=== PATIENT | female | born 1960 | race Caucasian/White ===

== ENCOUNTER → 2023-02-05 11:47 | Outpatient (BNVA) | payer BC, SELFPAY | PROVIDERS: Visit Provider Internal Medicine Pulmonary Disease | DX: R06.02 Shortness of breath (principal); Z87.891 Personal history of nicotine dependence | CPT/HCPCS: 36415; 80053; 83880; 85025 ==

== ENCOUNTER 2023-02-13 12:44 | Outpatient (CLI) | payer BC, SELFPAY ==
[2023-02-13 13:06] VITALS: PULSE 113; RESP 22; O2SAT 97
[2023-02-13 13:11] VITALS: PULSE 110
== END 2023-02-13 12:45 | disposition home or self-care (01) ==
LOC: RT 12:46
PROVIDERS: PCP Family Medicine; Visit Provider Internal Medicine Pulmonary Disease
DX: R06.02 Shortness of breath (principal)
CPT/HCPCS: 94060; 94618; 94729; J7613

== ENCOUNTER 2023-02-22 12:55 | Outpatient (CLI) | payer BC, SELFPAY ==
--- NOTE | 2023-02-22 13:00 | USCV_ITS ---
Lora Dsouza Age: 62 Gender: F : 1960 Exam Date: 02/22/2023 13:39 Ordering Phys: Mika Luna MD Technologist: Kia Campbell [place] [facility] [place]ication: SOB, COPD BP: 148 / 90 HR: 100 Rhythm: Sinus Technical Quality: Adequate MEASUREMENTS (Male / Female) Normal Values 2D ECHO LV Diastolic Diameter PLAX 2.9 cm 4.2 - 5.9 / 3.9 - 5.3 cm LV Systolic Diameter PLAX 2.3 cm IVS Diastolic Thickness 1.2 cm 0.6 - 1.0 / 0.6 - 0.9 cm IVS Systolic Thickness 1.9 cm LVPW Diastolic Thickness 3.2 cm 0.6 - 1.0 / 0.6 - 0.9 cm LVPW Systolic Thickness 1.8 cm LVOT Diameter 2.0 cm LV Ejection Fraction 2D Teich 80.0 % LA Diameter 2.3 cm LA Width 3.1 cm LA Height 3.0 cm RA Width 2.9 cm RA Height 2.7 cm Aorta at Sinotubular Diameter 2.9 cm IVC Diameter 1.2 cm M-MODE MV E Point Septal Separation 1.0 cm DOPPLER AV Peak Velocity 197.0 cm/s LVOT Peak Velocity 93.0 cm/s AV Area Cont Eq vti 1.8 cm squared AV Area Cont Eq pk 1.5 cm squared MV Peak Velocity 110.0 cm/s MV Area PHT 4.9 cm squared Mitral E to A Ratio 0.6 MV E' Velocity 37.0 cm/s Mitral E to MV E' Ratio 7.8 Mitral E to LV E' Lateral Ratio 8.6 Mitral E to LV E' Septal Ratio 7.2 TR Peak Velocity 100.2 cm/s TR Peak Gradient 4.0 mmHg Right Atrial Pressure 5.0 mmHg Pulmonary Artery Systolic Pressu 9.0 mmHg PV Peak Velocity 85.0 cm/s RV Acceleration Time 0.1 s RV Ejection Time 0.3 s RV AcT/ET 0.4 FINDINGS Left Ventricle Normal left ventricular size, systolic function and wall thickness, with no regional wall motion abnormalities. Left ventricular ejection fraction is estimated at 55 %. Grade I/IV diastolic dysfunction (abnormal relaxation filling pattern), normal to mildly elevated filling pressures. Right Ventricle Normal right ventricular size and systolic function. Normal right ventricular systolic pressure. Right Atrium The right atrium is normal in size. Left Atrium The left atrium is normal in size. Mitral Valve Structurally normal mitral valve without significant stenosis or prolapse. There is no mitral regurgitation. Aortic Valve Structurally normal aortic valve without significant sclerosis or stenosis. There is no aortic regurgitation. Tricuspid Valve Structurally normal tricuspid valve without significant stenosis or regurgitation. Pulmonary artery systolic pressure is normal. Pulmonic Valve Pulmonic valve not well visualized. Pericardium Normal pericardium without effusion. Aorta Normal ascending aorta dimension. IVC The inferior vena cava appears normal. CONCLUSIONS Normal left ventricular size, systolic function and wall thickness, with no regional wall motion abnormalities. Left ventricular ejection fraction is estimated at 55 %. Grade I/IV diastolic dysfunction (abnormal relaxation filling pattern), normal to mildly elevated filling pressures. There are no prior echocardiogram studies to compare. Dr. Toney Jacobson MD (Electronically Signed) Final Date: 22 February 2023 17:10 S
== END 2023-02-22 12:56 | disposition home or self-care (01) ==
LOC: RAD 12:57
PROVIDERS: PCP Family Medicine; Visit Provider Internal Medicine Pulmonary Disease
DX: R06.02 Shortness of breath (principal); J44.9 Chronic obstructive pulmonary disease, unspecified; I51.89 Other ill-defined heart diseases
CPT/HCPCS: 93306

== ENCOUNTER 2023-02-26 13:13 | Outpatient (CLI) | payer BC, SELFPAY ==
--- NOTE | 2023-02-26 13:30 | CT_ITS ---
WS: [id number] LDCT LUNG CANCER SCREENING TECHNIQUE: Noncontrast CT of the chest with coronal and sagittal reformatted images. CLINICAL INFORMATION: Cancer screen COMPARISON: None. DLP: 40.71 mGy.cm DIvol: Mean CTDIvol: 0.70 (mGy) All CT scans at [facility] use at least one of these dose optimization techniques: automat ed exposure control; mA and/or kV adjustment per patient size (includes targeted exams where dose is matched to clinical indication); or iterative reconstruction. FINDINGS: Tiny 3 mm nodule LEFT upper lobe anteriorly. Tiny calcified granuloma RIGHT lower lobe medi ally. Advanced chronic emphysematous changes. No acute pulmonary infiltrates. Slight bibasilar atelectasis. Aneurysmal ascending thoracic aorta measuring 4.2 CM. Normal caliber descending thoracic aorta. Mild aortic calcification. Mild coronary calcification. No axillary lymphadenopathy. Adrenal glands are n ormal. Chronic appearing anterior wedging with compression involving the T6 vertebral body. Loss of a pproximately 30% vertebral body height. No retropulsion. CT/CT lung screening [id number] IMPRESSION:Aneurysmal ascending thoracic aorta measuring 4.2 CM. This can be fu rther evaluated with CTa chest LUNG-RADS: 2S-Benign Appearance or Behavior with Significant Findings FOLLOW UP:
== END 2023-02-26 13:14 | disposition home or self-care (01) ==
PROVIDERS: PCP Family Medicine; Visit Provider Internal Medicine Pulmonary Disease
DX: Z12.2 Encounter for screening for malignant neoplasm of respiratory organs (principal); Z87.891 Personal history of nicotine dependence
CPT/HCPCS: 71271

== ENCOUNTER 2023-03-29 16:51 | Outpatient (CLI) | payer BC, SELFPAY ==
--- NOTE | 2023-03-29 17:15 | XR_ITS ---
WS: [id number] EXAMINATION: XR chest 2V* [id number] REASON FOR EXAM: sob COMPARISON: None available. ORDER DATE: 03/29/2023 5:15 PM FINDINGS: The lungs are clear of infiltrate. There is asymmetry in the suzanne with asymmetric prominence of the right hilum.. There are no significant pleural effusions . No significant abnormalities are noted in the spine or remainder of the bony thorax. IMPRESSION: ASYMMETRIC PROMINENCE OF THE RIGHT HILUM WITH NO PREVIOUS STUDIES AVAILABLE FOR COMPARISON, THIS RAIS ES THE POSSIBILITY OF HILAR NEOPLASM AND/OR ADENOPATHY. RECOMMEND OBTAINING PREVIOUS STUDIES FOR COMP ARISON OR CT IMAGING OF THE CHEST WITH CONTRAST TO FURTHER EVALUATE
== END 2023-03-29 16:52 | disposition home or self-care (01) ==
PROVIDERS: PCP Family Medicine; Visit Provider Internal Medicine Pulmonary Disease
DX: J44.9 Chronic obstructive pulmonary disease, unspecified (principal); J96.10 Chronic respiratory failure, unspecified whether with hypoxia or hypercapnia; R91.8 Other nonspecific abnormal finding of lung field
CPT/HCPCS: 71046

== ENCOUNTER 2023-04-24 14:40 | Outpatient (CLI) | payer BC, SELFPAY ==
--- NOTE | 2023-04-24 15:00 | CT_ITS ---
WS: [id number] CT chest wo con [id number] HISTORY: right hilar prominece TECHNIQUE: Axial imaging performed through the thorax. Coronal and sagittal reformats are submitted. All CT scans at [facility] use at least one of these dose optimization techniques: automated exposure control; mA and/or kV adjustment per patient size (includes targeted exams where dose is mat ched to clinical indication); or iterative reconstruction. CONTRAST: None DLP: 241.58 mGy.cm COMPARISON: Chest radiograph 03/29/2023. Prior CT 02/26/2023 Lungs and central airway: Moderate chronic centrilobular emphysema. Mild dependent changes or scarrin g at the lung bases. There are a few scattered micronodules which are less than 3 mm. No mass or pulm onary nodule. Pleura: Normal. No pleural effusion. Heart and pericardium: Normal size heart with no pericardial effusion. Mediastinum and suzanne: Small mediastinal and hilar lymph nodes. Lack of IV contrast decreases sensitiv ity of the hilar and mediastinal regions for abnormalities. No interval change since 02/26/2023. Vessels: Ectatic mildly dilated ascending aorta to 4.2 cm. Normal caliber descending aorta. Pulmonary artery size is mildly prominent. Scattered mild coronary artery calcifications. Chest wall and lower neck: No soft tissue masses. Upper abdomen: No adrenal mass. Contracted gallbladder. Cholelithiasis. Osseous structures: Anterior wedging of T6. 20% compression fracture. Similar to 02/26/2023. IMPRESSION: 1. No mass or adenopathy identified at the RIGHT hilum on this unenhanced exam. Lack of IV contrast d oes limit sensitivity for small masses or lymph nodes. 2. Chronic emphysema. 3. Ascending thoracic aortic aneurysm at 4.2 cm.
== END 2023-04-24 14:41 | disposition home or self-care (01) ==
LOC: RAD 14:41
PROVIDERS: PCP Family Medicine; Visit Provider Internal Medicine Pulmonary Disease
DX: R91.8 Other nonspecific abnormal finding of lung field (principal); J43.9 Emphysema, unspecified; I71.21 Aneurysm of the ascending aorta, without rupture
CPT/HCPCS: 71250

== ENCOUNTER → 2023-10-16 14:43 | Outpatient (BNVA) | payer BC, SELFPAY | PROVIDERS: PCP Family Medicine; Visit Provider Nurse Practitioner Family | DX: J06.9 Acute upper respiratory infection, unspecified (principal) | CPT/HCPCS: 87400 ==

== ENCOUNTER 2024-01-03 16:48 | Inpatient (IN) | payer BC, SELFPAY ==
[2024-01-03] VITALS (7 sets, daily range): BP systolic 115–139; BP diastolic 70–80; PULSE 106–121; RESP 18–28; TEMP 36.8–37.1; O2SAT 89–95; BMI 22.3
--- NOTE | 2024-01-03 16:59 | ECG_ITS ---
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 Measurements Intervals [place] Rate: 122 P: 70 NM: 139 QRS: 89 QRSD: 85 T: 60 QT: 298 QTc: 426 Interpretive Statements SINUS TACHYCARDIA No previous ECG available for comparison Electronically Signed On 01-04-2024 12:34:26 CDT by Milton Sen M.D. [email or web address]
--- NOTE | 2024-01-03 16:59 | XRR_ITS ---
PROCEDURE INFORMATION: Exam: XR Chest Exam date and time: 01/03/2024 5:04 PM Age: 63 years old Clinical indication: Shortness of breath; Patient HX: Patient has copd. ; Additional info: SOB TECHNIQUE: Imaging protocol: Radiologic exam of the chest. Views: 1 view. COMPARISON: CT chest [facility] [id number] 04/24/2023 3:19 PM FINDINGS: Lungs: No focal consolidation. Pleural spaces: No pleural effusion. No pneumothorax. Heart/Mediastinum: No cardiomegaly. Bones/joints: No acute findings. XR/XR chest 1V portable [id number] IMPRESSION: No acute findings.
[2024-01-03 17:11] LABS: Basophils % 0.4 %; Eosinophils # 0.2 10^3/uL (0.0-0.8); Eosinophils % 1.6 %; Hematocrit 41.7 % (36-47); Lymphocytes # 0.9 10^3/uL (0.8-4.8); Lymphocytes % 8.3 %; Mean Corpuscular HGB Conc 27.3 g/dL (30-55); Mean Corpuscular Hemoglobin 23.4 pg (27-33); Mean Corpuscular Volume 85.5 fl (85-98); Mean Platelet Volume 11.5 fL (7.4-10.4); Monocytes # 0.8 10^3/uL (0.2-0.9); Monocytes % 7.2 %; Neutrophils # 8.71 10^3/uL (1.8-7.7); Neutrophils % 79.8 %; Nucleated Red Blood Cells % 0 %; Platelet Count 486 10^3/cmm (157-399); Red Blood Count 4.88 10^6/uL (3.85-5.65); Red Cell Distribution Width 18.4 % (12.1-15.1); White Blood Count 10.89 10^3/uL (3.29-11.43)
--- NOTE | 2024-01-03 17:14 | ED_ITS ---
HPI - SOB/Dyspnea 2 General: Chief Complaint: Shortness of Breath/Dyspnea Stated Complaint: sob Time Seen by Provider: 01/03/24 17:03 Source: patient and EMS Mode of arrival: EMS Limitations: no limitations History of Present Illness: HPI Narrative: 63-year-old female has extensive history of COPD states she wears 3 L of oxygen at baseline she states she is having increasing shortness of breath the last 3 days EMS states she is hypoxic she is currently on 6 L of oxygen here she denies any new cough or fever denies any pain. She is in distress here. Associated symptoms: Deny abdominal pain, chest pain, fever(s), nausea or vomiting Review of Systems 2 Const: Denies: fever(s), chills, body aches or change in appetite ENMT: Denies: throat pain or dental pain Card: Denies: chest pain Resp: Reports: dyspnea and wheezing GI: Denies: abdominal pain, nausea, vomiting or diarrhea Musc: Denies: neck pain or back pain Skin/Breast: Denies: rash Neuro: Denies: headache(s) PFSH ED 2 PFSH: Medical History GERD (gastroesophageal reflux disease) Essential hypertension Anxiety Hypertension Insomnia COPD (chronic obstructive pulmonary disease) Surgical History History of History of tonsillectomy Family History Other Dementia Stroke Denies family history of Diabetes CAD (coronary artery disease) Clotting disorder Hyperlipidemia Psychiatric illness Chronic kidney disease (CKD) Anesthesia complication Bleeding disorder Lung disease Cancer Hypertension Social History Smoking and tobacco/nicotine status: former use of tobacco/nicotine Quit status (tobacco/nicotine): has quit using Year quit tobacco: 2020 Former quit date comment: 1 ppd X 40 years Second hand smoke exposure: Yes Alcohol intake: current Alcohol intake frequency: holidays/special occasions only Alcohol type: beer Substance/Drug Use: never Marital status: Number of children: 5 Number of grandchildren: 9 service: No Current occupational status: disabled Current occupational exposures/hazards: No Pets and animals: Yes Current gender identity: Female Physical Exam 2 Const: COMMON NORMALS: patient oriented x3 GENERAL APPEARANCE: in distress HENMT: COMMON NORMALS: normocephalic and atraumatic HEAD & SCALP: n ormocephalic and atraumatic Eye: COMMON NORMALS: Equal, round and reactive pupils present and EOMs intact bilaterally PUPIL: Yes Equal, round and reactive pupils present Neck/C-Spine: COMMON NORMALS: full ROM and supple Chest: COMMONS NORMALS: normal inspection of the chest Resp: COMMON NORMALS: No retractions EFFORT & INSPECTION: Yes tachypneic and Yes respiratory distress AUSCULTATION: wheezes Cardio: COMMON NORMALS: regular rhythm and No murmurs present (Cardio) R ATE: tachycardic RHYTHM: regular rhythm GI: COMMON NORMALS: Normal to inspection, nondistended, normoactive bowel sounds present, Soft to palpation, non-tender and no masses PALPATION: Yes Soft to palpation Extremity: COMMON NORMALS: normal to inspection and full ROM Neuro: COMMON NORMALS: patient oriented x3, moves all extremities and no focal motor deficits Psych: COMMON NORMALS: mental status grossly normal, Normal thought process present and cooperative THOUGHT PROCESS: Normal thought process present Skin: COMMON NORMALS: no rashes or lesions noted and no wounds GENERAL SKIN EXAM: no rashes or lesions noted Course 2 Vital Signs: Vital signs: Vital Signs Temperature 98.7 F 01/03/24 16:50 Pulse Rate 121 H 01/03/24 17:01 Respiratory Rate 20 H 01/03/24 17:01 Blood Pressure 132/78 01/03/24 17:01 Pulse Oximetry 93 01/03/24 17:40 Oxygen Delivery Me thod Nasal Cannula 01/03/24 17:01 Oxygen Flow Rate 6 01/03/24 17:01 Fraction of Inspir ed Oxygen 40 01/03/24 17:40 MDM - SOB/Dyspnea Medical Decision Making Patient presents here with a COPD exacerbation. She was hypercapnic and hypoxic here she was started on a BiPAP she is much improved here on BiPAP she is receiving breathing treatments along with steroids as well. X-ray shows no signs of pneumonia spoke to the hospitalist will admit at this time. Medical Records I reviewed the patient's medical records. Lab Data I reviewed the patient's lab results. 01/03/24 16:35 01/03/24 17:39 Labs/Radiology: Radiology Impressions Chest X-Ray 01/03/24 16:59 IMPRESSION: No acute findings. Laboratory Results WBC 10.89 10^3/uL (3.29-11.43) 01/03/24 16:35 RBC 4.88 10^6/uL (3.85-5.65) 01/03/24 16:35 Hgb 11.40 g/dL (11.27-16.99) 01/03/24 16:35 Hct 41.7 % (36-47) 01/03/24 16:35 MCV 85.5 fl (85-98) 01/03/24 16:35 MCH 23.4 pg (27-33) L 01/03/24 16:35 MCHC 27.3 g/dL (30-55) L 01/03/24 16:35 RDW 18.4 % (12.1-15.1) H 01/03/24 16:35 Plt Count 486 10^3/cmm (157-399) H 01/03/24 16:35 MPV 11.5 fL (7.4-10.4) H 01/03/24 16:35 Neut % (Auto) 79.8 % 01/03/24 16:35 Lymph % (Auto) 8.3 % 01/03/24 16:35 [place] % (Auto) 7.2 % 01/03/24 16:35 Eos % (Auto) 1.6 % 01/03/24 16:35 Baso % (Auto) 0.4 % 01/03/24 16:35 Neut # (Auto) 8.71 10^3/uL (1.8-7.7) H 01/03/24 16:35 Lymph # (Auto) 0.9 10^3/uL (0.8-4.8) 01/03/24 16:35 [place] # (Auto) 0.8 10^3/uL (0.2-0.9) 01/03/24 16:35 Eos # (Auto) 0.2 10^3/uL (0.0-0.8) 01/03/24 16:35 Baso # (Auto) 0.0 10^3/uL (0.0-0.1) 01/03/24 16:35 Nucleated RBC % (auto) 0 % 01/03/24 16:35 Nucleated RBCs # 0.0 /100WBC 01/03/24 16:35 PT 12.60 SECONDS (12.1-14.9) 01/03/24 17:39 INR 0.92 (0.8-1.2) 01/03/24 17:39 Specimen Type Arterial 01/03/24 17:12 Sample Site Brachial, left 01/03/24 17:12 ABG pH 7.24 (7.35-7.45) L 01/03/24 17:12 ABG pCO2 109.0 mmHg (35-45) H* 01/03/24 17:12 ABG pO2 72.8 mmHg (80.0-100.0) L 01/03/24 17:12 ABG PO2/FiO2 Ratio 0 01/03/24 17:12 ABG HCO3 46.2 mmol/L (22-26) H 01/03/24 17:12 ABG Base Excess 14.5 mmol/L (-2.0-2.0) H 01/03/24 17:12 Erik Test N/a 01/03/24 17:12 Hematocrit 35.7 % (37-47) L 01/03/24 17:12 Hgb O2 Saturation 90.5 % (95-100) L 01/03/24 17:12 Carboxyhemoglobin 2.5 %THgb (0.4-20.1) 01/03/24 17:12 Methemoglobin 0.6 % (0.4-1.5) 01/03/24 17:12 Total Hemoglobin 11.7 g/dL (12-16) L 01/03/24 17:12 O2 Delivery Device Nc 01/03/24 17:12 O2 Liters/Min 5.0 % 01/03/24 17:12 FiO2 40.0 % 01/03/24 17:12 Consultant Electronics ID Amh 01/03/24 17:12 Sodium 142 mmol/L (136-145) 01/03/24 17:39 Potassium 3.9 mmol/L (3.5-5.1) 01/03/24 17:39 Chloride 95 mmol/L (98-107) L 01/03/24 17:39 Carbon Dioxide 44 mmol/L (22-29) H* 01/03/24 17:39 Anion Gap 6.9 (5-19) 01/03/24 17:39 BUN 12 mg/dL (8-23) 01/03/24 17:39 Creatinine 0.5 mg/dL (0.5-0.9) 01/03/24 17:39 GFR Calculation 125.0 mL/min (90-130) 01/03/24 17:39 Glucose 130 mg/dL (65-115) H 01/03/24 17:39 Calculated Osmolality 296 mOsm/kg (285-295) H 01/03/24 17:39 Calcium 9.0 mg/dL (8.5-10.5) 01/03/24 17:39 Total Bilirubin 0.2 mg/dL (0.15-1.2) 01/03/24 17:39 AST 25 U/L (0-32) 01/03/24 17:39 ALT 12 U/L (0-33) 01/03/24 17:39 Alkaline Phosphatase 80 U/L (35-105) 01/03/24 17:39 NT-Pro-B Natriuret Pep 1795 pg/mL (0-125) H 01/03/24 17:39 Total Protein 7.6 g/dL (6.6-8.7) 01/03/24 17:39 Albumin 3.9 g/dL (3.5-5.2) 01/03/24 17:39 Globulin 3.7 g/dL (1.3-4.6) 01/03/24 17:39 All radiology interpretation(s) finalized by discharge Critical Care Time 2 Critical Care Time: Critical Care Time: Yes Total Critical Care Time: 40 Attestation: The high probability of a clinically significant, sudden or life threatening deterioration of the patient's resp system(s) required my full and direct attention, intervention and personal management. The critical care time is as shown. This time is in addition to time spent performing any reported procedures but includes the following: [x] Data and vital sign review and interpretation [x] Patient assessment, examination and intervention [x] Documentation [x] Medication orders and management Discharge Plan Discharge Patient Disposition: Admitted As Inpatient Admit Provider: Fritz Curry Clinical Impression: Acute exacerbation of chronic obstructive airways disease, Acute respiratory failure with hypoxia and hypercapnia Condition: Stable Coding Level of Care Code ED Junior Accountant for Umesh Salmon
[2024-01-03 17:23] LABS: ABG PH Result 7.24 (7.35-7.45); Arterial Blood Gas Hematocrit 35.7 % (37-47); Base Excess ABG 14.5 mmol/L (-2.0-2.0); Blood Gas Operator Identificat AMH; Blood Gas Sample Site Brachial, left; Blood Gas Sample Type Arterial; Carboxyhemoglobin 2.5 %THgb (0.4-20.1); HCO3 ABG 46.2 mmol/L (22-26); HGB O2 Sat 90.5 % (95-100); Methemoglobin 0.6 % (0.4-1.5); Oxygen Device NC; PO2 ABG 72.8 mmHg (80.0-100.0); PO2 FiO2 Ratio Arterial Blood 0; Total Hemoglobin 11.7 g/dL (12-16)
[2024-01-03 17:59] LABS: INR 0.92 (0.8-1.2)
[2024-01-03 18:17] LABS: Alanine Aminotransferase 12 U/L (0-33); Albumin Level 3.9 g/dL (3.5-5.2); Alkaline Phosphatase 80 U/L (35-105); Anion Gap 6.9 (5-19); Aspartate Amino Transferase 25 U/L (0-32); Blood Urea Nitrogen 12 mg/dL (8-23); Chloride 95 mmol/L (98-107); Creatinine Clr Calc Pharmacy 103.8825; Globulin 3.7 g/dL (1.3-4.6); Glucose 130 mg/dL (65-115); NT Pro B Type Natriuretic Pept 1795 pg/mL (0-125); Osmolality Calculated 296 mOsm/kg (285-295); Potassium 3.9 mmol/L (3.5-5.1); Sodium 142 mmol/L (136-145); Total Bilirubin 0.2 mg/dL (0.15-1.2); Total Protein 7.6 g/dL (6.6-8.7)
[2024-01-03 18:45] LABS: Carbon Dioxide 44 mmol/L (22-29)
--- NOTE | 2024-01-03 21:07 | P.HP_ITS ---
Providers/Chief Complaint 2 Admitting Physician: Fritz Curry MD Primary Care Provider: Zoran Stern MD Chief Complaint: sob History of Present Illness Pleasant 63-year-old lady with history of COPD, chronically on 3 L nasal cannula oxygen is accompanied by her after coming in to the ER with progressive shortness of breath over the last 3 days, with more dyspnea, cough productive of purulent appearing of beige sputum, found to be in worsened hypoxia, requiring 6 L of oxygen initially, was found to be in hypercapnic respiratory acidosis on ABG, started on BiPAP. Review of Systems 2 Const: Denies: fever(s), chills, body aches or malaise ENMT: Denies: throat pain Card: Denies: chest pain, edema, pre-syncope or dyspnea on exertion Resp: Reports: dyspnea, productive cough and change in phlegm color GI: Denies: abdominal pain, nausea, vomiting, diarrhea, constipation, hematochezia or melena : Denies: flank pain, urinary frequency or hematuria Musc: Denies: back pain, joint swelling or joint redness Skin/Breast: Denies: rash or new lesions Neuro: Denies: headache(s), numbness in extremities, weakness in extremities or confusion Endo: Denies: polyuria or polydipsia Medications/Allergies Home Medications Medication Instructions Recorded Confirmed Last Taken Type albuterol sulfate 2.5 mg/3 mL 2.5 mg inhalation Q4H PRN 02/05/23 11/22/23 Unknown History (0.083 %) solution for nebulization ibuprofen 400 mg tablet 400 mg PO Q6H 02/05/23 11/22/23 Unknown History sennosides 8.6 mg-docusate sodium 1 tab-cap PO BID PRN 02/05/23 11/22/23 Unknown History 50 mg capsule wheelchair #1 ea 04/10/23 11/22/23 Unknown Rx megestrol 400 mg/10 mL (10 mL) 200 mg (5 mL) PO DAILY 30 days 05/23/23 11/22/23 Unknown Rx oral suspension #1,000 mL fluticasone 500 mcg-salmeterol 50 See Rx Instructions .Route 08/16/23 11/22/23 Unknown Rx mcg/dose blistr powdr for .COMPLEX #60 blisters inhalation pantoprazole 40 mg tablet,delayed 40 mg PO DAILY #90 tabs 08/16/23 11/22/23 Unknown Rx release (Protonix) albuterol sulfate 90 mcg/actuation See Rx Instructions .Route 09/13/23 11/22/23 Unknown Rx aerosol inhaler .COMPLEX #8.5 grams prednisone 20 mg tablet 40 mg (2 x 20 mg) PO DAILY 5 days 10/16/23 11/22/23 Unknown Rx #10 tabs tiotropium bromide 2.5 2 puff inhalation DAILY #4 grams 10/29/23 11/22/23 Unknown Rx mcg/actuation mist for inhalation (Spiriva Respimat) fluticasone propionate 50 See Rx Instructions .Route 11/15/23 11/22/23 Unknown Rx mcg/actuation nasal .COMPLEX #48 grams spray,suspension lisinopril 20 mg tablet (Zestril) 20 mg PO DAILY #90 tabs 11/19/23 11/22/23 Unknown Rx ropinirole 0.5 mg tablet 0.5 mg PO DAILY #90 tabs 11/19/23 11/22/23 Unknown Rx sertraline 50 mg tablet (Zoloft) 50 mg PO DAILY #90 tabs 11/19/23 11/22/23 Unknown Rx trazodone 50 mg tablet See Rx Instructions .Route 11/19/23 11/22/23 Unknown Rx .COMPLEX #90 tabs fluticasone furoate 200 1 inh inhalation Q24H #60 ea 11/22/23 11/22/23 Unknown Rx mcg-vilanterol 25 mcg/dose inhalation powder (Breo Ellipta) Home oxygen concentrator #1 ea 12/27/23 Unknown Rx Portable oxygen concentrator #1 ea 12/27/23 Unknown Rx oxygen tubing and mask equipment #1 ea 12/27/23 Unknown Rx Allergies Allergy/AdvReac Type Severity Reaction Status Date / Time No Known Allergies Allergy Verified 11/22/23 13:47 PFSH Acute 2 PFSH: Medical History GERD (gastroesophageal reflux disease) Essential hypertension Anxiety Hypertension Insomnia COPD (chronic obstructive pulmonary disease) Surgical History History of History of tonsillectomy Family History Other Dementia Stroke Denies family history of Diabetes CAD (coronary artery disease) Clotting disorder Hyperlipidemia Psychiatric illness Chronic kidney disease (CKD) Anesthesia complication Bleeding disorder Lung disease Cancer Hypertension Social History Smoking and tobacco/nicotine status: former use of tobacco/nicotine Quit status (tobacco/nicotine): has quit using Year quit tobacco: 2019 Former quit date comment: 1 ppd X 40 years Second hand smoke exposure: Yes Alcohol intake: current Alcohol intake frequency: holidays/special occasions only Alcohol type: beer Substance/Drug Use: never Marital status: Number of children: 5 Number of grandchildren: 9 service: No Current occupational status: disabled Current occupational exposures/hazards: No Pets and animals: Yes Current gender identity: Female Vitals/I&O/Wt Last Vital Signs Temp 98.7 F 01/03/24 16:50 Pulse 106 H 01/03/24 19:44 Resp 22 H 01/03/24 19:44 BP 139/80 01/03/24 19:44 Pulse Ox 91 01/03/24 19:44 O2 Del Method Nasal Cannula 01/03/24 17:01 O2 Flow Rate 6 01/03/24 17:01 FiO2 40 01/03/24 17:40 Weight last 48 hrs Weight 58.967 kg Physical Exam 2 Narrative: Accompanied by her . Const: COMMON NORMALS: patient oriented x3 and alert GENERAL APPEARANCE: c ooperative ORIENTATION/CONSCIOUSNESS: Yes awake HENMT: COMMON NORMALS: oropharynx normal Neck/C-Spine: COMMON NORMALS: no JVD Resp: AUSCULTATION: diminished lung sounds Cardio: COMMON NORMALS: no JVD, regular rhythm, S1 normal heart sound present, S2 normal heart sound present and No murmurs present (Cardio) RHYTHM: regular rhythm HEART SOUNDS: S1 normal heart sound present and S2 normal heart sound present GI: COMMON NORMALS: Normal to inspection, nondistended, normoactive bowel sounds present, Soft to palpation and non-tender PALPATION: Yes Soft to palpation Extremity: COMMON NORMALS: no joint enlargement and no pedal edema Neuro: COMMON NORMALS: patient oriented x3 and moves all extremities S ENSORIUM/ORIENTATION: Yes alert Skin: COMMON NORMALS: no rashes or lesions noted GENERAL SKIN EXAM: no rashes or lesions noted Data 01/03/24 16:35 01/03/24 17:39 A&P Assessment and plan (1) Acute exacerbation of chronic obstructive airways disease: Giurgius additionally, productive cough with purulent appearing sputum, worse hypoxia than usual requiring 6 L, and with hypercapnic respiratory acidosis, hypoxic and hypercapnic respiratory failure with severe exacerbation of COPD. Reviewed vitals, CBC, INR, ABG, CMP, chest x-ray, EKG on my interpretation with sinus tachycardia, pending official read, reviewed ER note, discussed with daytime hospitalist. Discussed with respite therapist. Continue BiPAP support 8- to prevent overnight. Target oxygen saturation 80 and further hypercapnia. Discussed treatment with IV steroids, antibiotic, add Rocephin 1 g every 24 hours, breathing treatments. Monitor for risk of hyperglycemia, hypertension with IV steroids. Risk of tachycardia with breathing treatments. Continuous pulse oximetry with BiPAP. Sputum culture, urine bacterial antigens. Respiratory viral panel. (2) Acute respiratory failure with hypoxia and hypercapnia: As above. Plan GERD: Continue PPI HTN: Monitor blood pressures, cardiac diet. Confirm home medications. Anxiety Insomnia Requesting to confirm home medications, please review and resume as appropriate. Attestations 2 Medical Necessity Statement*: Admission over 2 midnights anticipated for assessment and management of severe exacerbation of COPD with hypercapnic and hypoxic respiratory failure. Diagnoses Acute exacerbation of chronic obstructive airways disease J44.1 Acute respiratory failure with hypoxia and hypercapnia J96.01; J96.02
[2024-01-03] MEDS: trazodone 50 mg Tablet PO (21:39)
[2024-01-03] MEDS: cefTRIAXone 1,000 MG in sodium chloride 0.9% (plus) 50 ML 100 MG IV (21:39)
[2024-01-03] MEDS: methylPREDNISolone sod succ 40 mg/mL INJ 30 MG IVP (21:41)
[2024-01-04] VITALS (23 sets, daily range): BP systolic 119–144; BP diastolic 64–82; PULSE 89–116; RESP 16–27; TEMP 36.4–36.8; O2SAT 74–97
[2024-01-04] MEDS: ipratropium-albuterol 3 mL Neb INHALATION ×7 (00:02→23:30)
[2024-01-04 02:00] LABS: Adenovirus Not Detected (NOT DETECT); Chlamydia Pneumoniae Not Detected (NOT DETECT); Coronavirus 229E,HKU1,NL63,OC4 Not Detected (NOT DETECT); Human Metapneumovirus Not Detected (NOT DETECT); Human Rhinovirus/Enterovirus Not Detected (NOT DETECT); Influenza A Not Detected (NOT DETECT); Influenza A H1 Not Detected (NOT DETECT); Influenza A H1-2009 Not Detected (NOT DETECT); Influenza A H3 Not Detected (NOT DETECT); Influenza B Not Detected (NOT DETECT); Mycoplasma Pneumoniae Not Detected (NOT DETECT); Parainfluenza Virus Type 1 Not Detected (NOT DETECT); Parainfluenza Virus Type 2 Not Detected (NOT DETECT); Parainfluenza Virus Type 3 Not Detected (NOT DETECT); Parainfluenza Virus Type 4 Not Detected (NOT DETECT); Respiratory Syncytial Virus A Not Detected (NOT DETECT); Respiratory Syncytial Virus B Not Detected (NOT DETECT); SARS-COV-2 Not Detected (NOT DETECT)
[2024-01-04] MEDS: methylPREDNISolone sod succ 40 mg/mL INJ 30 MG IVP (02:47)
[2024-01-04 05:13] LABS: Basophils % 0.4 %; Hematocrit 42.3 % (36-47); Lymphocytes # 0.4 10^3/uL (0.8-4.8); Lymphocytes % 3.6 %; Mean Corpuscular HGB Conc 26.7 g/dL (30-55); Mean Corpuscular Hemoglobin 22.6 pg (27-33); Mean Corpuscular Volume 84.4 fl (85-98); Mean Platelet Volume 11.6 fL (7.4-10.4); Monocytes # 0.1 10^3/uL (0.2-0.9); Monocytes % 0.7 %; Neutrophils # 9.59 10^3/uL (1.8-7.7); Neutrophils % 89.2 %; Nucleated Red Blood Cells % 0 %; Platelet Count 513 10^3/cmm (157-399); Red Blood Count 5.01 10^6/uL (3.85-5.65); Red Cell Distribution Width 18.1 % (12.1-15.1); White Blood Count 10.74 10^3/uL (3.29-11.43)
[2024-01-04 05:31] LABS: Anion Gap 8.5 (5-19); Blood Urea Nitrogen 11 mg/dL (8-23); Calcium 9.1 mg/dL (8.5-10.5); Chloride 92 mmol/L (98-107); Glomerular Filtration Rate 225.4 mL/min (90-130); Glucose 162 mg/dL (65-115); Osmolality Calculated 291 mOsm/kg (285-295); Potassium 4.5 mmol/L (3.5-5.1); Sodium 139 mmol/L (136-145)
[2024-01-04 05:59] LABS: Creatinine Clr Calc Pharmacy 159.7155
[2024-01-04 06:00] LABS: Carbon Dioxide 43 mmol/L (22-29)
[2024-01-04 06:14] LABS: Slide Review Slide Review Perform
[2024-01-04] MEDS: methylPREDNISolone sod succ 40 mg/mL INJ 60 MG IVP ×3 (08:45→20:07)
--- NOTE | 2024-01-04 09:11 | PC.CHAP ---
Pastoral Care Encounter/Spiritual Assessment Type of Contact [x] Declined casing tier visit [] Patient/Family/Request visit [] Outpatient visit [] Follow-up visit [] Physician referral [] Code/Alert [] Routine visit [] Staff referral [] Actively dying [] Patient sleeping [] Family support [] [] Out of room [] Palliative care [] [] Receiving care in room [] Pre-surgical visit [] Trauma [] Long length of stay [] ICU visit [] Other: Relational/Emotional Strength [] Patient feels connected with others/family/visitors/staff [] Distress [] Loneliness/isolation [] Abandonment Spirituality of Patient [] Person of Radha [] Attends Restoration of their Radha [] Believes in Prayer [] Reads Bible or Uatsdin materials [] There are Spiritual issues to be addressed Professor Of Psychiatry Interventions [] Prayer [] Active listening [] Non-anxious presence [] Spiritual/emotional support [] Crisis/trauma care [] Spiritual counseling [] Bereavement support [] Provided bereavement packet [] Provided Bible/devotional materials [] Provided toy/stuffed animal, coloring book to patient or family member [] Provided Communion [] Anointing/[place] [] Salvation [] Completed spiritual assessment [] Other: Impact on Illness or Injury [] Angry [] Fearful [] Anxious [] Often cries [] Exhaustion [] Unable to work [] Unable to attend anglican [] Unable to walk/stand [] Unable to read [] Unable to drive [] Unable to eat/drink [] Unable to sleep [] Unable to be with family [] Patient intubated [] Other: Summary Time spent with patient
[2024-01-04 11:05] LABS: ABG PH Result 7.29 (7.35-7.45); Alveolar-Arterial Oxygen Gradi 9.1 mmHg (5-10); Arterial Blood Gas Hematocrit 34.9 % (37-47); Base Excess ABG 15.2 mmol/L (-2.0-2.0); Blood Gas Operator Identificat glc; Blood Gas Sample Site Brachial, right; Blood Gas Sample Type Arterial; Carboxyhemoglobin 1.9 %THgb (0.4-20.1); HCO3 ABG 45.6 mmol/L (22-26); HGB O2 Sat 92.3 % (95-100); Ionized Calcium Level - ABG 1.3 mmol/L (1.1-1.4); Methemoglobin 0.4 % (0.4-1.5); Oxygen Device NC; Oxygen Saturation ABG 94.6; PO2 ABG 74.7 mmHg (80.0-100.0); PO2 FiO2 Ratio Arterial Blood 0; Potassium Level - ABG 3.7 mmol/L (3.5-5.0); Total Hemoglobin 11.4 g/dL (12-16)
[2024-01-04 11:17] LABS: ABG PCO2 95.2 mmHg (35-45)
[2024-01-04 15:50] LABS: ABG PH Result 7.37 (7.35-7.45); Alveolar-Arterial Oxygen Gradi 10.6 mmHg (5-10); Arterial Blood Gas Hematocrit 34.7 % (37-47); Base Excess ABG 18.9 mmol/L (-2.0-2.0); Blood Gas Operator Identificat glc; Blood Gas Sample Site Brachial, left; Blood Gas Sample Type Arterial; HCO3 ABG 48.1 mmol/L (22-26); HGB O2 Sat 89.9 % (95-100); Ionized Calcium Level - ABG 1.2 mmol/L (1.1-1.4); Methemoglobin 0.1 % (0.4-1.5); Oxygen Device BIPAP; Oxygen Saturation ABG 91.8; PO2 FiO2 Ratio Arterial Blood 0; Total Hemoglobin 11.3 g/dL (12-16)
--- NOTE | 2024-01-04 15:51 | P.PN_ITS ---
Subjective 2 Subjective: Seen and examined this afternoon. Patient continues to be on BiPAP. This morning pH was 7.29/95.2/74.7/45.6. Since then patient has been on continuous BiPAP. We are repeating a blood gas now to look for interim development. Patient is alert awake, able to have a conversation though does get pretty tachypneic in conversation. Medications: Reviewed: Yes Vitals/I&O/Wt Last Vital Signs Temp 97.8 F 01/04/24 11:32 Pulse 107 H 01/04/24 15:34 Resp 21 H 01/04/24 11:34 BP 119/71 01/04/24 11:32 Pulse Ox 91 01/04/24 15:34 O2 Del Method BiPAP 01/04/24 11:34 O2 Flow Rate 6 01/04/24 08:50 FiO2 36 01/04/24 15:34 01/04/24 01/04/24 01/04/24 06:59 14:59 22:59 Intake Total 240 / 290 720 / 720 Balance 240 / 290 720 / 720 Weight last 48 hrs Weight 48.035 kg Weight 48.035 kg Weight 44.452 kg Weight 58.967 kg Physical Exam 2 Narrative: General: Easily gets tachypneic in conversation. Currently on a BiPAP with facemask. HEENT: PERRLA, pupils bilaterally equal and reactive, pallors not present Chest: Conducted breath sounds Extremities: No edema clubbing or cyanosis Data 01/04/24 04:47 01/04/24 04:47 Micro: Microbiology 01/04/24 09:40 Gram Stain - Final Sputum - Expectorated Sputum 01/04/24 04:10 Legionella Urinary Antigen - Final Urine,Voided Bacterial Antigens - Final A&P Assessment and plan (1) Acute exacerbation of chronic obstructive airways disease: Acute on chronic COPD exacerbation. Patient is typically on 3 L/min supplemental O2. She has had COPD exacerbation before necessitating continuous BiPAP use. reports she was in the hospital for 11 days at that time. Has not been intubated before. Negative respiratory viral panel, chest x-ray without acute findings. Continue methylprednisolone 60 mg IV every 6 hours Continue duoneb q6h, add budesonide q12h empiric CTX to continue It appears patient was on hospice at some point in the past however this was discontinued due to clinical improvement. (2) Acute respiratory failure with hypoxia and hypercapnia: On Bipap/ AVAPS setting continue Bipap Serial C02 trending down , continue Bipap Plan DVT prophylaxis: Lovenox 40 mg PUD prophylaxis: Protonix. Attestations 2 Medical Necessity Statement*: Continued admission for hypercapnic respiratory failure needing continuous BiPAP. Coding Level of Care Code Acute Code for Chg Fwd High MDM includes number and complexity of problems actively addressed during encounter, amount and/or complexity of data reviewed/ordered and described risk of complication, morbidity or mortality of management as documented Diagnoses Acute exacerbation of chronic obstructive airways disease J44.1 Acute respiratory failure with hypoxia and hypercapnia J96.01; J96.02
[2024-01-04 16:15] LABS: ABG PCO2 83.9 mmHg (35-45)
[2024-01-04] MEDS: budesonide 0.5 mg/2 mL Neb INHALATION (20:20)
[2024-01-04 20:35] LABS: ABG PH Result 7.36 (7.35-7.45); Arterial Blood Gas Hematocrit 35.3 % (37-47); Base Excess ABG 17.8 mmol/L (-2.0-2.0); Blood Gas Sample Site Brachial, right; Blood Gas Sample Type Arterial; HCO3 ABG 47.1 mmol/L (22-26); Oxygen Device BIPAP; PO2 ABG 57.7 mmHg (80.0-100.0); PO2 FiO2 Ratio Arterial Blood 0
[2024-01-04 20:36] LABS: ABG PCO2 83.9 mmHg (35-45)
[2024-01-04] MEDS: trazodone 50 mg Tablet PO (21:22)
[2024-01-04] MEDS: cefTRIAXone 1,000 MG in sodium chloride 0.9% (plus) 50 ML 100 MG IV (21:32)
[2024-01-05] VITALS (15 sets, daily range): BP systolic 124–157; BP diastolic 72–87; PULSE 92–115; RESP 16–32; TEMP 36.5–36.7; O2SAT 92–97
[2024-01-05] MEDS: ipratropium-albuterol 3 mL Neb INHALATION ×6 (04:29→23:35)
[2024-01-05] MEDS: methylPREDNISolone sod succ 40 mg/mL INJ 60 MG IVP ×3 (05:43→23:58)
[2024-01-05 06:39] LABS: Basophils # 0.1 10^3/uL (0.0-0.1); Basophils % 0.3 %; Hematocrit 43.9 % (36-47); Lymphocytes # 0.7 10^3/uL (0.8-4.8); Lymphocytes % 3.9 %; Mean Corpuscular HGB Conc 27.3 g/dL (30-55); Mean Corpuscular Hemoglobin 22.7 pg (27-33); Mean Platelet Volume 10.4 fL (7.4-10.4); Monocytes % 5.6 %; Neutrophils # 15.65 10^3/uL (1.8-7.7); Neutrophils % 87.7 %; Nucleated Red Blood Cells % 0 %; Platelet Count 611 10^3/cmm (157-399); Red Blood Count 5.29 10^6/uL (3.85-5.65); Red Cell Distribution Width 18.6 % (12.1-15.1); White Blood Count 17.85 10^3/uL (3.29-11.43)
[2024-01-05 07:00] LABS: Anion Gap 11.2 (5-19); Blood Urea Nitrogen 10 mg/dL (8-23); Calcium 9.6 mg/dL (8.5-10.5); Chloride 89 mmol/L (98-107); Glomerular Filtration Rate 161.7 mL/min (90-130); Glucose 160 mg/dL (65-115); Osmolality Calculated 290 mOsm/kg (285-295); Potassium 4.2 mmol/L (3.5-5.1); Sodium 139 mmol/L (136-145)
[2024-01-05 07:13] LABS: Creatinine Clr Calc Pharmacy 119.7452
[2024-01-05 07:14] LABS: Carbon Dioxide 43 mmol/L (22-29)
[2024-01-05] MEDS: budesonide 0.5 mg/2 mL Neb INHALATION ×2 (08:44→20:13)
[2024-01-05] MEDS: pantoprazole DR 40 mg Tablet PO (09:59)
[2024-01-05] MEDS: acetaminophen 325 mg Tablet 650 MG PO (10:00)
--- NOTE | 2024-01-05 15:15 | P.PN_ITS ---
Subjective 2 Subjective: ABG had improved to 7.36/83.9/57.7 . Last evening. This appears to be close to patient's baseline pCO2. Reviewed past pulmonology's note. This close to be appears to her baseline. Patient used to be on hospice 3 years ago in [place], however thereafter survive more than 1 year after being on hospice and then was discharged. She has never had a home vent but is agreeable to wearing going forward. Medications: Reviewed: Yes Vitals/I&O/Wt Last Vital Signs Temp 97.7 F 01/05/24 11:45 Pulse 115 H 01/05/24 11:45 Resp 16 01/05/24 11:45 BP 157/82 01/05/24 11:45 Pulse Ox 94 01/05/24 11:45 O2 Del Method Nasal Cannula 01/05/24 11:45 O2 Flow Rate 3 01/05/24 10:53 FiO2 38 01/04/24 23:30 01/05/24 01/05/24 01/05/24 06:59 14:59 22:59 Intake Total 240 / 1730 1360 / 1360 Balance 240 / 1730 1360 / 1360 Weight last 48 hrs Weight 47.99 kg Weight 47.99 kg Weight 48.035 kg Weight 48.035 kg Weight 44.452 kg Weight 58.967 kg Physical Exam 2 Narrative: General: Tachypneic, mouth breather, chronically ill-appearing. HEENT: PERRLA, pupils bilaterally equal and reactive, pallors not present Chest: Normal vesicular breath sounds, no added sounds, equal good air entry bilaterally CVS: S1-S2 regular, no murmurs, no tachycardia, no gallops, no rubs Abdomen: Soft, nontender, no organomegaly, bowel sounds present Neuro: No focal deficits, no facial deformity, AO x3, power 5/5 in all limbs Data 01/05/24 06:29 01/05/24 06:29 Micro: Microbiology 01/04/24 09:40 Gram Stain - Final Sputum - Expectorated Sputum Sputum Culture - Preliminary 01/04/24 04:10 Legionella Urinary Antigen - Final Urine,Voided Bacterial Antigens - Final ABG Interpretation 1: 01/03/24 01/04/24 01/04/24 17:12 10:57 15:41 ABG pH 7.24 L 7.29 L 7.37 ABG pCO2 109.0 H* 95.2 H* 83.9 H* ABG pO2 72.8 L 74.7 L 61.0 L ABG HCO3 46.2 H 45.6 H 48.1 H ABG O2 Saturation 94.6 91.8 ABG Base Excess 14.5 H 15.2 H 18.9 H 01/04/24 20:24 ABG pH 7.36 ABG pCO2 83.9 H* ABG pO2 57.7 L ABG HCO3 47.1 H ABG O2 Saturation ABG Base Excess 17.8 H A&P Assessment and plan (1) Acute exacerbation of chronic obstructive airways disease: Acute on chronic COPD exacerbation. Patient is typically on 3 L/min supplemental O2. She has had COPD exacerbation before necessitating continuous BiPAP use. reports she was in the hospital for 11 days at that time. Has not been intubated before. Negative respiratory viral panel, chest x-ray without acute findings. Continue methylprednisolone 60 mg IV every 6 hours Continue duoneb q6h, add budesonide q12h empiric CTX to continue , add atypical coverage Reviewed past pulmonology notes. Patient has demonstrated hypercarbia on past ABGs as well. Currently on admission ABG showed respiratory acidosis. pH 7.2/pCO2 109/pO2 72.8/bicarb 46.2. With continuous use of AVAPS on January 04, 2024 ABG did serially improve to 7.37/83. 9/61/48 which appears to be close to patient's baseline CO2 levels. Patient has end-stage COPD. Based on hypercarbia, demonstration of improvement of ABG on AVAPS, patient may likely qualify for home ventilator use. We will attempt to coordinate this with case management once that is available on Sunday. Taper down to supplemental O2 today. Currently maintaining O2 sats of 92%. Reduce steroids to methylprednisolone 60 mg IV every 12 hours. Add metoprolol 12.5 mg p.o. twice daily given sinus tachycardia with heart rate ranging at 115. In reviewing the past chart, patient has been demonstrating persistent tachycardia on several visits dating back to 2022. Echocardiogram from February 04, 2023 with normal left ventricular size systolic function and wall thickness. No regional wall motion abnormalities. Grade 1 diastolic dysfunction. (2) Acute respiratory failure with hypoxia and hypercapnia: as above Plan DVT prophylaxis: Lovenox 40 mg PUD prophylaxis: Protonix. Attestations 2 Medical Necessity Statement*: Taper steroids today. Add metoprolol. Assess for serial clinical stability. Arrangements for home vent Coding Level of Care Code Acute Code for Chg Fwd High MDM includes number and complexity of problems actively addressed during encounter, amount and/or complexity of data reviewed/ordered and described risk of complication, morbidity or mortality of management as documented Diagnoses Acute exacerbation of chronic obstructive airways disease J44.1 Acute respiratory failure with hypoxia and hypercapnia J96.01; J96.02
[2024-01-05 19:17] LABS: Glucose Point of Care 173 mg/dL (70-110)
--- NOTE | 2024-01-05 19:46 | CTR_ITS ---
PROCEDURE INFORMATION: Exam: CT Head Without Contrast Exam date and time: 01/05/2024 7:34 PM Age: 63 years old Clinical indication: Speech disturbance; Patient HX: Sudden onset of slurred speech and aphasia; Additional info: Change in mentation TECHNIQUE: Imaging protocol: Computed tomography of the head without contrast. Radiation optimization: All CT scans at this facility use at least one of these dose optimization techniques: automated exposure control; mA and/or kV adjustment per patient size (includes targeted exams where dose is matched to clinical indication); or iterative reconstruction. COMPARISON: No relevant prior studies available. RADIATION DOSE METRICS: Total DLP (mGy-cm): 1044.75 FINDINGS: Brain: Normal. No hemorrhage. Unremarkable white matter. No mass effect. Cerebral ventricles: No ventriculomegaly. Paranasal sinuses: Paranasal sinus opacifications. Mastoid air cells: Visualized mastoid air cells are well aerated. Bones: Unremarkable. No acute fracture. Soft tissues: Unremarkable. CT/CT head wo con* [id number] IMPRESSION: Negative for intracranial hemorrhage or mass effect.
--- NOTE | 2024-01-05 20:04 | W.PM.EVENTAC ---
Event Note Event Note: This afternoon shortly after shift change her approached nursing staff worried that his with waking up after a nap did not speak, it appears that after her nap she woke up, appeared terrified and was not speaking, with eyes wide open, no facial droop, with arms lifted and spread apart. Stat CT of the head was obtained and I saw her shortly after, no obvious bleeding on preliminary read of the CT. discussed with equine pharmacology technician. History obtained from nursing staff and from patient's . Reviewed vitals, CBC, ABG, BMP, chest x-ray. Discussed with nursing staff. During my evaluation she is awake and alert, able to speak, denies any complaints. Does have mildly slowed responses and how she follows directions, otherwise she is pleasant and interactive. No obvious facial droop, no trouble with horizontal tracking, visual english full to confrontation, no visual extinction, FNF WNL but to try to her own finger and switching sides and had to be instructed again, although does have asterixis in both upper and lower extremities. No drift, however, in upper or lower extremities. Sensory exam symmetrical, does report right side on bilateral touch in upper extremities, although with somewhat slowed response and requiring prompting, so unclear whether true symptoms are due to some slowing of cognition. No sensory extinction in lower extremities. NIHSS of 1. Discussed with patient and her at bedside including differential diagnosis, possible TIA versus CVA, cannot 100% exclude that she did not have a TIA versus small CVA, but this seems to be less likely. Would not currently be a candidate for tPA. Appears to be more related to metabolic encephalopathy, possibly secondary to hypercapnic encephalopathy, will follow-up VBG, check magnesium, possibly encephalopathy related to steroid or other medication. Withdrawal from Requip? However, with this possibility discussed starting her on aspirin, statin, obtaining carotid duplex, monitor on telemetry. They know to let us know in case of any additional symptom changes. Requesting dysphagia screen, NIHSS monitoring. Event Notes Attestations Time Spent in Patient Care: [id number] 40 minutes critical care time spent on assessment of possible TIA versus CVA, reviewing chart, obtaining history, reviewing imaging, discussing with anesthesiology technologist, nursing staff, patient and family, including discussing assessment and plan, entering orders and documenting encounter.
[2024-01-05 20:25] LABS: ABG PH Result 7.36 (7.35-7.45); Base Excess ABG 17.9 mmol/L (-2.0-2.0); Blood Gas Sample Type Arterial; HGB O2 Sat 92.5 % (95-100); Ionized Calcium Level - ABG 1.2 mmol/L (1.1-1.4); Methemoglobin 0.4 % (0.4-1.5); Oxygen Saturation ABG 94.8; PO2 ABG 70.6 mmHg (80.0-100.0); Potassium Level - ABG 3.7 mmol/L (3.5-5.0); Total Hemoglobin 11.4 g/dL (12-16)
[2024-01-05 20:26] LABS: ABG PCO2 83.1 mmHg (35-45); Alveolar-Arterial Oxygen Gradi 7.6 mmHg (5-10); Blood Gas Operator Identificat ED; Blood Gas Sample Site Brachial, right; Oxygen Device NC; PO2 FiO2 Ratio Arterial Blood 0
[2024-01-05] MEDS: aspirin 81 mg EC Tablet 162 MG PO (20:50)
[2024-01-05] MEDS: trazodone 50 mg Tablet PO (20:52)
[2024-01-05] MEDS: atorvastatin 40 mg Tablet PO (20:53)
[2024-01-05] MEDS: metoprolol tartrate 25 mg Tablet 12.5 MG PO (20:53)
[2024-01-05] MEDS: cefTRIAXone 1,000 MG in sodium chloride 0.9% (plus) 50 ML 100 MG IV (20:54)
--- NOTE | 2024-01-05 23:40 | PC.RESP ---
When therapist walked in the room the DIRECTOR OF PROVIDER RELATIONS was taking vitals. Patient was awake and alert on bipap. Therapist was notified by spouse that stated she had multiple episodes within the last hour of sats dipping into the low 80s. While monitoring patient while getting a breathing treatment patient has been fine sleeping on bipap with no episodes. If episodes persist the therapist informed the spouse to let the nurse know.
[2024-01-06] VITALS (19 sets, daily range): BP systolic 114–156; BP diastolic 73–88; PULSE 78–110; RESP 14–26; TEMP 36.4–36.6; O2SAT 88–100
[2024-01-06] MEDS: ipratropium-albuterol 3 mL Neb INHALATION ×5 (03:57→20:46)
[2024-01-06 05:49] LABS: Basophils % 0.2 %; Hematocrit 42.8 % (36-47); Lymphocytes # 0.5 10^3/uL (0.8-4.8); Lymphocytes % 3.1 %; Mean Corpuscular HGB Conc 27.3 g/dL (30-55); Mean Corpuscular Hemoglobin 22.6 pg (27-33); Mean Corpuscular Volume 82.6 fl (85-98); Mean Platelet Volume 10.7 fL (7.4-10.4); Monocytes # 0.5 10^3/uL (0.2-0.9); Monocytes % 3.3 %; Neutrophils # 13.45 10^3/uL (1.8-7.7); Neutrophils % 91.2 %; Nucleated Red Blood Cells % 0 %; Platelet Count 565 10^3/cmm (157-399); Red Blood Count 5.18 10^6/uL (3.85-5.65); Red Cell Distribution Width 18.7 % (12.1-15.1); White Blood Count 14.73 10^3/uL (3.29-11.43)
--- NOTE | 2024-01-06 06:00 | USR_ITS ---
PROCEDURE INFORMATION: Exam: US Duplex Bilateral Extracranial Arteries; Complete; Carotid Arteries Exam date and time: 01/06/2024 10:08 AM Age: 63 years old Clinical indication: Screening exam; Additional info: Assess for carotid disease, patient with PT. Will scan when finished. CR TECHNIQUE: Imaging protocol: Real-time duplex ultrasound scan of the bilateral extracranial arteries combining jackson scale, color Doppler and spectral waveform analysis with image documentation. Complete exam. Exam focused on the carotid arteries. COMPARISON: CT head wo con* [id number] 01/05/2024 7:34 PM FINDINGS: Right common carotid artery: Scattered calcified and noncalcified plaques without significant stenosis. No occlusion or stenosis. Waveforms are normal. Right internal carotid artery: Noncalcified plaques at the mid ICA and distal ICA. No occlusion. Likely less than 50% stenosis at the proximal right ICA and 50-69% stenosis at the distal right ICA. Elevated peak systolic velocities: Right mid ICA 134 cm/second. Right distal ICA 185 cm/second. Right ICA/CCA ratio: Within normal limits. Right external carotid artery: No stenosis in the origin. Right vertebral artery: Unremarkable. Antegrade flow. Left common carotid artery: Unremarkable. No occlusion or stenosis. Waveforms are normal. Left internal carotid artery: Mostly noncalcified plaques along the mid ICA and distal ICA. Mild stenosis of the proximal left ICA less than 50%. 50-69 % ICA stenosis of the mid left ICA. Elevated peak systolic velocities: Proximal left ICA 133 cm/s. Left mid ICA 199 cm/second. Distal left ICA 156 cm/second. Left external carotid artery: No stenosis in the origin. Left vertebral artery: Unremarkable. Antegrade flow. US/CV carotid duplex BI* [id number] IMPRESSION: Mild and moderate bilateral carotid artery stenosis as described above. REFERENCES: SRU CRITERIA. The degree of internal carotid artery stenosis is based on criteria defined by the Society of Radiologists in Ultrasound (SRU). Normal is no stenosis. Mild is less than 50% stenosis. Moderate is 50-69% stenosis. Severe is greater than 69% stenosis to near occlusion. Near occlusion is a markedly narrowed lumen. Total occlusion is no detectable patent lumen.
[2024-01-06 06:09] LABS: Anion Gap 6.5 (5-19); Blood Urea Nitrogen 9 mg/dL (8-23); Chloride 90 mmol/L (98-107); Chol HDL Ratio 4.19 mg/dL (0.0-4.40); Cholesterol 180 mg/dL (0-200); Estmated Average Glucose 100; Glomerular Filtration Rate 225.4 mL/min (90-130); Glucose 128 mg/dL (65-115); HDL Cholesterol 43 mg/dL (60-100); Hemoglobin A1C 5.1 % (4.0-6.0); LDL Cholesterol Calculated 120 mg/dL (50-129); LDL HDL Ratio 2.79 RATIO (0.00-3.22); Osmolality Calculated 284 mOsm/kg (285-295); Potassium 4.5 mmol/L (3.5-5.1); Sodium 137 mmol/L (136-145); Triglycerides 85 mg/dL (0-150)
[2024-01-06 06:19] LABS: Carbon Dioxide 45 mmol/L (22-29)
[2024-01-06] MEDS: budesonide 0.5 mg/2 mL Neb INHALATION ×2 (08:38→20:46)
[2024-01-06] MEDS: aspirin 81 mg EC Tablet 162 MG PO (09:47)
[2024-01-06] MEDS: sertraline 50 mg Tablet PO (09:48)
[2024-01-06] MEDS: metoprolol tartrate 25 mg Tablet 12.5 MG PO ×2 (09:48→21:15)
[2024-01-06] MEDS: azithromycin 250 mg Tablet 500 MG PO (09:49)
[2024-01-06] MEDS: pantoprazole DR 40 mg Tablet PO (09:50)
[2024-01-06] MEDS: ropinirole 0.25 mg Tablet 0.5 MG PO (09:50)
[2024-01-06] MEDS: methylPREDNISolone sod succ 40 mg/mL INJ 60 MG IVP (11:57)
[2024-01-06] MEDS: ondansetron 2 mg/ML SDV 2 mL 4 MG IVP (12:00)
--- NOTE | 2024-01-06 12:30 | PC.OT ---
OT orders received to evaluate and treat; per weekend protocol, evaluation will be attempted on Sunday, January 06.
[2024-01-06 12:43] LABS: ABG PH Result 7.27 (7.35-7.45); Alveolar-Arterial Oxygen Gradi 11.1 mmHg (5-10); Blood Gas Allen Test Pos; Blood Gas Operator Identificat glc; Blood Gas Sample Site Radial, left; Blood Gas Sample Type Arterial; Carboxyhemoglobin 1.5 %THgb (0.4-20.1); HCO3 ABG 47.4 mmol/L (22-26); HGB O2 Sat 88.1 % (95-100); Ionized Calcium Level - ABG 1.3 mmol/L (1.1-1.4); Methemoglobin 0.1 % (0.4-1.5); Oxygen Device BIPAP; Oxygen Saturation ABG 89.6; PO2 ABG 62.9 mmHg (80.0-100.0); PO2 FiO2 Ratio Arterial Blood 0; Potassium Level - ABG 3.7 mmol/L (3.5-5.0); Total Hemoglobin 12.1 g/dL (12-16)
--- NOTE | 2024-01-06 15:07 | P.PN_ITS ---
Subjective 2 Subjective: Patient was on BiPAP overnight. She was able to eat breakfast this morning. However during the course of morning and afternoon she became increasingly lethargic. ABG was checked and she was found to be hypercapnic again with pCO2 up to 105 now. Overnight patient had another episode of around 8 PM where she appeared to be disoriented. There was concern for possible CVA for which she received CT of the head. This was negative for any acute intracranial events. Medications: Reviewed: Yes Vitals/I&O/Wt Last Vital Signs Temp 97.8 F 01/06/24 12:42 Pulse 107 H 01/06/24 14:41 Resp 19 H 01/06/24 12:42 BP 122/76 01/06/24 12:42 Pulse Ox 88 L 01/06/24 14:41 O2 Del Method BiPAP 01/06/24 12:42 O2 Flow Rate 3 01/06/24 11:45 FiO2 38 01/06/24 14:41 Weight last 48 hrs Weight 48.081 kg Weight 48.081 kg Weight 47.99 kg Weight 47.99 kg Physical Exam 2 Narrative: General: Tachypneic, mouth breather, chronically ill-appearing, somnolent HEENT: PERRLA, pupils bilaterally equal and reactive, pallors not present Chest: Normal vesicular breath sounds, no added sounds, equal good air entry bilaterally CVS: S1-S2 regular, no murmurs, no tachycardia, no gallops, no rubs Abdomen: Soft, nontender, no organomegaly, bowel sounds present Neuro: No focal deficits, confused and disoriented. Data 01/06/24 05:43 01/06/24 05:43 Micro: Microbiology 01/04/24 09:40 Gram Stain - Final Sputum - Expectorated Sputum Sputum Culture - Preliminary ABG Interpretation 1: 01/03/24 01/04/24 01/04/24 17:12 10:57 15:41 ABG pH 7.24 L 7.29 L 7.37 ABG pCO2 109.0 H* 95.2 H* 83.9 H* ABG pO2 72.8 L 74.7 L 61.0 L ABG HCO3 46.2 H 45.6 H 48.1 H ABG O2 Saturation 94.6 91.8 ABG Base Excess 14.5 H 15.2 H 18.9 H 01/04/24 01/05/24 01/06/24 20:24 20:15 12:35 ABG pH 7.36 7.36 7.27 L ABG pCO2 83.9 H* 83.1 H* 105.0 H* ABG pO2 57.7 L 70.6 L 62.9 L ABG HCO3 47.1 H 47.0 H 47.4 H ABG O2 Saturation 94.8 89.6 ABG Base Excess 17.8 H 17.9 H 16.0 H A&P Assessment and plan (1) Acute exacerbation of chronic obstructive airways disease: Acute on chronic COPD exacerbation. Patient is typically on 3 L/min supplemental O2. She has had COPD exacerbation before necessitating continuous BiPAP use. reports she was in the hospital for 11 days at that time. Has not been intubated before. Negative respiratory viral panel, chest x-ray without acute findings. Continue methylprednisolone 60 mg IV every 6 hours Continue duoneb q6h, add budesonide q12h empiric CTX to continue , add atypical coverage Reviewed past pulmonology notes. Patient has demonstrated hypercarbia on past ABGs as well. Currently on admission ABG showed respiratory acidosis. pH 7.2/pCO2 109/pO2 72.8/bicarb 46.2. With continuous use of AVAPS on January 04, 2024 ABG did serially improve to 7.37/83. 9/61/48 which appears to be close to patient's baseline CO2 levels. Patient has end-stage COPD. Based on hypercarbia, demonstration of improvement of ABG on AVAPS, patient may likely qualify for home ventilator use. We will attempt to coordinate this with case management once that is available on Sunday. Taper down to supplemental O2 today. Currently maintaining O2 sats of 92%. Reduce steroids to methylprednisolone 60 mg IV every 12 hours. Add metoprolol 12.5 mg p.o. twice daily given sinus tachycardia with heart rate ranging at 115. In reviewing the past chart, patient has been demonstrating persistent tachycardia on several visits dating back to 2022. Echocardiogram from February 04, 2023 with normal left ventricular size systolic function and wall thickness. No regional wall motion abnormalities. Grade 1 diastolic dysfunction. Plan for today January 05, 2024. Patient last night had a brief episode of disorientation. CT of the head was performed which was negative for any acute intracranial events. During the course of the morning patient started to become increasingly lethargic. She last used BiPAP overnight. This afternoon her pCO2 has climbed back up to 105. This this likely translates into patient needing more time on the BiPAP not only during sleep hours but also in the daytime. Patient has been placed back on BiPAP with AVAPS setting. Recheck ABG in 3 hours. Discussed with at bedside that given her end-stage COPD, the only life-saving intervention at this time after discharge home may be having a home vent. If patient is unable to be able to use a home vent, it is likely that she will have repeated episodes of hypercapnic respiratory failure. Alternate option may be to consider hospice as she has been in the past. For today placed her back on BiPAP. Recheck ABG. Sputum culture and Gram stain showing Moraxella catarrhalis for which patient is currently adequately covered with ceftriaxone and azithromycin. Increase steroids back to methylprednisolone 60 mg IV every 8 hours. (2) Acute respiratory failure with hypoxia and hypercapnia: as above Plan DVT prophylaxis: Lovenox 40 mg PUD prophylaxis: Protonix. Attestations 2 Medical Necessity Statement*: Continued admission for acute on chronic hypercapnic respiratory failure, need for continuous NIIV Coding Level of Care Code Acute Code for Chg Fwd High MDM includes number and complexity of problems actively addressed during encounter, amount and/or complexity of data reviewed/ordered and described risk of complication, morbidity or mortality of management as documented Diagnoses Acute exacerbation of chronic obstructive airways disease J44.1 Acute respiratory failure with hypoxia and hypercapnia J96.01; J96.02
[2024-01-06 17:12] LABS: ABG PH Result 7.24 (7.35-7.45); Arterial Blood Gas Hematocrit 35.9 % (37-47); Base Excess ABG 16.8 mmol/L (-2.0-2.0); Blood Gas Allen Test Pos; Blood Gas Operator Identificat glc; Blood Gas Sample Site Radial, left; Blood Gas Sample Type Arterial; HCO3 ABG 48.7 mmol/L (22-26); Oxygen Device BIPAP; PO2 ABG 65.5 mmHg (80.0-100.0); PO2 FiO2 Ratio Arterial Blood 0
[2024-01-06] MEDS: methylPREDNISolone sod succ 40 mg/mL INJ IVP (20:21)
[2024-01-06 20:59] LABS: ABG PH Result 7.43 (7.35-7.45); Arterial Blood Gas Hematocrit 35.5 % (37-47); Blood Gas Sample Type Arterial; Carboxyhemoglobin 2.1 %THgb (0.4-20.1); HGB O2 Sat 91.9 % (95-100); Ionized Calcium Level - ABG 1.2 mmol/L (1.1-1.4); Methemoglobin 0.3 % (0.4-1.5); Oxygen Saturation ABG 94.2; PO2 ABG 61.8 mmHg (80.0-100.0); Potassium Level - ABG 4.1 mmol/L (3.5-5.0); Total Hemoglobin 11.6 g/dL (12-16)
[2024-01-06 21:00] LABS: Alveolar-Arterial Oxygen Gradi 17.6 mmHg (5-10); Blood Gas Operator Identificat ED; Blood Gas Sample Site Brachial, left; Oxygen Device BIPAP; PO2 FiO2 Ratio Arterial Blood 0
[2024-01-06 21:01] LABS: ABG PCO2 72.6 mmHg (35-45)
[2024-01-06] MEDS: trazodone 50 mg Tablet PO (21:15)
[2024-01-06] MEDS: atorvastatin 40 mg Tablet PO (21:15)
[2024-01-06] MEDS: cefTRIAXone 1,000 MG in sodium chloride 0.9% (plus) 50 ML 100 MG IV (21:16)
[2024-01-07] VITALS (21 sets, daily range): BP systolic 96–147; BP diastolic 60–81; PULSE 84–114; RESP 16–26; TEMP 36.4–37.2; O2SAT 84–97
[2024-01-07] MEDS: ipratropium-albuterol 3 mL Neb INHALATION ×4 (02:15→20:31)
--- NOTE | 2024-01-07 02:48 | PC.RESP ---
Therapist entered room with patient sating in the lower 80's upper 70s. Therapist turned FIO2 up to 100%. After a couple minutes patient started sating in the upper 90s. Therapist slowly titrated FIO2 down to 40% again and Patient was holding in the mid 90s. was notified about the event.
[2024-01-07] MEDS: methylPREDNISolone sod succ 40 mg/mL INJ IVP ×3 (04:32→21:29)
[2024-01-07] MEDS: azithromycin 250 mg Tablet 500 MG PO (08:23)
[2024-01-07] MEDS: budesonide 0.5 mg/2 mL Neb INHALATION ×2 (08:23→20:31)
[2024-01-07] MEDS: aspirin 81 mg EC Tablet 162 MG PO (08:26)
[2024-01-07] MEDS: pantoprazole DR 40 mg Tablet PO (08:26)
[2024-01-07] MEDS: sertraline 50 mg Tablet PO (08:26)
[2024-01-07] MEDS: ropinirole 0.25 mg Tablet 0.5 MG PO (08:26)
[2024-01-07] MEDS: metoprolol tartrate 25 mg Tablet 12.5 MG PO ×2 (08:28→21:30)
--- NOTE | 2024-01-07 10:32 | PC.NURSE ---
Patient refused SCDS. States do not want to have to wear them.
--- NOTE | 2024-01-07 16:02 | P.PN_ITS ---
Subjective 2 Subjective: No acute overnight events noted. Admits she is feeling little better today Medications: Reviewed: Yes Vitals/I&O/Wt Last Vital Signs Temp 98.9 F 01/07/24 11:12 Pulse 108 H 01/07/24 15:10 Resp 20 H 01/07/24 15:00 BP 130/78 01/07/24 11:12 Pulse Ox 84 L 01/07/24 15:01 O2 Del Method Nasal Cannula 01/07/24 15:00 O2 Flow Rate 4 01/07/24 15:01 FiO2 40 01/07/24 09:19 Weight last 48 hrs Weight 47.826 kg Weight 47.826 kg Weight 48.081 kg Weight 48.081 kg Physical Exam 2 Narrative: She is alert awake oriented x 3 Chest x-ray clear equal on both sides, no wheezing present Cardiovascular normal heart sounds Abdomen soft nontender nondistended normal bowel sounds Extremities no edema noted Data 01/06/24 05:43 01/06/24 05:43 Micro: Microbiology 01/04/24 09:40 Gram Stain - Final Sputum - Expectorated Sputum Sputum Culture - Final Moraxella catarrhalis A&P Assessment and plan (1) Chronic respiratory failure with hypoxia: (2) Chronic hypercapnic respiratory failure: (3) Acute exacerbation of chronic obstructive airways disease: Plan (1) Acute exacerbation of chronic obstructive airways disease: Acute on chronic COPD exacerbation. Patient is typically on 3 L/min supplemental O2. She has had COPD exacerbation before necessitating continuous BiPAP use. reports she was in the hospital for 11 days at that time. Has not been intubated before. Negative respiratory viral panel, chest x-ray without acute findings. Continue methylprednisolone 40 mg IV every 6 hours Continue duoneb q6h, add budesonide q12h Leukocytosis improving to 14.7, pCO2 72 today empiric CTX and IV azithromycin to continue Patient has end-stage COPD. Based on hypercarbia, demonstration of improvement of ABG on AVAPS, patient may likely qualify for home BiPAP/ventilator use. We will attempt to coordinate this with case management Attestations 2 Medical Necessity Statement*: Patient is clinically improving and anticipating discharge in the a.m. Time Spent in Patient Care: 25 minutes Coding Level of Care Code Acute Code for Chg Fwd Diagnoses Chronic respiratory failure with hypoxia J96.11 Chronic hypercapnic respiratory failure J96.12 Acute exacerbation of chronic obstructive airways disease J44.1 Time Spent (min) 20
[2024-01-07] MEDS: trazodone 50 mg Tablet PO (21:30)
[2024-01-07] MEDS: atorvastatin 40 mg Tablet PO (21:30)
[2024-01-07] MEDS: cefTRIAXone 1,000 MG in sodium chloride 0.9% (plus) 50 ML 100 MG IV (21:30)
[2024-01-08] VITALS (12 sets, daily range): BP systolic 133–163; BP diastolic 74–96; PULSE 85–112; RESP 16–24; TEMP 36.4–37.2; O2SAT 93–97
[2024-01-08] MEDS: ipratropium-albuterol 3 mL Neb INHALATION ×4 (02:22→20:26)
[2024-01-08] MEDS: methylPREDNISolone sod succ 40 mg/mL INJ IVP ×3 (04:29→21:07)
[2024-01-08] MEDS: sertraline 50 mg Tablet PO (07:53)
[2024-01-08] MEDS: aspirin 81 mg EC Tablet 162 MG PO (07:53)
[2024-01-08] MEDS: azithromycin 250 mg Tablet 500 MG PO (07:54)
[2024-01-08] MEDS: metoprolol tartrate 25 mg Tablet 12.5 MG PO ×2 (07:54→21:02)
[2024-01-08] MEDS: pantoprazole DR 40 mg Tablet PO (07:54)
[2024-01-08] MEDS: ropinirole 0.25 mg Tablet 0.5 MG PO (07:54)
[2024-01-08] MEDS: budesonide 0.5 mg/2 mL Neb INHALATION ×2 (08:06→20:26)
[2024-01-08 09:29] LABS: Basophils % 0.2 %; Hematocrit 42.1 % (36-47); Lymphocytes # 0.6 10^3/uL (0.8-4.8); Lymphocytes % 4.5 %; Mean Corpuscular HGB Conc 27.8 g/dL (30-55); Mean Corpuscular Volume 82.9 fl (85-98); Mean Platelet Volume 10.5 fL (7.4-10.4); Monocytes # 0.4 10^3/uL (0.2-0.9); Monocytes % 3.1 %; Neutrophils # 10.98 10^3/uL (1.8-7.7); Neutrophils % 90.1 %; Nucleated Red Blood Cells % 0 %; Platelet Count 509 10^3/cmm (157-399); Red Blood Count 5.08 10^6/uL (3.85-5.65); Red Cell Distribution Width 18.4 % (12.1-15.1)
--- NOTE | 2024-01-08 11:54 | P.DS_ITS ---
Discharge Providers Date of Admission: 01/03/24 18:35 Date of Discharge: January 08, 2024 Attending Provider at Admission: Fritz Curry MD Attending Provider at Discharge: Diana Villatoro MD Primary Care Provider: Zoran Stern MD Diagnoses at Discharge Discharge Diagnosis (1) Chronic respiratory failure with hypoxia: Status: Acute (2) Chronic hypercapnic respiratory failure: Status: Acute (3) Acute exacerbation of chronic obstructive airways disease: Status: Acute Reason for Visit Reason for Visit: sob Brief History: 63-year-old lady with history of COPD, c hronically on 3 L nasal cannula oxygen is accompanied by her after coming in to the ER with progressive shortness of breath over the last 3 days, with more dyspnea, cough productive of purulent appearing of beige sputum, found to be in worsened hypoxia, requiring 6 L of oxygen initially, was found to be in hypercapnic respiratory acidosis on ABG, started on BiPAP. Hospital Course Hospital Course she was treated in the hospital for acute COPD exacerbation with acute hypoxemic and hypercarbic respiratory failure with BiPAP at night she was also found to be hypercarbic during the day and was put on intermittent BiPAP to relieve CO2 retention she is doing better with intermittent BiPAP and supplemental oxygen hence ready to be discharged home with home BiPAP machine.She was also started on methylprednisolone 40 mg IV every 8 hours and prophylactic IV ceftriaxone 1 g daily. Physical Exam Narrative: She is alert awake oriented x 3 Chest decreased air entry bilaterally no rhonchi or wheezing heard Cardiovascular normal heart sounds no murmurs Abdomen NAD Extremities no edema noted bilateral lower extremities Discharge Data Studies Completed and Pending Completed Studies During Hospitalization Category Date Time Status CT head wo con* [id number] Stat Cat Scan 01/05/24 19:46 Completed XR chest 1V portable [id number] Stat Exams 01/03/24 16:59 Completed CV carotid duplex BI* [id number] Routine Ultrasound 01/06/24 06:00 Completed Radiology Impressions Chest X-Ray 01/03/24 16:59 IMPRESSION: No acute findings. Head CT 01/05/24 19:46 IMPRESSION: Negative for intracranial hemorrhage or mass effect. Carotid Doppler Study 01/06/24 06:00 IMPRESSION: Mild and moderate bilateral carotid artery stenosis as described above. REFERENCES: SRU CRITERIA. The degree of internal carotid artery stenosis is based on criteria defined by the Society of [employer]iologists in Ultras[employer] (SRU). Normal is no stenosis. Mild is less than 50% stenosis. Moderate is 50-69% stenosis. Severe is greater than 69% stenosis to near occlusion. Near occlusion is a markedly narrowed lumen. Total occlusion is no detectable patent lumen. Laboratory Results WBC 12.20 10^3/uL (3.29-11.43) H 01/08/24 09:03 RBC 5.08 10^6/uL (3.85-5.65) 01/08/24 09:03 Hgb 11.70 g/dL (11.27-16.99) 01/08/24 09:03 Hct 42.1 % (36-47) 01/08/24 09:03 MCV 82.9 fl (85-98) L 01/08/24 09:03 MCH 23.0 pg (27-33) L 01/08/24 09:03 MCHC 27.8 g/dL (30-55) L 01/08/24 09:03 RDW 18.4 % (12.1-15.1) H 01/08/24 09:03 Plt Count 509 10^3/cmm (157-399) H 01/08/24 09:03 MPV 10.5 fL (7.4-10.4) H 01/08/24 09:03 Neut % (Auto) 90.1 % 01/08/24 09:03 Lymph % (Auto) 4.5 % 01/08/24 09:03 Refugio % (Auto) 3.1 % 01/08/24 09:03 Eos % (Auto) 0.0 % 01/08/24 09:03 Baso % (Auto) 0.2 % 01/08/24 09:03 Neut # (Auto) 10.98 10^3/uL (1.8-7.7) H 01/08/24 09:03 Lymph # (Auto) 0.6 10^3/uL (0.8-4.8) L 01/08/24 09:03 Refugio # (Auto) 0.4 10^3/uL (0.2-0.9) 01/08/24 09:03 Eos # (Auto) 0.0 10^3/uL (0.0-0.8) 01/08/24 09:03 Baso # (Auto) 0.0 10^3/uL (0.0-0.1) 01/08/24 09:03 Nucleated RBC % (auto) 0 % 01/08/24 09:03 Nucleated RBCs # 0.0 /100WBC 01/08/24 09:03 PT 12.60 SECONDS (12.1-14.9) 01/03/24 17:39 INR 0.92 (0.8-1.2) 01/03/24 17:39 Specimen Type Arterial 01/06/24 20:49 Sample Site Brachial, left 01/06/24 20:49 ABG pH 7.43 (7.35-7.45) 01/06/24 20:49 ABG pCO2 72.6 mmHg (35-45) H* 01/06/24 20:49 ABG pO2 61.8 mmHg (80.0-100.0) L 01/06/24 20:49 ABG PO2/FiO2 Ratio 0 01/06/24 20:49 ABG HCO3 48.0 mmol/L (22-26) H 01/06/24 20:49 ABG O2 Saturation 94.2 01/06/24 20:49 ABG Base Excess 20.0 mmol/L (-2.0-2.0) H 01/06/24 20:49 Erik Test N/a 01/06/24 20:49 A-a O2 Gradient 17.6 mmHg (5-10) H 01/06/24 20:49 Hematocrit 35.5 % (37-47) L 01/06/24 20:49 Hgb O2 Saturation 91.9 % (95-100) L 01/06/24 20:49 Carboxyhemoglobin 2.1 %THgb (0.4-20.1) 01/06/24 20:49 Methemoglobin 0.3 % (0.4-1.5) L 01/06/24 20:49 Total Hemoglobin 11.6 g/dL (12-16) L 01/06/24 20:49 Sodium 137.0 mmol/L (131-143) 01/06/24 20:49 Potassium 4.1 mmol/L (3.5-5.0) 01/06/24 20:49 Glucose 129.0 mg/dL (70-115) H 01/06/24 20:49 Ionized Calcium 1.2 mmol/L (1.1-1.4) 01/06/24 20:49 O2 Delivery Device Bipap 01/06/24 20:49 O2 Liters/Min 3.0 % 01/05/24 20:15 FiO2 40.0 % 01/06/24 20:49 Tidal Volume 0.40 01/06/24 20:49 PEEP 8.0 cmH20 01/06/24 20:49 Stockroom Associate ID Ed 01/06/24 20:49 Sodium 137 mmol/L (136-145) 01/06/24 05:43 Potassium 4.5 mmol/L (3.5-5.1) 01/06/24 05:43 Chloride 90 mmol/L (98-107) L 01/06/24 05:43 Carbon Dioxide 45 mmol/L (22-29) H* 01/06/24 05:43 Anion Gap 6.5 (5-19) 01/06/24 05:43 BUN 9 mg/dL (8-23) 01/06/24 05:43 Creatinine 0.3 mg/dL (0.5-0.9) L 01/06/24 05:43 GFR Calculation 225.4 mL/min (90-130) H 01/06/24 05:43 Glucose 128 mg/dL (65-115) H 01/06/24 05:43 POC Glucose 173 mg/dL (70-110) H 01/05/24 19:14 Estimat Average Glucose 100 01/06/24 05:43 Hemoglobin A1c 5.1 % (4.0-6.0) 01/06/24 05:43 Calculated Osmolality 284 mOsm/kg (285-295) L 01/06/24 05:43 Calcium 9.0 mg/dL (8.5-10.5) 01/06/24 05:43 Magnesium 2.0 mg/dL (1.7-2.3) 01/05/24 20:48 Total Bilirubin 0.2 mg/dL (0.15-1.2) 01/03/24 17:39 AST 25 U/L (0-32) 01/03/24 17:39 ALT 12 U/L (0-33) 01/03/24 17:39 Alkaline Phosphatase 80 U/L (35-105) 01/03/24 17:39 NT-Pro-B Natriuret Pep 1795 pg/mL (0-125) H 01/03/24 17:39 Total Protein 7.6 g/dL (6.6-8.7) 01/03/24 17:39 Albumin 3.9 g/dL (3.5-5.2) 01/03/24 17:39 Globulin 3.7 g/dL (1.3-4.6) 01/03/24 17:39 Triglycerides 85 mg/dL (0-150) 01/06/24 05:43 Cholesterol 180 mg/dL (0-200) 01/06/24 05:43 LDL Cholesterol, Calc 120 mg/dL (50-129) 01/06/24 05:43 HDL Cholesterol 43 mg/dL (60-100) L 01/06/24 05:43 LDL/HDL Ratio 2.79 RATIO (0.00-3.22) 01/06/24 05:43 Cholesterol/HDL Ratio 4.19 mg/dL (0.0-4.40) 01/06/24 05:43 Adenovirus (PCR) Not detected (NOT DETECT) 01/03/24 23:20 C. pneumoniae DNA (PCR) Not detected (NOT DETECT) 01/03/24 23:20 Coronavirus 229E (PCR) Not detected (NOT DETECT) 01/03/24 23:20 Human Metapneumovir PCR Not detected (NOT DETECT) 01/03/24 23:20 Influenza A (H1) PCR Not detected (NOT DETECT) 01/03/24 23:20 Influ A (H1/09) PCR Not detected (NOT DETECT) 01/03/24 23:20 Influenza A (H3) PCR Not detected (NOT DETECT) 01/03/24 23:20 Influenza Type A (PCR) Not detected (NOT DETECT) 01/03/24 23:20 Influenza Type B (PCR) Not detected (NOT DETECT) 01/03/24 23:20 M. pneumoniae (PCR) Not detected (NOT DETECT) 01/03/24 23:20 Parainfluenza 1 (PCR) Not detected (NOT DETECT) 01/03/24 23:20 Parainfluenza 2 (PCR) Not detected (NOT DETECT) 01/03/24 23:20 Parainfluenza 3 (PCR) Not detected (NOT DETECT) 01/03/24 23:20 Parainfluenza 4 (PCR) Not detected (NOT DETECT) 01/03/24 23:20 RSV Type A (PCR) Not detected (NOT DETECT) 01/03/24 23:20 RSV Type B (PCR) Not detected (NOT DETECT) 01/03/24 23:20 Entero/Rhino (PCR) Not detected (NOT DETECT) 01/03/24 23:20 SARS-CoV-2 (PCR) Not detected (NOT DETECT) 01/03/24 23:20 Vitals Last Vital Signs Temp 97.5 F L 01/08/24 11:26 Pulse 100 01/08/24 11:26 Resp 16 01/08/24 08:07 BP 147/80 01/08/24 11:26 Pulse Ox 95 01/08/24 11:26 O2 Del Method Nasal Cannula 01/08/24 11:26 O2 Flow Rate 3.5 01/08/24 08:07 FiO2 40 01/08/24 05:00 Discharge Plan Discharge Patient Disposition: Home Condition: Stable Prescriptions: New Medrol (Reji) 4 mg tablets,dose pack See Rx Instructions .ROUTE .COMPLEX Qty: 21 0RF Rx Instructions: for 6 days Continued albuterol sulfate 2.5 mg /3 mL (0.083 %) solution for nebulization 2.5 mg inhalation Q4H PRN (Reason: Shortness Of Breath) (DME) wheelchair See Rx Instructions .Route .MEDSUPPLY Qty: 1 0RF Rx Instructions: As directed pantoprazole [Protonix] 40 mg tablet,delayed release (DR/EC) 40 mg PO DAILY Qty: 90 1RF Spiriva Respimat 2.5 mcg/actuation mist 2 puff inhalation DAILY Qty: 4 2RF Hold Instructions: Home Medication placed on hold at Doctor's office ropinirole 0.5 mg tablet 0.5 mg PO DAILY Qty: 90 1RF sertraline [Zoloft] 50 mg tablet 50 mg PO DAILY Qty: 90 1RF trazodone 50 mg tablet See Rx Instructions .ROUTE .COMPLEX Qty: 90 0RF Dose Instruction: TAKE 1 TABLET AT BEDTIME Rx Instructions: TAKE 1 TABLET AT BEDTIME (DME) Home oxygen concentrator See Rx Instructions .Route .MEDSUPPLY Qty: 1 0RF Rx Instructions: 3L nasal cannula continuous use (DME) oxygen tubing and mask equipment See Rx Instructions .Route .MEDSUPPLY Qty: 1 3RF Rx Instructions: As directed (DME) Portable oxygen concentrator See Rx Instructions .Route .MEDSUPPLY Qty: 1 0RF Rx Instructions: 3L nasal cannula continuous use away from home fluticasone propion-salmeterol 500-50 mcg/dose blister with device 1 inh inhalation BID albuterol sulfate 90 mcg/actuation HFA aerosol inhaler 2 puff inhalation Q6H PRN (Reason: Shortness Of Breath Or Wheezing) fluticasone propionate 50 mcg/actuation spray,suspension 2 spray intranasal DAILY megestrol 400 mg/10 mL (10 mL) suspension 200 mg PO DAILY PRN (Reason: APPETITE) Discharge Orders: Discharge Order (Routine); Ordered 01/08/24 Ordered By: Diana Villatoro Other Ambulatory Orders: DME: BIPAP (Order) Location: None Selected Ordered By: Cristina Adame DME: Oxygen (Order) Location: None Selected Ordered By: Diana Villatoro Referrals: [facility] [Outside] Zoran Stern MD [Primary Care Provider] - Discharge Diet: Regular Discharge Activity: Increase activity as tolerated Patient Instructions: Opioid Safety Discharge Attestations Time Spent in Discharge Care*: less than 30 min Quality Metrics Clinical Quality Measures [ No reported AMI, CVA or VTE this stay] Coding Level of Care Code Acute Code for Chg Fwd Diagnoses Chronic respiratory failure with hypoxia J96.11 Chronic hypercapnic respiratory failure J96.12 Acute exacerbation of chronic obstructive airways disease J44.1 Time Spent (min) 25
[2024-01-08] MEDS: ondansetron 2 mg/ML SDV 2 mL 4 MG IVP (12:33)
--- NOTE | 2024-01-08 12:49 | PC.NURSE ---
Discharge delayed. Waiting bipap delivery.
--- NOTE | 2024-01-08 20:37 | PC.RESP ---
sleep study started at 3 lpm per home baseline
[2024-01-08] MEDS: trazodone 50 mg Tablet PO (21:01)
[2024-01-08] MEDS: cefTRIAXone 1,000 MG in sodium chloride 0.9% (plus) 50 ML 100 MG IV (21:02)
[2024-01-08] MEDS: atorvastatin 40 mg Tablet PO (21:02)
[2024-01-09] VITALS (8 sets, daily range): BP systolic 112–114; BP diastolic 70–74; PULSE 76–108; RESP 16–28; TEMP 36.6–37.1; O2SAT 91–97
[2024-01-09] MEDS: ipratropium-albuterol 3 mL Neb INHALATION ×2 (01:34→08:18)
[2024-01-09] MEDS: methylPREDNISolone sod succ 40 mg/mL INJ IVP (04:23)
[2024-01-09 05:31] LABS: Albumin Level 3.3 g/dL (3.5-5.2); Blood Urea Nitrogen 11 mg/dL (8-23); Calcium 8.4 mg/dL (8.5-10.5); Chloride 89 mmol/L (98-107); Glomerular Filtration Rate 161.7 mL/min (90-130); Glucose 206 mg/dL (65-115); Magnesium 1.7 mg/dL (1.7-2.3); Phosphorus 3.1 mg/dL (2.5-4.5); Sodium 137 mmol/L (136-145)
[2024-01-09 05:43] LABS: Creatinine Clr Calc Pharmacy 120.2047
[2024-01-09 05:44] LABS: Carbon Dioxide 43 mmol/L (22-29)
[2024-01-09] MEDS: metoprolol tartrate 25 mg Tablet 12.5 MG PO (08:07)
[2024-01-09] MEDS: ropinirole 0.25 mg Tablet 0.5 MG PO (08:07)
[2024-01-09] MEDS: pantoprazole DR 40 mg Tablet PO (08:07)
[2024-01-09] MEDS: sertraline 50 mg Tablet PO (08:07)
[2024-01-09] MEDS: aspirin 81 mg EC Tablet 162 MG PO (08:07)
[2024-01-09] MEDS: budesonide 0.5 mg/2 mL Neb INHALATION (08:18)
== END 2024-01-09 13:52 | disposition home or self-care (01) | DRG 190 ==
LOC: ER 18:22 → MEDSURG 18:36
PROVIDERS: Internal Medicine; Student in an Organized Health Care Education/Training Program; Admitting Provider Student in an Organized Health Care Education/Training Program; Emergency Provider Emergency Medicine; PCP Family Medicine; Visit Provider Internal Medicine
DX: J44.1 Chronic obstructive pulmonary disease with (acute) exacerbation (principal); J96.21 Acute and chronic respiratory failure with hypoxia; J96.22 Acute and chronic respiratory failure with hypercapnia; Z99.81 Dependence on supplemental oxygen; Z87.891 Personal history of nicotine dependence; K21.9 Gastro-esophageal reflux disease without esophagitis; I10 Essential (primary) hypertension; G47.00 Insomnia, unspecified; F41.9 Anxiety disorder, unspecified
CPT/HCPCS: 36415; 36416; 36600; 70450; 71045; 80048; 80051; 80053; 80061; 80069; 82330; 82803; 82805; 82962; 83036; 83735; 83880; 85025; 85610; 86403; 87070; 87077; 87205; 87449; 87486; 87581; 87633; 92523; 92526; 92610; 93005; 93880; 94640; 94660; 94760; 97116; 97162; 97166; 97530; 99285; J0696; J1650; J2405; J2919; J7626; Q0144

== ENCOUNTER 2024-02-26 13:04 | Outpatient (CLI) | payer BC, SELFPAY ==
--- NOTE | 2024-02-26 13:15 | CT_ITS ---
WS: [id number] CT chest wo/w con [id number] HISTORY: adenopathy right hilum TECHNIQUE: Axial imaging performed through the thorax. Coronal and sagittal reformats are submitted. All CT scans at [facility] use at least one of these dose optimization techniques: automated exposure control; mA and/or kV adjustment per patient size (includes targeted exams where dose is mat ched to clinical indication); or iterative reconstruction. CONTRAST: Omnipaque 350; 100 mL IV. DLP: 373.11 mGy.cm COMPARISON: 04/24/2023 Lungs and central airway: Chronic emphysema. No masses or nodules. No pneumonia. Mild dependent shen es at the lung bases. Pleura: Normal. No pleural effusion. Heart and pericardium: Cardiac chambers are slightly enlarged. Mediastinum and suzanne: Small mediastinal and hilar lymph nodes. No adenopathy at the RIGHT hilum. The RIGHT hilum is very slightly prominent due to the pulmonary artery being dilated which is probably du e to hypertension. There is a small RIGHT hilar lymph node but not pathologic. Vessels: Mildly dilated ascending thoracic aorta to 3.9 cm is stable. No dissection. LEFT vertebral a rtery arises directly from the arch. Chest wall and lower neck: No soft tissue masses. Upper abdomen: Too small to characterize hypodensities within the liver. These are probably small cys ts. No adrenal mass. Osseous structures: Mild anterior wedging of T6 without retropulsion. No change since 04/24/2023. CT/CT chest wo/w con [id number] IMPRESSION: 1. No mediastinal or hilar adenopathy. 2. Fullness in the RIGHT hilum probably related to dilated pulmonary artery fr om pulmonary hypertension. 3. Centrilobular emphysema. 4. Mild dilatation ascending aorta to 3.9 cm, stable. 5. Stable T6 anterior wedging.
[2024-02-26] MEDS: iohexol 350 mg/mL 500 mL Btl (per mL) IV (13:23)
== END 2024-02-26 13:05 | disposition home or self-care (01) ==
LOC: RAD 13:04
PROVIDERS: PCP Family Medicine; Visit Provider Family Medicine
DX: J96.11 Chronic respiratory failure with hypoxia (principal); J43.8 Other emphysema; M48.54XA Collapsed vertebra, not elsewhere classified, thoracic region, initial encounter for fracture
CPT/HCPCS: 71270; Q9967

== ENCOUNTER 2024-06-30 08:34 | Inpatient (IN) | payer BC, SELFPAY ==
[2024-06-30] VITALS (104 sets, daily range): BP systolic 84–159; BP diastolic 60–100; PULSE 90–151; RESP 12–41; TEMP 36.9–37.7; O2SAT 55–99; BMI 18.8; BMI 20.7
--- NOTE | 2024-06-30 08:48 | XR_ITS ---
WS: [id number] Portable AP upright chest, 06/30/2024 Clinical Data: dyspnea/cough Comparison: Portable chest, 01/03/2024 Findings: There is minimal patchy lower lobe opacity bilaterally. There are no nodules, masses or eff usions are seen. The heart is slightly enlarged. The pulmonary vascularity may be mildly increased. N o pneumothorax is seen. The aortic arch and descending thoracic aorta show tortuosity. Monitor leads are on the chest wall. XR/XR chest 1V portable [id number] Impression: 1. Mild bilateral lower lobe opacities which could represent atelectasis, pulmo nary vascularity congestion and/or pneumonia. 2. Cardiomegaly and atherosclerosis.
--- NOTE | 2024-06-30 08:49 | ED_ITS ---
HPI - SOB/Dyspnea 2 General: Chief Complaint: Shortness of Breath/Dyspnea Stated Complaint: resp distress Time Seen by Provider: 06/30/24 08:48 History of Present Illness: HPI Narrative: 64-year-old female presents emergency ro om complaining of severe shortness of breath last couple of days she typically is on oxygen and actually uses a BiPAP at home. She normally wears 4 to 6 L via nasal cannula she was using her BiPAP when EMS arrived. She is on 5 L here is lethargic and poorly responsive. She was able to answer a few questions. Seems to lose her train of thought quickly. She denies chest pain or abdominal pain denies productive cough she last used a nebulizer last night. Associated symptoms: Reports chest congestion; Deny abdominal pain, chest pain or fever(s) Related Data Home Medications Medication Instructions Recorded Confirmed fluticasone 500 mcg-salmeterol 50 1 inh inhalation BID 04/03/24 06/30/24 mcg/dose blistr powdr for inhalation (Advair Diskus) Previous Rx's Medication Instructions Recorded wheelchair #1 ea 04/10/23 Home oxygen concentrator #1 ea 12/27/23 Portable oxygen concentrator #1 ea 12/27/23 oxygen tubing and mask equipment #1 ea 12/27/23 pantoprazole 40 mg tablet,delayed 40 mg PO DAILY #90 tabs 02/08/24 release (Protonix) albuterol sulfate 90 mcg/actuation 2 puff inhalation Q6H PRN 02/18/24 aerosol inhaler Shortness Of Breath Or Wheezing #8.5 grams megestrol 400 mg/10 mL (10 mL) 200 mg (5 mL) PO DAILY PRN 02/18/24 oral suspension APPETITE #1,000 mL tiotropium bromide 2.5 2 puff inhalation DAILY #4 grams 02/18/24 mcg/actuation mist for inhalation (Spiriva Respimat) trazodone 50 mg tablet 50 mg PO DAILY #90 tabs 02/18/24 albuterol sulfate 2.5 mg/3 mL 2.5 mg (3 mL) inhalation Q4H PRN 04/04/24 (0.083 %) solution for nebulization Shortness Of Breath #90 mL sertraline 50 mg tablet (Zoloft) 50 mg PO DAILY #90 tabs 04/29/24 furosemide 20 mg tablet 20 mg PO QAM PRN swelling #90 tabs 05/12/24 ropinirole 1 mg tablet 1 mg PO BID #120 tabs 06/03/24 buspirone 7.5 mg tablet 7.5 mg PO ONCE PRN anxiety #90 tabs 06/04/24 fluticasone propionate 50 2 spray intranasal DAILY #16 grams 06/04/24 mcg/actuation nasal spray,suspension Allergies Allergy/AdvReac Type Severity Reaction Status Date / Time No Known Allergies Allergy Verified 06/03/24 09:54 Review of Systems 2 Const: Denies: fever(s) or chills Card: Denies: chest pain Resp: Reports: dyspnea, non-productive cough, wheezing and chest congestion GI: Denies: abdominal pain : Denies: dysuria, urinary frequency or urinary urgency Musc: Denies: neck pain or back pain Skin/Breast: Denies: rash PFSH ED 2 PFSH: Medical History Protein-calorie malnutrition, severe GERD (gastroesophageal reflux disease) Essential hypertension Anxiety Hypertension Insomnia COPD (chronic obstructive pulmonary disease) Surgical History History of History of tonsillectomy Family History Other Dementia Stroke Denies family history of Diabetes CAD (coronary artery disease) Clotting disorder Hyperlipidemia Psychiatric illness Chronic kidney disease (CKD) Anesthesia complication Bleeding disorder Lung disease Cancer Hypertension Social History Smoking and tobacco/nicotine status: former use of tobacco/nicotine Quit status (tobacco/nicotine): has quit using Year quit tobacco: 2019 Former quit date comment: 1 ppd X 40 years Second hand smoke exposure: Yes Alcohol intake: current Alcohol intake frequency: holidays/special occasions only Alcohol type: beer Substance/Drug Use: never Marital status: Number of children: 5 Number of grandchildren: 9 service: No Current occupational status: disabled Current occupational exposures/hazards: No Pets and animals: Yes Current gender identity: Female Physical Exam 2 Const: ORIENTATION/CONSCIOUSNESS: Yes awake HENMT: COMMON NORMALS: normocephalic, atraumatic and hearing grossly normal bilaterally HEAD & SCALP: normocephalic and atraumatic Resp: EFFORT & INSPECTION: Yes tachypneic, Yes respiratory distress, Yes labored, Yes retractions and Yes uses accessory muscles AUSCULTATION: wheezes and diminished lung sounds Cardio: COMMON NORMALS: regular rhythm and No murmurs present (Cardio) R ATE: tachycardic RHYTHM: regular rhythm GI: COMMON NORMALS: Soft to palpation and No hepatosplenomegaly present A USCULTATION: Yes normoactive bowel sounds PALPATION: Yes Soft to palpation, No Tenderness to palpation present (GI), No Guarding due to palpation present (GI) and Yes No hepatosplenomegaly present Extremity: COMMON NORMALS: normal to inspection, capillary refill normal, no clubbing, cyanosis or edema, no calf tenderness and no pedal edema Skin: COMMON NORMALS: no rashes or lesions noted GENERAL SKIN EXAM: no rashes or lesions noted Course 2 Vital Signs: Vital signs: Vital Signs Temperature 99.9 F H 06/30/24 08:44 Pulse Rate 127 H 06/30/24 11:25 Respiratory Rate 18 06/30/24 11:15 Blood Pressure 90/64 06/30/24 11:25 Pulse Oximetry 95 06/30/24 11:25 Oxygen Delivery Me thod BiPAP 06/30/24 11:00 Oxygen Flow Rate 6 06/30/24 10:16 Fraction of Inspir ed Oxygen 50 06/30/24 09:34 MDM - SOB/Dyspnea Medical Decision Making Severe hypercapnic respiratory failure COPD exacerbation bilateral lower lobe pneumonia. Lactate is normal does have leukocytosis. Did give her a sepsis bolus due to her blood pressure. Repeat blood gas was done shortly after patient left department. Blood gases worsened. I reviewed with the patient and her before she left the ER they do want to maintain as Do Not Recussitate. I contacted Dr. Elam with the results of the second blood gas patient is still currently on BiPAP. Medical Records I reviewed the patient's medical records. Lab Data I reviewed the patient's lab results. 06/30/24 08:20 06/30/24 08:20 Labs/Radiology: Radiology Impressions Chest X-Ray 06/30/24 08:48 Impression: 1. Mild bilateral lower lobe opacities which could represent atelectasis, pulmonary vascularity congestion and/or pneumonia. 2. Cardiomegaly and atherosclerosis. Laboratory Results WBC 19.66 10^3/uL (3.29-11.43) H 06/30/24 08:20 RBC 5.76 10^6/uL (3.85-5.65) H 06/30/24 08:20 Hgb 11.40 g/dL (11.27-16.99) 06/30/24 08:20 Hct 43.2 % (36-47) 06/30/24 08:20 MCV 75.0 fl (85-98) L 06/30/24 08:20 MCH 19.8 pg (27-33) L 06/30/24 08:20 MCHC 26.4 g/dL (30-55) L 06/30/24 08:20 RDW 18.3 % (12.1-15.1) H 06/30/24 08:20 Plt Count 713 10^3/cmm (157-399) H 06/30/24 08:20 MPV 12.3 fL (7.4-10.4) H 06/30/24 08:20 Neut % (Auto) 83.2 % 06/30/24 08:20 Lymph % (Auto) 5.3 % 06/30/24 08:20 [place] % (Auto) 7.1 % 06/30/24 08:20 Eos % (Auto) 0.7 % 06/30/24 08:20 Baso % (Auto) 0.4 % 06/30/24 08:20 Neut # (Auto) 16.38 10^3/uL (1.8-7.7) H 06/30/24 08:20 Lymph # (Auto) 1.0 10^3/uL (0.8-4.8) 06/30/24 08:20 [place] # (Auto) 1.4 10^3/uL (0.2-0.9) H 06/30/24 08:20 Eos # (Auto) 0.1 10^3/uL (0.0-0.8) 06/30/24 08:20 Baso # (Auto) 0.1 10^3/uL (0.0-0.1) 06/30/24 08:20 Nucleated RBC % (auto) 0 % 06/30/24 08:20 Nucleated RBCs # 0.0 /100WBC 06/30/24 08:20 Specimen Type Arterial 06/30/24 10:50 Sample Site Brachial, left 06/30/24 10:50 ABG pH 7.14 (7.35-7.45) L* 06/30/24 10:50 ABG pCO2 > 102.0 mmHg (35-45) H* 06/30/24 10:50 ABG pO2 84.9 mmHg (80.0-100.0) 06/30/24 10:50 ABG PO2/FiO2 Ratio 141 06/30/24 10:50 ABG HCO3 39.5 mmol/L (22-26) H 06/30/24 10:50 ABG O2 Saturation 94.4 06/30/24 10:50 ABG Base Excess 6.9 mmol/L (-2.0-2.0) H 06/30/24 10:50 Erik Test N/a 06/30/24 10:50 A-a O2 Gradient 27.0 mmHg (5-10) H 06/30/24 10:50 Hematocrit 36.0 % (37-47) L 06/30/24 10:50 Hgb O2 Saturation 93.4 % (95-100) L 06/30/24 10:50 Carboxyhemoglobin 1.4 %THgb (0.4-20.1) 06/30/24 10:50 Methemoglobin < 0.0 % (0.4-1.5) L 06/30/24 10:50 Total Hemoglobin 11.7 g/dL (12-16) L 06/30/24 10:50 Sodium 140.0 mmol/L (131-143) 06/30/24 10:50 Potassium 4.5 mmol/L (3.5-5.0) 06/30/24 10:50 Glucose 191.0 mg/dL (70-115) H 06/30/24 10:50 Ionized Calcium 1.2 mmol/L (1.1-1.4) 06/30/24 10:50 O2 Delivery Device Bipap 06/30/24 10:50 O2 Liters/Min 5.0 % 06/30/24 08:42 FiO2 60.0 % 06/30/24 10:50 Pluck Separator ID glc 06/30/24 10:50 Sodium 137 mmol/L (136-145) 06/30/24 08:20 Potassium 3.8 mmol/L (3.5-5.1) 06/30/24 08:20 Chloride 92 mmol/L (98-107) L 06/30/24 08:20 Carbon Dioxide 35 mmol/L (22-29) H 06/30/24 08:20 Anion Gap 13.8 (5-19) 06/30/24 08:20 BUN 7 mg/dL (8-23) L 06/30/24 08:20 Creatinine 0.5 mg/dL (0.5-0.9) 06/30/24 08:20 GFR Calculation 124.6 mL/min (90-130) 06/30/24 08:20 Glucose 158 mg/dL (65-115) H 06/30/24 08:20 Calculated Osmolality 285 mOsm/kg (285-295) 06/30/24 08:20 Lactic Acid 1.0 mmol/L (0.5-2.2) 06/30/24 08:20 Calcium 8.5 mg/dL (8.5-10.5) 06/30/24 08:20 Magnesium 1.6 mg/dL (1.7-2.3) L 06/30/24 08:20 Total Bilirubin 0.2 mg/dL (0.15-1.2) 06/30/24 08:20 AST 9 U/L (0-32) 06/30/24 08:20 ALT 6 U/L (0-33) 06/30/24 08:20 Alkaline Phosphatase 90 U/L (35-105) 06/30/24 08:20 Troponin T Baseline 15 ng/L (0-10) H 06/30/24 08:20 Troponin T 120 Minute 20.82 ng/L (0-10) H 06/30/24 10:41 Delta Troponin T 5.82 ABS# (0-10) 06/30/24 10:41 NT-Pro-B Natriuret Pep 4894 pg/mL (0-125) H 06/30/24 08:20 Total Protein 6.8 g/dL (6.6-8.7) 06/30/24 08:20 Albumin 3.4 g/dL (3.5-5.2) L 06/30/24 08:20 Globulin 3.4 g/dL (1.3-4.6) 06/30/24 08:20 Urine Color Yellow (Yellow) 06/30/24 10:13 Urine Appearance Cloudy (CLEAR) A 06/30/24 10:13 Urine pH TNP 06/30/24 10:13 Ur Specific Vanderbilt TNP 06/30/24 10:13 Urine Protein TNP 06/30/24 10:13 Urine Glucose (UA) TNP 06/30/24 10:13 Urine Ketones TNP 06/30/24 10:13 Urine Blood TNP 06/30/24 10:13 Urine Nitrate TNP 06/30/24 10:13 Urine Bilirubin TNP 06/30/24 10:13 Urine Urobilinogen TNP 06/30/24 10:13 Ur Leukocyte Esterase TNP 06/30/24 10:13 Urine RBC Rare /hpf (0-2) 06/30/24 10:13 Urine WBC Rare /hpf (0-5) 06/30/24 10:13 Ur Squamous Epith Cells 0-4 /hpf (0-5) H 06/30/24 10:13 Amorphous Sediment Not Reportable 06/30/24 10:13 Urine Bacteria None /hpf (NONE) 06/30/24 10:13 Hyaline Casts 0-4 /lpf H 06/30/24 10:13 Coronavirus (PCR) Negative (Negative) 06/30/24 08:55 Influenza A (PCR) Negative (Negative) 06/30/24 08:55 Influenza Type B (PCR) Negative (Negative) 06/30/24 08:55 RSV (PCR) Negative (Negative) 06/30/24 08:55 All radiology interpretation(s) finalized by discharge Critical Care Time 2 Critical Care Time: Critical Care Time: Yes Total Critical Care Time: 35 Attestation: The high probability of a clinically significant, sudden or life threatening deterioration of the patient's respiratory system(s) required my full and direct attention, intervention and personal management. The critical care time is as shown. This time is in addition to time spent performing any reported procedures but includes the following: [x] Data and vital sign review and interpretation [x] Patient assessment, examination and intervention [x] Documentation [x] Medication orders and management Discharge Plan Discharge Patient Disposition: Admitted As Inpatient Admit Provider: Fritz Curry Clinical Impression: Acute respiratory failure with hypoxia and hypercapnia, Acute exacerbation of chronic obstructive airways disease, Pneumonia Condition: Stable Coding Level of Care Code ED Career Consultant for Umesh Salmon
--- NOTE | 2024-06-30 08:49 | ECG_ITS ---
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
[2024-06-30 08:51] LABS: ABG PH Result 7.31 (7.35-7.45); Alveolar-Arterial Oxygen Gradi 15.9 mmHg (5-10); Arterial Blood Gas Hematocrit 36.5 % (37-47); Base Excess ABG 10.6 mmol/L (-2.0-2.0); Blood Gas Allen Test Pos; Blood Gas Operator Identificat glc; Blood Gas Sample Site Radial, left; Blood Gas Sample Type Arterial; Carboxyhemoglobin 1.8 %THgb (0.4-20.1); HCO3 ABG 39.8 mmol/L (22-26); HGB O2 Sat 89.9 % (95-100); Ionized Calcium Level - ABG 1.1 mmol/L (1.1-1.4); Methemoglobin 1.1 % (0.4-1.5); Oxygen Device NC; Oxygen Saturation ABG 92.6; PO2 FiO2 Ratio Arterial Blood 167; Total Hemoglobin 11.9 g/dL (12-16)
[2024-06-30] MEDS: ondansetron 2 mg/ML SDV 2 mL 4 MG IVP ×2 (08:58→17:04)
[2024-06-30] MEDS: dexamethasone 10 mg/mL INJ IM (08:58)
[2024-06-30 09:08] LABS: Basophils # 0.1 10^3/uL (0.0-0.1); Basophils % 0.4 %; Eosinophils # 0.1 10^3/uL (0.0-0.8); Eosinophils % 0.7 %; Hematocrit 43.2 % (36-47); Lymphocytes % 5.3 %; Mean Corpuscular HGB Conc 26.4 g/dL (30-55); Mean Corpuscular Hemoglobin 19.8 pg (27-33); Mean Platelet Volume 12.3 fL (7.4-10.4); Monocytes # 1.4 10^3/uL (0.2-0.9); Monocytes % 7.1 %; Neutrophils # 16.38 10^3/uL (1.8-7.7); Neutrophils % 83.2 %; Nucleated Red Blood Cells % 0 %; Platelet Count 713 10^3/cmm (157-399); Red Blood Count 5.76 10^6/uL (3.85-5.65); Red Cell Distribution Width 18.3 % (12.1-15.1); White Blood Count 19.66 10^3/uL (3.29-11.43)
[2024-06-30 09:24] LABS: Troponin(5th) Baseline 15 ng/L (0-10)
[2024-06-30 09:27] LABS: Alanine Aminotransferase 6 U/L (0-33); Albumin Level 3.4 g/dL (3.5-5.2); Alkaline Phosphatase 90 U/L (35-105); Anion Gap 13.8 (5-19); Aspartate Amino Transferase 9 U/L (0-32); Blood Urea Nitrogen 7 mg/dL (8-23); Calcium 8.5 mg/dL (8.5-10.5); Carbon Dioxide 35 mmol/L (22-29); Chloride 92 mmol/L (98-107); Creatinine Clr Calc Pharmacy 95.9533; Globulin 3.4 g/dL (1.3-4.6); Glomerular Filtration Rate 124.6 mL/min (90-130); Glucose 158 mg/dL (65-115); Magnesium 1.6 mg/dL (1.7-2.3); Osmolality Calculated 285 mOsm/kg (285-295); Potassium 3.8 mmol/L (3.5-5.1); Sodium 137 mmol/L (136-145); Total Bilirubin 0.2 mg/dL (0.15-1.2); Total Protein 6.8 g/dL (6.6-8.7)
[2024-06-30] MEDS: ipratropium-albuterol 3 mL Neb INHALATION (09:27)
[2024-06-30 09:45] LABS: ABG PCO2 79.6 mmHg (35-45)
--- NOTE | 2024-06-30 09:51 | PC.PHAR ---
patient unable to verify, called [facility] to verify all meds
[2024-06-30 10:16] LABS: NT Pro B Type Natriuretic Pept 4894 pg/mL (0-125)
--- NOTE | 2024-06-30 10:16 | PC.NURSE ---
PATIENT STRAIGHT CATH FOR URINE SAMPLE. PATIENT PLACED IN GOWN AND MADE COMFORTABLE. WHILE DOING SO PATIENT VOMITTED INTO BIPAP MASK. PATIENT SAT UP IN BED, BIPAP REMOVED. PATIENT PLACED ON 6 L NC PER RESPIRATORY. PATIENT PLACED IN NEW GOWN, BEDDING CHANGED. MONITORING O2 AT THIS TIME, PATIENT DROPPED TO 56% ON 6 L NC THAT WAS PLACED IN MOUTH DUE TO PATIENT MOUTH BREATHING. RESPIRATORY BACK IN ROOM AND PATIENT PLACED BACK ON BIPAP.
[2024-06-30 10:39] LABS: Urine Appearance Cloudy (CLEAR); Urine Color Yellow (Yellow)
[2024-06-30 10:40] LABS: Add Urine Microscopic? YES; RBC Urine RARE /hpf (0-2); Squamous Epithelial Cell Urine 0-4 /hpf (0-5); UA Manual Slide Review YES; UA Slide Review UA Slide Review Perf; WBC Urine RARE /hpf (0-5)
[2024-06-30 10:41] LABS: Hyaline Casts Urine 0-4 /lpf
[2024-06-30] MEDS: piperacillin-tazobactam 3.375 GM in sodium chloride 0.9% (plus) 50 ML IV (10:42)
[2024-06-30 11:12] LABS: Covid PCR NEGATIVE (Negative); Influenza A NEGATIVE (Negative); Influenza B NEGATIVE (Negative); Respiratory Syncytial Virus Ce NEGATIVE (Negative)
--- NOTE | 2024-06-30 11:16 | ECG_ITS ---
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 Budget Analyst: : 1960 Requested By: Roberto Duarte Order Number: [id number] Reading MD: ANY MARTINEZ Measurements Intervals [place] Rate: 128 P: 68 [place]: 123 QRS: 79 QRSD: 85 T: 53 QT: 292 QTc: 426 Interpretive Statements SINUS TACHYCARDIA WITH OCCASIONAL VENTRICULAR PREMATURE COMPLEXES NONSPECIFIC ST ELEVATION [0.05+ mV ST ELEVATION] ABNORMAL RHYTHM ECG Compared to ECG 06/30/2024 08:39:32 Ventricular premature complex(es) now present ST (T wave) deviation still present Electronically Signed On 06-30-2024 19:29:00 LEAD SOFTWARE TEST ENGINEER by ANY MARTINEZ [email or web address]
[2024-06-30 11:40] LABS: Troponin 5 2HR 20.82 ng/L (0-10); Troponin 5 2HR Delta 5.82 ABS# (0-10)
[2024-06-30 11:59] LABS: Base Excess ABG 6.9 mmol/L (-2.0-2.0); Blood Gas Operator Identificat glc; Blood Gas Sample Site Brachial, left; Blood Gas Sample Type Arterial; Carboxyhemoglobin 1.4 %THgb (0.4-20.1); HCO3 ABG 39.5 mmol/L (22-26); HGB O2 Sat 93.4 % (95-100); Ionized Calcium Level - ABG 1.2 mmol/L (1.1-1.4); Methemoglobin < 0.0 % (0.4-1.5); Oxygen Device BIPAP; Oxygen Saturation ABG 94.4; PO2 ABG 84.9 mmHg (80.0-100.0); PO2 FiO2 Ratio Arterial Blood 141; Potassium Level - ABG 4.5 mmol/L (3.5-5.0); Total Hemoglobin 11.7 g/dL (12-16)
--- NOTE | 2024-06-30 12:09 | ECG_ITS ---
[facility] Test Date: 2024-06-30 Pat Name: Lora Dsouza Department: Room: [facility]07 Gender: Female Delivery Tech: : 1960 Requested By: Fritz Curry Order Number: [id number] Reading MD: ANY MARTINEZ Measurements Intervals [place] Rate: 132 P: 67 [place]: 129 QRS: 82 QRSD: 86 T: 53 QT: 282 QTc: 419 Interpretive Statements SINUS TACHYCARDIA ABNORMAL RHYTHM ECG Compared to ECG 06/30/2024 11:16:56 Ventricular premature complex(es) no longer present ST (T wave) deviation no longer present Electronically Signed On 06-30-2024 18:53:31 BOWLING OR SKATING FRONT DESK CLERK by ANY MARTINEZ [email or web address]
--- NOTE | 2024-06-30 12:27 | CT_ITS ---
WS: [id number] CTA CHEST WITH CT ABDOMEN AND PELVIS. HISTORY: Respiratory failure. TECHNIQUE: CT angiogram is performed through the chest. Additional imaging is performed through the a bdomen and pelvis with IV contrast. Sagittal and coronal reformats have been submitted. MIP imaging also reviewed. All CT scans at [facility] use at least one of these dose optimization techniqu es: automated exposure control; mA and/or kV adjustment per patient size (includes targeted exams whe re dose is matched to clinical indication); or iterative reconstruction. Contrast: Omnipaque 350; 95 cc IV. DLP: 552.40 mGy.cm COMPARISON: 02/26/2024 Chest CTA: Good opacification of the pulmonary arteries. No pulmonary emboli are identified. Pulmonar y artery is very slightly dilated. Mild atherosclerosis aorta. Heart is very slightly enlarged. No pe ricardial effusion. Hyperinflated lungs with emphysema. Mild interstitial thickening and edema. Tiny RIGHT pleural effusi on. Scattered linear opacifications and interstitial thickening. There are a few areas of scattered s ubsolid consolidations greatest on the RIGHT. New consolidation in the central RIGHT lower lobe was n ot present on 02/26/2024. Consolidation measures 1.8 x 1.7 cm. New mediastinal and hilar lymph nodes a re also identified. Para-aortic lymph node is enlarged measuring 2.7 cm. Inferior RIGHT paratracheal lymph node 1.7 cm. Bilateral hilar lymph nodes. The largest on the RIGHT 2.3 cm. The consolidation in the RIGHT lower lobe may be continuation of pleural thickening with pneumonia. These lymph nodes wer e not present on the study of 02/26/2024. Abdomen CT: Normal size liver. There are few scattered hypodensities within the liver. Focal fatty sp aring along the falciform ligament. Normal portal vein. Gallbladder is negative. Common bile duct is more difficult to identify but there is no bile duct dilatation. Normal appearance of the pancreas. S pleen is markedly enlarged extending over a length of 16.7 cm. No adrenal mass. Both kidneys are norm ally enhancing. Mild atherosclerosis aorta. Small hiatal hernia. Stomach is significantly distended with fluid and predominantly air. No small aurora wel obstruction. Moderate constipation and fecal retention. No identifiable lymph nodes in the mesent trisha or retroperitoneum of any significance. Pelvic CT: Maria catheter present in the urinary bladder. Uterus is small and atrophic as expected. T iny amount of free fluid in the RIGHT adnexa. No adenopathy. No destructive bone lesions are identified. Single focus of a mixed lytic and sclerotic lesion in the LEFT ischium measures 10 mm. Very nonspecific in appearance. In the LEFT ischium CT/CT angio chest w abd pel w con IMPRESSION: 1. Significant change in appearance of the chest since the prior examination o f 02/26/2024. 2. There is now mediastinal and hilar lymphadenopathy and consolidation in the RIGHT lower lobe. These changes may all be due to pneumonia and interstitial f luid. 3. Splenomegaly. Spleen is markedly enlarged. Possibility of lymphoma or leuke laurie should be considered. 4. No pulmonary embolism. 5. Stable mildly ectatic thoracic aorta. 6. Lungs are markedly emphysematous with diffuse new interstitial thickening r elated to edema and fluid overload. 7. Tiny RIGHT pleural effusion. 8. Recommend short-term follow-up chest CT after treatment, 4 to 6 weeks to re evaluate the consolidation in the RIGHT lower lobe. 9. No ascites. No significant mesenteric adenopathy or retroperitoneal adenopa thy. 10. Stomach is markedly dilated with predominantly air.
[2024-06-30] MEDS: FUROsemide 10 mg/mL SDV 2mL 20 MG IVP (12:28)
[2024-06-30] MEDS: methylPREDNISolone sod succ 125 mg/2 mL INJ IVP (12:28)
[2024-06-30 12:29] LABS: ABG PCO2 > 102.0 mmHg (35-45); ABG PH Result 7.14 (7.35-7.45)
--- NOTE | 2024-06-30 12:57 | P.HP_ITS ---
Documented by User: Froilan Colindres 06/30/24 13:48 Providers/Chief Complaint 2 Admitting Physician: Fritz Curry MD Primary Care Provider: Zoran Stern MD Chief Complaint: resp distress History of Present Illness Lora Dsouza is a 64 y.o. female with a PMHx of COPD who presented to the emergency department with altered mental status and severe shortness of breath. She is oxygen dependent usually on 3L NC. She is also on BiPAP at home but uses it less than instructed. She is also on several inhaled medications at home for COPD per primary care documentation. She was unresponsive at the time of our visit so history was obtained primarily from Lino and other staff. states for the past several days she has developed a cough, pronounced fatigue, and decreased appetite.He contacted emergency services this morning when he noticed her respiratory distress increased and her mental status declined. He also recalls a past hospitalization in January for similar issues. She has had contact with some children sick with respiratory illness. No recent medication changes. At baseline, she is self-sufficient. Review of Systems 2 Narrative: ROS unobtainable due to altered mental status and BiPAP. Medications/Allergies Home Medications Medication Instructions Recorded Confirmed Last Taken Type wheelchair #1 ea 04/10/23 06/30/24 Unknown Rx Home oxygen concentrator #1 ea 12/27/23 06/30/24 Unknown Rx Portable oxygen concentrator #1 ea 12/27/23 06/30/24 Unknown Rx oxygen tubing and mask equipment #1 ea 12/27/23 06/30/24 Unknown Rx pantoprazole 40 mg tablet,delayed 40 mg PO DAILY #90 tabs 02/08/24 06/30/24 Unknown Rx release (Protonix) albuterol sulfate 90 mcg/actuation 2 puff inhalation Q6H PRN 02/18/24 06/30/24 Unknown Rx aerosol inhaler Shortness Of Breath Or Wheezing #8.5 grams megestrol 400 mg/10 mL (10 mL) 200 mg (5 mL) PO DAILY PRN 02/18/24 06/30/24 Unknown Rx oral suspension APPETITE #1,000 mL tiotropium bromide 2.5 2 puff inhalation DAILY #4 grams 02/18/24 06/30/24 Unknown Rx mcg/actuation mist for inhalation (Spiriva Respimat) trazodone 50 mg tablet 50 mg PO DAILY #90 tabs 02/18/24 06/30/24 Unknown Rx fluticasone 500 mcg-salmeterol 50 1 inh inhalation BID 04/03/24 06/30/24 Unknown History mcg/dose blistr powdr for inhalation (Advair Diskus) albuterol sulfate 2.5 mg/3 mL 2.5 mg (3 mL) inhalation Q4H PRN 04/04/24 06/30/24 Unknown Rx (0.083 %) solution for nebulization Shortness Of Breath #90 mL sertraline 50 mg tablet (Zoloft) 50 mg PO DAILY #90 tabs 04/29/24 06/30/24 Unknown Rx furosemide 20 mg tablet 20 mg PO QAM PRN swelling #90 tabs 05/12/24 06/30/24 Unknown Rx ropinirole 1 mg tablet 1 mg PO BID #120 tabs 06/03/24 06/30/24 Unknown Rx buspirone 7.5 mg tablet 7.5 mg PO ONCE PRN anxiety #90 tabs 06/04/24 06/30/24 Unknown Rx fluticasone propionate 50 2 spray intranasal DAILY #16 grams 06/04/24 06/30/24 Unknown Rx mcg/actuation nasal spray,suspension Allergies Allergy/AdvReac Type Severity Reaction Status Date / Time No Known Allergies Allergy Verified 06/03/24 09:54 PFSH Acute 2 PFSH: Medical History Protein-calorie malnutrition, severe GERD (gastroesophageal reflux disease) Essential hypertension Anxiety Hypertension Insomnia COPD (chronic obstructive pulmonary disease) Surgical History History of History of tonsillectomy Family History Other Dementia Stroke Denies family history of Diabetes CAD (coronary artery disease) Clotting disorder Hyperlipidemia Psychiatric illness Chronic kidney disease (CKD) Anesthesia complication Bleeding disorder Lung disease Cancer Hypertension Social History Smoking and tobacco/nicotine status: former use of tobacco/nicotine Quit status (tobacco/nicotine): has quit using Year quit tobacco: 2019 Former quit date comment: 1 ppd X 40 years Second hand smoke exposure: Yes Alcohol intake: current Alcohol intake frequency: holidays/special occasions only Alcohol type: beer Substance/Drug Use: never Marital status: Number of children: 5 Number of grandchildren: 9 service: No Current occupational status: disabled Current occupational exposures/hazards: No Pets and animals: Yes Current gender identity: Female Vitals/I&O/Wt Last Vital Signs Temp 99.9 F H 06/30/24 08:44 Pulse 127 H 06/30/24 11:25 Resp 18 06/30/24 11:15 BP 90/64 06/30/24 11:25 Pulse Ox 95 06/30/24 11:25 O2 Del Method BiPAP 06/30/24 11:00 O2 Flow Rate 6 06/30/24 10:16 FiO2 50 06/30/24 09:34 Weight last 48 hrs Weight 110 lb Physical Exam 2 Narrative: General: Unresponsive. On BiPAP. Thin-appearing. HEENT: Normocephalic, atraumatic. Cardiovascular: Tachycardia. No murmur. Respiratory: Lung sounds consistent with BiPAP ventilation with aeration throughout lung english. Abdomen: Soft, nondistended. No obvious organomegaly. Active bowel sounds. Neuro: Exam limited due to altered mental status. Extremities: No joint enlargement. No significant edema. Urinary Catheter Management: Maria: Cath Placed During This Visit: yes Urinary Catheter Date of Insertion: 06/30/24 2 Sepsis Screen No Definite Risk 06/30/24 11:15 Respiratory Rate 18 breaths/min (12 - 18) 06/30/24 14:20 Blood Pressure 86/61 mmHg 06/30/24 14:00 Burgaw Coma Scale Score 7 06/30/24 14:10 Quick SOFA Score 0 06/30/24 11:15 SOFA Score: 2 ABG PO2/FiO2 Ratio 141 06/30/24 10:50 Nicola Coma Scale Score 7 06/30/24 14:10 Blood Pressure Mean 69 mmHg 06/30/24 14:00 Total Bilirubin 0.2 mg/dL (0.15-1.2) 06/30/24 08:20 Platelet Count 713 10^3/cmm (157-399) H 06/30/24 08:20 Creatinine 0.5 mg/dL (0.5-0.9) 06/30/24 08:20 Data 06/30/24 08:20 06/30/24 08:20 Other Labs: BNP 4894 Micro: Microbiology 06/30/24 10:41 Blood Culture - Preliminary Blood SPECIMEN COLLECTED 06/30/24 09:05 Blood Culture - Preliminary Blood SPECIMEN COLLECTED A&P Assessment and plan (1) Sepsis: (2) Acute respiratory failure with hypoxia and hypercapnia: Hx of COPD with previous hospitalization for exacerbation Oxygen dependent on 3L NC and daily BiPAP Currently in ICU on AVAPS. Receiving Xopenex, Atrovent, Pulmicort, and Solu- Medrol. Started Levaquin and Doxycycline for concern of pneumonia with CXR findings, leukocytosis with left shift, borderline fever, and history of Moraxella positive sputum culture. Awaiting final results of respiratory pathogen panel, negative thus far. D-Dimer 1.72. Ordered CT angio. Hypoxemia seems to be improving, yet hypercapnia is persisting. (3) Altered mental status: See above Self-sufficient at baseline but noticed altered mental status early this morning. Differential diagnosis at this time includes metabolic encephalopathy, hypoxia/hypercapnia, infection, toxic ingestion, or neurologic insult. Will continue to evaluate and treat metabolic derangements, respiratory status, possible infection, and remaining potential etiologies. (4) Respiratory acidosis: (5) Essential hypertension: (6) Protein-calorie malnutrition, severe: (7) Chronic hypercapnic respiratory failure: (8) Chronic respiratory failure with hypoxia: (9) Pneumonia: Plan DVT prophylaxis: Lovenox Coding Level of Care Code Acute Code for [facility] Fwd Diagnoses Sepsis A41.9 Acute respiratory failure with hypoxia and hypercapnia J96.01; J96.02 Altered mental status R41.82 Respiratory acidosis E87.29 Essential hypertension I10 Protein-calorie malnutrition, severe E43 Chronic hypercapnic respiratory failure J96.12 Chronic respiratory failure with hypoxia J96.11 Pneumonia J18.9 Documented by User: Fritz Curry MD 06/30/24 16:12 Providers/Chief Complaint 2 Chief Complaint: resp distress History of Present Illness Lora Dsouza is a 64 y.o. female with a PMHx of COPD, chronic hypoxic and hypercapnic respiratory failure on 3 L of oxygen supplementation at baseline, BiPAP nightly which patient is not compliant to bed last admission back in December for respiratory failure presents to the ER with spouse at bedside because of altered mental status getting worse over last 3 to 4 days. As per the spouse is at bedside patient on baseline is able to take care of herself but for last 2 days she has been having worsening cough, difficulty in breathing, weakness and has been getting more confused for last 2 days. Today morning patient was more confused and was not able to answer any questions hence the daughter to the ER. At home she has been saturating in high 70s. In the ER she was found to be altered with hypercapnia and hence was placed on BiPAP at AVAPS setting. Repeat ABG showed worsening respiratory acidosis with hypercapnia. Examination in ICU patient is on BiPAP, somnolent, heart rate of 120 bpm, sinus, blood pressure of 94 systolic. Review of Systems 2 General: Reports: ROS unobtainable due to mental status Medications/Allergies Home Medications Medication Instructions Recorded Confirmed Last Taken Type wheelchair #1 ea 04/10/23 06/30/24 Unknown Rx Home oxygen concentrator #1 ea 12/27/23 06/30/24 Unknown Rx Portable oxygen concentrator #1 ea 12/27/23 06/30/24 Unknown Rx oxygen tubing and mask equipment #1 ea 12/27/23 06/30/24 Unknown Rx pantoprazole 40 mg tablet,delayed 40 mg PO DAILY #90 tabs 02/08/24 06/30/24 Unknown Rx release (Protonix) albuterol sulfate 90 mcg/actuation 2 puff inhalation Q6H PRN 02/18/24 06/30/24 Unknown Rx aerosol inhaler Shortness Of Breath Or Wheezing #8.5 grams megestrol 400 mg/10 mL (10 mL) 200 mg (5 mL) PO DAILY PRN 02/18/24 06/30/24 Unknown Rx oral suspension APPETITE #1,000 mL tiotropium bromide 2.5 2 puff inhalation DAILY #4 grams 02/18/24 06/30/24 Unknown Rx mcg/actuation mist for inhalation (Spiriva Respimat) trazodone 50 mg tablet 50 mg PO DAILY #90 tabs 02/18/24 06/30/24 Unknown Rx fluticasone 500 mcg-salmeterol 50 1 inh inhalation BID 04/03/24 06/30/24 Unknown History mcg/dose blistr powdr for inhalation (Advair Diskus) albuterol sulfate 2.5 mg/3 mL 2.5 mg (3 mL) inhalation Q4H PRN 04/04/24 06/30/24 Unknown Rx (0.083 %) solution for nebulization Shortness Of Breath #90 mL sertraline 50 mg tablet (Zoloft) 50 mg PO DAILY #90 tabs 04/29/24 06/30/24 Unknown Rx furosemide 20 mg tablet 20 mg PO QAM PRN swelling #90 tabs 05/12/24 06/30/24 Unknown Rx ropinirole 1 mg tablet 1 mg PO BID #120 tabs 06/03/24 06/30/24 Unknown Rx buspirone 7.5 mg tablet 7.5 mg PO ONCE PRN anxiety #90 tabs 06/04/24 06/30/24 Unknown Rx fluticasone propionate 50 2 spray intranasal DAILY #16 grams 06/04/24 06/30/24 Unknown Rx mcg/actuation nasal spray,suspension Allergies Allergy/AdvReac Type Severity Reaction Status Date / Time No Known Allergies Allergy Verified 06/03/24 09:54 PFSH Acute 2 PFSH: Medical History Protein-calorie malnutrition, severe GERD (gastroesophageal reflux disease) Essential hypertension Anxiety Hypertension Insomnia COPD (chronic obstructive pulmonary disease) Surgical History History of History of tonsillectomy Family History Other Dementia Stroke Denies family history of Diabetes CAD (coronary artery disease) Clotting disorder Hyperlipidemia Psychiatric illness Chronic kidney disease (CKD) Anesthesia complication Bleeding disorder Lung disease Cancer Hypertension Social History Smoking and tobacco/nicotine status: former use of tobacco/nicotine Quit status (tobacco/nicotine): has quit using Year quit tobacco: 2019 Former quit date comment: 1 ppd X 40 years Second hand smoke exposure: Yes Alcohol intake: current Alcohol intake frequency: holidays/special occasions only Alcohol type: beer Substance/Drug Use: never Marital status: Number of children: 5 Number of grandchildren: 9 service: No Current occupational status: disabled Current occupational exposures/hazards: No Pets and animals: Yes Current gender identity: Female Physical Exam 2 Narrative: General:, Thin appearing, frail appearing, chronic sick appearing, GCS: E1, M1, V1, somnolent on BiPAP HEENT: Normocephalic, atraumatic. Cardiovascular: Tachycardia. No murmur. Respiratory: Bilateral bronchial breath sounds all over lung english with occasional rhonchi, coarse crackles present more so on the right and left. Abdomen: Soft, nondistended. No obvious organomegaly. Active bowel sounds. Neuro: Exam limited due to altered mental status. Extremities: No joint enlargement. No significant edema. Urinary Catheter Management: Maria: Cath Placed During This Visit: yes Quick SOFA Score: Respiratory Rate: 18 Blood Pressure: 86/61 Burgaw Coma Scale: 5 qSOFA Score: 2 If qSOFA score 2 or greater, continue: PaO2/FiO2 Ratio (mmHg): 141 Blood Pressure Mean: 69 Bilirubin (mg/dl): 0.2 Platelets (x10?/ml): 713 C reatinine (mg/dl): 0.5 SOFA Score: 8 Evaluation: Current stage of sepsis: sepsis Sepsis stage criteria used: CMS Sep-1 and Sepsis-3 Crystalloid fluids: no fluids ordered Blood cultures ordered: Yes Possible source: pulmonary Focused Exam: Vital signs: Temp Pulse Resp BP Pulse Ox O2 Del Method O2 Flow Rate 06/30/24 14:43 123 H 06/30/24 14:30 95 BiPAP 06/30/24 14:20 118 H 18 95 BiPAP 06/30/24 14:20 118 H 95 06/30/24 14:10 BiPAP 06/30/24 14:00 120 H 22 H 61 95 BiPAP 06/30/24 13:55 117 H 27 H 61 93 BiPAP 06/30/24 13:50 117 H 22 H 61 94 BiPAP 06/30/24 13:45 117 H 16 101/66 94 BiPAP 06/30/24 13:40 122 H 34 H 101/66 93 BiPAP 06/30/24 13:35 122 H 17 101/66 94 BiPAP 06/30/24 13:30 127 H 33 H 101/63 89 L BiPAP 06/30/24 13:25 97 BiPAP 06/30/24 13:20 97 BiPAP 06/30/24 13:15 98 BiPAP 06/30/24 13:10 98 BiPAP 06/30/24 13:05 98 BiPAP 06/30/24 13:00 159/100 98 BiPAP 06/30/24 12:55 90/64 06/30/24 12:50 90/64 06/30/24 12:45 90/64 06/30/24 12:40 90/64 06/30/24 12:35 90/64 06/30/24 12:30 127 H 19 H 97/64 94 BiPAP 06/30/24 12:25 90/64 06/30/24 12:20 129 H 34 H 97/64 94 BiPAP 06/30/24 12:15 9006/30/24 12:10 9006/30/24 12:05 06/30/24 12:00 06/30/24 11:55 90/64 06/30/24 11:50 133 H 25 H 101/69 94 BiPAP 06/30/24 11:45 130 H 16 85/60 91 BiPAP 06/30/24 11:40 9064 06/30/24 11:35 90/64 06/30/24 11:30 90/64 06/30/24 11:25 9064 06/30/24 11:25 127 H 90/64 95 06/30/24 11:20 128 H 18 90/64 92 BiPAP 06/30/24 11:15 131 H 18 111/70 91 06/30/24 11:10 133 H 19 H 111/70 89 L BiPAP 06/30/24 11:05 136 H 18 111/70 88 L BiPAP 06/30/24 11:00 135 H 29 H 95/69 86 L BiPAP 06/30/24 10:55 137 H 41 H 95/69 91 BiPAP 06/30/24 10:50 129 H 16 95/69 94 BiPAP 06/30/24 10:45 133 H 18 92/67 92 BiPAP 06/30/24 10:40 133 H 18 92/67 92 BiPAP 06/30/24 10:35 134 H 17 92/67 94 BiPAP 06/30/24 10:30 137 H 20 H 109/73 94 BiPAP 06/30/24 10:25 138 H 21 H 109/73 95 BiPAP 06/30/24 10:21 143 H 28 H 109/73 95 BiPAP 06/30/24 10:16 144 H 36 H 94/61 55 L Nasal Cannula 6 06/30/24 09:34 145 H 22 H 96 BiPAP 06/30/24 09:29 148 H 95 06/30/24 09:19 151 H 19 H 120/71 94 BiPAP 06/30/24 08:58 146 H 30 H 116/69 85 L Nasal Cannula 4 06/30/24 08:44 99.9 F H 142 H 36 H 119/70 91 Nasal Cannula 6 06/30/24 08:35 99.9 F H 142 H 36 H 119/70 91 Nasal Cannula 6 FiO2 06/30/24 14:43 06/30/24 14:30 50 06/30/24 14:20 50 06/30/24 14:20 50 06/30/24 14:10 06/30/24 14:00 06/30/24 13:55 06/30/24 13:50 06/30/24 13:45 06/30/24 13:40 06/30/24 13:35 06/30/24 13:30 06/30/24 13:25 06/30/24 13:20 06/30/24 13:15 06/30/24 13:10 06/30/24 13:05 06/30/24 13:00 06/30/24 12:55 06/30/24 12:50 06/30/24 12:45 06/30/24 12:40 06/30/24 12:35 06/30/24 12:30 06/30/24 12:25 06/30/24 12:20 06/30/24 12:15 06/30/24 12:10 06/30/24 12:05 06/30/24 12:00 06/30/24 11:55 06/30/24 11:50 06/30/24 11:45 06/30/24 11:40 06/30/24 11:35 06/30/24 11:30 06/30/24 11:25 06/30/24 11:25 06/30/24 11:20 06/30/24 11:15 06/30/24 11:10 06/30/24 11:05 06/30/24 11:00 06/30/24 10:55 06/30/24 10:50 06/30/24 10:45 06/30/24 10:40 06/30/24 10:35 06/30/24 10:30 06/30/24 10:25 06/30/24 10:21 06/30/24 10:16 06/30/24 09:34 50 06/30/24 09:29 60 06/30/24 09:19 06/30/24 08:58 06/30/24 08:44 06/30/24 08:35 Date exam was performed: 06/30/24 Time exam was performed: 16:11 2 Sepsis Screen No Definite Risk 06/30/24 11:15 Respiratory Rate 18 breaths/min (12 - 18) 06/30/24 14:20 Blood Pressure 86/61 mmHg 06/30/24 14:00 Nicola Coma Scale Score 7 06/30/24 14:10 Quick SOFA Score 0 06/30/24 11:15 SOFA Score: 2 ABG PO2/FiO2 Ratio 141 06/30/24 10:50 Nicola Coma Scale Score 7 06/30/24 14:10 Blood Pressure Mean 69 mmHg 06/30/24 14:00 Total Bilirubin 0.2 mg/dL (0.15-1.2) 06/30/24 08:20 Platelet Count 713 10^3/cmm (157-399) H 06/30/24 08:20 Creatinine 0.5 mg/dL (0.5-0.9) 06/30/24 08:20 Data 06/30/24 08:20 06/30/24 08:20 A&P Assessment and plan (1) Sepsis: SIRS: Tachycardic, Febrile, Leukocytosis Source: Possibly End organ damage: Acute infectious encephalopathy Check lactate Patient did not receive full 30 mL/kg BW with concerns for possible fluid overload with respiratory failure. Check Cheetah examination. Maria catheterization. (2) Acute respiratory failure with hypoxia and hypercapnia: Acute on chronic hypoxic and hypercapnic respiratory failure. Currently on AVAPS mode. Decrease oxygen supplementation with target saturation of 88 to 90%. Repeat ABG in 3 hours. Most likely in setting of COPD exacerbation though pneumonia cannot be ruled out. Check respiratory viral, sputum culture, MRSA swab, urine Legionella, bacterial antigen, blood culture, procalcitonin. Past history of sputum culture with Moraxella. Start on IV Levaquin 750 mg daily along with doxycycline 100 mg twice daily. Will add linezolid if MRSA swab positive. Ipratropium, Xopenex every 4 hours, Pulmicort twice daily. Start on Solu-Medrol 125 mg stat followed by 40 mg IV every 6 hours. Will de-escalate within next 24 to 48 hours depending on respiratory status. NPO. Check D-dimer as patient is tachycardic with concerns for pulmonary embolism. CTA versus CT depending on D-dimer level. Hold off on full dose anticoagulation for now. (3) Altered mental status: Most likely in setting of hypercapnia. Treatment as above. Continue to monitor. NPO. Aspiration, fall precaution. CVA less likely as patient not reported to have any weakness in the arms for last few days. (4) Respiratory acidosis: (5) Essential hypertension: Goal BP less than 140/90 mmhg with MAP over 65. Hold off on antihypertensive. Treat as above. Will start Levophed if needed is not maintained and patient is not fluid responsive (6) Protein-calorie malnutrition, severe: Chronic. Will restart Megace once able. (7) Chronic hypercapnic respiratory failure: (8) Chronic respiratory failure with hypoxia: (9) Pneumonia: Plan DVT prophylaxis: Lovenox N.p.o. Protonix OPD prophylaxis Goals of care discussion: Discussed in detail with patient's nurse at bedside. Patient is DNR/DNI on previous admission. Confirmed with spouse. He states patient is DNR/DNI. Hold off on other home medications for now as patient is NPO. Will restart other antipsychotic medications once patient is able to take orally. Attestations 2 Medical Necessity Statement*: Admission for more than 2 midnights for management of acute on chronic hypoxic and hypercapnic respiratory failure, hypotension with concerns for shock, sepsis, COPD exacerbation with concerns for pneumonia Coding Level of Care Code Acute Code for [facility] Fw Diagnoses Sepsis A41.9 Acute respiratory failure with hypoxia and hypercapnia J96.01; J96.02 Altered mental status R41.82 Respiratory acidosis E87.29 Essential hypertension I10 Protein-calorie malnutrition, severe E43 Chronic hypercapnic respiratory failure J96.12 Chronic respiratory failure with hypoxia J96.11 Pneumonia J18.9
[2024-06-30] MEDS: iohexol 350 mg/mL 500 mL Btl (per mL) IV (12:59)
[2024-06-30 13:09] LABS: D Dimer 1.72 ug/mLFEU (0-0.59)
[2024-06-30] MEDS: levofloxacin-dextrose 5 % 750 MG/150 ML PREMIX 100 MG IV (13:17)
[2024-06-30] MEDS: enoxaparin 40 mg/0.4 mL Syringe SUBCUT (13:18)
[2024-06-30] MEDS: doxycycline 100 MG in sodium chloride 0.9% (plus) 100 ML IV ×2 (13:18→23:36)
[2024-06-30] MEDS: pantoprazole 40 mg SDV IVP (13:18)
[2024-06-30 13:28] LABS: Procalcitonin 1.92 ng/mL (0-0.5); Thyroid Stimulating Hormone 0.19 uIU/mL (0.27-4.20)
[2024-06-30 14:25] LABS: Adenovirus Not Detected (NOT DETECT); Chlamydia Pneumoniae Not Detected (NOT DETECT); Coronavirus 229E,HKU1,NL63,OC4 Not Detected (NOT DETECT); Human Metapneumovirus Not Detected (NOT DETECT); Human Rhinovirus/Enterovirus Not Detected (NOT DETECT); Influenza A Not Detected (NOT DETECT); Influenza A H1 Not Detected (NOT DETECT); Influenza A H1-2009 Not Detected (NOT DETECT); Influenza A H3 Not Detected (NOT DETECT); Influenza B Not Detected (NOT DETECT); Mycoplasma Pneumoniae Not Detected (NOT DETECT); Parainfluenza Virus Type 1 Not Detected (NOT DETECT); Parainfluenza Virus Type 2 Not Detected (NOT DETECT); Parainfluenza Virus Type 3 Not Detected (NOT DETECT); Parainfluenza Virus Type 4 Not Detected (NOT DETECT); Respiratory Syncytial Virus A Not Detected (NOT DETECT); Respiratory Syncytial Virus B Not Detected (NOT DETECT); SARS-COV-2 Not Detected (NOT DETECT)
[2024-06-30] MEDS: budesonide 0.5 mg/2 mL Neb INHALATION ×2 (14:34→20:03)
[2024-06-30] MEDS: ipratropium 0.5 mg/2.5 mL Neb INHALATION ×4 (14:34→23:13)
[2024-06-30] MEDS: levalbuterol 0.63 mg/3 mL Neb INHALATION ×4 (14:34→23:13)
--- NOTE | 2024-06-30 14:49 | ECG_ITS ---
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
[2024-06-30 16:12] LABS: MRSA PCR OZH (swab) NOT DETECTED (Not Detecte)
--- NOTE | 2024-06-30 16:13 | P.PN_ITS ---
Vitals/I&O/Wt Last Vital Signs Temp 99.9 F H 06/30/24 08:44 Pulse 123 H 06/30/24 14:43 Resp 18 06/30/24 14:20 BP 86/61 06/30/24 14:00 Pulse Ox 95 06/30/24 14:30 O2 Del Method BiPAP 06/30/24 14:30 O2 Flow Rate 6 06/30/24 10:16 FiO2 50 06/30/24 14:30 06/30/24 06/30/24 06/30/24 06:59 14:59 22:59 Intake Total 250 / 250 Output Total 400 / 400 Balance 250 / 250 -400 / -150 Weight last 48 hrs Weight 54.885 kg Weight 49.895 kg Physical Exam 2 Urinary Catheter Management: Maria: Cath Placed During This Visit: yes Urinary Catheter Date of Insertion: 06/30/24 Urinary Catheter Time of Insertion: 12:20 Data 06/30/24 08:20 06/30/24 08:20 Micro: Microbiology 06/30/24 12:30 Bacterial Antigens - Final Urine Kidney 06/30/24 12:30 Legionella Urinary Antigen - Final Unknown Source 06/30/24 10:41 Blood Culture - Preliminary Blood SPECIMEN COLLECTED 06/30/24 09:05 Blood Culture - Preliminary Blood SPECIMEN COLLECTED Attestations 2 Critical Care Time: The high probability of a clinically significant, sudden or life threatening deterioration of the patient's [pulmonary, neuro, renal] system(s) required my full and direct attention, intervention and personal management. The critical care time is as shown. This time is in addition to time spent performing any reported procedures but includes the following: [x] Data and vital sign review and interpretation [x] Patient assessment, examination and intervention [x] Documentation [x] Medication orders and management Coding Level of Care Code Critical Care >/= 30 minutes
[2024-06-30] MEDS: norepinephrine 4 MG/250 ML BAG 7.5 MG IV (16:49)
--- NOTE | 2024-06-30 16:50 | PC.OT ---
OT evaluation withheld this date per nursing request. To attempt OT evaluation on a later date.
[2024-06-30 17:25] LABS: ABG PH Result 7.26 (7.35-7.45); Alveolar-Arterial Oxygen Gradi 20.9 mmHg (5-10); Arterial Blood Gas Hematocrit 36.2 % (37-47); Base Excess ABG 8.6 mmol/L (-2.0-2.0); Blood Gas Allen Test Pos; Blood Gas Operator Identificat BROMA; Blood Gas Sample Site Radial, left; Blood Gas Sample Type Arterial; Blood Gas Tidal Volume 0.45; Carboxyhemoglobin 1.4 %THgb (0.4-20.1); HCO3 ABG 38.6 mmol/L (22-26); HGB O2 Sat 94.5 % (95-100); Ionized Calcium Level - ABG 1.2 mmol/L (1.1-1.4); Methemoglobin 0.9 % (0.4-1.5); Oxygen Device BIPAP; Oxygen Saturation ABG 96.7; PO2 ABG 94.2 mmHg (80.0-100.0); PO2 FiO2 Ratio Arterial Blood 188; Potassium Level - ABG 4.4 mmol/L (3.5-5.0); Total Hemoglobin 11.8 g/dL (12-16)
[2024-06-30 17:26] LABS: ABG PCO2 86.2 mmHg (35-45)
--- NOTE | 2024-06-30 17:32 | PC.NURSE ---
At 1707 patient AOX3, reports nausea, Bipap removed and patient placed on 4L NC, Zofran given per OCT. At 1730 patient was beginning to become lethargic and stated nausea has resolved. Bipap replaced. Patient is resting in bed with at bedside.
[2024-06-30 17:42] LABS: Troponin 5 6HR 17.43 ng/L (0-10); Troponin 5 6HR Delta 2.43 ng/L (0-12)
[2024-06-30 17:43] LABS: Lactic Sepsis W/Reflex 0.8 mmol/L (0.5-2.2)
[2024-06-30] MEDS: methylPREDNISolone sod succ 40 mg/mL INJ IVP ×2 (18:39→23:35)
[2024-06-30 19:01] LABS: Free T4 Free Thyroxine 1.14 ng/dL (0.82-1.77); T3 Free 2.2 PG/ML (2.0-4.4)
[2024-06-30 23:33] LABS: Bilirubin Urine Negative (Negative); Blood Urine 3+ (Negative); Glucose Urine UA Negative (Normal); Ketones Urine Negative (Negative); Leukocyte Esterase Urine Negative (Negative); Nitrate Urine Negative (Negative); Protein Urine 2+ (Negative); Urine Appearance Clear (CLEAR); Urine Color Yellow (Yellow)
[2024-06-30 23:38] LABS: Add Urine Microscopic? YES; Bacteria Urine None Seen /hpf; Hyaline Casts Urine 10.73 /lpf; RBC Urine 51-100 /hpf (0-2); WBC Urine 0-5 /hpf (0-5)
[2024-07-01] VITALS (197 sets, daily range): BP systolic 94–128; BP diastolic 44–83; PULSE 74–125; RESP 16–41; TEMP 36.7; O2SAT 78–100
[2024-07-01] LABS: Specific Gravity, Urine 1.059 (1.005-1.030); UA Slide Review UA Slide Review Perf
[2024-07-01 00:01] LABS: Add Urine Culture? Yes
[2024-07-01] MEDS: lanolin oint 7 gm 1 APPLIC TOPICAL (01:54)
[2024-07-01] MEDS: levalbuterol 0.63 mg/3 mL Neb INHALATION ×5 (03:30→19:55)
[2024-07-01] MEDS: ipratropium 0.5 mg/2.5 mL Neb INHALATION ×5 (03:30→19:55)
[2024-07-01 05:06] LABS: Basophils % 0.2 %; Hematocrit 39.4 % (36-47); Lymphocytes # 0.5 10^3/uL (0.8-4.8); Lymphocytes % 4.2 %; Mean Corpuscular HGB Conc 26.6 g/dL (30-55); Mean Corpuscular Hemoglobin 20.2 pg (27-33); Mean Corpuscular Volume 75.6 fl (85-98); Mean Platelet Volume 11.7 fL (7.4-10.4); Monocytes # 0.3 10^3/uL (0.2-0.9); Monocytes % 2.1 %; Neutrophils # 11.24 10^3/uL (1.8-7.7); Neutrophils % 91.5 %; Nucleated Red Blood Cells % 0 %; Platelet Count 634 10^3/cmm (157-399); Red Blood Count 5.21 10^6/uL (3.85-5.65); Red Cell Distribution Width 18.4 % (12.1-15.1); White Blood Count 12.28 10^3/uL (3.29-11.43)
[2024-07-01 05:18] LABS: Alanine Aminotransferase 9 U/L (0-33); Albumin Level 3.2 g/dL (3.5-5.2); Alkaline Phosphatase 89 U/L (35-105); Anion Gap 9.6 (5-19); Aspartate Amino Transferase 12 U/L (0-32); Blood Urea Nitrogen 16 mg/dL (8-23); Calcium 9.1 mg/dL (8.5-10.5); Carbon Dioxide 40 mmol/L (22-29); Chloride 95 mmol/L (98-107); Creatinine Clr Calc Pharmacy 82.9851; Globulin 3.6 g/dL (1.3-4.6); Glucose 135 mg/dL (65-115); Magnesium 1.8 mg/dL (1.7-2.3); Osmolality Calculated 293 mOsm/kg (285-295); Phosphorus 2.3 mg/dL (2.5-4.5); Potassium 4.6 mmol/L (3.5-5.1); Sodium 140 mmol/L (136-145); Total Bilirubin 0.2 mg/dL (0.15-1.2); Total Protein 6.8 g/dL (6.6-8.7)
[2024-07-01 05:24] LABS: Estmated Average Glucose 100; Hemoglobin A1C 5.1 % (4.0-6.0)
[2024-07-01 05:27] LABS: Procalcitonin 1.56 ng/mL (0-0.5)
[2024-07-01] MEDS: methylPREDNISolone sod succ 40 mg/mL INJ IVP ×3 (05:36→17:29)
[2024-07-01 05:37] LABS: Chol HDL Ratio 3.93 mg/dL (0.0-4.40); Cholesterol 114 mg/dL (0-200); HDL Cholesterol 29 mg/dL (60-100); LDL Cholesterol Calculated 72 mg/dL (50-129); LDL HDL Ratio 2.48 RATIO (0.00-3.22); Triglycerides 67 mg/dL (0-150)
[2024-07-01] MEDS: budesonide 0.5 mg/2 mL Neb INHALATION ×2 (08:05→19:55)
--- NOTE | 2024-07-01 11:21 | P.PN_ITS ---
Documented by User: Froilan Colindres 07/01/24 11:47 Subjective 2 Subjective: Ms. Dsouza is doing much better today. She is accompanied by her . She is conscious and conversational. She is unsure when exactly she began to regain awareness. She does endorse feeling tired this morning. She has a good appetite and is awaiting lunch. She is now off BiPAP and on 4L NC. She denies any pain. No new concerns. Medications: Reviewed: Yes Vitals/I&O/Wt Last Vital Signs Temp 98.1 F 07/01/24 06:20 Pulse 77 07/01/24 08:19 Resp 19 H 07/01/24 08:10 BP 126/78 07/01/24 08:10 Pulse Ox 92 07/01/24 08:03 O2 Del Method Nasal Cannula 07/01/24 08:03 O2 Flow Rate 4 07/01/24 08:03 FiO2 50 07/01/24 03:34 06/30/24 07/01/24 07/01/24 22:59 06:59 14:59 Intake Total 68.625 / 318.625 206.875 / 525.500 44 / 44 Output Total 400 / 400 450 / 850 Balance -331.375 / -81.375 -243.125 / -324.500 44 / 44 Weight last 48 hrs Weight 99 lb 3.328 oz Weight 121 lb Weight 110 lb Physical Exam 2 Narrative: General: Thin, chronically ill appearing. GCS: 15. On oxygen via nasal cannula. HEENT: Normocephalic, atraumatic. Nasal cannula in place. Cardiovascular: Regular rate and rhythm. No murmur. Respiratory: Diminished breath sounds. Occasional rhonchi and crackles. Abdomen: Soft, nondistended. No obvious organomegaly. Active bowel sounds. Neuro: No obvious focal deficits. Extremities: No joint enlargement. No significant edema. Urinary Catheter Management: Maria: Cath Placed During This Visit: yes Reason for Continuing Indwelling Catheter: Accurate Measurement of Urinary Output in Critically Ill Patients Urinary Catheter Date of Insertion: 06/30/24 Urinary Catheter Time of Insertion: 12:20 Data 07/01/24 04:24 07/01/24 04:24 Micro: Microbiology 06/30/24 10:41 Blood Culture - Preliminary Blood NEGATIVE TO DATE 06/30/24 09:05 Blood Culture - Preliminary Blood NEGATIVE TO DATE 06/30/24 12:30 Bacterial Antigens - Final Urine Kidney 06/30/24 12:30 Legionella Urinary Antigen - Final Unknown Source A&P Assessment and plan (1) Sepsis: SIRS: Tachycardic, Febrile, Leukocytosis Tmax of 99.9. Tachycardia improving. Leukocytosis also improving. Source: Possible pneumonia End organ damage: Acute infectious encephalopathy Lactic acid yesterday 1.0 then 0.8 Patient did not receive full 30 mL/kg BW with concerns for possible fluid overload with respiratory failure. Check Cheetah examination. Maria catheterization. (2) Acute respiratory failure with hypoxia and hypercapnia: Acute on chronic hypoxic and hypercapnic respiratory failure. Transitioned from AVAPS yesterday to 4L NC this morning. Decrease oxygen supplementation with target saturation of 88 to 90%. Repeat ABG in 3 hours. Most likely in setting of COPD exacerbation however pneumonia cannot be ruled out. Respiratory panel: [place]-negative Sputum culture: Yet to be obtained. Past history of sputum culture positive for Moraxella MRSA swab: negative Urine Legionella: negative Bacterial antigen: [place]-negative Blood culture: Negative to date Procalcitonin: 1.92 yesterday, 1.56 today Start on IV Levaquin 750 mg daily along with doxycycline 100 mg twice daily. No need to add linezolid since MRSA swab negative. Ipratropium, Xopenex every 4 hours, Pulmicort twice daily. Start on Solu-Medrol 125 mg stat followed by 40 mg IV every 6 hours. Will de-escalate within next 24 to 48 hours depending on respiratory status. D-Dimer 1.72 yesterday. Follow up CTA showed no pulmonary embolism. Hold off on full dose anticoagulation for now. (3) Altered mental status: Most likely in setting of hypercapnia. Treatment as above. Continue to monitor. Aspiration, fall precaution. CVA less likely as patient not reported to have any weakness in the arms for last few days. Much improved at this time. (4) Respiratory acidosis: Last ABG revealed pH of 7.26, pCO2 of 86.2, pO2 of 94.2, HCO3 of 38.6. No anion gap. (5) Essential hypertension: Goal BP less than 140/90 mmhg with MAP over 65. Hold off on antihypertensive. Treat as above. Will start Levophed if needed is not maintained and patient is not fluid responsive (6) Protein-calorie malnutrition, severe: Chronic. Will restart Megace once able. PO diet as tolerated. (7) Chronic hypercapnic respiratory failure: See above (8) Chronic respiratory failure with hypoxia: See above (9) Pneumonia: See above (10) Septic shock: Plan DVT prophylaxis: Lovenox PO diet as tolerated Protonix for PUD prophylaxis Goals of care discussion: Discussed in detail with patient's nurse at bedside. Patient is DNR/DNI on previous admission. Confirmed with spouse. He states patient is DNR/DNI. Hold off on other home medications for now as patient is NPO. Will restart other antipsychotic medications once patient is able to take orally. Coding Level of Care Code Critical Care >/= 30 minutes Diagnoses Sepsis A41.9 Acute respiratory failure with hypoxia and hypercapnia J96.01; J96.02 Altered mental status R41.82 Respiratory acidosis E87.29 Essential hypertension I10 Protein-calorie malnutrition, severe E43 Chronic hypercapnic respiratory failure J96.12 Chronic respiratory failure with hypoxia J96.11 Pneumonia J18.9 Septic shock A41.9; R65.21 Documented by User: Fritz Curry MD 07/01/24 15:17 Subjective 2 Subjective: Agree with the subjective as above. Patient seen with at bedside. Is awake and alert. Denies any new complaints. Asking when can she go home. Asking if she can eat. Physical Exam 2 Urinary Catheter Management: Maria: Cath Placed During This Visit: yes Data 07/01/24 04:24 07/01/24 04:24 A&P Assessment and plan (1) Sepsis: SIRS: Tachycardic, Febrile, Leukocytosis Source: Possible pneumonia End organ damage: Acute infectious encephalopathy Lactic acid y normal on admission. Patient did not receive full 30 mL/kg BW with concerns for possible fluid overload with respiratory failure. She did have examination consistent with patient not being fluid responsive. Started on Levophed. Wean Levophed keeping mean arterial pressure over 65. Maria catheterization. (2) Acute respiratory failure with hypoxia and hypercapnia: Acute on chronic hypoxic and hypercapnic respiratory failure. Transitioned from AVAPS yesterday to 4L NC this morning. Decrease oxygen supplementation with target saturation of 88 to 90%. Plan to put back on BiPAP at home settings when sleeping at night. Most likely in setting of COPD exacerbation however pneumonia cannot be ruled out. Respiratory viral panel: [place]-negative Sputum culture: Yet to be obtained. Past history of sputum culture positive for Moraxella MRSA swab: negative Urine Legionella: negative Bacterial antigen: [place]-negative Blood culture: Negative to date Procalcitonin: Trend e negative. 1.92 yesterday, 1.56 today Continue with IV Levaquin 750 mg daily along with doxycycline 100 mg twice daily. No need to add linezolid since MRSA swab negative. Ipratropium, Xopenex every 4 hours, Pulmicort twice daily. Wean Solu-Medrol to 40 mg every 8 hourly. D-Dimer 1.72 yesterday. Follow up CTA showed no pulmonary embolism. (3) Altered mental status: Resolved. Most likely in setting of hypercapnia. Treatment as above. Continue to monitor. Aspiration, fall precaution. CVA less likely as patient not reported to have any weakness in the arms for last few days. PT/OT in AM. (4) Respiratory acidosis: Insetting of hypercapnic respiratory failure. Resolved. (5) Essential hypertension: Goal BP less than 140/90 mmhg with MAP over 65. Currently in septic shock. Hold off on antihypertensive. Treat as above. (6) Protein-calorie malnutrition, severe: (7) Chronic hypercapnic respiratory failure: (8) Chronic respiratory failure with hypoxia: (9) Pneumonia: (10) Septic shock: Plan DVT prophylaxis: Lovenox Start on full liquid diet. Protonix for PUD prophylaxis Patient is more awake and alert. Start on chronic home medications. Goals of care discussion: Discussed in detail with patient's nurse at bedside. Patient is DNR/DNI on previous admission. Confirmed with spouse. He states patient is DNR/DNI. Hold off on other home medications for now as patient is NPO. Will restart other antipsychotic medications once patient is able to take orally. Attestations 2 Medical Necessity Statement*: Requires further hospitalization for management of septic shock, acute on chronic hypoxic and hypercapnic respiratory failure in setting of pneumonia, COPD exacerbation. Critical Care Time: The high probability of a clinically significant, sudden or life threatening deterioration of the patient's [pulmonary, cardiac, renal] system(s) required my full and direct attention, intervention and personal management. The critical care time is as shown. This time is in addition to time spent performing any reported procedures but includes the following: [x] Data and vital sign review and interpretation [x] Patient assessment, examination and intervention [x] Documentation [x] Medication orders and management Critical Care Time (min): 60 Coding Level of Care Code Critical Care >/= 30 minutes Critical care time (in minutes): 60 The high probability of a clinically significant, sudden or life threatening deterioration, as referenced in this documentation, required my full and direct attention, intervention and personal management. The critical care time shown is in addition to time spent performing any reported separately billable procedures and includes the following: [x] Data and vital sign review and interpretation [x ] Patient assessment, examination and intervention [x] Medication orders and management [x] Patient/Family updates as able [x] Care Coordination and Documentation. Diagnoses Sepsis A41.9 Acute respiratory failure with hypoxia and hypercapnia J96.01; J96.02 Altered mental status R41.82 Respiratory acidosis E87.29 Essential hypertension I10 Protein-calorie malnutrition, severe E43 Chronic hypercapnic respiratory failure J96.12 Chronic respiratory failure with hypoxia J96.11 Pneumonia J18.9 Septic shock A41.9; R65.21
--- NOTE | 2024-07-01 12:34 | PC.PT ---
Evaluation held per physicians orders
[2024-07-01] MEDS: pantoprazole 40 mg SDV IVP (13:31)
[2024-07-01] MEDS: enoxaparin 40 mg/0.4 mL Syringe SUBCUT (13:34)
[2024-07-01] MEDS: levofloxacin-dextrose 5 % 750 MG/150 ML PREMIX 100 MG IV (13:35)
[2024-07-01] MEDS: doxycycline 100 MG in sodium chloride 0.9% (plus) 100 ML IV (13:36)
--- NOTE | 2024-07-01 13:44 | PC.NURSE ---
Patient remains off pressors. BP stable at this time. see V/S
[2024-07-01 13:59] LABS: Monoscreen Negative (Negative)
--- NOTE | 2024-07-01 14:11 | PC.NURSE ---
Went to start ordered doxycycline, medication seemed to be running appropriately, shortly after, patients asked me to look at patients IV due to swelling. Upon assessment infiltration noted. IV medication stopped immediately and wrapped in warm compress. Called Pharmacy to see correct steps to be taken, Spoke to pharmacist Gala Marroquin, who came bedside and gave instructions on the medication and how to administer appropriately for possible extravasation. Med administered, see MAR. Wrapped arm back in warm compress and IV removed.
--- NOTE | 2024-07-01 14:23 | PC.PHAR ---
nurse Ruth phoned for recommendation for extravasation of Doxycycline. I suggested that she start warm, dry compress and hyaluronidase. Ruth states that less than 10 mls inflitrated the area. i recommended hyaluronidase 15 unit/mL concentration, total 1 mL as five separate 0.2 mL injections be given into the leading edge.
[2024-07-01] MEDS: hyaluronidase, human recomb. 150 unit/mL SDV 15 UNIT SUBCUT (14:56)
[2024-07-01] MEDS: ropinirole 1 mg Tablet PO (17:29)
[2024-07-01] MEDS: trazodone 50 mg Tablet PO (20:49)
[2024-07-02] VITALS (62 sets, daily range): BP systolic 103–133; BP diastolic 58–91; PULSE 85–118; RESP 15–32; TEMP 36.4–36.7; O2SAT 89–97
[2024-07-02] MEDS: doxycycline 100 MG in sodium chloride 0.9% (plus) 100 ML IV (00:03)
[2024-07-02] MEDS: ipratropium 0.5 mg/2.5 mL Neb INHALATION ×6 (00:05→22:09)
[2024-07-02] MEDS: levalbuterol 0.63 mg/3 mL Neb INHALATION ×6 (00:05→22:09)
[2024-07-02] MEDS: methylPREDNISolone sod succ 40 mg/mL INJ IVP ×3 (02:04→21:09)
[2024-07-02 04:54] LABS: Basophils % 0.3 %; Hematocrit 41.1 % (36-47); Lymphocytes # 0.6 10^3/uL (0.8-4.8); Lymphocytes % 4.4 %; Mean Corpuscular Hemoglobin 20.2 pg (27-33); Mean Corpuscular Volume 74.7 fl (85-98); Mean Platelet Volume 10.4 fL (7.4-10.4); Monocytes # 0.4 10^3/uL (0.2-0.9); Monocytes % 2.7 %; Neutrophils # 12.61 10^3/uL (1.8-7.7); Neutrophils % 91.4 %; Nucleated Red Blood Cells % 0 %; Platelet Count 608 10^3/cmm (157-399); Red Cell Distribution Width 18.6 % (12.1-15.1); White Blood Count 13.78 10^3/uL (3.29-11.43)
[2024-07-02 05:15] LABS: Alanine Aminotransferase 9 U/L (0-33); Albumin Level 3.2 g/dL (3.5-5.2); Alkaline Phosphatase 76 U/L (35-105); Anion Gap 9.3 (5-19); Aspartate Amino Transferase 13 U/L (0-32); Blood Urea Nitrogen 16 mg/dL (8-23); Calcium 9.6 mg/dL (8.5-10.5); Carbon Dioxide 36 mmol/L (22-29); Chloride 97 mmol/L (98-107); Creatinine Clr Calc Pharmacy 102.2656; Globulin 3.1 g/dL (1.3-4.6); Glomerular Filtration Rate 161.2 mL/min (90-130); Glucose 162 mg/dL (65-115); Osmolality Calculated 291 mOsm/kg (285-295); Potassium 4.3 mmol/L (3.5-5.1); Sodium 138 mmol/L (136-145); Total Bilirubin 0.2 mg/dL (0.15-1.2); Total Protein 6.3 g/dL (6.6-8.7)
[2024-07-02] MEDS: budesonide 0.5 mg/2 mL Neb INHALATION ×2 (07:45→22:09)
[2024-07-02] MEDS: ropinirole 1 mg Tablet PO ×2 (08:24→17:48)
[2024-07-02] MEDS: metoprolol tartrate 25 mg Tablet PO ×2 (10:25→21:09)
--- NOTE | 2024-07-02 11:14 | P.PN_ITS ---
Documented by User: Froilan Colindres 07/02/24 11:34 Subjective 2 Subjective: Ms. Dsouza is doing well today. No new concerns. She denies any pain. Her appetite is good. Her kumar was removed this morning. Still yet to have a bowel movement. She was on BiPAP last night. Currently on 3L via NC. Medications: Reviewed: Yes Vitals/I&O/Wt Last Vital Signs Temp 98.1 F 07/02/24 04:00 Pulse 111 H 07/02/24 09:00 Resp 22 H 07/02/24 09:00 BP 120/70 07/02/24 09:00 Pulse Ox 95 07/02/24 09:00 O2 Del Method Nasal Cannula 07/02/24 08:00 O2 Flow Rate 4 07/01/24 19:56 FiO2 4 07/02/24 08:00 07/01/24 07/02/24 07/02/24 22:59 06:59 14:59 Intake Total 150 / 470.667 100 / 570.667 240 / 240 Output Total 350 / 350 400 / 750 Balance -200 / 120.667 -300 / -179.333 240 / 240 Weight last 48 hrs Weight 106 lb 0.424 oz Weight 99 lb 3.328 oz Weight 121 lb Physical Exam 2 Narrative: General: Awake, alert, and oriented. GCS: 15. Thin, chronically ill appearing. On oxygen via nasal cannula. HEENT: Normocephalic, atraumatic. Nasal cannula in place. Cardiovascular: Regular rate and rhythm. No murmur. Respiratory: Diminished breath sounds. Occasional rhonchi and crackles. Abdomen: Soft, nondistended. Nontender. No obvious organomegaly. Active bowel sounds. Neuro: No obvious focal deficits. Extremities: No joint enlargement. No significant edema. Urinary Catheter Management: Kumar: Cath Placed During This Visit: yes, but has since been removed by the nurse Reason for Continuing Indwelling Catheter: Accurate Measurement of Urinary Output in Critically Ill Patients Urinary Catheter Date of Insertion: 06/30/24 Urinary Catheter Time of Insertion: 12:20 Date Urinary Catheter Removed: 07/02/24 Time Urinary Catheter Discontinued: 10:35 Data 07/02/24 04:20 07/02/24 04:20 Micro: Microbiology 06/30/24 22:30 Urine Culture - Preliminary Urine,Clean Catch 06/30/24 10:41 Blood Culture - Preliminary Blood NEGATIVE TO DATE 06/30/24 09:05 Blood Culture - Preliminary Blood NEGATIVE TO DATE A&P Assessment and plan (1) Sepsis: SIRS: Tachycardic, Febrile, Leukocytosis Source: Possible pneumonia End organ damage: Acute infectious encephalopathy Lactic acid normal on admission. Patient did not receive full 30 mL/kg BW with concerns for possible fluid overload with respiratory failure. She did have examination consistent with patient not being fluid responsive. Started on Levophed. Wean Levophed keeping mean arterial pressure over 65. (2) Acute respiratory failure with hypoxia and hypercapnia: Acute on chronic hypoxic and hypercapnic respiratory failure. Required AVAPS. Now on 3L via NC. Decrease oxygen supplementation with target saturation of 88 to 90%. BiPAP at home settings when sleeping at night. Most likely in setting of COPD exacerbation, however pneumonia cannot be ruled out. Respiratory viral panel: [place]-negative Sputum culture: Yet to be obtained. Past history of sputum culture positive for Moraxella MRSA swab: negative Urine Legionella: negative Bacterial antigen: [place]-negative Blood culture: Negative to date Procalcitonin: Trending down. 1.92 two days ago, 1.56 yesterday. Continue with IV Levaquin 750 mg daily along with doxycycline 100 mg twice daily. No need to add linezolid since MRSA swab negative. Plan to discharge on orals. Ipratropium, Xopenex every 4 hours, Pulmicort twice daily. Wean Solu-Medrol to 40 mg every 8 hourly. D-Dimer was 1.72, but follow up CTA showed no pulmonary embolism. (3) Altered mental status: Resolved. Most likely in setting of hypercapnia. Treatment as above. Continue to monitor. Aspiration, fall precaution. CVA less likely as patient not reported to have any weakness in the arms for last few days. PT/OT in AM. (4) Respiratory acidosis: In setting of hypercapnic respiratory failure. Resolved. (5) Essential hypertension: Goal BP less than 140/90 mmhg with MAP over 65. Metoprolol restarted this morning. Treat as above. (6) Protein-calorie malnutrition, severe: Chronic. Will restart Megace once able. PO diet as tolerated. (7) Chronic hypercapnic respiratory failure: See above (8) Chronic respiratory failure with hypoxia: See above (9) Pneumonia: See above (10) Septic shock: Plan DVT prophylaxis: Lovenox PUD prophylaxis: Protonix Diet: Full Patient is much more awake and alert. Start on chronic home medications. Goals of care discussion: Discussed in detail with patient's nurse at bedside. Patient is DNR/DNI on previous admission. Confirmed with spouse. He states patient is DNR/DNI. Coding Level of Care Code 71564 Diagnoses Sepsis A41.9 Acute respiratory failure with hypoxia and hypercapnia J96.01; J96.02 Altered mental status R41.82 Respiratory acidosis E87.29 Essential hypertension I10 Protein-calorie malnutrition, severe E43 Chronic hypercapnic respiratory failure J96.12 Chronic respiratory failure with hypoxia J96.11 Pneumonia J18.9 Septic shock A41.9; R65.21 Documented by User: Fritz Curry MD 07/02/24 14:07 Subjective 2 Subjective: No acute vents overnight. Seen sitting up in chair today. at bedside. Patient states she is feeling better and seems to be back to her baseline respiratory status. Physical Exam 2 Urinary Catheter Management: Kumar: Cath Placed During This Visit: yes, but has since been removed by the nurse Data 07/02/24 04:20 07/02/24 04:20 A&P Assessment and plan (1) Sepsis: (2) Acute respiratory failure with hypoxia and hypercapnia: (3) Altered mental status: (4) Respiratory acidosis: (5) Essential hypertension: (6) Protein-calorie malnutrition, severe: (7) Chronic hypercapnic respiratory failure: (8) Chronic respiratory failure with hypoxia: (9) Pneumonia: (10) Septic shock: Plan DVT prophylaxis: Lovenox PUD prophylaxis: Protonix Diet: Full Patient is much more awake and alert. Start on chronic home medications. Plan for the day: Having difficulty in maintaining patient's IV lines. Did have infiltration with doxycycline yesterday. Will request for replacement of IV line. Switch from IV to oral antibiotics. Switch to doxycycline 100 mg oral twice daily, Levaquin 750 mg oral daily. Follow-up blood and urine culture results. Sputum culture not collected. Continue with nebulization treatment and aggressive pulmonary toilet. Wean Solu-Medrol to 40 mg every 12 hourly. Blood pressures and heart rate better controlled. Continue with metoprolol 25 mg twice daily. Transfer out of ICU to [facility] floor. Continue with oxygen supplementation keeping saturation more than 88%, BiPAP at home settings. Advance diet to mechanical soft. Get PT/OT/speech evaluation. Advance diet further accordingly. Goals of care discussion: Discussed in detail with patient's nurse at bedside. Patient is DNR/DNI on previous admission. Confirmed with spouse. He states patient is DNR/DNI. Attestations 2 Medical Necessity Statement*: Requires further hospitalization for management of hypoxic respiratory failure in setting of COPD exacerbation, right-sided pneumonia Diagnoses Sepsis A41.9 Acute respiratory failure with hypoxia and hypercapnia J96.01; J96.02 Altered mental status R41.82 Respiratory acidosis E87.29 Essential hypertension I10 Protein-calorie malnutrition, severe E43 Chronic hypercapnic respiratory failure J96.12 Chronic respiratory failure with hypoxia J96.11 Pneumonia J18.9 Septic shock A41.9; R65.21
[2024-07-02] MEDS: enoxaparin 40 mg/0.4 mL Syringe SUBCUT (12:18)
[2024-07-02] MEDS: pantoprazole 40 mg SDV IVP (12:19)
[2024-07-02] MEDS: doxycycline 100 mg Tablet PO (17:48)
[2024-07-02] MEDS: trazodone 50 mg Tablet PO (21:09)
[2024-07-03] VITALS (7 sets, daily range): BP systolic 115–122; BP diastolic 68–75; PULSE 78–92; RESP 16–26; TEMP 36.3–36.7; O2SAT 90–98
[2024-07-03] MEDS: ipratropium 0.5 mg/2.5 mL Neb INHALATION ×2 (04:37→07:29)
[2024-07-03] MEDS: levalbuterol 0.63 mg/3 mL Neb INHALATION ×2 (04:37→07:29)
[2024-07-03] MEDS: levoFLOXacin 750 mg Tablet PO (05:17)
[2024-07-03 05:32] LABS: Basophils % 0.2 %; Hematocrit 41.6 % (36-47); Lymphocytes # 0.7 10^3/uL (0.8-4.8); Lymphocytes % 5.2 %; Mean Corpuscular HGB Conc 26.9 g/dL (30-55); Mean Corpuscular Hemoglobin 19.8 pg (27-33); Mean Corpuscular Volume 73.6 fl (85-98); Mean Platelet Volume 11.3 fL (7.4-10.4); Monocytes # 0.7 10^3/uL (0.2-0.9); Monocytes % 5.6 %; Neutrophils # 11.52 10^3/uL (1.8-7.7); Neutrophils % 87.4 %; Nucleated Red Blood Cells % 0 %; Platelet Count 627 10^3/cmm (157-399); Red Blood Count 5.65 10^6/uL (3.85-5.65); Red Cell Distribution Width 18.9 % (12.1-15.1); White Blood Count 13.18 10^3/uL (3.29-11.43)
[2024-07-03 05:47] LABS: Magnesium 2.1 mg/dL (1.7-2.3)
[2024-07-03 05:51] LABS: Alanine Aminotransferase 8 U/L (0-33); Albumin Level 3.1 g/dL (3.5-5.2); Alkaline Phosphatase 65 U/L (35-105); Aspartate Amino Transferase 11 U/L (0-32); Blood Urea Nitrogen 17 mg/dL (8-23); Calcium 8.9 mg/dL (8.5-10.5); Carbon Dioxide 33 mmol/L (22-29); Chloride 99 mmol/L (98-107); Creatinine Clr Calc Pharmacy 95.4916; Globulin 2.8 g/dL (1.3-4.6); Glomerular Filtration Rate 124.6 mL/min (90-130); Glucose 161 mg/dL (65-115); Osmolality Calculated 297 mOsm/kg (285-295); Sodium 141 mmol/L (136-145); Total Bilirubin 0.2 mg/dL (0.15-1.2); Total Protein 5.9 g/dL (6.6-8.7)
[2024-07-03 06:14] LABS: Anion Gap 13.6 (5-19); Potassium 4.6 mmol/L (3.5-5.1)
[2024-07-03] MEDS: budesonide 0.5 mg/2 mL Neb INHALATION (07:29)
[2024-07-03] MEDS: metoprolol tartrate 25 mg Tablet PO (09:05)
[2024-07-03] MEDS: ropinirole 1 mg Tablet PO (09:05)
[2024-07-03] MEDS: doxycycline 100 mg Tablet PO ×2 (09:05→13:25)
[2024-07-03] MEDS: methylPREDNISolone sod succ 40 mg/mL INJ IVP (11:29)
--- NOTE | 2024-07-03 12:48 | PM.DCS ---
Discharge Providers Date of Admission: 06/30/24 11:11 Date of Discharge: July 03, 2024 Attending Provider at Admission: Fritz Curry MD Attending Provider at Discharge: Fritz Curry MD Primary Care Provider: Zoran Stern MD Diagnoses at Discharge Discharge Diagnosis (1) Sepsis: Status: Acute (2) Acute respiratory failure with hypoxia and hypercapnia: Status: Acute (3) Altered mental status: Status: Acute (4) Respiratory acidosis: Status: Acute (5) Essential hypertension: Status: Acute (6) Protein-calorie malnutrition, severe: Status: Acute (7) Chronic hypercapnic respiratory failure: Status: Acute (8) Chronic respiratory failure with hypoxia: Status: Acute (9) Pneumonia: Status: Acute (10) Septic shock: Status: Acute Reason for Visit Reason for Visit: resp distress Hospital Course Hospital Course Lora Dsouza is a 64 y.o. female with a PMHx of COPD who presented to the emergency department with altered mental status and severe shortness of breath. She is oxygen dependent usually on 3L NC. She is also on BiPAP at home but uses it less than instructed. She is also on several inhaled medications at home for COPD per primary care documentation. She was unresponsive at the time of our visit so history was obtained primarily from Lino and other staff. states for the past several days she has developed a cough, pronounced fatigue, and decreased appetite.He contacted emergency services this morning when he noticed her respiratory distress increased and her mental status declined. He also recalls a past hospitalization in January for similar issues. She has had contact with some children sick with respiratory illness. No recent medication changes. At baseline, she is self-sufficient. Patient was admitted to the hospital further evaluation and management of altered mental status in setting of acute on chronic hypoxic and hypercapnic respiratory failure. She was started on AVAPS mode BiPAP treatment, nebulization along with IV steroids. She was started on empiric antibiotics. Gradually with treatment patient's hypercapnia resolved and her mentation improved. She has been back to her baseline mentation, respiratory status at over last 2 days. She has been compliant with her BiPAP. During hospitalization her blood culture and sputum culture remain negative. She has been discharged in hemodynamically stable condition with counseling to continue using BiPAP regularly at home, nebulization treatment along with steroid taper. She is also to take oral antibiotics for next 5 days. Physical Exam Narrative: General:NO acute distress, AAOx3 , Thin appearing, frail appearing, chronic sick appearing, HEENT: Normocephalic, atraumatic. Cardiovascular: Tachycardia. No murmur. Respiratory: Bilateral bronchial breath sounds all over lung english with occasional rhonchi, coarse crackles present more so on the right and left. Abdomen: Soft, nondistended. No obvious organomegaly. Active bowel sounds. Neuro: Exam limited due to altered mental status. Extremities: No joint enlargement. No significant edema. Urinary Catheter Management: Maria: Cath Placed During This Visit: yes, but has since been removed by the nurse Reason for Continuing Indwelling Catheter: Accurate Measurement of Urinary Output in Critically Ill Patients Urinary Catheter Date of Insertion: 06/30/24 Urinary Catheter Time of Insertion: 12:20 Date Urinary Catheter Removed: 07/02/24 Time Urinary Catheter Discontinued: 10:35 Discharge Data Studies Completed and Pending Completed Studies During Hospitalization Category Date Time Status CT angio chest w abd pel w con Routine Cat Scan 06/30/24 12:27 Completed XR chest 1V portable [id number] Stat Exams 06/30/24 08:48 Completed Pending at discharge Category Date Time Status Blood Culture Stat Lab 06/30/24 10:41 Results MAG [Magnesium] AM LABS Lab 07/04/24 04:00 Ordered MAG [Magnesium] AM LABS Lab 07/05/24 04:00 Ordered Sputum Culture and Gram Stain Stat Lab 06/30/24 12:24 Uncollected Radiology Impressions Chest X-Ray 06/30/24 08:48 Impression: 1. Mild bilateral lower lobe opacities which could represent atelectasis, pulmonary vascularity congestion and/or pneumonia. 2. Cardiomegaly and atherosclerosis. Chest/Abdomen/Pelvis CT 06/30/24 12:27 IMPRESSION: 1. Significant change in appearance of the chest since the prior examination of 02/26/2024. 2. There is now mediastinal and hilar lymphadenopathy and consolidation in the RIGHT lower lobe. These changes may all be due to pneumonia and interstitial fluid. 3. Splenomegaly. Spleen is markedly enlarged. Possibility of lymphoma or leukemia should be considered. 4. No pulmonary embolism. 5. Stable mildly ectatic thoracic aorta. 6. Lungs are markedly emphysematous with diffuse new interstitial thickening related to edema and fluid overload. 7. Tiny RIGHT pleural effusion. 8. Recommend short-term follow-up chest CT after treatment, 4 to 6 weeks to reevaluate the consolidation in the RIGHT lower lobe. 9. No ascites. No significant mesenteric adenopathy or retroperitoneal adenopathy. 10. Stomach is markedly dilated with predominantly air. Microbiology 06/30/24 22:30 Urine,Clean Catch Urine Culture - Final 06/30/24 10:41 Blood Blood Culture - Preliminary NEGATIVE TO DATE 06/30/24 09:05 Blood Blood Culture - Preliminary NEGATIVE TO DATE 06/30/24 12:30 Urine Kidney Bacterial Antigens - Final 06/30/24 12:30 Unknown Source Legionella Urinary Antigen - Final Laboratory Results WBC 13.18 10^3/uL (3.29-11.43) H 07/03/24 05:13 RBC 5.65 10^6/uL (3.85-5.65) 07/03/24 05:13 Hgb 11.20 g/dL (11.27-16.99) L 07/03/24 05:13 Hct 41.6 % (36-47) 07/03/24 05:13 MCV 73.6 fl (85-98) L 07/03/24 05:13 MCH 19.8 pg (27-33) L 07/03/24 05:13 MCHC 26.9 g/dL (30-55) L 07/03/24 05:13 RDW 18.9 % (12.1-15.1) H 07/03/24 05:13 Plt Count 627 10^3/cmm (157-399) H 07/03/24 05:13 MPV 11.3 fL (7.4-10.4) H 07/03/24 05:13 Neut % (Auto) 87.4 % 07/03/24 05:13 Lymph % (Auto) 5.2 % 07/03/24 05:13 [place] % (Auto) 5.6 % 07/03/24 05:13 Eos % (Auto) 0.0 % 07/03/24 05:13 Baso % (Auto) 0.2 % 07/03/24 05:13 Neut # (Auto) 11.52 10^3/uL (1.8-7.7) H 07/03/24 05:13 Lymph # (Auto) 0.7 10^3/uL (0.8-4.8) L 07/03/24 05:13 [place] # (Auto) 0.7 10^3/uL (0.2-0.9) 07/03/24 05:13 Eos # (Auto) 0.0 10^3/uL (0.0-0.8) 07/03/24 05:13 Baso # (Auto) 0.0 10^3/uL (0.0-0.1) 07/03/24 05:13 Nucleated RBC % (auto) 0 % 07/03/24 05:13 Nucleated RBCs # 0.0 /100WBC 07/03/24 05:13 D-Dimer 1.72 ug/mLFEU (0-0.59) H 06/30/24 08:20 Specimen Type Arterial 06/30/24 15:45 Sample Site Radial, left 06/30/24 15:45 ABG pH 7.26 (7.35-7.45) L 06/30/24 15:45 ABG pCO2 86.2 mmHg (35-45) H* 06/30/24 15:45 ABG pO2 94.2 mmHg (80.0-100.0) 06/30/24 15:45 ABG PO2/FiO2 Ratio 188 06/30/24 15:45 ABG HCO3 38.6 mmol/L (22-26) H 06/30/24 15:45 ABG O2 Saturation 96.7 06/30/24 15:45 ABG Base Excess 8.6 mmol/L (-2.0-2.0) H 06/30/24 15:45 Erik Test Pos 06/30/24 15:45 A-a O2 Gradient 20.9 mmHg (5-10) H 06/30/24 15:45 Hematocrit 36.2 % (37-47) L 06/30/24 15:45 Hgb O2 Saturation 94.5 % (95-100) L 06/30/24 15:45 Carboxyhemoglobin 1.4 %THgb (0.4-20.1) 06/30/24 15:45 Methemoglobin 0.9 % (0.4-1.5) 06/30/24 15:45 Total Hemoglobin 11.8 g/dL (12-16) L 06/30/24 15:45 Sodium 138.0 mmol/L (131-143) 06/30/24 15:45 Potassium 4.4 mmol/L (3.5-5.0) 06/30/24 15:45 Glucose 197.0 mg/dL (70-115) H 06/30/24 15:45 Ionized Calcium 1.2 mmol/L (1.1-1.4) 06/30/24 15:45 O2 Delivery Device Bipap 06/30/24 15:45 O2 Liters/Min 5.0 % 06/30/24 08:42 FiO2 50.0 % 06/30/24 15:45 Tidal Volume 0.45 06/30/24 15:45 PEEP 10.0 cmH20 06/30/24 15:45 Cellar Pumper ID Broma 06/30/24 15:45 Sodium 141 mmol/L (136-145) 07/03/24 05:13 Potassium 4.6 mmol/L (3.5-5.1) 07/03/24 05:13 Chloride 99 mmol/L (98-107) 07/03/24 05:13 Carbon Dioxide 33 mmol/L (22-29) H 07/03/24 05:13 Anion Gap 13.6 (5-19) 07/03/24 05:13 BUN 17 mg/dL (8-23) 07/03/24 05:13 Creatinine 0.5 mg/dL (0.5-0.9) 07/03/24 05:13 GFR Calculation 124.6 mL/min (90-130) 07/03/24 05:13 Glucose 161 mg/dL (65-115) H 07/03/24 05:13 Estimat Average Glucose 100 07/01/24 04:24 Hemoglobin A1c 5.1 % (4.0-6.0) 07/01/24 04:24 Calculated Osmolality 297 mOsm/kg (285-295) H 07/03/24 05:13 Lactic Acid 0.8 mmol/L (0.5-2.2) 06/30/24 16:58 Calcium 8.9 mg/dL (8.5-10.5) 07/03/24 05:13 Phosphorus 2.3 mg/dL (2.5-4.5) L 07/01/24 04:24 Magnesium 2.1 mg/dL (1.7-2.3) 07/03/24 05:13 Total Bilirubin 0.2 mg/dL (0.15-1.2) 07/03/24 05:13 AST 11 U/L (0-32) 07/03/24 05:13 ALT 8 U/L (0-33) 07/03/24 05:13 Alkaline Phosphatase 65 U/L (35-105) 07/03/24 05:13 Troponin T Baseline 15 ng/L (0-10) H 06/30/24 08:20 Troponin T 120 Minute 20.82 ng/L (0-10) H 06/30/24 10:41 Delta Troponin T 5.82 ABS# (0-10) 06/30/24 10:41 Troponin T Hi Sens 6Hr 17.43 ng/L (0-10) H 06/30/24 16:58 Troponin T Hi Sens 6Hr Delta 2.43 ng/L (0-12) 06/30/24 16:58 NT-Pro-B Natriuret Pep 4894 pg/mL (0-125) H 06/30/24 08:20 Total Protein 5.9 g/dL (6.6-8.7) L 07/03/24 05:13 Albumin 3.1 g/dL (3.5-5.2) L 07/03/24 05:13 Globulin 2.8 g/dL (1.3-4.6) 07/03/24 05:13 Triglycerides 67 mg/dL (0-150) 07/01/24 04:24 Cholesterol 114 mg/dL (0-200) 07/01/24 04:24 LDL Cholesterol, Calc 72 mg/dL (50-129) 07/01/24 04:24 HDL Cholesterol 29 mg/dL (60-100) L 07/01/24 04:24 LDL/HDL Ratio 2.48 RATIO (0.00-3.22) 07/01/24 04:24 Cholesterol/HDL Ratio 3.93 mg/dL (0.0-4.40) 07/01/24 04:24 Procalcitonin 1.56 ng/mL (0-0.5) H 07/01/24 04:24 TSH 0.19 uIU/mL (0.27-4.20) L 06/30/24 10:41 Free T4 1.14 ng/dL (0.82-1.77) 06/30/24 10:41 Free T3 2.2 PG/ML (2.0-4.4) 06/30/24 10:41 Urine Color Yellow (Yellow) 06/30/24 22: Urine Appearance Clear (CLEAR) 06/30/24 22: Urine pH 6.0 (5-7) 06/30/24 22:30 Ur Specific [place] 1.059 (1.005-1.030) H 06/30/24 22:30 Urine Protein 2+ (Negative) A 06/30/24 22: Urine Glucose (UA) Negative (Normal) 06/30/24 22: Urine Ketones Negative (Negative) 06/30/24 22: Urine Blood 3+ (Negative) A 06/30/24: Urine Nitrate Negative (Negative) 06/30/24 22: Urine Bilirubin Negative (Negative) 06/30/24 22: Urine Urobilinogen 1.0 mg/dL (Negative) 06/30/24 22: Ur Leukocyte Esterase Negative (Negative) 06/30/24 22: Urine RBC 51-100 /hpf (0-2) H 06/30/24 22:30 Urine WBC 0-5 /hpf (0-5) 06/30/24 22:30 Ur Squamous Epith Cells 6-10 /hpf (0-5) 06/30/24 22: Amorphous Sediment Not Reportable 06/30/24 22:30 Urine Bacteria None seen /hpf (NONE) 06/30/24 22:30 Hyaline Casts 10.73 /lpf 06/30/24 22:30 Nasal MRSA (PCR) Not detected (Not Detecte) 06/30/24 14:49 Adenovirus (PCR) Not detected (NOT DETECT) 06/30/24 08:55 C. pneumoniae DNA (PCR) Not detected (NOT DETECT) 06/30/24 08:55 Coronavirus (PCR) Negative (Negative) 06/30/24 08:55 Coronavirus 229E (PCR) Not detected (NOT DETECT) 06/30/24 08:55 Monoscreen Negative (Negative) 07/01/24 04:24 Human Metapneumovir PCR Not detected (NOT DETECT) 06/30/24 08:55 Influenza A (H1) PCR Not detected (NOT DETECT) 06/30/24 08:55 Influenza A (PCR) Negative (Negative) 06/30/24 08:55 Influ A (H1/09) PCR Not detected (NOT DETECT) 06/30/24 08:55 Influenza A (H3) PCR Not detected (NOT DETECT) 06/30/24 08:55 Influenza Type A (PCR) Not detected (NOT DETECT) 06/30/24 08:55 Influenza Type B (PCR) Negative (Negative) 06/30/24 08:55 Influenza Type B (PCR) Not detected (NOT DETECT) 06/30/24 08:55 M. pneumoniae (PCR) Not detected (NOT DETECT) 06/30/24 08:55 Parainfluenza 1 (PCR) Not detected (NOT DETECT) 06/30/24 08:55 Parainfluenza 2 (PCR) Not detected (NOT DETECT) 06/30/24 08:55 Parainfluenza 3 (PCR) Not detected (NOT DETECT) 06/30/24 08:55 Parainfluenza 4 (PCR) Not detected (NOT DETECT) 06/30/24 08:55 RSV (PCR) Negative (Negative) 06/30/24 08:55 RSV Type A (PCR) Not detected (NOT DETECT) 06/30/24 08:55 RSV Type B (PCR) Not detected (NOT DETECT) 06/30/24 08:55 Entero/Rhino (PCR) Not detected (NOT DETECT) 06/30/24 08:55 SARS-CoV-2 (PCR) Not detected (NOT DETECT) 06/30/24 08:55 Vitals Last Vital Signs Temp 97.3 F L 07/03/24 11:56 Pulse 82 07/03/24 11:56 Resp 18 07/03/24 11:56 BP 121/75 07/03/24 11:56 Pulse Ox 94 07/03/24 11:56 O2 Del Method Nasal Cannula 07/03/24 11:56 O2 Flow Rate 3 07/03/24 07:30 FiO2 36 07/03/24 00:06 Discharge Plan Discharge Patient Disposition: Home Condition: Stable Prescriptions: New budesonide 0.5 mg/2 mL Suspension For Nebulization 0.5 mg inhalation BID.RESPIRATORY Qty: 60 0RF doxycycline monohydrate 100 mg Tablet 100 mg PO BID 5 Days Qty: 10 0RF ipratropium bromide 0.02 % Solution 0.5 mg inhalation Q8H Qty: 75 0RF levalbuterol HCl 0.63 mg/3 mL Solution For Nebulization 0.63 mg inhalation Q8H Qty: 75 0RF levofloxacin 750 mg Tablet 750 mg PO DAILY@0600 Qty: 5 0RF metoprolol tartrate 25 mg Tablet 25 mg PO BID@0900,2100 Qty: 60 0RF prednisone 10 mg tablet See Taper PO DIRECTED Qty: 42 0RF Taper: predniSONE 60-10 60 mg Daily for 2 Days and 0 Hour 50 mg Daily for 2 Days and 0 Hour 40 mg Daily for 2 Days and 0 Hour 30 mg Daily for 2 Days and 0 Hour 20 mg Daily for 2 Days and 0 Hour 10 mg Daily for 2 Days and 0 Hour Rx Instructions: see taper instructions Continued fluticasone propion-salmeterol [Advair Diskus] 500-50 mcg/dose blister with device 1 inh inhalation BID megestrol 400 mg/10 mL (10 mL) suspension 200 mg PO DAILY PRN (Reason: APPETITE) Qty: 1000 0RF trazodone 50 mg tablet 50 mg PO DAILY Qty: 90 2RF albuterol sulfate 90 mcg/actuation HFA aerosol inhaler 2 puff inhalation Q6H PRN (Reason: Shortness Of Breath Or Wheezing) Qty: 8.5 2RF Spiriva Respimat 2.5 mcg/actuation mist 2 puff inhalation DAILY Qty: 4 2RF Hold Instructions: Home Medication placed on hold at Doctor's office ropinirole 1 mg tablet 1 mg PO BID Qty: 120 1RF (DME) wheelchair See Rx Instructions .Route .MEDSUPPLY Qty: 1 0RF Rx Instructions: As directed (DME) Home oxygen concentrator See Rx Instructions .Route .MEDSUPPLY Qty: 1 0RF Rx Instructions: 3L nasal cannula continuous use (DME) oxygen tubing and mask equipment See Rx Instructions .Route .MEDSUPPLY Qty: 1 3RF Rx Instructions: As directed (DME) Portable oxygen concentrator See Rx Instructions .Route .MEDSUPPLY Qty: 1 0RF Rx Instructions: 3L nasal cannula continuous use away from home pantoprazole [Protonix] 40 mg tablet,delayed release (DR/EC) 40 mg PO DAILY Qty: 90 1RF albuterol sulfate 2.5 mg /3 mL (0.083 %) solution for nebulization 2.5 mg inhalation Q4H PRN (Reason: Shortness Of Breath) Qty: 90 4RF sertraline [Zoloft] 50 mg tablet 50 mg PO DAILY Qty: 90 1RF furosemide 20 mg tablet 20 mg PO QAM PRN (Reason: swelling) Qty: 90 0RF buspirone 7.5 mg tablet 7.5 mg PO ONCE PRN (Reason: anxiety) Qty: 90 0RF fluticasone propionate 50 mcg/actuation spray,suspension 2 spray intranasal DAILY Qty: 16 1RF Discharge Orders: Discharge Order (Routine); Ordered 07/03/24 Ordered By: Fritz Curry Referrals: Zoran Stern MD [Primary Care Provider] - 7-10 days (We have notified your physician's clinic of the need for a follow-up appointment to be scheduled. If you have not heard from them within the next 2 business days, please call them directly. ) Discharge Diet: Cardiac Discharge Activity: Resume usual activity and Increase activity as tolerated Patient Instructions: Metoprolol (By mouth), Doxycycline (By mouth), Prednisone (By mouth), Levofloxacin (By mouth), Budesonide (By breathing), Ipratropium/Albuterol (By breathing), Levalbuterol (By breathing), COPD (Chronic Obstructive Pulmonary Disease) (DC), Community Acquired Pneumonia (DC), COPD Stoplight, Opioid Safety, Pain Management Discharge Attestations Time Spent in Discharge Care*: greater than 30 min Specific Discharge Activities: educating patient, educating and/or supporting family/caregiver, discussing with pcp/other providers, discussing with corrections caseworker/social workers/dc planners, documenting/other paperwork and evaluating patient/reviewing data Status at Discharge: Cognitive status at discharge: cognitively intact, Behavioral status at discharge: cooperative, Functional status at discharge: independent ambulation, Overall status at discharge: patient is back to baseline Quality Metrics Clinical Quality Measures [ No reported AMI, CVA or VTE this stay] Coding Level of Care Code 48848 Total time (in minutes) for Discharge: 60 Diagnoses Sepsis A41.9 Acute respiratory failure with hypoxia and hypercapnia J96.01; J96.02 Altered mental status R41.82 Respiratory acidosis E87.29 Essential hypertension I10 Protein-calorie malnutrition, severe E43 Chronic hypercapnic respiratory failure J96.12 Chronic respiratory failure with hypoxia J96.11 Pneumonia J18.9 Septic shock A41.9; R65.21
== END 2024-07-03 13:30 | disposition home or self-care (01) | DRG 871 ==
LOC: ER 10:58 → ICU 11:11 → MEDSURG 07-02 13:25
PROVIDERS: Admitting Provider Student in an Organized Health Care Education/Training Program; Emergency Provider Family Medicine; PCP Family Medicine; Visit Provider Student in an Organized Health Care Education/Training Program
DX: A41.9 Sepsis, unspecified organism (principal); E43 Unspecified severe protein-calorie malnutrition; G93.41 Metabolic encephalopathy; J18.9 Pneumonia, unspecified organism; R65.21 Severe sepsis with septic shock; J96.22 Acute and chronic respiratory failure with hypercapnia; J96.21 Acute and chronic respiratory failure with hypoxia; J44.1 Chronic obstructive pulmonary disease with (acute) exacerbation; J44.0 Chronic obstructive pulmonary disease with (acute) lower respiratory infection; Z68.1 Body mass index [BMI] 19.9 or less, adult; Z11.52 Encounter for screening for COVID-19; Z99.81 Dependence on supplemental oxygen; R40.4 Transient alteration of awareness; Z99.3 Dependence on wheelchair; Z79.84 Long term (current) use of oral hypoglycemic drugs; K21.9 Gastro-esophageal reflux disease without esophagitis; I10 Essential (primary) hypertension; F41.9 Anxiety disorder, unspecified; G47.00 Insomnia, unspecified; Z87.891 Personal history of nicotine dependence; Z66 Do not resuscitate
CPT/HCPCS: 0241U; 36415; 36600; 51702; 71045; 71275; 74177; 80051; 80053; 80061; 81001; 82330; 82805; 83036; 83605; 83735; 83880; 84100; 84145; 84439; 84443; 84481; 84484; 85025; 85378; 86308; 86403; 87040; 87086; 87449; 87486; 87581; 87633; 92610; 93005; 94640; 94660; 94664; 96365; 96372; 96375; 96376; 97161; 97165; 97535; 99291; J1100; J1650; J1940; J1956; J2405; J2470; J2543; J2919; J3473; J3490; J7614; J7626; J7644

== ENCOUNTER 2024-07-30 20:54 | Inpatient (IN) | payer BC, SELFPAY ==
[2024-07-30] VITALS (12 sets, daily range): BP systolic 92–156; BP diastolic 71–89; PULSE 99–144; RESP 14–28; TEMP 38.4; O2SAT 91–98; BMI 14.6
--- NOTE | 2024-07-30 21:00 | XRR_ITS ---
PROCEDURE INFORMATION: Exam: XR Chest Exam date and time: 07/30/2024 9:35 PM Age: 64 years old Clinical indication: Shortness of breath TECHNIQUE: Imaging protocol: Radiologic exam of the chest. Views: 1 view. COMPARISON: CT angio chest w abd pel w con 06/30/2024 12:58 PM FINDINGS: Lungs: Irregular opacities in the lung bases. Pleural spaces: Unremarkable. No pleural effusion. No pneumothorax. Heart/Mediastinum: Unremarkable. No cardiomegaly. Bones/joints: Unremarkable. XR/XR chest 1V portable [id number] IMPRESSION: Irregular opacities in the lung bases.
--- NOTE | 2024-07-30 21:00 | ECG_ITS ---
[facility]24[facility]30 Pat Name: Lora Dsouza Department: Room: Gender: Female [employer]: : 1960 Requested By: Ivania Duarte Order Number: [id number] Jeane MD: Milton Sen M.D. Measurements Intervals [place] Rate: 138 P: 78 LA: 167 QRS: 86 QRSD: 75 T: 84 QT: 329 QTc: 500 Interpretive Statements SINUS TACHYCARDIA SEPTAL MYOCARDIAL INFARCTION , PROBABLY OLD [40+ ms Q WAVE IN V1/V2] Compared to ECG 06/30/2024 15:51:47 Myocardial infarct finding now present Electronically Signed On 08-01-2024 18:35:58 [employer] by Milton Sen M.D. [email or web address]
--- NOTE | 2024-07-30 21:01 | ED_ITS ---
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 This is been all day today. Her placed her on a CPAP at home. EMS reports her O2 sats were in the 50s when they arrived. She received a DuoNeb and was placed on a 100% nonrebreather. Related Data Home Medications Medication Instructions Recorded Confirmed fluticasone 500 mcg-salmeterol 50 1 inh inhalation BID 04/03/24 06/30/24 mcg/dose blistr powdr for inhalation (Advair Diskus) Previous Rx's Medication Instructions Recorded wheelchair #1 ea 04/10/23 Home oxygen concentrator #1 ea 12/27/23 Portable oxygen concentrator #1 ea 12/27/23 oxygen tubing and mask equipment #1 ea 12/27/23 pantoprazole 40 mg tablet,delayed 40 mg PO DAILY #90 tabs 02/08/24 release (Protonix) albuterol sulfate 90 mcg/actuation 2 puff inhalation Q6H PRN 02/18/24 aerosol inhaler Shortness Of Breath Or Wheezing #8.5 grams megestrol 400 mg/10 mL (10 mL) 200 mg (5 mL) PO DAILY PRN 02/18/24 oral suspension APPETITE #1,000 mL tiotropium bromide 2.5 2 puff inhalation DAILY #4 grams 02/18/24 mcg/actuation mist for inhalation (Spiriva Respimat) trazodone 50 mg tablet 50 mg PO DAILY #90 tabs 02/18/24 sertraline 50 mg tablet (Zoloft) 50 mg PO DAILY #90 tabs 04/29/24 furosemide 20 mg tablet 20 mg PO QAM PRN swelling #90 tabs 05/12/24 ropinirole 1 mg tablet 1 mg PO BID #120 tabs 06/03/24 buspirone 7.5 mg tablet 7.5 mg PO ONCE PRN anxiety #90 tabs 06/04/24 fluticasone propionate 50 2 spray intranasal DAILY #16 grams 06/04/24 mcg/actuation nasal spray,suspension budesonide 0.5 mg/2 mL suspension 0.5 mg (2 mL) inhalation 07/03/24 for nebulization BID.RESPIRATORY #60 mL ipratropium bromide 0.02 % 0.5 mg (2.5 mL) inhalation Q8H #75 07/03/24 solution for inhalation mL levalbuterol HCl 0.63 mg/3 mL 0.63 mg (3 mL) inhalation Q8H #75 07/03/24 solution for nebulization mL levofloxacin 750 mg tablet 750 mg PO DAILY@0600 #5 tabs 07/03/24 metoprolol tartrate 25 mg tablet 25 mg PO BID@0900,2100 #60 tabs 07/03/24 prednisone 10 mg tablet See Taper PO DIRECTED #42 tabs 07/03/24 albuterol sulfate 2.5 mg/3 mL 2.5 mg (3 mL) inhalation Q4H PRN 07/21/24 (0.083 %) solution for nebulization Shortness Of Breath #90 mL Allergies Allergy/AdvReac Type Severity Reaction Status Date / Time No Known Allergies Allergy Verified 07/30/24 21:06 Review of Systems 2 Narrative: Constitutional symptoms: Negative except as documented in HPI. Skin symptoms: Negative except as documented in HPI. Eye symptoms: Negative except as documented in HPI. ENMT symptoms: Negative except as documented in HPI. Respiratory symptoms: Negative except as documented in HPI. Cardiovascular symptoms: Negative except as documented in HPI. Gastrointestinal symptoms: Negative except as documented in HPI. Genitourinary symptoms: Negative except as documented in HPI. Musculoskeletal symptoms: Negative except as documented in HPI. Neurologic symptoms: Negative except as documented in HPI. Psychiatric symptoms: Negative except as documented in HPI. Endocrine symptoms: Negative except as documented in HPI. PFSH ED 2 PFSH: Medical History Protein-calorie malnutrition, severe GERD (gastroesophageal reflux disease) Essential hypertension Anxiety Hypertension Insomnia COPD (chronic obstructive pulmonary disease) Surgical History History of History of tonsillectomy Family History Other Dementia Stroke Denies family history of Diabetes CAD (coronary artery disease) Clotting disorder Hyperlipidemia Psychiatric illness Chronic kidney disease (CKD) Anesthesia complication Bleeding disorder Lung disease Cancer Hypertension Social History Smoking and tobacco/nicotine status: former use of tobacco/nicotine Quit status (tobacco/nicotine): has quit using Year quit tobacco: 2020 Former quit date comment: 1 ppd X 40 years Second hand smoke exposure: Yes Alcohol intake: current Alcohol intake frequency: holidays/special occasions only Alcohol type: beer Substance/Drug Use: never Marital status: Number of children: 5 Number of grandchildren: 9 service: No Current occupational status: disabled Current occupational exposures/hazards: No Pets and animals: Yes Current gender identity: Female Physical Exam 2 Narrative: EXAM NARRATIVE: General: Alert, moderate distress. Skin: Warm, dry. Head: Normocephalic, atraumatic. Neck: Supple, trachea midline. Eye: Extraocular movements are intact. Ears, nose, mouth and throat: Oral mucosa moist. Cardiovascular: Regular rate, tachycardic, Normal peripheral perfusion. Respiratory: coarse, scattered wheeze, moderate increased wob. tachypnea, prolonged expiratory phase. breath sounds are equal, Symmetrical chest wall expansion. Gastrointestinal: Soft, Nontender, Non distended, Normal bowel sounds. Musculoskeletal: Normal ROM, no deformity. Neurological: Alert and oriented to person, place, time, and situation, No focal neurological deficit observed. Psychiatric: Cooperative, appropriate mood & affect. Course 2 Vital Signs: Vital signs: Vital Signs Temperature 101.2 F H 07/30/24 20:57 Pulse Rate 99 07/30/24 22:45 Respiratory Rate 16 07/30/24 22:45 Blood Pressure 92/71 07/30/24 22:45 Pulse Oximetry 94 07/30/24 22:45 Oxygen Delivery Me thod BiPAP 07/30/24 21:41 Oxygen Flow Rate 10 07/30/24 20:57 Fraction of Inspir ed Oxygen 60 07/30/24 21:42 MDM - SOB/Dyspnea Medical Decision Making Differential diagnosis for patient with shortness of breath includes but is not limited to and based on the above HPI, review of systems and physical exam: Pneumonia. Bronchitis. Asthma or COPD with acute exacerbation. Acute coronary syndrome / [place]. Pulmonary embolism. Anxiety. Congestive heart failure. Viral infections including influenza and Covid-19. Atrial fibrillation. Anxiety. Pleural effusion. Pneumothorax. Orders placed to evaluate differential diagnosis based on the above differential, HPI and physical exam AB.2 with an O2 sat of 92% on a nonrebreather. Hypercapnic and hypoxemic respiratory failure. When I receive this data I placed her on BiPAP. Chest x-ray: Bilateral lower lobe infiltrates. This was reviewed and interpreted by myself the emergency room physician. I also reviewed the radiology report. Lab Review: Laboratory results were reviewed and interpreted by myself the emergency room physician. No leukocytosis. No anemia. No renal failure. RSV, flu and COVID are negative. proBNP is mildly elevated at 600. Initial troponin is 14. Repeat is up to 21. Not necessarily a significant delta but we will continue to monitor. Lactate is negative. She has remained tachycardic. Blood pressure initially was elevated but has gotten lower. I am giving her septic bolus of fluids. I reviewed the patient's medical record. Reexamination: Patient appears more comfortable on BiPAP work of breathing and heart rate have improved considerably. However blood pressure is a little low now. Consultation: I spoke with Dr. Jones about the patient who agrees to admission. Assessment and plan: Pneumonia Acute COPD exacerbation Hypercapnic respiratory failure Acute on chronic hypoxemic respiratory ?Patient placed on a BiPAP. Updrafts given. IV Solu-Medrol. ?Patient could be early sepsis. However no leukocytosis and lactate is normal. However she was tachycardic. And blood pressures gotten a little low. She has had a fever and she has pneumonia. -1.5 L normal saline bolus. Fluid volumes based on ideal body weight. -Levaquin given. -Sepsis quality measures. -Lactic acid with a reflex was ordered. -Blood cultures were ordered. -I discussed the patient with the hospitalist on-call who is admitting the patient. - Discussed findings and plan with patient. Answered any questions. - All laboratory values were reviewed and interpreted personally by myself, the ER physician - All imaging was reviewed and interpreted personally by myself, the ER physician. - Evaluation and treatment of this problem were appropriate in the emergency setting Critical care -I spent a total of >35 minutes of critical care time managing the patient, independent of any other practitioner. -The time involved in the performance of separately reportable procedures was not counted towards critical care time. Lab Data 07/30/24 21:31 07/30/24 20:36 Labs/Radiology: Radiology Impressions Chest X-Ray 07/30/24 21:00 IMPRESSION: Irregular opacities in the lung bases. Laboratory Results WBC 10.22 10^3/uL (3.29-11.43) 07/30/24 21:31 Corrected WBC Cancelled 07/30/24 20:36 RBC 5.31 10^6/uL (3.85-5.65) 07/30/24 21:31 Hgb 11.50 g/dL (11.27-16.99) 07/30/24 21:31 Hct 41.5 % (36-47) 07/30/24 21:31 MCV 78.2 fl (85-98) L 07/30/24 21: MCH 21.7 pg (27-33) L 07/30/24 21: MCHC 27.7 g/dL (30-55) L 07/30/24 21: RDW 22.6 % (12.1-15.1) H 07/30/24 21:31 Plt Count 342 10^3/cmm (157-399) 07/30/24 21:31 MPV Not Reportable 07/30/24 21:31 Gran % Cancelled 07/30/24 20:36 Neut % (Auto) 88.0 % 07/30/24 21:31 Lymph % (Auto) 5.6 % 07/30/24 21:31 [place] % (Auto) 4.3 % 07/30/24 21: Eos % (Auto) 0.8 % 07/30/24 21: Baso % (Auto) 0.2 % 07/30/24 21: Neut # (Auto) 9.00 10^3/uL (1.8-7.7) H 07/30/24 21:31 Lymph # (Auto) 0.6 10^3/uL (0.8-4.8) L 07/30/24 21:31 [place] # (Auto) 0.4 10^3/uL (0.2-0.9) 07/30/24 21:31 Eos # (Auto) 0.1 10^3/uL (0.0-0.8) 07/30/24 21: Baso # (Auto) 0.0 10^3/uL (0.0-0.1) 07/30/24 21:31 Absolute Gran (auto) Cancelled 07/30/24 20:36 Nucleated RBC % (auto) 0 % 07/30/24 21:31 Nucleated RBCs # 0.0 /100WBC 07/30/24 21:31 Specimen Type Arterial 07/30/24 21:30 Sample Site Brachial, right 07/30/24 21:30 ABG pH 7.28 (7.35-7.45) L 07/30/24 21:30 ABG pCO2 68.3 mmHg (35-45) H* 07/30/24 21:30 ABG pO2 68.6 mmHg (80.0-100.0) L 07/30/24 21:30 ABG PO2/FiO2 Ratio 68 07/30/24 21:30 ABG HCO3 32.2 mmol/L (22-26) H 07/30/24 21:30 ABG O2 Saturation 93.5 07/30/24 21:30 ABG Base Excess 3.7 mmol/L (-2.0-2.0) H 07/30/24 21:30 Erik Test N/a 07/30/24 21:30 A-a O2 Gradient 73.6 mmHg (5-10) H 07/30/24 21:30 Hematocrit 36.5 % (37-47) L 07/30/24 21:30 Hgb O2 Saturation 91.7 % (95-100) L 07/30/24 21:30 Carboxyhemoglobin 1.6 %THgb (0.4-20.1) 07/30/24 21:30 Methemoglobin 0.4 % (0.4-1.5) 07/30/24 21:30 Total Hemoglobin 11.9 g/dL (12-16) L 07/30/24 21:30 Sodium 143.0 mmol/L (131-143) 07/30/24 21:30 Potassium 3.6 mmol/L (3.5-5.0) 07/30/24 21:30 Glucose 149.0 mg/dL (70-115) H 07/30/24 21:30 Ionized Calcium 1.2 mmol/L (1.1-1.4) 07/30/24 21:30 O2 Delivery Device Nrb 07/30/24 21:30 FiO2 100.0 % 07/30/24 21:30 Vegetable Buncher ID [id number] 07/30/24 21:30 Sodium 140 mmol/L (136-145) 07/30/24 20:36 Potassium 4.5 mmol/L (3.5-5.1) 07/30/24 20:36 Chloride 101 mmol/L (98-107) 07/30/24 20:36 Carbon Dioxide 30 mmol/L (22-29) H 07/30/24 20:36 Anion Gap 13.5 (5-19) 07/30/24 20:36 BUN 9 mg/dL (8-23) 07/30/24 20:36 Creatinine 0.5 mg/dL (0.5-0.9) 07/30/24 20:36 GFR Calculation 124.6 mL/min (90-130) 07/30/24 20:36 Glucose 164 mg/dL (65-115) H 07/30/24 20:36 Calculated Osmolality 292 mOsm/kg (285-295) 07/30/24 20:36 Lactic Acid 0.8 mmol/L (0.5-2.2) 07/30/24 21:33 Calcium 8.4 mg/dL (8.5-10.5) L 07/30/24 20:36 Total Bilirubin 0.3 mg/dL (0.15-1.2) 07/30/24 20:36 AST 20 U/L (0-32) 07/30/24 20:36 ALT 8 U/L (0-33) 07/30/24 20:36 Alkaline Phosphatase 57 U/L (35-105) 07/30/24 20:36 Troponin T Baseline 14 ng/L (0-10) H 07/30/24 20:36 Troponin T 120 Minute 21.92 ng/L (0-10) H 07/30/24 22:15 Delta Troponin T 7.92 ABS# (0-10) 07/30/24 22:15 NT-Pro-B Natriuret Pep 647 pg/mL (0-125) H 07/30/24 20:36 Total Protein 6.3 g/dL (6.6-8.7) L 07/30/24 20:36 Albumin 4.0 g/dL (3.5-5.2) 07/30/24 20:36 Globulin 2.3 g/dL (1.3-4.6) 07/30/24 20:36 Coronavirus (PCR) Negative (Negative) 07/30/24 21:15 Influenza A (PCR) Negative (Negative) 07/30/24 21:15 Influenza Type B (PCR) Negative (Negative) 07/30/24 21:15 RSV (PCR) Negative (Negative) 07/30/24 21:15 All radiology interpretation(s) finalized by discharge Discharge Plan Discharge Patient Disposition: Admitted As Inpatient Clinical Impression: COPD with acute exacerbation, Pneumonia, Hypercapnic respiratory failure, Acute on chronic hypoxic respiratory failure Coding Level of Care Code ED 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
[2024-07-30] MEDS: albuterol 2.5 mg/3 mL Neb INHALATION (21:13)
[2024-07-30] MEDS: ipratropium-albuterol 3 mL Neb INHALATION (21:13)
[2024-07-30] MEDS: methylPREDNISolone sod succ 125 mg/2 mL INJ IVP (21:30)
[2024-07-30 21:31] LABS: Troponin(5th) Baseline 14 ng/L (0-10)
[2024-07-30 21:34] LABS: ABG PH Result 7.28 (7.35-7.45); Alveolar-Arterial Oxygen Gradi 73.6 mmHg (5-10); Arterial Blood Gas Hematocrit 36.5 % (37-47); Base Excess ABG 3.7 mmol/L (-2.0-2.0); Blood Gas Operator Identificat 600455; Blood Gas Sample Site Brachial, right; Blood Gas Sample Type Arterial; Carboxyhemoglobin 1.6 %THgb (0.4-20.1); HCO3 ABG 32.2 mmol/L (22-26); HGB O2 Sat 91.7 % (95-100); Ionized Calcium Level - ABG 1.2 mmol/L (1.1-1.4); Methemoglobin 0.4 % (0.4-1.5); Oxygen Device NRB; Oxygen Saturation ABG 93.5; PO2 ABG 68.6 mmHg (80.0-100.0); PO2 FiO2 Ratio Arterial Blood 68; Potassium Level - ABG 3.6 mmol/L (3.5-5.0); Total Hemoglobin 11.9 g/dL (12-16)
[2024-07-30 21:36] LABS: ABG PCO2 68.3 mmHg (35-45)
[2024-07-30 21:40] LABS: Alanine Aminotransferase 8 U/L (0-33); Alkaline Phosphatase 57 U/L (35-105); Blood Urea Nitrogen 9 mg/dL (8-23); Calcium 8.4 mg/dL (8.5-10.5); Carbon Dioxide 30 mmol/L (22-29); Chloride 101 mmol/L (98-107); Creatinine Clr Calc Pharmacy 70.0951; Globulin 2.3 g/dL (1.3-4.6); Glomerular Filtration Rate 124.6 mL/min (90-130); Glucose 164 mg/dL (65-115); NT Pro B Type Natriuretic Pept 647 pg/mL (0-125); Osmolality Calculated 292 mOsm/kg (285-295); Sodium 140 mmol/L (136-145); Total Bilirubin 0.3 mg/dL (0.15-1.2); Total Protein 6.3 g/dL (6.6-8.7)
[2024-07-30 21:44] LABS: Anion Gap 13.5 (5-19); Aspartate Amino Transferase 20 U/L (0-32); Potassium 4.5 mmol/L (3.5-5.1)
[2024-07-30 21:57] LABS: Basophils % 0.2 %; Eosinophils # 0.1 10^3/uL (0.0-0.8); Eosinophils % 0.8 %; Hematocrit 41.5 % (36-47); Lymphocytes # 0.6 10^3/uL (0.8-4.8); Lymphocytes % 5.6 %; Mean Corpuscular HGB Conc 27.7 g/dL (30-55); Mean Corpuscular Hemoglobin 21.7 pg (27-33); Mean Corpuscular Volume 78.2 fl (85-98); Monocytes # 0.4 10^3/uL (0.2-0.9); Monocytes % 4.3 %; Nucleated Red Blood Cells % 0 %; Platelet Count 342 10^3/cmm (157-399); Red Blood Count 5.31 10^6/uL (3.85-5.65); Red Cell Distribution Width 22.6 % (12.1-15.1); White Blood Count 10.22 10^3/uL (3.29-11.43)
[2024-07-30 21:58] LABS: Slide Review Slide Review Perform
[2024-07-30 21:59] LABS: Lactic Sepsis W/Reflex 0.8 mmol/L (0.5-2.2)
[2024-07-30 22:07] LABS: Covid PCR NEGATIVE (Negative); Influenza A NEGATIVE (Negative); Influenza B NEGATIVE (Negative); Respiratory Syncytial Virus Ce NEGATIVE (Negative)
[2024-07-30] MEDS: levofloxacin-dextrose 5 % 750 MG/150 ML PREMIX 100 MG IV (22:32)
[2024-07-30 22:37] LABS: Troponin 5 2HR 21.92 ng/L (0-10); Troponin 5 2HR Delta 7.92 ABS# (0-10)
[2024-07-30] MEDS: sodium chloride 0.9% 1,000 ML 999 ML IV (23:29)
[2024-07-30] MEDS: acetaminophen 1,000 MG/100 ML PIGGYBACK 400 MG IV (23:29)
[2024-07-31] VITALS (103 sets, daily range): BP systolic 92–140; BP diastolic 56–90; PULSE 89–136; RESP 16–37; TEMP 36.2–37.3; O2SAT 74–100
[2024-07-31] MEDS: sodium chloride 0.9% 500 ML 999 ML IV (01:56)
[2024-07-31] MEDS: VANCOMYCIN ADD-Vantage 1,000 MG in 0.9% NaCl ADD-Vantage 250 ML 250 MG IV (02:45)
[2024-07-31 02:54] LABS: Troponin 5 6HR 18.72 ng/L (0-10); Troponin 5 6HR Delta 4.72 ng/L (0-12)
--- NOTE | 2024-07-31 03:00 | ECG_ITS ---
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 Measurements Intervals [place] Rate: 101 P: 75 HI: 128 QRS: 73 QRSD: 94 T: 73 QT: 368 QTc: 479 Interpretive Statements SINUS TACHYCARDIA WITH OCCASIONAL VENTRICULAR PREMATURE COMPLEXES Compared to ECG 07/30/2024 21:07:40 Ventricular premature complex(es) now present Myocardial infarct finding no longer present Electronically Signed On 08-01-2024 18:41:20 PIER MASTER by Milton Sen M.D. [email or web address]
--- NOTE | 2024-07-31 03:47 | PM.HP ---
Providers/Chief Complaint Admitting Physician: Priyanka Jones MD Primary Care Provider: Zoran Stern MD Chief Complaint: SOB History of Present Illness Please note that this patient was given to me at 11 PM on 07/30/2024. Lora Dsouza is a 64 yo woman w/ End stage COPD on BiPAP, chronic hypoxic respiratory failure on continuous 3L NC, on BiPAP but noncompliant, who was brought to the ED via EMS for acute onset SOB. The patient felt short of breath throughout the day, but the majority of her symptoms worsened by evening. She used her BiPAP, but still felt SOB. Additionally, she started to hallucinate, noticing swirly things in the ceiling, when she had the mask on. SHe spent [place] w/ her grandkids, some of whom had runny nose and colds. She denies f/c, dizziness, light headedness, syncope, CP, palpitations, n/v, diarrhea, melena, hematochezia, dysuria, hematuria, myalgias/arthralgias. Of note, she was hospitalized from 06/30-07/03/2024 for acute hypoxic/hypercapnic respiratory failure secondary to COPD exacerbation, and her infectious work up during that admission was negative. When EMS arrived at her house, her O2 sat was int he 50s. In the ED the patient was febrile to 101.2F, tachycardic to the 140s, tachypneic to 28. Her labs showed a WBC of 10.2, minimaly evelated Trop T, ProBNP of 647, ABG of 7.28/68/68 on NRB. She was placed on BiPAP. Her CXR showed irregular opacities in the bilateral lower lung bases. Her initial EKG showed sinus tachycardia with no ST changes and a QTc of 500. She was given 2L NS, Solu-Medrol 125 mg IVP x 1, and levofloxacin 750mmg IVP x 1 and admitted. Review of Systems Const: Denies: fever(s) Eyes: Reports: blurry vision; Denies: change in vision ENMT: Denies: odynophagia, ear or mastoid pain, ear discharge, nasal discharge or nasal congestion Card: Denies: chest pain, palpitations, lightheadedness or syncope Resp: Denies: dyspnea, productive cough or wheezing GI: Reports: abdominal pain (in the LLQ, worse w/ coughing); Denies: nausea, vomiting, diarrhea, constipation, hematochezia or melena : Denies: dysuria, urinary frequency or urinary urgency Musc: Denies: extremity pain, extremity swelling or other (no myalgias) Neuro: Reports: other (no syncop); Denies: headache(s) or dizziness Psych: Denies: anxiety, depression, suicidal ideation or homicidal ideation Endo: Denies: cold intolerance or heat intolerance Edwardo/Lymph: Denies: easy bruising or easy bleeding All/Imm: Reports: food intolerance and other (no medication intolerance. ) Medications/Allergies Home Medications Medication Instructions Recorded Confirmed Last Taken Type wheelchair #1 04/10/23 06/30/24 Unknown Rx Home oxygen concentrator #1 12/27/23 06/30/24 Unknown Rx Portable oxygen concentrator #1 ea 12/27/23 06/30/24 Unknown Rx oxygen tubing and mask equipment #1 ea 12/27/23 06/30/24 Unknown Rx pantoprazole 40 mg tablet,delayed 40 mg PO DAILY #90 tabs 02/08/24 06/30/24 Unknown Rx release (Protonix) albuterol sulfate 90 mcg/actuation 2 puff inhalation Q6H PRN 02/18/24 06/30/24 Unknown Rx aerosol inhaler Shortness Of Breath Or Wheezing #8.5 grams megestrol 400 mg/10 mL (10 mL) 200 mg (5 mL) PO DAILY PRN 02/18/24 06/30/24 Unknown Rx oral suspension APPETITE #1,000 mL tiotropium bromide 2.5 2 puff inhalation DAILY #4 grams 02/18/24 06/30/24 Unknown Rx mcg/actuation mist for inhalation (Spiriva Respimat) trazodone 50 mg tablet 50 mg PO DAILY #90 tabs 02/18/24 06/30/24 Unknown Rx fluticasone 500 mcg-salmeterol 50 1 inh inhalation BID 04/03/24 06/30/24 Unknown History mcg/dose blistr powdr for inhalation (Advair Diskus) sertraline 50 mg tablet (Zoloft) 50 mg PO DAILY #90 tabs 04/29/24 06/30/24 Unknown Rx furosemide 20 mg tablet 20 mg PO QAM PRN swelling #90 tabs 10/07/24 11/25/24 Unknown Rx ropinirole 1 mg tablet 1 mg PO BID #120 tabs 06/03/24 06/30/24 Unknown Rx buspirone 7.5 mg tablet 7.5 mg PO ONCE PRN anxiety #90 tabs 06/04/24 06/30/24 Unknown Rx fluticasone propionate 50 2 spray intranasal DAILY #16 grams 06/04/24 06/30/24 Unknown Rx mcg/actuation nasal spray,suspension budesonide 0.5 mg/2 mL suspension 0.5 mg (2 mL) inhalation 07/03/24 Unknown Rx for nebulization BID.RESPIRATORY #60 mL ipratropium bromide 0.02 % 0.5 mg (2.5 mL) inhalation Q8H #75 07/03/24 Unknown Rx solution for inhalation mL levalbuterol HCl 0.63 mg/3 mL 0.63 mg (3 mL) inhalation Q8H #75 07/03/24 Unknown Rx solution for nebulization mL levofloxacin 750 mg tablet 750 mg PO DAILY@0600 #5 tabs 07/03/24 Unknown Rx metoprolol tartrate 25 mg tablet 25 mg PO BID@0900,2100 #60 tabs 07/03/24 Unknown Rx prednisone 10 mg tablet See Taper PO DIRECTED #42 tabs 07/03/24 Unknown Rx albuterol sulfate 2.5 mg/3 mL 2.5 mg (3 mL) inhalation Q4H PRN 07/21/24 Unknown Rx (0.083 %) solution for nebulization Shortness Of Breath #90 mL Allergies Allergy/AdvReac Type Severity Reaction Status Date / Time No Known Allergies Allergy Verified 07/30/24 21:06 PFSH Acute PFSH: Medical History Protein-calorie malnutrition, severe GERD (gastroesophageal reflux disease) Essential hypertension Anxiety Hypertension Insomnia COPD (chronic obstructive pulmonary disease) Surgical History History of History of tonsillectomy Family History (Updated 07/31/24 @ 04:36 by Priyakna Jones MD) Father Stroke Other Dementia Denies family history of Diabetes CAD (coronary artery disease) Clotting disorder Hyperlipidemia Psychiatric illness Chronic kidney disease (CKD) Anesthesia complication Bleeding disorder Lung disease Cancer Hypertension Social History Smoking and tobacco/nicotine status: former use of tobacco/nicotine Quit status (tobacco/nicotine): has quit using Year quit tobacco: 2020 Former quit date comment: 1 ppd X 40 years Second hand smoke exposure: Yes Alcohol intake: current Alcohol intake frequency: holidays/special occasions only Alcohol type: beer Substance/Drug Use: never Marital status: Number of children: 5 Number of grandchildren: 9 service: No Current occupational status: disabled Current occupational exposures/hazards: No Pets and animals: Yes Current gender identity: Female Vitals/I&O/Wt Last Vital Signs Temp 101.2 F H 07/30/24 20:57 Pulse 115 H 07/31/24 02:25 Resp 17 07/31/24 00:52 BP 103/65 07/31/24 00:52 Pulse Ox 97 07/31/24 00:52 O2 Del Method Nasal Cannula, BiPAP 07/31/24 01:18 O2 Flow Rate 10 07/30/24 20:57 FiO2 60 07/30/24 21:42 07/30/24 07/30/24 07/31/24 14:59 22:59 06:59 Intake Total 1250 / 1250 Balance 1250 / 1250 Weight last 48 hrs Weight 46 kg Weight 38.555 kg Physical Exam Const: GENERAL APPEARANCE: cooperative, comfortable and frail appearing NUTRITIONAL APPEARANCE: underweight ORIENTATION/CONSCIOUSNESS: Yes awake, Yes oriented to person and Yes oriented to place HENMT: HEAD & SCALP: normocephalic and atraumatic NOSE: Normal external nose present EXTERNAL EAR: Yes external ears normal THROAT: posterior oropharynx normal Eye: CONJUNCTIVA: Yes conjunctivae normal PUPIL: Yes Equal, round and reactive pupils present EOM: No EOM abnormal Neck/C-Spine: GENERAL: Yes normal visual inspection and Yes trachea midline THYROID: Thyroid normal CAROTIDS: No bruit CERVICAL SPINE: Yes cervical ROM normal Lymph: LYMPHATIC: no lymphadenopathy noted Resp: AUSCULTATION: clear to auscultation bilaterally OTHER: No w/r/r Cardio: RATE: regular rate RHYTHM: regular rhythm HEART SOUNDS: no gallops and no rubs PERIPHERAL PULSES: radial pulses present and dorsalis pedis present OTHER: 2/6 systolic murmur at the apex and LLSB GI: OTHER: BS+, TTP in the LLQ, non distended, no guarding, no rigidity, no rebound tenderness, no hepatosplenomegaly. Extremity: GENERAL: No clubbing, No cyanosis and No edema Neuro: CRANIAL NERVES: Yes CN normal except as noted SPEECH: speech normal SENSORY EXAM: No sensory level loss detected MOTOR EXAM: 5/5 motor strength present throughout and Normal motor muscle tone present throughout Psych: APPEARANCE: Yes grossly normal ATTITUDE: Yes calm and Yes engaged ACTIVITY/MOTOR BEHAVIOR: Yes appropriate eye contact SPEECH: Yes normal speech MOOD & AFFECT: Yes euthymic mood THOUGHT PROCESS: Normal thought process present THOUGHT CONTENT: Yes Normal thought content present ATTENTION/CONCENTRATION: Yes attention grossly intact Skin: GENERAL SKIN EXAM: no rashes or lesions noted Data 07/30/24 21:31 07/30/24 20:36 Micro: Microbiology 07/30/24 21:25 Blood Culture - Preliminary Blood SPECIMEN COLLECTED 07/30/24 21:15 Blood Culture - Preliminary Blood SPECIMEN COLLECTED A&P Assessment and plan (1) Acute respiratory failure with hypoxia and hypercapnia: (2) COPD with acute exacerbation: (3) Bilateral pneumonia: (4) Sepsis: Plan Lora Dsouza is a 64 yo woman w/ End stage COPD on BiPAP, chronic hypoxic respiratory failure on continuous 3L NC, on BiPAP, who was brought to the ED via EMS for acute onset SOB. #Sepsis: Secondary to pneumonia #Bilateral pneumonia -likely gram-negative. - S/p Levofloxacin in the ED - F/u BCx ordered - On Vanc/Cefepime/Azithromycin #Acute on chronic hypoxic hypercapnic respiratory failure: - Patient has been compliant on her BiPAP since her last hospitalization. -Will repeat ABG and wean BiPAP as tolerated. #Acute COPD exacerbation - Solumedrol continued daily, duonebs, PPI #Microcytic anemia: Patient states that she does not recall being told that she has microcytic anemia. Iron studies ordered. - Consider holding Ropinirole until the anemia has been addressed #Moderately severe vs Severe Protein Calorie Malnutrition - Electric Motor Repairman consulted #HTN #Anxiety #Insomnia - Resume home meds as appropriate DVT ppx: Lovenox GI ppx: PPI Attestations Medical Necessity Statement*: Patient will remain hospitalized for >2 midnights due to her acute on chronic hypoxic hypercapneic respiratory failure. Time Spent in Patient Care: >70mins were spent on chart review, patient interview/physical exam, lab/imaging review, formulation of plan and coordination of care. Coding Level of Care Code 22415 Diagnoses Acute respiratory failure with hypoxia and hypercapnia J96.01; J96.02 COPD with acute exacerbation J44.1 Bilateral pneumonia J18.9 Sepsis A41.9
[2024-07-31 05:19] LABS: ABG PH Result 7.26 (7.35-7.45); Alveolar-Arterial Oxygen Gradi 24.9 mmHg (5-10); Arterial Blood Gas Hematocrit 32.1 % (37-47); Base Excess ABG 0.3 mmol/L (-2.0-2.0); Blood Gas Allen Test Pos; Blood Gas Sample Site Brachial, left; Blood Gas Sample Type Arterial; Carboxyhemoglobin 1.1 %THgb (0.4-20.1); HCO3 ABG 28.3 mmol/L (22-26); HGB O2 Sat 98.1 % (95-100); Ionized Calcium Level - ABG 1.1 mmol/L (1.1-1.4); Methemoglobin 0.6 % (0.4-1.5); Oxygen Device BIPAP; Oxygen Saturation ABG > 99.1; PO2 FiO2 Ratio Arterial Blood 266; Potassium Level - ABG 3.9 mmol/L (3.5-5.0); Total Hemoglobin 10.5 g/dL (12-16)
[2024-07-31 05:28] LABS: ABG PCO2 62.7 mmHg (35-45)
[2024-07-31] MEDS: AZITHROMYCIN ADD-Vantage 500 MG in 0.9% NaCl ADD-Vantage 250 ML 250 MG IV (05:47)
[2024-07-31] MEDS: polyethylene glycol 3350 Pkt 17 gm PO (05:47)
[2024-07-31] MEDS: pantoprazole 40 mg SDV IVP (05:48)
[2024-07-31] MEDS: enoxaparin 30 mg/0.3 mL Syringe SUBCUT (05:48)
[2024-07-31] MEDS: cefepime 2,000 mg SDV 2000 MG IVP ×2 (05:48→17:39)
[2024-07-31] MEDS: sennosides-docusate Tablet 1 TAB PO (05:48)
[2024-07-31 06:17] LABS: Bilirubin Urine Negative (Negative); Blood Urine Negative (Negative); Glucose Urine UA 1+ (Normal); Ketones Urine Negative (Negative); Leukocyte Esterase Urine Negative (Negative); Nitrate Urine Negative (Negative); Protein Urine 1+ (Negative); Specific Gravity, Urine 1.023 (1.005-1.030); Urine Appearance Clear (CLEAR); Urine Color Yellow (Yellow); pH Urine 5.5 (5-7)
[2024-07-31 06:22] LABS: Bacteria Urine None Seen /hpf; Hyaline Casts Urine 11.57 /lpf; RBC Urine 0-2 /hpf (0-2); Squamous Epithelial Cell Urine 0-5 /hpf (0-5); WBC Urine 0-5 /hpf (0-5)
[2024-07-31 07:19] LABS: UA Slide Review UA Slide Review Perf
[2024-07-31 07:20] LABS: Add Urine Culture? No; Mucus Urine TRACE /hpf
--- NOTE | 2024-07-31 07:36 | P.PHAVANC_ITS ---
Vancomycin Goal - Goal Vancomycin Goal:: 15-20 mg/L Vancomycin Indication:: Pneumonia (SEPSIS) - Therapy Current therapy:: Azithromycin, Cefepime Day of therpy:: Day [1]of [] . Actual body weight (kg): 45.813 kg - Data Labs: WBC 10.22 10^3/uL (3.29-11.43) 07/30/24 21:31 Corrected WBC Cancelled 07/30/24 20:36 RBC 5.31 10^6/uL (3.85-5.65) 07/30/24 21:31 Hgb 11.50 g/dL (11.27-16.99) 07/30/24 21:31 Hct 41.5 % (36-47) 07/30/24 21: MCV 78.2 fl (85-98) L 07/30/24 21:31 MCH 21.7 pg (27-33) L 07/30/24 21: MCHC 27.7 g/dL (30-55) L 07/30/24 21:31 RDW 22.6 % (12.1-15.1) H 07/30/24 21:31 Sodium 140 mmol/L (136-145) 07/30/24 20:36 Potassium 4.5 mmol/L (3.5-5.1) 07/30/24 20:36 Chloride 101 mmol/L (98-107) 07/30/24 20:36 Carbon Dioxide 30 mmol/L (22-29) H 07/30/24 20:36 Anion Gap 13.5 (5-19) 07/30/24 20:36 BUN 9 mg/dL (8-23) 07/30/24 20:36 Creatinine 0.5 mg/dL (0.5-0.9) 07/30/24 20:36 GFR Calculation 124.6 mL/min (90-130) 07/30/24 20:36 Treatment plan:: new consult Regimen:: New start vancomycin for Pneumonia/sepsis. Patient received 1000 mg load dose in ER ~22 mg/kg. Starting on Maintenance dose of 500 mg q12h. Pharmacy will contin ue to monitor.
[2024-07-31] MEDS: ipratropium-albuterol 3 mL Neb INHALATION ×3 (07:50→19:32)
[2024-07-31] MEDS: methylPREDNISolone sod succ 40 mg/mL INJ IVP ×3 (08:39→23:14)
[2024-07-31] MEDS: docusate sodium 100 mg Capsule PO ×2 (08:40→17:39)
[2024-07-31] MEDS: trazodone 50 mg Tablet PO ×2 (08:40→22:42)
[2024-07-31] MEDS: sertraline 50 mg Tablet PO (08:40)
[2024-07-31] MEDS: acetaminophen 325 mg Tablet 650 MG PO (09:55)
[2024-07-31 10:29] LABS: Basophils % 0.3 %; Hematocrit 39.4 % (36-47); Lymphocytes # 0.3 10^3/uL (0.8-4.8); Mean Corpuscular HGB Conc 27.4 g/dL (30-55); Mean Corpuscular Hemoglobin 21.5 pg (27-33); Mean Corpuscular Volume 78.5 fl (85-98); Mean Platelet Volume 11.6 fL (7.4-10.4); Monocytes # 0.2 10^3/uL (0.2-0.9); Monocytes % 1.9 %; Neutrophils # 10.57 10^3/uL (1.8-7.7); Nucleated Red Blood Cells % 0 %; Platelet Count 355 10^3/cmm (157-399); Red Blood Count 5.02 10^6/uL (3.85-5.65); Red Cell Distribution Width 22.5 % (12.1-15.1); White Blood Count 11.48 10^3/uL (3.29-11.43)
--- NOTE | 2024-07-31 11:34 | PC.PT ---
Patient and family declined PT evaluation stating no needs, and that patient remains independent with transfers and ambulation in room for toileting, but remains easily short of breath as prior due to end-stage COPD; patient nurse confirms patient's abilities; no PT needs identified, no further visits to be attempted at this time.
[2024-07-31] MEDS: vancomycin 500 MG in sodium chloride 0.9% (plus) 100 ML 200 MG IV (13:52)
--- NOTE | 2024-07-31 17:39 | P.PN_ITS ---
Subjective 2 Subjective: - Patient was seen this morning, she is sitting up at the side of the bed, has tachypnea, tachycardia, she is breathing through pursed lips, but is able to speak a few words before feeling short of breath she does feel better compared to last night, does have a cough, denies any fevers, no chills, we discussed her respiratory failure, Vitals/I&O/Wt Last Vital Signs Temp 98.3 F 07/31/24 16:00 Pulse 109 H 07/31/24 16:00 Resp 24 H 07/31/24 16:00 BP 119/64 07/31/24 16:00 Pulse Ox 95 07/31/24 16:00 O2 Del Method Nasal Cannula 07/31/24 16:00 O2 Flow Rate 3 07/31/24 16:00 FiO2 40 07/31/24 05:25 07/31/24 07/31/24 07/31/24 06:59 14:59 22:59 Intake Total 2250 / 2250 400 / 400 Balance 2250 / 2250 400 / 400 Weight last 48 hrs Weight 45.813 kg Weight 45.813 kg Weight 46 kg Weight 38.555 kg Physical Exam 2 Const: COMMON NORMALS: no acute distress and patient oriented x3 Resp: COMMON NORMALS: normal respiratory effort, No retractions and No use of accessory muscles EFFORT & INSPECTION: Yes tachypneic and Yes pursed lip breathing AUSCULTATION: wheezes Cardio: COMMON NORMALS: regular rate, regular rhythm, S1 normal heart sound present and S2 normal heart sound present RATE: regular rate RHYTHM: r egular rhythm HEART SOUNDS: S1 normal heart sound present and S2 normal heart sound present GI: COMMON NORMALS: Normal to inspection, nondistended, normoactive bowel sounds present and non-tender Extremity: COMMON NORMALS: no pedal edema Neuro: COMMON NORMALS: patient oriented x3 Psych: COMMON NORMALS: mental status grossly normal Skin: NARRATIVE SKIN EXAM: Evidence of protein calorie malnutrition, with bilateral temporal muscle wasting, bilateral fat pad thinning under bilateral clavicles, ribs, muscle thinning of bilateral thighs, shoulders Data 07/31/24 09:51 07/30/24 20:36 Micro: Microbiology 07/30/24 21:25 Blood Culture - Preliminary Blood SPECIMEN COLLECTED 07/30/24 21:15 Blood Culture - Preliminary Blood SPECIMEN COLLECTED A&P Assessment and plan (1) Acute respiratory failure with hypoxia and hypercapnia: (2) COPD with acute exacerbation: (3) Bilateral pneumonia: (4) Sepsis: Plan Lora Dsouza is a 64 yo woman w/ End stage COPD on BiPAP, chronic hypoxic respiratory failure on continuous 3L NC, on BiPAP, who was brought to the ED via EMS for acute onset SOB. #Sepsis: -Secondary to pneumonia #Bilateral pneumonia - S/p Levofloxacin in the ED -Follow blood cultures -Continue vancomycin -Redose cefepime to 2 g IV every 12 hours -Continue Zithromycin #Acute on chronic hypoxic hypercapnic respiratory failure: -Secondary to COPD, bilateral pneumonia -Continue BiPAP scheduled during the night as needed during the day #Acute COPD exacerbation -Solu-Medrol 40 IV every 8 hours -Continue DuoNeb #Microcytic anemia: -Monitor #Moderately severe vs Severe Protein Calorie Malnutrition -Secondary to COPD - Transfer Station Operator consulted #HTN #Anxiety #Insomnia - Resume home meds as appropriate DVT ppx: Lovenox GI ppx: PPI Attestations 2 Medical Necessity Statement*: Patient requires hospitalization for acute hypoxic hypercarbic respiratory failure secondary to pneumonia, COPD exacerbation Diagnoses Acute respiratory failure with hypoxia and hypercapnia J96.01; J96.02 COPD with acute exacerbation J44.1 Bilateral pneumonia J18.9 Sepsis A41.9
[2024-07-31] MEDS: sennosides 8.6 mg Tablet 17.2 MG PO (20:57)
--- NOTE | 2024-07-31 22:26 | PC.NURSE ---
Trazodone Patient requesting home dose of trazodone. Dr. Morin contacted and order received to start her 50 mg trazodone PO nightly with a dose tonight. Trazodone previously ordered for 0900; timing of medication changed to 2100. Pharmacy contacted and verification received that her dose tonight is ok to administer despite previous administration.
[2024-08-01] VITALS (20 sets, daily range): BP systolic 101–144; BP diastolic 59–87; PULSE 85–116; RESP 16–35; TEMP 35.9–37.3; O2SAT 90–99; BMI 17.7
[2024-08-01] MEDS: ipratropium-albuterol 3 mL Neb INHALATION ×4 (02:19→20:50)
[2024-08-01] MEDS: vancomycin 500 MG in sodium chloride 0.9% (plus) 100 ML 200 MG IV (02:19)
[2024-08-01] MEDS: enoxaparin 40 mg/0.4 mL Syringe SUBCUT (04:24)
[2024-08-01 04:35] LABS: ABG PCO2 57.4 mmHg (35-45); ABG PH Result 7.38 (7.35-7.45); Arterial Blood Gas Hematocrit 30.8 % (37-47); Base Excess ABG 7.3 mmol/L (-2.0-2.0); Blood Gas Allen Test Pos; Blood Gas Sample Site Radial, left; Blood Gas Sample Type Arterial; HCO3 ABG 33.7 mmol/L (22-26); Oxygen Device BIPAP; PO2 ABG 86.1 mmHg (80.0-100.0)
[2024-08-01 04:36] LABS: Glucose Point of Care 153 mg/dL (70-110)
[2024-08-01 05:29] LABS: INR 1.07 (0.8-1.2)
[2024-08-01 05:30] LABS: Partial Thromboplastin Time 38.2 SECONDS (23.9-36.7)
[2024-08-01 05:48] LABS: Alanine Aminotransferase 6 U/L (0-33); Albumin Level 3.1 g/dL (3.5-5.2); Alkaline Phosphatase 45 U/L (35-105); Aspartate Amino Transferase 13 U/L (0-32); Blood Urea Nitrogen 10 mg/dL (8-23); Carbon Dioxide 31 mmol/L (22-29); Chloride 103 mmol/L (98-107); Creatinine Clr Calc Pharmacy 156.4037; Globulin 2.9 g/dL (1.3-4.6); Glomerular Filtration Rate 224.7 mL/min (90-130); Glucose 155 mg/dL (65-115); Magnesium 1.9 mg/dL (1.7-2.3); Osmolality Calculated 292 mOsm/kg (285-295); Sodium 140 mmol/L (136-145); Total Bilirubin 0.3 mg/dL (0.15-1.2)
[2024-08-01 05:49] LABS: Ferritin 63 ng/mL (15-150); Iron 17 ug/dL (37-145); Percent Saturation 5.9 % (20-50); Total Iron Binding Capacity 287 mcg/dl; Unsaturated Iron Binding 270 ug/dL (112-347)
[2024-08-01] MEDS: AZITHROMYCIN ADD-Vantage 500 MG in 0.9% NaCl ADD-Vantage 250 ML 250 MG IV (05:50)
[2024-08-01] MEDS: pantoprazole 40 mg SDV IVP (05:50)
[2024-08-01] MEDS: cefepime 2,000 mg SDV 2000 MG IVP ×2 (05:50→18:23)
[2024-08-01 05:52] LABS: Anion Gap 10.2 (5-19); Potassium 4.2 mmol/L (3.5-5.1)
[2024-08-01 06:08] LABS: NT Pro B Type Natriuretic Pept 3192 pg/mL (0-125); Vitamin B12 307 pg/mL (232-1245)
[2024-08-01 06:10] LABS: Folate Level 7.8 ng/mL (4.8-37.3)
--- NOTE | 2024-08-01 07:00 | XRR_ITS ---
PROCEDURE INFORMATION: Exam: XR Chest Exam date and time: 08/01/2024 6:57 AM Age: 64 years old Clinical indication: Dyspnea; Additional info: SOB TECHNIQUE: Imaging protocol: Radiologic exam of the chest. Views: 1 view. COMPARISON: CR (CHEST, ) 07/30/2024 9:35 PM FINDINGS: Lungs: Mildly increased density at the lung bases may represent atelectasis or infiltrates unchanged from 2 days ago. Pleural spaces: Unremarkable. No pleural effusion. No pneumothorax. Heart/Mediastinum: Unremarkable. No cardiomegaly. Bones/joints: Unremarkable. XR/XR chest 1V portable [id number] IMPRESSION: No significant change. Mild stable bibasilar opacities
[2024-08-01] MEDS: docusate sodium 100 mg Capsule PO (08:05)
[2024-08-01] MEDS: sertraline 50 mg Tablet PO (08:06)
[2024-08-01] MEDS: methylPREDNISolone sod succ 40 mg/mL INJ IVP ×3 (08:06→23:45)
[2024-08-01] MEDS: FUROsemide 10 mg/mL SDV 4mL 40 MG IVP (08:26)
[2024-08-01 10:33] LABS: Basophils % 0.2 %; Hematocrit 40.2 % (36-47); Lymphocytes # 0.6 10^3/uL (0.8-4.8); Lymphocytes % 4.2 %; Mean Corpuscular HGB Conc 27.6 g/dL (30-55); Mean Corpuscular Hemoglobin 21.7 pg (27-33); Mean Corpuscular Volume 78.5 fl (85-98); Mean Platelet Volume 11.4 fL (7.4-10.4); Monocytes # 0.3 10^3/uL (0.2-0.9); Neutrophils # 11.93 10^3/uL (1.8-7.7); Neutrophils % 91.4 %; Nucleated Red Blood Cells % 0 %; Platelet Count 426 10^3/cmm (157-399); Red Blood Count 5.12 10^6/uL (3.85-5.65); Red Cell Distribution Width 22.9 % (12.1-15.1); White Blood Count 13.06 10^3/uL (3.29-11.43)
[2024-08-01] MEDS: VANCOMYCIN ADD-Vantage 750 MG in 0.9% NaCl ADD-Vantage 250 ML 250 MG IV ×2 (10:36→20:42)
--- NOTE | 2024-08-01 11:17 | PC.NURSE ---
Transfer Note Patient transferred to med-surg room 250-2 from ICU via wheelchair. Handoff report given to PREET Nevarez. Patient oriented to environment and equipment. Covering service notified. Orders reviewed and will continue to monitor. Family notified. Upon transfer patient is alert/oriented x4 on 3LNC. Vancomycin infusing per protocol see MAR for more details. All patient belongings transferred with patient and placed at bedside.
--- NOTE | 2024-08-01 13:59 | PICC.NOTE ---
Midline placed to left basilic vein. Referred to vascular access nurse for midline placement due to poor access. Risks and benefits discussed and informed consent obtained from pt. Left arm assessed with left basilic vein measuring 3.2 mm, straight, and apparent best choice for placement. Using sterile technique and MST, left basilic vein accessed x 1 stick. Mid-arm circumference measured 10 cm from left AC 19.5 cm. Trimmed cath 10 cm with 0 cm external length noted. Line secured with stat-lock. Insertion site covered with Biopatch and TSM. Report given to bedside nurse, PREET Nevarez.
--- NOTE | 2024-08-01 14:16 | PM.PN ---
Subjective Subjective: Patient was examined this morning, she is in the ICU, her shortness of breath is improving, she does report decreased mobility, no fevers, no chills, does have a cough Vitals/I&O/Wt Last Vital Signs Temp 99.2 F 08/01/24 11:00 Pulse 100 08/01/24 13:03 Resp 18 08/01/24 13:01 BP 144/80 08/01/24 11:00 Pulse Ox 94 08/01/24 13:01 O2 Del Method Nasal Cannula 08/01/24 13:01 O2 Flow Rate 3 08/01/24 13:01 FiO2 40 08/01/24 04:00 07/31/24 08/01/24 08/01/24 22:59 06:59 14:59 Intake Total 830 / 1230 360 / 360 Output Total 1100 / 1100 Balance -270 / 130 360 / 360 Weight last 48 hrs Weight 46.992 kg Weight 45.813 kg Weight 45.813 kg Weight 46 kg Weight 38.555 kg Physical Exam Const: COMMON NORMALS: no acute distress and patient oriented x3 Resp: COMMON NORMALS: normal respiratory effort, No retractions and No use of accessory muscles AUSCULTATION: crackles and wheezes Cardio: COMMON NORMALS: regular rate, regular rhythm, S1 normal heart sound present and S2 normal heart sound present RATE: regular rate RHYTHM: regular rhythm HEART SOUNDS: S1 normal heart sound present and S2 normal heart sound present GI: COMMON NORMALS: Normal to inspection, nondistended, normoactive bowel sounds present and non-tender Extremity: COMMON NORMALS: capillary refill normal and no pedal edema Neuro: COMMON NORMALS: patient oriented x3 Psych: COMMON NORMALS: mental status grossly normal Data 08/01/24 10:00 08/01/24 04:34 Micro: Microbiology 07/30/24 21:25 Blood Culture - Preliminary Blood NEGATIVE TO DATE 07/30/24 21:15 Blood Culture - Preliminary Blood NEGATIVE TO DATE A&P Assessment and plan (1) Acute respiratory failure with hypoxia and hypercapnia: (2) COPD with acute exacerbation: (3) Bilateral pneumonia: (4) Sepsis: Plan Lora Dsouza is a 64 yo woman w/ End stage COPD on BiPAP, chronic hypoxic respiratory failure on continuous 3L NC, on BiPAP, who was brought to the ED via EMS for acute onset SOB. #Sepsis: -Secondary to pneumonia #Bilateral pneumonia - S/p Levofloxacin in the ED -Follow blood cultures -Continue vancomycin -Redose cefepime to 2 g IV every 12 hours -Continue Zithromycin #Acute on chronic hypoxic hypercapnic respiratory failure: -Secondary to COPD, bilateral pneumonia -Continue BiPAP scheduled during the night as needed during the day #Acute COPD exacerbation -Solu-Medrol 40 IV every 8 hours -Continue DuoNeb #Microcytic anemia: -Monitor #Moderately severe vs Severe Protein Calorie Malnutrition -Secondary to COPD - Syrup Machine Laborer consulted #HTN #Anxiety #Insomnia - Resume home meds as appropriate DVT ppx: Lovenox GI ppx: PPI Plan for today continue IV steroids, continue IV antibiotics, 1 dose IV Lasix Attestations Medical Necessity Statement*: Patient requires hospitalization for acute respiratory failure secondary to COPD, pneumonia, CHF Diagnoses Acute respiratory failure with hypoxia and hypercapnia J96.01; J96.02 COPD with acute exacerbation J44.1 Bilateral pneumonia J18.9 Sepsis A41.9
[2024-08-01 17:49] LABS: Vancomycin Trough 17.5 ug/mL (10-15)
[2024-08-01] MEDS: ropinirole 1 mg Tablet PO (18:23)
[2024-08-01] MEDS: trazodone 50 mg Tablet PO (20:42)
[2024-08-02] VITALS (12 sets, daily range): BP systolic 112–161; BP diastolic 71–96; PULSE 91–108; RESP 16–26; TEMP 36.6–37; O2SAT 91–97
[2024-08-02] MEDS: ipratropium-albuterol 3 mL Neb INHALATION ×4 (01:40→20:30)
[2024-08-02] MEDS: VANCOMYCIN ADD-Vantage 750 MG in 0.9% NaCl ADD-Vantage 250 ML 250 MG IV (04:15)
[2024-08-02] MEDS: enoxaparin 40 mg/0.4 mL Syringe SUBCUT (04:15)
[2024-08-02 05:30] LABS: Albumin Level 3.2 g/dL (3.5-5.2); Alkaline Phosphatase 53 U/L (35-105); Blood Urea Nitrogen 11 mg/dL (8-23); Calcium 8.5 mg/dL (8.5-10.5); Carbon Dioxide 30 mmol/L (22-29); Chloride 96 mmol/L (98-107); Creatinine Clr Calc Pharmacy 117.3028; Globulin 2.4 g/dL (1.3-4.6); Glomerular Filtration Rate 161.2 mL/min (90-130); Glucose 153 mg/dL (65-115); Osmolality Calculated 284 mOsm/kg (285-295); Sodium 136 mmol/L (136-145); Total Bilirubin 0.2 mg/dL (0.15-1.2); Total Protein 5.6 g/dL (6.6-8.7)
[2024-08-02 05:31] LABS: Alanine Aminotransferase 6 U/L (0-33); Anion Gap 14.2 (5-19); Aspartate Amino Transferase 18 U/L (0-32); NT Pro B Type Natriuretic Pept 3322 pg/mL (0-125); Potassium 4.2 mmol/L (3.5-5.1)
[2024-08-02] MEDS: pantoprazole 40 mg SDV IVP (05:51)
[2024-08-02] MEDS: AZITHROMYCIN ADD-Vantage 500 MG in 0.9% NaCl ADD-Vantage 250 ML 250 MG IV (05:51)
[2024-08-02] MEDS: cefepime 2,000 mg SDV 2000 MG IVP ×2 (05:51→17:41)
[2024-08-02 07:02] LABS: Basophils % 0.2 %; Eosinophils % 0.1 %; Hematocrit 39.5 % (36-47); Lymphocytes # 0.6 10^3/uL (0.8-4.8); Lymphocytes % 5.9 %; Mean Corpuscular HGB Conc 27.1 g/dL (30-55); Mean Corpuscular Hemoglobin 21.4 pg (27-33); Mean Corpuscular Volume 79.2 fl (85-98); Monocytes # 0.3 10^3/uL (0.2-0.9); Monocytes % 2.7 %; Neutrophils # 9.51 10^3/uL (1.8-7.7); Neutrophils % 89.8 %; Nucleated Red Blood Cells % 0 %; Platelet Count 365 10^3/cmm (157-399); Red Blood Count 4.99 10^6/uL (3.85-5.65); Red Cell Distribution Width 22.8 % (12.1-15.1)
[2024-08-02] MEDS: predniSONE 20 mg Tablet 40 MG PO (08:33)
[2024-08-02] MEDS: FUROsemide 10 mg/mL SDV 4mL 40 MG IVP (08:33)
[2024-08-02] MEDS: docusate sodium 100 mg Capsule PO (08:33)
[2024-08-02] MEDS: potassium chloride ER 20 mEq Tablet PO (08:34)
[2024-08-02] MEDS: ropinirole 1 mg Tablet PO ×2 (08:34→17:41)
[2024-08-02] MEDS: sertraline 50 mg Tablet PO (08:34)
--- NOTE | 2024-08-02 14:46 | PM.PN ---
Subjective Subjective: Patient was seen this morning, is at bedside, she does report shortness of breath on exertion does report weakness, fatigue, no fevers Vitals/I&O/Wt Last Vital Signs Temp 98.2 F 08/02/24 11:09 Pulse 101 H 08/02/24 13:06 Resp 18 08/02/24 13:06 BP 151/96 08/02/24 11:09 Pulse Ox 91 08/02/24 13:06 O2 Del Method Nasal Cannula 08/02/24 13:06 O2 Flow Rate 3 08/02/24 13:06 FiO2 40 08/02/24 01:42 08/01/24 08/02/24 08/02/24 22:59 06:59 14:59 Intake Total 850 / 1460 1250 / 2710 490 / 490 Balance 850 / 1460 1250 / 2710 490 / 490 Weight last 48 hrs Weight 46.992 kg Weight 46.992 kg Physical Exam Const: COMMON NORMALS: no acute distress and patient oriented x3 Resp: COMMON NORMALS: normal respiratory effort, No retractions and No use of accessory muscles AUSCULTATION: crackles and wheezes Cardio: COMMON NORMALS: regular rate, regular rhythm, S1 normal heart sound present and S2 normal heart sound present RATE: regular rate RHYTHM: regular rhythm HEART SOUNDS: S1 normal heart sound present and S2 normal heart sound present GI: COMMON NORMALS: Normal to inspection, nondistended, normoactive bowel sounds present and non-tender Extremity: COMMON NORMALS: no pedal edema Neuro: COMMON NORMALS: patient oriented x3 Psych: COMMON NORMALS: mental status grossly normal Data 08/02/24 06:26 08/02/24 04:14 A&P Assessment and plan (1) Acute respiratory failure with hypoxia and hypercapnia: (2) COPD with acute exacerbation: (3) Bilateral pneumonia: (4) Sepsis: Plan Lora Dsouza is a 64 yo woman w/ End stage COPD on BiPAP, chronic hypoxic respiratory failure on continuous 3L NC, on BiPAP, who was brought to the ED via EMS for acute onset SOB. #Sepsis: -Secondary to pneumonia #Bilateral pneumonia - S/p Levofloxacin in the ED -Follow blood cultures -Continue vancomycin -Redose cefepime to 2 g IV every 12 hours -Continue Zithromycin #Acute on chronic hypoxic hypercapnic respiratory failure: -Secondary to COPD, bilateral pneumonia -Continue BiPAP scheduled during the night as needed during the day CHF exacerbation, elevated BNP, diastolic, acute on chronic, required IV Lasix #Acute COPD exacerbation -Solu-Medrol 40 IV every 8 hours -Continue DuoNeb #Microcytic anemia: -Monitor #Moderately severe vs Severe Protein Calorie Malnutrition -Secondary to COPD - Infection Control Practitioner consulted #HTN #Anxiety #Insomnia - Resume home meds as appropriate DVT ppx: Lovenox GI ppx: PPI Plan for today continue IV steroids, continue IV antibiotics, 1 dose IV Lasix Attestations Medical Necessity Statement*: Patient requires hospitalization for bilateral pneumonia, respiratory failure, COPD Diagnoses Acute respiratory failure with hypoxia and hypercapnia J96.01; J96.02 COPD with acute exacerbation J44.1 Bilateral pneumonia J18.9 Sepsis A41.9
[2024-08-02] MEDS: acetaminophen 325 mg Tablet 650 MG PO (19:43)
[2024-08-02] MEDS: trazodone 50 mg Tablet PO (21:33)
[2024-08-03] VITALS (10 sets, daily range): BP systolic 111–136; BP diastolic 64–84; PULSE 89–108; RESP 12–23; TEMP 36.7–37; O2SAT 92–99
[2024-08-03] MEDS: ipratropium-albuterol 3 mL Neb INHALATION ×2 (01:19→08:58)
[2024-08-03] MEDS: enoxaparin 40 mg/0.4 mL Syringe SUBCUT (05:30)
[2024-08-03] MEDS: cefepime 2,000 mg SDV 2000 MG IVP (05:30)
[2024-08-03] MEDS: AZITHROMYCIN ADD-Vantage 500 MG in 0.9% NaCl ADD-Vantage 250 ML 250 MG IV (05:30)
[2024-08-03] MEDS: pantoprazole 40 mg SDV IVP (05:30)
[2024-08-03 05:43] LABS: Basophils % 0.1 %; Eosinophils % 0.1 %; Hematocrit 40.8 % (36-47); Lymphocytes # 1.5 10^3/uL (0.8-4.8); Lymphocytes % 18.3 %; Mean Corpuscular HGB Conc 27.7 g/dL (30-55); Mean Corpuscular Hemoglobin 21.5 pg (27-33); Mean Corpuscular Volume 77.6 fl (85-98); Mean Platelet Volume 11.9 fL (7.4-10.4); Monocytes # 0.7 10^3/uL (0.2-0.9); Monocytes % 8.1 %; Neutrophils # 5.84 10^3/uL (1.8-7.7); Neutrophils % 72.7 %; Nucleated Red Blood Cells % 0 %; Platelet Count 448 10^3/cmm (157-399); Red Blood Count 5.26 10^6/uL (3.85-5.65); Red Cell Distribution Width 22.6 % (12.1-15.1); White Blood Count 8.04 10^3/uL (3.29-11.43)
[2024-08-03 06:10] LABS: Alanine Aminotransferase 7 U/L (0-33); Albumin Level 3.6 g/dL (3.5-5.2); Alkaline Phosphatase 57 U/L (35-105); Aspartate Amino Transferase 11 U/L (0-32); Blood Urea Nitrogen 12 mg/dL (8-23); Calcium 8.9 mg/dL (8.5-10.5); Carbon Dioxide 35 mmol/L (22-29); Chloride 96 mmol/L (98-107); Globulin 2.2 g/dL (1.3-4.6); Glomerular Filtration Rate 161.2 mL/min (90-130); Glucose 99 mg/dL (65-115); Osmolality Calculated 290 mOsm/kg (285-295); Sodium 140 mmol/L (136-145); Total Bilirubin 0.3 mg/dL (0.15-1.2); Total Protein 5.8 g/dL (6.6-8.7)
[2024-08-03 06:14] LABS: NT Pro B Type Natriuretic Pept 2618 pg/mL (0-125)
[2024-08-03 06:15] LABS: Anion Gap 13.1 (5-19); Potassium 4.1 mmol/L (3.5-5.1)
[2024-08-03] MEDS: ropinirole 1 mg Tablet PO (08:35)
[2024-08-03] MEDS: predniSONE 20 mg Tablet 40 MG PO (08:35)
[2024-08-03] MEDS: docusate sodium 100 mg Capsule PO (08:35)
[2024-08-03] MEDS: sertraline 50 mg Tablet PO (08:35)
[2024-08-03] MEDS: acetaminophen 325 mg Tablet 650 MG PO (10:08)
--- NOTE | 2024-08-03 11:01 | P.DS_ITS ---
Discharge Providers Date of Admission: 07/31/24 00:06 Date of Discharge: August 03, 2024 Attending Provider at Admission: Priyanka Jones MD Attending Provider at Discharge: Forest Don MD Primary Care Provider: Zoran Stern MD Diagnoses at Discharge Discharge Diagnosis (1) Acute respiratory failure with hypoxia and hypercapnia: Status: Acute (2) COPD with acute exacerbation: Status: Acute (3) Bilateral pneumonia: Status: Acute (4) Sepsis: Status: Acute Reason for Visit Reason for Visit: SOB Hospital Course Hospital Course This is a 63-year-old female with a past medical history of COPD, on BiPAP, chronic hypoxic hypercarbic respiratory failure, on 3 L, concerns for BiPAP noncompliance, who presents [facility] for shortness of breath Patient was admitted to [facility] for sepsis secondary to bilateral pneumonia, with acute on chronic hypoxic hypercapnic respiratory failure requiring ICU admission with COPD exacerbation. Patient was monitored as inpatient, overall clinically improved, moved to medical floors, de-escalation of antibiotic therapy, de-escalation of steroid therapy, overall clinically improved. On discharge she will be discharged on a prednisone burst, Levaquin for antibiotic coverage, advised of compliance with BiPAP therapy at home, fo llow-up with primary care provider as outpatient. Also discharged on Mucinex for congestion, Tessalon Perles for cough, advised to use sparingly. Physical Exam Const: COMMON NORMALS: no acute distress and patient oriented x3 Resp: COMMON NORMALS: normal respiratory effort, No retractions, No use of accessory muscles and clear to auscultation bilaterally AUSCULTATION: clear to auscultation bilaterally Cardio: COMMON NORMALS: regular rate, regular rhythm, S1 normal heart sound present and S2 normal heart sound present RATE: regular rate RHYTHM: regular rhythm HEART SOUNDS: S1 normal heart sound present and S2 normal heart sound present GI: COMMON NORMALS: Normal to inspection, nondistended, normoactive bowel sounds present and non-tender Extremity: COMMON NORMALS: no pedal edema Neuro: COMMON NORMALS: patient oriented x3 Psych: COMMON NORMALS: mental status grossly normal Discharge Data Studies Completed and Pending Completed Studies During Hospitalization Category Date Time Status XR chest 1V portable [id number] Routine Exams 08/01/24 07:00 Completed XR chest 1V portable [id number] Stat Exams 07/30/24 21:00 Completed Pending at discharge Category Date Time Status Blood Culture Stat Lab 07/30/24 21:25 Results Complete Blood Count w/Auto AM LABS Lab 08/04/24 04:00 Ordered Complete Blood Count w/Auto AM LABS Lab 08/05/24 04:00 Ordered Radiology Impressions Chest X-Ray 08/01/24 07:00 IMPRESSION: No significant change. Mild stable bibasilar opacities Laboratory Results WBC 8.04 10^3/uL (3.29-11.43) 08/03/24 03:16 Corrected WBC Cancelled 08/02/24 04:14 RBC 5.26 10^6/uL (3.85-5.65) 08/03/24 03:16 Hgb 11.30 g/dL (11.27-16.99) 08/03/24 03:16 Hct 40.8 % (36-47) 08/03/24 03:16 MCV 77.6 fl (85-98) L 08/03/24 03:16 MCH 21.5 pg (27-33) L 08/03/24 03:16 MCHC 27.7 g/dL (30-55) L 08/03/24 03:16 RDW 22.6 % (12.1-15.1) H 08/03/24 03:16 Plt Count 448 10^3/cmm (157-399) H 08/03/24 03:16 MPV 11.9 fL (7.4-10.4) H 08/03/24 03:16 Gran % Cancelled 08/02/24 04:14 Neut % (Auto) 72.7 % 08/03/24 03:16 Lymph % (Auto) 18.3 % 08/03/24 03:16 Mcdowell % (Auto) 8.1 % 08/03/24 03:16 Eos % (Auto) 0.1 % 08/03/24 03:16 Baso % (Auto) 0.1 % 08/03/24 03:16 Neut # (Auto) 5.84 10^3/uL (1.8-7.7) 08/03/24 03:16 Lymph # (Auto) 1.5 10^3/uL (0.8-4.8) 08/03/24 03:16 Mcdowell # (Auto) 0.7 10^3/uL (0.2-0.9) 08/03/24 03:16 Eos # (Auto) 0.0 10^3/uL (0.0-0.8) 08/03/24 03:16 Baso # (Auto) 0.0 10^3/uL (0.0-0.1) 08/03/24 03:16 Absolute Gran (auto) Cancelled 08/02/24 04:14 Nucleated RBC % (auto) 0 % 08/03/24 03:16 Nucleated RBCs # 0.0 /100WBC 08/03/24 03:16 PT 14.20 SECONDS (12.1-14.9) 08/01/24 04:34 INR 1.07 (0.8-1.2) 08/01/24 04:34 APTT 38.2 SECONDS (23.9-36.7) H 08/01/24 04:34 Specimen Type Arterial 08/01/24 04:30 Sample Site Radial, left 08/01/24 04:30 ABG pH 7.38 (7.35-7.45) 08/01/24 04:30 ABG pCO2 57.4 mmHg (35-45) H 08/01/24 04:30 ABG pO2 86.1 mmHg (80.0-100.0) 08/01/24 04:30 ABG PO2/FiO2 Ratio 266 07/31/24 05:15 ABG HCO3 33.7 mmol/L (22-26) H 08/01/24 04:30 ABG O2 Saturation > 99.1 07/31/24 05:15 ABG Base Excess 7.3 mmol/L (-2.0-2.0) H 08/01/24 04:30 Erik Test Pos 08/01/24 04:30 A-a O2 Gradient 24.9 mmHg (5-10) H 07/31/24 05:15 Hematocrit 30.8 % (37-47) L 08/01/24 04:30 Hgb O2 Saturation 98.1 % (95-100) 07/31/24 05:15 Carboxyhemoglobin 1.1 %THgb (0.4-20.1) 07/31/24 05:15 Methemoglobin 0.6 % (0.4-1.5) 07/31/24 05:15 Total Hemoglobin 10.5 g/dL (12-16) L 07/31/24 05:15 Sodium 139.0 mmol/L (131-143) 07/31/24 05:15 Potassium 3.9 mmol/L (3.5-5.0) 07/31/24 05:15 Glucose 190.0 mg/dL (70-115) H 07/31/24 05:15 Ionized Calcium 1.1 mmol/L (1.1-1.4) 07/31/24 05:15 O2 Delivery Device Bipap 08/01/24 04:30 FiO2 60.0 % 07/31/24 05:15 Concrete Swimming Pool Installer ID [email or web address] 08/01/24 04:30 Sodium 140 mmol/L (136-145) 08/03/24 03:16 Potassium 4.1 mmol/L (3.5-5.1) 08/03/24 03:16 Chloride 96 mmol/L (98-107) L 08/03/24 03:16 Carbon Dioxide 35 mmol/L (22-29) H 08/03/24 03:16 Anion Gap 13.1 (5-19) 08/03/24 03:16 BUN 12 mg/dL (8-23) 08/03/24 03:16 Creatinine 0.4 mg/dL (0.5-0.9) L 08/03/24 03:16 GFR Calculation 161.2 mL/min (90-130) H 08/03/24 03:16 Glucose 99 mg/dL (65-115) 08/03/24 03:16 POC Glucose 153 mg/dL (70-110) H 08/01/24 04:32 Calculated Osmolality 290 mOsm/kg (285-295) 08/03/24 03:16 Lactic Acid 0.8 mmol/L (0.5-2.2) 07/30/24 21:33 Calcium 8.9 mg/dL (8.5-10.5) 08/03/24 03:16 Magnesium 1.9 mg/dL (1.7-2.3) 08/01/24 04:34 Iron 17 ug/dL (37-145) L 08/01/24 04:34 TIBC 287 mcg/dl 08/01/24 04:34 % Saturation 5.9 % (20-50) L 08/01/24 04:34 Unsat Iron Binding 270 ug/dL (112-347) 08/01/24 04:34 Ferritin 63 ng/mL (15-150) 08/01/24 04:34 Total Bilirubin 0.3 mg/dL (0.15-1.2) 08/03/24 03:16 AST 11 U/L (0-32) 08/03/24 03:16 ALT 7 U/L (0-33) 08/03/24 03:16 Alkaline Phosphatase 57 U/L (35-105) 08/03/24 03:16 Troponin T Baseline 14 ng/L (0-10) H 07/30/24 20:36 Troponin T 120 Minute 21.92 ng/L (0-10) H 07/30/24 22:15 Delta Troponin T 7.92 ABS# (0-10) 07/30/24 22:15 Troponin T Hi Sens 6Hr 18.72 ng/L (0-10) H 07/31/24 02:25 Troponin T Hi Sens 6Hr Delta 4.72 ng/L (0-12) 07/31/24 02:25 NT-Pro-B Natriuret Pep 2618 pg/mL (0-125) H 08/03/24 03:16 Total Protein 5.8 g/dL (6.6-8.7) L 08/03/24 03:16 Albumin 3.6 g/dL (3.5-5.2) 08/03/24 03:16 Globulin 2.2 g/dL (1.3-4.6) 08/03/24 03:16 Vitamin B12 307 pg/mL (232-1245) 08/01/24 04:34 Folate 7.8 ng/mL (4.8-37.3) 08/01/24 04:34 Urine Color Yellow (Yellow) 07/31/24 06:00 Urine Appearance Clear (CLEAR) 07/31/24 06:00 Urine pH 5.5 (5-7) 07/31/24 06:00 Ur Specific [place] 1.023 (1.005-1.030) 07/31/24 06:00 Urine Protein 1+ (Negative) A 07/31/24 06:00 Urine Glucose (UA) 1+ (Normal) H 07/31/24 06:00 Urine Ketones Negative (Negative) 07/31/24 06:00 Urine Blood Negative (Negative) 07/31/24 06:00 Urine Nitrate Negative (Negative) 07/31/24 06:00 Urine Bilirubin Negative (Negative) 07/31/24 06:00 Urine Urobilinogen 1.0 mg/dL (Negative) 07/31/24 06:00 Ur Leukocyte Esterase Negative (Negative) 07/31/24 06:00 Urine RBC 0-2 /hpf (0-2) 07/31/24 06:00 Urine WBC 0-5 /hpf (0-5) 07/31/24 06:00 Ur Squamous Epith Cells 0-5 /hpf (0-5) 07/31/24 06:00 Amorphous Sediment Not Reportable 07/31/24 06:00 Urine Bacteria None seen /hpf (NONE) 07/31/24 06:00 Hyaline Casts 11.57 /lpf 07/31/24 06:00 Urine Mucus Trace /hpf 07/31/24 06:00 Vancomycin Trough 17.5 ug/mL (10-15) H 08/01/24 17:11 Coronavirus (PCR) Negative (Negative) 07/30/24 21:15 Influenza A (PCR) Negative (Negative) 07/30/24 21:15 Influenza Type B (PCR) Negative (Negative) 07/30/24 21:15 RSV (PCR) Negative (Negative) 07/30/24 21:15 Vitals Last Vital Signs Temp 98.6 F 08/03/24 07:36 Pulse 95 08/03/24 09:01 Resp 20 H 08/03/24 08:00 BP 126/83 08/03/24 07:36 Pulse Ox 94 08/03/24 08:00 O2 Del Method Nasal Cannula 08/03/24 08:00 O2 Flow Rate 3 08/03/24 08:00 FiO2 60 08/03/24 06:31 Discharge Plan Discharge Patient Disposition: Home Condition: Stable Prescriptions: New prednisone 20 mg Tablet 40 mg PO DAILY 5 Days Qty: 10 0RF benzonatate 200 mg capsule 200 mg PO BID PRN (Reason: cough) 7 Days Qty: 14 0RF guaifenesin [Mucinex] 600 mg tablet extended release 12hr 600 mg PO BID PRN (Reason: cough) 7 Days Qty: 14 0RF levofloxacin 750 mg tablet 750 mg PO DAILY 5 Days Qty: 5 0RF Continued fluticasone propion-salmeterol [Advair Diskus] 500-50 mcg/dose blister with device 1 inh inhalation BID megestrol 400 mg/10 mL (10 mL) suspension 200 mg PO DAILY PRN (Reason: APPETITE) Qty: 1000 0RF trazodone 50 mg tablet 50 mg PO DAILY Qty: 90 2RF albuterol sulfate 90 mcg/actuation HFA aerosol inhaler 2 puff inhalation Q6H PRN (Reason: Shortness Of Breath Or Wheezing) Qty: 8.5 2RF Spiriva Respimat 2.5 mcg/actuation mist 2 puff inhalation DAILY Qty: 4 2RF Hold Instructions: Home Medication placed on hold at Doctor's office ropinirole 1 mg tablet 1 mg PO BID Qty: 120 1RF (DME) wheelchair See Rx Instructions .Route .MEDSUPPLY Qty: 1 0RF Rx Instructions: As directed (DME) Home oxygen concentrator See Rx Instructions .Route .MEDSUPPLY Qty: 1 0RF Rx Instructions: 3L nasal cannula continuous use (DME) oxygen tubing and mask equipment See Rx Instructions .Route .MEDSUPPLY Qty: 1 3RF Rx Instructions: As directed (DME) Portable oxygen concentrator See Rx Instructions .Route .MEDSUPPLY Qty: 1 0RF Rx Instructions: 3L nasal cannula continuous use away from home pantoprazole [Protonix] 40 mg tablet,delayed release (DR/EC) 40 mg PO DAILY Qty: 90 1RF sertraline [Zoloft] 50 mg tablet 50 mg PO DAILY Qty: 90 1RF furosemide 20 mg tablet 20 mg PO QAM PRN (Reason: swelling) Qty: 90 0RF fluticasone propionate 50 mcg/actuation spray,suspension 2 spray intranasal DAILY Qty: 16 1RF albuterol sulfate 2.5 mg /3 mL (0.083 %) solution for nebulization 2.5 mg inhalation Q4H PRN (Reason: Shortness Of Breath) Qty: 90 4RF levalbuterol HCl 0.63 mg/3 mL solution for nebulization 0.63 mg inhalation Q8H PRN (Reason: Shortness Of Breath) buspirone 7.5 mg tablet 7.5 mg PO DAILY PRN (Reason: anxiety) budesonide 0.5 mg/2 mL suspension for nebulization 0.5 mg inhalation BID PRN (Reason: Shortness Of Breath) ipratropium bromide 0.02 % solution 0.5 mg inhalation Q8H PRN (Reason: Shortness Of Breath) metoprolol tartrate 25 mg Tablet 25 mg PO BID@0900,2100 Qty: 60 0RF Discharge Orders: Discharge Order (Routine); Ordered 08/03/24 Ordered By: Forest Don Referrals: Zoran Stern MD [Primary Care Provider] - 4-7 days (We have notified your physician's clinic of the need for a follow-up appointment to be scheduled. If you have not heard from them within the next 2 business days, please call them directly. ) Discharge Diet: Cardiac Discharge Activity: Resume usual activity Patient Instructions: Opioid Safety Activity Restrictions/Additional Instructions: - Please take antibiotics as prescribed ? Tylenol for fever ? Take steroids as prescribed ? If you have worsening symptomatology please go to the emergency room Discharge Attestations Time Spent in Discharge Care*: greater than 30 min Status at Discharge: Cognitive status at discharge: cognitively intact , Behavioral status at discharge: cooperative , Quality Metrics Clinical Quality Measures [ No reported AMI, CVA or VTE this stay] Coding Level of Care Code 53392 Total time (in minutes) for Discharge: 45 Diagnoses Acute respiratory failure with hypoxia and hypercapnia J96.01; J96.02 COPD with acute exacerbation J44.1 Bilateral pneumonia J18.9 Sepsis A41.9
--- NOTE | 2024-08-03 11:38 | PC.NURSE ---
Discharge Note Patient discharged to home via private vehicle accompanied by . Discharge instructions reviewed with patient and/or accounts payable representative. Mobile pharmacy medications and/or prescriptions provided. Belongings/home medications returned.
== END 2024-08-03 12:00 | disposition home or self-care (01) | DRG 871 ==
LOC: ER 22:01 → ICU 07-31 00:07 → MEDSURG 08-01 10:44
PROVIDERS: Admitting Provider Internal Medicine; Emergency Provider Emergency Medicine; PCP Family Medicine; Visit Provider Family Medicine
DX: A41.9 Sepsis, unspecified organism (principal); E43 Unspecified severe protein-calorie malnutrition; J18.9 Pneumonia, unspecified organism; J96.22 Acute and chronic respiratory failure with hypercapnia; J96.21 Acute and chronic respiratory failure with hypoxia; J44.0 Chronic obstructive pulmonary disease with (acute) lower respiratory infection; J44.1 Chronic obstructive pulmonary disease with (acute) exacerbation; Z68.1 Body mass index [BMI] 19.9 or less, adult; D50.9 Iron deficiency anemia, unspecified; I10 Essential (primary) hypertension; F41.9 Anxiety disorder, unspecified; K21.9 Gastro-esophageal reflux disease without esophagitis; Z99.89 Dependence on other enabling machines and devices; Z99.81 Dependence on supplemental oxygen; Z87.891 Personal history of nicotine dependence; Z91.199 Patient's noncompliance with other medical treatment and regimen due to unspecified reason
CPT/HCPCS: 36415; 36416; 36569; 36592; 36600; 71045; 80051; 80053; 80202; 81001; 82330; 82607; 82728; 82746; 82803; 82805; 82962; 83540; 83550; 83605; 83735; 83880; 84484; 85025; 85610; 85730; 87040; 87637; 93005; 94640; 94660; 94664; 96365; 96372; 96375; 99285; C1751; J0131; J0456; J0692; J1650; J1940; J1956; J2470; J2919; J3370; J7030; J7040; J7050; J7512; J7613

== ENCOUNTER 2024-08-21 01:28 | Inpatient (IN) | payer BC, SELFPAY ==
[2024-08-21] VITALS (26 sets, daily range): BP systolic 100–154; BP diastolic 66–79; PULSE 92–131; RESP 14–30; TEMP 36.4–37.9; O2SAT 84–96; BMI 17.3; BMI 17.2
--- NOTE | 2024-08-21 01:36 | ECG_ITS ---
[facility]24[facility]21 Pat Name: Lora Dsouza Department: Room: 279 Gender: Female Ep Specialist: : [id number] Requested By: Marshall Padilla Order Number: [id number] Reading MD: ANY MARTINEZ Measurements Intervals [place] Rate: 125 P: 65 PA: 158 QRS: 25 QRSD: 90 T: 50 QT: 286 QTc: 414 Interpretive Statements SINUS TACHYCARDIA WITH OCCASIONAL SUPRAVENTRICULAR PREMATURE COMPLEXES ABNORMAL RHYTHM ECG Compared to ECG 07/31/2024 03:52:51 Ventricular premature complex(es) no longer present Electronically Signed On 08-22-2024 23:27:40 DISTANCE EDUCATION DIRECTOR by ANY MARTINEZ [email or web address]
--- NOTE | 2024-08-21 01:37 | XRR_ITS ---
PROCEDURE INFORMATION: Exam: XR Chest Exam date and time: 08/21/2024 1:55 AM Age: 64 years old Clinical indication: Shortness of breath and wheezing; Additional info: Hypoxia fever TECHNIQUE: Imaging protocol: Radiologic exam of the chest. Views: 1 view. COMPARISON: CR XR chest 1V portable [id number] 08/01/2024 6:57 AM FINDINGS: Lungs: Diffuse increase in interstitial markings similar to prior comparison. Linear retrocardiac infiltrates are again seen, improved from prior comparison. Pleural spaces: Unremarkable. No pleural effusion. No pneumothorax. Heart/Mediastinum: Unremarkable. No cardiomegaly. Bones/joints: Unremarkable. XR/XR chest 1V portable [id number] IMPRESSION: Linear retrocardiac infiltrates, improved from prior comparison, may represent infection in the correct clinical setting.
--- NOTE | 2024-08-21 01:41 | W.ED.SOB ---
HPI - SOB/Dyspnea General: Chief Complaint: Shortness of Breath/Dyspnea Stated Complaint: sob Time Seen by Provider: 08/21/24 01:29 History of Present Illness: HPI Narrative: Patient presents from home by EMS with complaints of shortness of breath, patient has a history of pneumonia COPD. She was hospitalized on and ving here for pneumonia. She normally wears 3 L of oxygen at home when EMS got there she is about 82% on her 3 L. They gave her an albuterol nebulizer treatment on route. Upon arrival patient was 84% on her 3 L. Temperature is 100.2, heart rate is 128 bpm. Related Data Home Medications Medication Instructions Recorded Confirmed budesonide 0.5 mg/2 mL suspension 0.5 mg inhalation BID PRN 07/31/24 08/04/24 for nebulization Shortness Of Breath buspirone 7.5 mg tablet 7.5 mg PO DAILY PRN anxiety 07/31/24 08/04/24 levalbuterol HCl 0.63 mg/3 mL 0.63 mg inhalation Q8H PRN 07/31/24 08/04/24 solution for nebulization Shortness Of Breath Previous Rx's Medication Instructions Recorded wheelchair #1 ea 04/10/23 Home oxygen concentrator #1 ea 12/27/23 Portable oxygen concentrator #1 ea 12/27/23 oxygen tubing and mask equipment #1 ea 12/27/23 megestrol 400 mg/10 mL (10 mL) 200 mg (5 mL) PO DAILY PRN 02/18/24 oral suspension APPETITE #1,000 mL trazodone 50 mg tablet 50 mg PO DAILY #90 tabs 02/18/24 sertraline 50 mg tablet (Zoloft) 50 mg PO DAILY #90 tabs 04/29/24 furosemide 20 mg tablet 20 mg PO QAM PRN swelling #90 tabs 05/12/24 ropinirole 1 mg tablet 1 mg PO BID #120 tabs 06/03/24 metoprolol tartrate 25 mg tablet 25 mg PO BID@0900,2100 #60 tabs 07/03/24 Ventolin HFA 90 mcg/actuation 1 inh inhalation QID PRN shortness 08/04/24 aerosol inhaler (albuterol sulfate) of breath or wheezing #8 grams ipratropium 0.5 mg-albuterol 3 mg 3 ml inhalation Q4H PRN wheezing 08/04/24 (2.5 mg base)/3 mL nebulization #90 mL soln albuterol sulfate 90 mcg/actuation 2 puff inhalation Q6H PRN 08/08/24 aerosol inhaler shortness of breath or wheezing #8.5 grams fluticasone propionate 50 2 spray intranasal DAILY #16 grams 08/08/24 mcg/actuation nasal spray,suspension pantoprazole 40 mg tablet,delayed 40 mg PO DAILY #90 tabs 08/08/24 release (Protonix) tiotropium bromide 2.5 2 puff inhalation DAILY #4 grams 08/08/24 mcg/actuation mist for inhalation (Spiriva Respimat) fluticasone 500 mcg-salmeterol 50 1 inh inhalation BID #60 ea 08/19/24 mcg/dose blistr powdr for inhalation (Advair Diskus) Allergies Allergy/AdvReac Type Severity Reaction Status Date / Time No Known Allergies Allergy Verified 08/21/24 01:33 Review of Systems General: Reports: 10 or more systems reviewed and unremarkable except in HPI and below PFSH ED PFSH: Medical History Protein-calorie malnutrition, severe GERD (gastroesophageal reflux disease) Essential hypertension Anxiety Hypertension Insomnia COPD (chronic obstructive pulmonary disease) Surgical History History of History of tonsillectomy Family History Father Stroke Other Dementia Denies family history of Diabetes CAD (coronary artery disease) Clotting disorder Hyperlipidemia Psychiatric illness Chronic kidney disease (CKD) Anesthesia complication Bleeding disorder Lung disease Cancer Hypertension Social History Smoking and tobacco/nicotine status: former use of tobacco/nicotine Quit status (tobacco/nicotine): has quit using Year quit tobacco: 2019 Former quit date comment: 1 ppd X 40 years Second hand smoke exposure: Yes Alcohol intake: current Alcohol intake frequency: holidays/special occasions only Alcohol type: beer Substance/Drug Use: never Marital status: Number of children: 5 Number of grandchildren: 9 service: No Current occupational status: disabled Current occupational exposures/hazards: No Pets and animals: Yes Current gender identity: Female Physical Exam Const: COMMON NORMALS: no acute distress, average body habitus, patient oriented x3, no limitations, healthy appearing, alert and well nourished HENMT: COMMON NORMALS: normocephalic, atraumatic, hearing grossly normal bilaterally, external ears normal, Normal external nose present and moist oral mucous membranes HEAD & SCALP: normocephalic and atraumatic NOSE: Normal external nose present EXTERNAL EAR: Yes external ears normal Neck/C-Spine: COMMON NORMALS: no JVD Chest: COMMONS NORMALS: normal inspection of the chest and normal palpation of entire chest wall Resp: COMMON NORMALS: normal respiratory effort, No retractions and No use of accessory muscles; negative for clear to auscultation bilaterally (Decreased breath sounds bilaterally) AUSCULTATION: not clear to auscultation bilaterally (Decreased breath sounds bilaterally) Cardio: COMMON NORMALS: no JVD, S1 normal heart sound present, S2 normal heart sound present, No gallops present (Cardio), No clicks present (Cardio) and No murmurs present (Cardio); negative for regular rate (Mildly tachycardic) RATE: abnormal rate (Mildly tachycardic) HEART SOUNDS: S1 normal heart sound present and S2 normal heart sound present GI: COMMON NORMALS: Normal to inspection, nondistended, normoactive bowel sounds present, Soft to palpation, non-tender, No hepatosplenomegaly present and no masses PALPATION: Yes Soft to palpation and Yes No hepatosplenomegaly present Neuro: COMMON NORMALS: patient oriented x3 SENSORIUM/ORIENTATION: Yes alert Course Vital Signs: Vital signs: Vital Signs Temperature 100.2 F H 08/21/24 01:29 Pulse Rate 131 H 08/21/24 02:31 Respiratory Rate 22 H 08/21/24 02:31 Blood Pressure 154/79 08/21/24 02:31 Pulse Oximetry 94 08/21/24 02:31 Oxygen Delivery Me thod BiPAP 08/21/24 02:31 Oxygen Flow Rate 6 08/21/24 02:08 MDM - SOB/Dyspnea Medical Decision Making Discussed case with Dr. Dolan who is okay with us putting her in for observation, 1 patient coming here ABG was performed which showed she was hypoxic and severely hypercapnic she was immediately started on BiPAP, lab work was obtained patient is influenza A positive. Medical Records I reviewed the patient's medical records. Lab Data I reviewed the patient's lab results. 08/21/24 01:43 08/21/24 01:43 Labs/Radiology: Laboratory Results WBC 5.89 10^3/uL (3.29-11.43) 08/21/24 01:43 RBC 5.54 10^6/uL (3.85-5.65) 08/21/24 01:43 Hgb 12.10 g/dL (11.27-16.99) 08/21/24 01:43 Hct 43.3 % (36-47) 08/21/24 01:43 MCV 78.2 fl (85-98) L 08/21/24 01:43 MCH 21.8 pg (27-33) L 08/21/24 01:43 MCHC 27.9 g/dL (30-55) L 08/21/24 01:43 RDW 21.0 % (12.1-15.1) H 08/21/24 01:43 Plt Count 348 10^3/cmm (157-399) 08/21/24 01:43 MPV TNP 08/21/24 01:43 Neut % (Auto) 76.3 % 08/21/24 01:43 Lymph % (Auto) 13.6 % 08/21/24 01:43 Richardson % (Auto) 8.1 % 08/21/24 01:43 Eos % (Auto) 0.5 % 08/21/24 01:43 Baso % (Auto) 0.3 % 08/21/24 01:43 Neut # (Auto) 4.49 10^3/uL (1.8-7.7) 08/21/24 01:43 Lymph # (Auto) 0.8 10^3/uL (0.8-4.8) 08/21/24 01:43 Richardson # (Auto) 0.5 10^3/uL (0.2-0.9) 08/21/24 01:43 Eos # (Auto) 0.0 10^3/uL (0.0-0.8) 08/21/24 01:43 Baso # (Auto) 0.0 10^3/uL (0.0-0.1) 08/21/24 01:43 Nucleated RBC % (auto) 0 % 08/21/24 01:43 Nucleated RBCs # 0.0 /100WBC 08/21/24 01:43 Specimen Type Arterial 08/21/24 01:50 Sample Site Brachial, right 08/21/24 01:50 ABG pH 7.25 (7.35-7.45) L 08/21/24 01:50 ABG pCO2 81.5 mmHg (35-45) H* 08/21/24 01:50 ABG pO2 84.5 mmHg (80.0-100.0) 08/21/24 01:50 ABG HCO3 35.7 mmol/L (22-26) H 08/21/24 01:50 ABG O2 Saturation 95.7 08/21/24 01:50 ABG Base Excess 6.0 mmol/L (-2.0-2.0) H 08/21/24 01:50 Erik Test N/a 08/21/24 01:50 A-a O2 Gradient 0.0 mmHg (5-10) L 08/21/24 01:50 Hematocrit 36.0 % (37-47) L 08/21/24 01:50 Hgb O2 Saturation 93.3 % (95-100) L 08/21/24 01:50 Carboxyhemoglobin 1.4 %THgb (0.4-20.1) 08/21/24 01:50 Methemoglobin 1.0 % (0.4-1.5) 08/21/24 01:50 Total Hemoglobin 11.8 g/dL (12-16) L 08/21/24 01:50 Sodium 137.0 mmol/L (131-143) 08/21/24 01:50 Potassium 3.9 mmol/L (3.5-5.0) 08/21/24 01:50 Glucose 142.0 mg/dL (70-115) H 08/21/24 01:50 Ionized Calcium 1.2 mmol/L (1.1-1.4) 08/21/24 01:50 O2 Delivery Device Nc 08/21/24 01:50 O2 Liters/Min 6.0 % 08/21/24 01:50 Pararescue Craftsman ID [email or web address] 08/21/24 01:50 Sodium 135 mmol/L (136-145) L 08/21/24 01:43 Potassium 4.0 mmol/L (3.5-5.1) 08/21/24 01:43 Chloride 93 mmol/L (98-107) L 08/21/24 01:43 Carbon Dioxide 33 mmol/L (22-29) H 08/21/24 01:43 Anion Gap 13.0 (5-19) 08/21/24 01:43 BUN 9 mg/dL (8-23) 08/21/24 01:43 Creatinine 0.4 mg/dL (0.5-0.9) L 08/21/24 01:43 GFR Calculation 161.2 mL/min (90-130) H 08/21/24 01:43 Glucose 137 mg/dL (65-115) H 08/21/24 01:43 Calculated Osmolality 281 mOsm/kg (285-295) L 08/21/24 01:43 Lactic Acid 0.7 mmol/L (0.5-2.2) 08/21/24 01:43 Calcium 9.0 mg/dL (8.5-10.5) 08/21/24 01:43 Total Bilirubin 0.3 mg/dL (0.15-1.2) 08/21/24 01:43 AST 16 U/L (0-32) 08/21/24 01:43 ALT 7 U/L (0-33) 08/21/24 01:43 Alkaline Phosphatase 61 U/L (35-105) 08/21/24 01:43 Total Protein 6.8 g/dL (6.6-8.7) 08/21/24 01:43 Albumin 4.2 g/dL (3.5-5.2) 08/21/24 01:43 Globulin 2.6 g/dL (1.3-4.6) 08/21/24 01:43 Procalcitonin 0.13 ng/mL (0-0.5) 08/21/24 01:43 Amorphous Sediment Not Reportable 08/21/24 02:29 Coronavirus (PCR) Negative (Negative) 08/21/24 01:49 Influenza A (PCR) Positive (Negative) 08/21/24 01:49 Influenza Type B (PCR) Negative (Negative) 08/21/24 01:49 RSV (PCR) Negative (Negative) 08/21/24 01:49 All radiology interpretation(s) finalized by discharge Discharge Plan Discharge Patient Disposition: Placed in Observation Clinical Impression: Influenza A, Acute respiratory failure with hypoxia and hypercapnia Coding Level of Care Code ED Manufacturing Quality Engineer for Umesh Salmon
[2024-08-21] MEDS: ipratropium-albuterol 3 mL Neb INHALATION ×6 (01:50→20:57)
[2024-08-21 01:51] LABS: Basophils % 0.3 %; Eosinophils % 0.5 %; Hematocrit 43.3 % (36-47); Lymphocytes # 0.8 10^3/uL (0.8-4.8); Lymphocytes % 13.6 %; Mean Corpuscular HGB Conc 27.9 g/dL (30-55); Mean Corpuscular Hemoglobin 21.8 pg (27-33); Mean Corpuscular Volume 78.2 fl (85-98); Monocytes # 0.5 10^3/uL (0.2-0.9); Monocytes % 8.1 %; Neutrophils # 4.49 10^3/uL (1.8-7.7); Neutrophils % 76.3 %; Nucleated Red Blood Cells % 0 %; Platelet Count 348 10^3/cmm (157-399); Red Blood Count 5.54 10^6/uL (3.85-5.65); White Blood Count 5.89 10^3/uL (3.29-11.43)
[2024-08-21 02:00] LABS: ABG PH Result 7.25 (7.35-7.45); Blood Gas Sample Site Brachial, right; Blood Gas Sample Type Arterial; Carboxyhemoglobin 1.4 %THgb (0.4-20.1); HCO3 ABG 35.7 mmol/L (22-26); HGB O2 Sat 93.3 % (95-100); Ionized Calcium Level - ABG 1.2 mmol/L (1.1-1.4); Oxygen Device NC; Oxygen Saturation ABG 95.7; PO2 ABG 84.5 mmHg (80.0-100.0); Potassium Level - ABG 3.9 mmol/L (3.5-5.0); Total Hemoglobin 11.8 g/dL (12-16)
[2024-08-21 02:01] LABS: ABG PCO2 81.5 mmHg (35-45)
[2024-08-21 02:07] LABS: Alanine Aminotransferase 7 U/L (0-33); Albumin Level 4.2 g/dL (3.5-5.2); Alkaline Phosphatase 61 U/L (35-105); Aspartate Amino Transferase 16 U/L (0-32); Blood Urea Nitrogen 9 mg/dL (8-23); Carbon Dioxide 33 mmol/L (22-29); Chloride 93 mmol/L (98-107); Globulin 2.6 g/dL (1.3-4.6); Glomerular Filtration Rate 161.2 mL/min (90-130); Glucose 137 mg/dL (65-115); Osmolality Calculated 281 mOsm/kg (285-295); Sodium 135 mmol/L (136-145); Total Bilirubin 0.3 mg/dL (0.15-1.2); Total Protein 6.8 g/dL (6.6-8.7)
[2024-08-21 02:08] LABS: Lactic Sepsis W/Reflex 0.7 mmol/L (0.5-2.2)
[2024-08-21 02:14] LABS: Procalcitonin 0.13 ng/mL (0-0.5)
[2024-08-21 02:30] LABS: Covid PCR NEGATIVE (Negative); Influenza A POSITIVE (Negative); Influenza B NEGATIVE (Negative); Respiratory Syncytial Virus Ce NEGATIVE (Negative)
[2024-08-21 02:37] LABS: Bilirubin Urine Negative (Negative); Blood Urine Negative (Negative); Glucose Urine UA Negative (Normal); Ketones Urine Negative (Negative); Leukocyte Esterase Urine Negative (Negative); Nitrate Urine Negative (Negative); Protein Urine 1+ (Negative); Specific Gravity, Urine 1.021 (1.005-1.030); Urine Appearance Clear (CLEAR); Urine Color Yellow (Yellow); Urobilinogen Urine 0.2 mg/dL (Negative); pH Urine 5.5 (5-7)
--- NOTE | 2024-08-21 02:40 | P.HP_ITS ---
Providers/Chief Complaint 2 Primary Care Provider: Zoran Stern MD Chief Complaint: sob History of Present Illness Lora Dsouza is a 64 year old female with a past medical history significant for COPD with chronic hypoxic respiratory failure on 3 L baseline and BiPAP with noncompliance, hypertension, anxiety, GERD, and multiple other comorbidities who presents the emergency department with shortness of breath x 2 days. She reports exertion worsens symptoms. Rest improves. Denies other alleviating or aggravating factors. Reports chronic cough without significant change. Denies nausea, vomiting, chest pain or abdominal pains. Patient has a history of COPD with chronic hypoxic respiratory failure with typically uses 3 L baseline as well as BiPAP. Patient does have a history of BiPAP noncompliance. Patient has been admitted multiple times over the past couple of months for COPD and pneumonia. In the emergency department, she was found to be tachycardic and febrile. ABG showed acute on chronic CO2 retention. Rapid influenza A is positive. She does endorse most of the sick contacts in her house. Review of Systems 2 Narrative: A complete review of systems was obtained and is negative except as stated in HPI. Medications/Allergies Home Medications Medication Instructions Recorded Confirmed Last Taken Type wheelchair #1 ea 04/10/23 08/04/24 Unknown Rx Home oxygen concentrator #1 ea 12/27/23 08/04/24 Unknown Rx Portable oxygen concentrator #1 ea 12/27/23 08/04/24 Unknown Rx oxygen tubing and mask equipment #1 ea 12/27/23 08/04/24 Unknown Rx megestrol 400 mg/10 mL (10 mL) 200 mg (5 mL) PO DAILY PRN 02/18/24 08/04/24 Unknown Rx oral suspension APPETITE #1,000 mL trazodone 50 mg tablet 50 mg PO DAILY #90 tabs 02/18/24 08/04/24 07/30/24 Rx sertraline 50 mg tablet (Zoloft) 50 mg PO DAILY #90 tabs 04/29/24 08/04/24 07/30/24 Rx furosemide 20 mg tablet 20 mg PO QAM PRN swelling #90 tabs 05/12/24 08/04/24 07/30/24 Rx ropinirole 1 mg tablet 1 mg PO BID #120 tabs 06/03/24 08/04/24 07/30/24 Rx metoprolol tartrate 25 mg tablet 25 mg PO BID@0900,2100 #60 tabs 07/03/24 08/04/24 07/30/24 Rx budesonide 0.5 mg/2 mL suspension 0.5 mg inhalation BID PRN 07/31/24 08/04/24 Unknown History for nebulization Shortness Of Breath buspirone 7.5 mg tablet 7.5 mg PO DAILY PRN anxiety 07/31/24 08/04/24 07/30/24 History levalbuterol HCl 0.63 mg/3 mL 0.63 mg inhalation Q8H PRN 07/31/24 08/04/24 Unknown History solution for nebulization Shortness Of Breath Ventolin HFA 90 mcg/actuation 1 inh inhalation QID PRN shortness 08/04/24 08/04/24 Unknown Rx aerosol inhaler (albuterol sulfate) of breath or wheezing #8 grams ipratropium 0.5 mg-albuterol 3 mg 3 ml inhalation Q4H PRN wheezing 08/04/24 08/04/24 Unknown Rx (2.5 mg base)/3 mL nebulization #90 mL soln albuterol sulfate 90 mcg/actuation 2 puff inhalation Q6H PRN 08/08/24 Unknown Rx aerosol inhaler shortness of breath or wheezing #8.5 grams fluticasone propionate 50 2 spray intranasal DAILY #16 grams 08/08/24 Unknown Rx mcg/actuation nasal spray,suspension pantoprazole 40 mg tablet,delayed 40 mg PO DAILY #90 tabs 08/08/24 Unknown Rx release (Protonix) tiotropium bromide 2.5 2 puff inhalation DAILY #4 grams 08/08/24 Unknown Rx mcg/actuation mist for inhalation (Spiriva Respimat) fluticasone 500 mcg-salmeterol 50 1 inh inhalation BID #60 ea 08/19/24 Unknown Rx mcg/dose blistr powdr for inhalation (Advair Diskus) Allergies Allergy/AdvReac Type Severity Reaction Status Date / Time No Known Allergies Allergy Verified 08/21/24 01:33 PFSH Acute 2 PFSH: Medical History Protein-calorie malnutrition, severe GERD (gastroesophageal reflux disease) Essential hypertension Anxiety Hypertension Insomnia COPD (chronic obstructive pulmonary disease) Surgical History History of History of tonsillectomy Family History Father Stroke Other Dementia Denies family history of Diabetes CAD (coronary artery disease) Clotting disorder Hyperlipidemia Psychiatric illness Chronic kidney disease (CKD) Anesthesia complication Bleeding disorder Lung disease Cancer Hypertension Social History Smoking and tobacco/nicotine status: former use of tobacco/nicotine Quit status (tobacco/nicotine): has quit using Year quit tobacco: 2019 Former quit date comment: 1 ppd X 40 years Second hand smoke exposure: Yes Alcohol intake: current Alcohol intake frequency: holidays/special occasions only Alcohol type: beer Substance/Drug Use: never Marital status: Number of children: 5 Number of grandchildren: 9 service: No Current occupational status: disabled Current occupational exposures/hazards: No Pets and animals: Yes Current gender identity: Female Vitals/I&O/Wt Last Vital Signs Temp 100.2 F H 08/21/24 01:29 Pulse 131 H 08/21/24 02:31 Resp 22 H 08/21/24 02:31 BP 154/79 08/21/24 02:31 Pulse Ox 94 08/21/24 02:31 O2 Del Method BiPAP 08/21/24 02:31 O2 Flow Rate 6 08/21/24 02:08 08/20/24 08/20/24 08/21/24 14:59 22:59 06:59 Intake Total 0 / 0 Balance 0 / 0 Weight last 48 hrs Weight 45.813 kg Physical Exam 2 Narrative: General: Patient is awake. Pulmonary cachexia present. Head: Normocephalic. Atraumatic. EOM intact. Temporal wasting. Dry mucous membranes. Neck: No JVD. Cardiovascular: Tachycardic with regular rhythm. No gallops. No murmurs. Lungs: Poor air movement throughout bilateral lung english. Increased work of breathing. Conversational dyspnea. On BiPAP. Skin: No jaundice. No rashes. Abdomen: Normal bowel sounds, abdomen soft and nontender. Genito Urinary: Genital exam not performed since complaints not related. Rectal: Rectal exam not performed since no symptoms indicated blood loss. Extremities: No cyanosis or clubbing. Musculoskeletal: No swollen or erythematous joints. Neurological: Moves all 4 extremities. No myoclonus. Data 08/21/24 01:43 08/21/24 01:43 A&P Assessment and plan (1) COPD (chronic obstructive pulmonary disease): COPD with acute exacerbation Acute on chronic hypercapnic and hypoxic respiratory failure secondary to COPD exacerbation Start systemic steroids with Solu-Medrol Pulmicort nebs DuoNebs Treat underlying influenza BiPAP support Supportive care Qualifiers: COPD type: emphysema Emphysema type: centrilobular Qualified Code(s): J43.2 - Centrilobular emphysema (2) Influenza A: Flu precautions Start Tamiflu (3) Anxiety: Continue home sertraline Continue home BuSpar (4) Insomnia: Continue with trazodone (5) GERD (gastroesophageal reflux disease): Continue PPI Plan DVT prophylaxis: Lovenox Attestations 2 Medical Necessity Statement*: Patient presents with shortness of breath, found to have acute COPD exacerbation requiring noninvasive mechanical ventilation with acute on chronic mixed respiratory failure secondary to COPD secondary to acute influenza A infection with expected hospitalization to not cross 2 midnights for IV steroids, breathing treatments, Tamiflu, and supportive care. Coding Level of Care Code Acute Code for Chg Fwd Diagnoses Centrilobular emphysema J43.2 COPD type: emphysema Emphysema type: centrilobular Influenza A J10.1 Anxiety F41.9 Insomnia G47.00 GERD (gastroesophageal reflux disease) K21.9
[2024-08-21 02:42] LABS: Add Urine Microscopic? YES; Bacteria Urine None Seen /hpf; Hyaline Casts Urine 5.77 /lpf; RBC Urine 0-2 /hpf (0-2); Squamous Epithelial Cell Urine 0-5 /hpf (0-5); WBC Urine 0-5 /hpf (0-5)
[2024-08-21] MEDS: methylPREDNISolone sod succ 40 mg/mL INJ IVP ×4 (03:46→21:15)
[2024-08-21] MEDS: acetaminophen 325 mg Tablet 650 MG PO (03:46)
[2024-08-21] MEDS: enoxaparin 40 mg/0.4 mL Syringe SUBCUT (03:46)
[2024-08-21] MEDS: budesonide 0.5 mg/2 mL Neb INHALATION ×2 (07:27→20:57)
--- NOTE | 2024-08-21 08:07 | PC.PHAR ---
Spouse states pt did take her daily meds yesterday 08/30/24. Pt on bipap in the room.
[2024-08-21] MEDS: trazodone 50 mg Tablet PO ×2 (08:16→23:51)
[2024-08-21] MEDS: sertraline 50 mg Tablet PO (08:16)
[2024-08-21] MEDS: ropinirole 1 mg Tablet PO ×2 (08:16→17:16)
[2024-08-21] MEDS: pantoprazole DR 40 mg Tablet PO (08:16)
[2024-08-21] MEDS: oseltamivir phosphate 75 mg Capsule PO ×2 (08:16→17:16)
--- NOTE | 2024-08-21 11:19 | PM.MISC ---
Miscellaneous Note Note: Seen this morning. Patient is on BiPAP however much more awake alert. is at bedside. Had a goals of care discussion with the patient and at bedside. She states she does not want to be intubated or be resuscitated. agrees with that. also states that if anything happens he wants her to be kept comfortable at that time. Patient does not want a trial of intubation either this was also discussed with her. She understands the implications of this decision. We will switch patient's CODE STATUS to DNR/DNI as per patient and her 's wishes at this time. Nursing staff also updated. Will continue BiPAP for now. Continue IV steroids. I will add empiric antibiotic with ceftriaxone azithromycin for COPD exacerbation
[2024-08-21] MEDS: cefTRIAXone 1,000 mg SDV 1000 MG IVP (11:29)
[2024-08-21] MEDS: azithromycin 250 mg Tablet 500 MG PO (11:29)
--- NOTE | 2024-08-21 17:23 | PC.NURSE ---
This nurse went in and confirmed goals of care discussion with patient and and both stated patient did not want to be intubated or CPR if needed. Wanted to just be comfortable.
[2024-08-21] MEDS: metoprolol tartrate 25 mg Tablet PO (21:15)
[2024-08-21] MEDS: guaiFENesin-codeine UDC 10 mL PO (21:15)
[2024-08-22] VITALS (18 sets, daily range): BP systolic 103–123; BP diastolic 60–79; PULSE 79–203; RESP 16–31; TEMP 36.3–36.6; O2SAT 95–99
[2024-08-22] MEDS: ipratropium-albuterol 3 mL Neb INHALATION ×6 (00:20→20:20)
[2024-08-22] MEDS: enoxaparin 40 mg/0.4 mL Syringe SUBCUT (02:36)
[2024-08-22] MEDS: methylPREDNISolone sod succ 40 mg/mL INJ IVP ×3 (02:36→20:51)
[2024-08-22 05:11] LABS: ABG PH Result 7.29 (7.35-7.45); Arterial Blood Gas Hematocrit 33.3 % (37-47); Base Excess ABG 8.2 mmol/L (-2.0-2.0); Blood Gas Allen Test Pos; Blood Gas Sample Type Arterial; HCO3 ABG 37.1 mmol/L (22-26); HGB O2 Sat 94.9 % (95-100); Ionized Calcium Level - ABG 1.2 mmol/L (1.1-1.4); Oxygen Saturation ABG 96.9; PO2 ABG 90.2 mmHg (80.0-100.0); Potassium Level - ABG 4.5 mmol/L (3.5-5.0); Total Hemoglobin 10.9 g/dL (12-16)
[2024-08-22 05:16] LABS: ABG PCO2 77.7 mmHg (35-45)
[2024-08-22 05:31] LABS: Basophils % 0.2 %; Hematocrit 39.5 % (36-47); Lymphocytes # 0.5 10^3/uL (0.8-4.8); Lymphocytes % 11.2 %; Mean Corpuscular HGB Conc 27.6 g/dL (30-55); Mean Corpuscular Hemoglobin 21.9 pg (27-33); Mean Corpuscular Volume 79.3 fl (85-98); Monocytes # 0.1 10^3/uL (0.2-0.9); Monocytes % 3.1 %; Neutrophils # 3.56 10^3/uL (1.8-7.7); Neutrophils % 84.5 %; Nucleated Red Blood Cells % 0 %; Platelet Count 273 10^3/cmm (157-399); Red Blood Count 4.98 10^6/uL (3.85-5.65); Red Cell Distribution Width 20.1 % (12.1-15.1); White Blood Count 4.21 10^3/uL (3.29-11.43)
[2024-08-22 05:48] LABS: Anion Gap 8.7 (5-19); Blood Urea Nitrogen 12 mg/dL (8-23); Calcium 8.8 mg/dL (8.5-10.5); Carbon Dioxide 36 mmol/L (22-29); Chloride 94 mmol/L (98-107); Creatinine Clr Calc Pharmacy 117.7973; Glomerular Filtration Rate 161.2 mL/min (90-130); Glucose 164 mg/dL (65-115); Magnesium 1.9 mg/dL (1.7-2.3); Osmolality Calculated 281 mOsm/kg (285-295); Phosphorus 2.5 mg/dL (2.5-4.5); Potassium 4.7 mmol/L (3.5-5.1); Sodium 134 mmol/L (136-145)
[2024-08-22] MEDS: budesonide 0.5 mg/2 mL Neb INHALATION ×2 (07:36→20:20)
[2024-08-22] MEDS: oseltamivir phosphate 75 mg Capsule PO ×2 (07:53→16:58)
[2024-08-22] MEDS: azithromycin 250 mg Tablet 500 MG PO (07:53)
[2024-08-22] MEDS: sertraline 50 mg Tablet PO (07:54)
[2024-08-22] MEDS: ropinirole 1 mg Tablet PO ×2 (07:54→16:58)
[2024-08-22] MEDS: pantoprazole DR 40 mg Tablet PO (07:54)
[2024-08-22 08:11] LABS: Blood Gas Operator Identificat BUSJ
[2024-08-22 08:12] LABS: Oxygen Device BIPAP
--- NOTE | 2024-08-22 09:10 | P.PN_ITS ---
Subjective 2 Subjective: Seen this morning. Patient still on BiPAP. Morning ABG reviewed. 7.27. CO2 trending down. However still hypercapnic. Vitals/I&O/Wt Last Vital Signs Temp 97.9 F 08/22/24 08:00 Pulse 99 08/22/24 08:00 Resp 17 08/22/24 08:00 BP 103/64 08/22/24 08:00 Pulse Ox 96 08/22/24 08:00 O2 Del Method BiPAP 08/22/24 08:00 O2 Flow Rate 6 08/22/24 08:00 FiO2 40 08/22/24 07:39 08/21/24 08/22/24 08/22/24 22:59 06:59 14:59 Intake Total 120 / 360 200 / 560 120 / 120 Balance 120 / 360 200 / 560 120 / 120 Weight last 48 hrs Weight 47.536 kg Weight 45.541 kg Weight 45.541 kg Weight 45.813 kg Physical Exam 2 Narrative: General: Patient is awake. Pulmonary cachexia present. Head: Normocephalic. Atraumatic. EOM intact. Temporal wasting. Dry mucous membranes. Neck: No JVD. Cardiovascular: Tachycardic with regular rhythm. No gallops. No murmurs. Lungs: Poor air movement throughout bilateral lung english. On BiPAP. Skin: No jaundice. No rashes. Abdomen: Normal bowel sounds, abdomen soft and nontender. Extremities: No cyanosis or clubbing. Neurological: Moves all 4 extremities. No myoclonus. Data 08/22/24 05:17 08/22/24 05:17 A&P Assessment and plan (1) COPD (chronic obstructive pulmonary disease): COPD with acute exacerbation Acute on chronic hypercapnic and hypoxic respiratory failure secondary to COPD exacerbation Start systemic steroids with Solu-Medrol Pulmicort nebs DuoNebs Treat underlying influenza BiPAP support Supportive care Qualifiers: COPD type: emphysema Emphysema type: centrilobular Qualified Code(s): J43.2 - Centrilobular emphysema (2) Influenza A: Flu precautions Start Tamiflu (3) Anxiety: Continue home sertraline Continue home BuSpar (4) Insomnia: Continue with trazodone (5) GERD (gastroesophageal reflux disease): Continue PPI Plan DVT prophylaxis: Lovenox 08/22/2024 ?Continue ceftriaxone azithromycin ? Solu-Medrol 40 twice daily ? Continue Tamiflu. Stop in 5 days. ? Patient not really expectorating. Sputum culture Gram stain has not been obtained yet. ? Check CTA chest to rule out PE. Attestations 2 Medical Necessity Statement*: COPD exacerbation Diagnoses Centrilobular emphysema J43.2 COPD type: emphysema Emphysema type: centrilobular Influenza A J10.1 Anxiety F41.9 Insomnia G47.00 GERD (gastroesophageal reflux disease) K21.9
[2024-08-22] MEDS: cefTRIAXone 1,000 mg SDV 1000 MG IVP (11:12)
--- NOTE | 2024-08-22 13:46 | CT_ITS ---
WS: [id number] CTA OF THE CHEST WITH PULMONARY EMBOLISM PROTOCOL TECHNIQUE: High-resolution contrast enhanced CTA of the chest with coronal and sag[facility] [place] with [place] embolism [place]. MIP images are also reviewed. CLINICAL INFORMATION: copd exacerbation COMPARISON: CTA 06/30/2024 DLP: 73.[address] scans at [facility] use at least one of these dose optimization techniques: automated e xposure control; mA and/or kV adjustment per patient size (includes targeted exams where dose is matc hed to clinical indication); or iterative reconstruction. FINDINGS: Hyperinflation with emphysematous change. Ectatic ascending thoracic aorta unchanged. Proximal main p ulmonary arteries are normal. Normal segmental and subsegmental pulmonary arteries. No evidence of pu lmonary embolus. LEFT dorsal posterior projecting thyroid nodule measuring 1.6 cm. Hepatomegaly. Splenomegaly. Tiny esophageal hiatal hernia. Air-fluid level in the stomach. Celiac and SMA are patent in the upper abdomen. Adrenal glands are normal. Chronic appearing anterior wedging i n the upper thoracic spine at T6. This is unchanged from previous. Advanced chronic emphysematous allan nges with interstitial thickening similar to the prior exams. Bibasilar atelectasis. Bronchiectasis i n the lung bases. Bibasilar atelectasis has improved compared to previous. No focal pneumonia. Stable mediastinal and hilar lymphadenopathy nonspecific but may be reactive. CT/CT angio chest PE protcl [id number] IMPRESSION: 1. No evidence of pulmonary embolus. 2. Advanced chronic emphysematous change with diffuse interstitial thickening likely related to edema unchanged compared to previous. 3. Resolved pleural effusions with improved but persistent dependent atelectas is in the lung bases. 4. Mediastinal and hilar lymphadenopathy similar to previous. This is nonspeci fic but may be reactive. 5. Hepatomegaly and splenomegaly. 6. Stable ectatic thoracic aorta.
[2024-08-22] MEDS: iohexol 350 mg/mL 500 mL Btl (per mL) IV (14:39)
[2024-08-22] MEDS: trazodone 50 mg Tablet PO (20:51)
[2024-08-22] MEDS: metoprolol tartrate 25 mg Tablet PO (20:51)
[2024-08-23] VITALS (12 sets, daily range): BP systolic 104–118; BP diastolic 66–75; PULSE 78–95; RESP 16–24; TEMP 36.3–36.6; O2SAT 90–99
[2024-08-23] MEDS: ipratropium-albuterol 3 mL Neb INHALATION ×4 (00:20→11:46)
[2024-08-23] MEDS: enoxaparin 40 mg/0.4 mL Syringe SUBCUT (03:51)
[2024-08-23 04:55] LABS: Basophils % 0.2 %; Hematocrit 37.5 % (36-47); Lymphocytes # 0.6 10^3/uL (0.8-4.8); Lymphocytes % 12.1 %; Mean Corpuscular HGB Conc 27.2 g/dL (30-55); Mean Corpuscular Hemoglobin 21.6 pg (27-33); Mean Corpuscular Volume 79.4 fl (85-98); Mean Platelet Volume 10.9 fL (7.4-10.4); Monocytes # 0.3 10^3/uL (0.2-0.9); Monocytes % 6.2 %; Neutrophils # 4.29 10^3/uL (1.8-7.7); Neutrophils % 80.7 %; Nucleated Red Blood Cells % 0 %; Platelet Count 317 10^3/cmm (157-399); Red Blood Count 4.72 10^6/uL (3.85-5.65); Red Cell Distribution Width 19.9 % (12.1-15.1); White Blood Count 5.31 10^3/uL (3.29-11.43)
[2024-08-23 05:13] LABS: Blood Urea Nitrogen 12 mg/dL (8-23); Calcium 8.8 mg/dL (8.5-10.5); Carbon Dioxide 34 mmol/L (22-29); Chloride 94 mmol/L (98-107); Glomerular Filtration Rate 224.7 mL/min (90-130); Glucose 129 mg/dL (65-115); Magnesium 1.8 mg/dL (1.7-2.3); Osmolality Calculated 277 mOsm/kg (285-295); Sodium 133 mmol/L (136-145)
[2024-08-23 05:22] LABS: Anion Gap 9.8 (5-19); Potassium 4.8 mmol/L (3.5-5.1)
[2024-08-23 05:36] LABS: Add RBC Morph Yes; Anisocytosis 2+; Hypochromasia 1+; Ovalocytes Trace; Poikilocytosis 1+; RBC Morph Comp No; Slide Review Slide Review Perform; Tear Drop Cells Trace
[2024-08-23] MEDS: pantoprazole DR 40 mg Tablet PO (08:24)
[2024-08-23] MEDS: oseltamivir phosphate 75 mg Capsule PO (08:24)
[2024-08-23] MEDS: azithromycin 250 mg Tablet 500 MG PO (08:24)
[2024-08-23] MEDS: acetaminophen 325 mg Tablet 650 MG PO (08:24)
[2024-08-23] MEDS: methylPREDNISolone sod succ 40 mg/mL INJ IVP (08:24)
[2024-08-23] MEDS: ropinirole 1 mg Tablet PO (08:24)
[2024-08-23] MEDS: metoprolol tartrate 25 mg Tablet PO (08:24)
[2024-08-23] MEDS: sertraline 50 mg Tablet PO (08:24)
[2024-08-23] MEDS: budesonide 0.5 mg/2 mL Neb INHALATION (08:37)
[2024-08-23] MEDS: cefTRIAXone 1,000 mg SDV 1000 MG IVP (11:23)
--- NOTE | 2024-08-23 12:06 | P.DS_ITS ---
Discharge Providers Date of Admission: 08/21/24 11:16 Date of Discharge: August 23, 2024 Attending Provider at Admission: Douglas Dolan MD Attending Provider at Discharge: Katina Washington MD Primary Care Provider: Zoran Stern MD Diagnoses at Discharge Discharge Diagnosis (1) COPD (chronic obstructive pulmonary disease): Status: Acute Qualifiers: COPD type: emphysema Emphysema type: centrilobular Qualified Code(s): J43.2 - Centrilobular emphysema (2) Influenza A: Status: Acute (3) Anxiety: Status: Acute (4) Insomnia: Status: Acute (5) GERD (gastroesophageal reflux disease): Status: Acute Reason for Visit Reason for Visit: sob Hospital Course Hospital Course She was managed in the hospital for COPD exacerbation patient was also positive for influenza. BiPAP was ordered from home. She was sent home on prednisone. She was also given cefdinir azithromycin at discharge. Patient to follow-up with primary care doctor after discharge. Physical Exam Narrative: General: Patient is awake. Pulmonary cachexia present. Head: Normocephalic. Atraumatic. EOM intact. Temporal wasting. Dry mucous membranes. Cardiovascular: Regular rate regular rhythm. No gallops. No murmurs. Lungs: Poor air movement throughout bilateral lung english. On BiPAP. Abdomen: Normal bowel sounds, abdomen soft and nontender. Extremities: No cyanosis or clubbing. Neurological: Moves all 4 extremities. No myoclonus. Discharge Data Studies Completed and Pending Completed Studies During Hospitalization Category Date Time Status CTA chest [CT angio chest PE protcl [id number]] Routine Cat Scan 08/22/24 13:46 Completed XR chest 1V portable [id number] Stat Exams 08/21/24 01:37 Completed Pending at discharge Category Date Time Status Sputum Culture and Gram Stain Stat Lab 08/21/24 11:21 Uncollected Radiology Impressions Chest X-Ray 08/21/24 01:37 IMPRESSION: Linear retrocardiac infiltrates, improved from prior comparison, may represent infection in the correct clinical setting. Chest CTA 08/22/24 13:46 IMPRESSION: 1. No evidence of pulmonary embolus. 2. Advanced chronic emphysematous change with diffuse interstitial thickening likely related to edema unchanged compared to previous. 3. Resolved pleural effusions with improved but persistent dependent atelectasis in the lung bases. 4. Mediastinal and hilar lymphadenopathy similar to previous. This is nonspecific but may be reactive. 5. Hepatomegaly and splenomegaly. 6. Stable ectatic thoracic aorta. Laboratory Results WBC 5.31 10^3/uL (3.29-11.43) 08/23/24 04:47 RBC 4.72 10^6/uL (3.85-5.65) 08/23/24 04:47 Hgb 10.20 g/dL (11.27-16.99) L 08/23/24 04:47 Hct 37.5 % (36-47) 08/23/24 04:47 MCV 79.4 fl (85-98) L 08/23/24 04:47 MCH 21.6 pg (27-33) L 08/23/24 04:47 MCHC 27.2 g/dL (30-55) L 08/23/24 04:47 RDW 19.9 % (12.1-15.1) H 08/23/24 04:47 Plt Count 317 10^3/cmm (157-399) 08/23/24 04:47 MPV 10.9 fL (7.4-10.4) H 08/23/24 04:47 Neut % (Auto) 80.7 % 08/23/24 04:47 Lymph % (Auto) 12.1 % 08/23/24 04:47 [place] % (Auto) 6.2 % 08/23/24 04:47 Eos % (Auto) 0.0 % 08/23/24 04:47 Baso % (Auto) 0.2 % 08/23/24 04:47 Neut # (Auto) 4.29 10^3/uL (1.8-7.7) 08/23/24 04:47 Lymph # (Auto) 0.6 10^3/uL (0.8-4.8) L 08/23/24 04:47 [place] # (Auto) 0.3 10^3/uL (0.2-0.9) 08/23/24 04:47 Eos # (Auto) 0.0 10^3/uL (0.0-0.8) 08/23/24 04:47 Baso # (Auto) 0.0 10^3/uL (0.0-0.1) 08/23/24 04:47 Nucleated RBC % (auto) 0 % 08/23/24 04:47 Nucleated RBCs # 0.0 /100WBC 08/23/24 04:47 Hypochromasia 1+ H 08/23/24 04:47 Poikilocytosis 1+ H 08/23/24 04:47 Anisocytosis 2+ H 08/23/24 04:47 Tear Drop Cells Trace 08/23/24 04:47 Ovalocytes Trace 08/23/24 04:47 Specimen Type Arterial 08/22/24 05:00 Sample Site Not Reportable 08/22/24 05:00 ABG pH 7.29 (7.35-7.45) L 08/22/24 05:00 ABG pCO2 77.7 mmHg (35-45) H* 08/22/24 05:00 ABG pO2 90.2 mmHg (80.0-100.0) 08/22/24 05:00 ABG HCO3 37.1 mmol/L (22-26) H 08/22/24 05:00 ABG O2 Saturation 96.9 08/22/24 05:00 ABG Base Excess 8.2 mmol/L (-2.0-2.0) H 08/22/24 05:00 Erik Test Pos 08/22/24 05:00 A-a O2 Gradient Not Reportable 08/22/24 05:00 Hematocrit 33.3 % (37-47) L 08/22/24 05:00 Hgb O2 Saturation 94.9 % (95-100) L 08/22/24 05:00 Carboxyhemoglobin 1.0 %THgb (0.4-20.1) 08/22/24 05:00 Methemoglobin 1.0 % (0.4-1.5) 08/22/24 05:00 Total Hemoglobin 10.9 g/dL (12-16) L 08/22/24 05:00 Sodium 136.0 mmol/L (131-143) 08/22/24 05:00 Potassium 4.5 mmol/L (3.5-5.0) 08/22/24 05:00 Glucose 142.0 mg/dL (70-115) H 08/22/24 05:00 Ionized Calcium 1.2 mmol/L (1.1-1.4) 08/22/24 05:00 O2 Delivery Device Bipap 08/22/24 05:00 O2 Liters/Min 6.0 % 08/21/24 01:50 Machine Plaster Mixer ID Busj 08/22/24 05:00 Sodium 133 mmol/L (136-145) L 08/23/24 04:47 Potassium 4.8 mmol/L (3.5-5.1) 08/23/24 04:47 Chloride 94 mmol/L (98-107) L 08/23/24 04:47 Carbon Dioxide 34 mmol/L (22-29) H 08/23/24 04:47 Anion Gap 9.8 (5-19) 08/23/24 04:47 BUN 12 mg/dL (8-23) 08/23/24 04:47 Creatinine 0.3 mg/dL (0.5-0.9) L 08/23/24 04:47 GFR Calculation 224.7 mL/min (90-130) H 08/23/24 04:47 Glucose 129 mg/dL (65-115) H 08/23/24 04:47 Calculated Osmolality 277 mOsm/kg (285-295) L 08/23/24 04:47 Lactic Acid 0.7 mmol/L (0.5-2.2) 08/21/24 01:43 Calcium 8.8 mg/dL (8.5-10.5) 08/23/24 04:47 Phosphorus 2.5 mg/dL (2.5-4.5) 08/22/24 05:17 Magnesium 1.8 mg/dL (1.7-2.3) 08/23/24 04:47 Total Bilirubin 0.3 mg/dL (0.15-1.2) 08/21/24 01:43 AST 16 U/L (0-32) 08/21/24 01:43 ALT 7 U/L (0-33) 08/21/24 01:43 Alkaline Phosphatase 61 U/L (35-105) 08/21/24 01:43 Total Protein 6.8 g/dL (6.6-8.7) 08/21/24 01:43 Albumin 4.2 g/dL (3.5-5.2) 08/21/24 01:43 Globulin 2.6 g/dL (1.3-4.6) 08/21/24 01:43 Procalcitonin 0.13 ng/mL (0-0.5) 08/21/24 01:43 Urine Color Yellow (Yellow) 08/21/24 02:29 Urine Appearance Clear (CLEAR) 08/21/24 02:29 Urine pH 5.5 (5-7) 08/21/24 02:29 Ur Specific [place] 1.021 (1.005-1.030) 08/21/24 02:29 Urine Protein 1+ (Negative) A 08/21/24 02:29 Urine Glucose (UA) Negative (Normal) 08/21/24 02:29 Urine Ketones Negative (Negative) 08/21/24 02:29 Urine Blood Negative (Negative) 08/21/24 02: Urine Nitrate Negative (Negative) 08/21/24 02: Urine Bilirubin Negative (Negative) 08/21/24 02: Urine Urobilinogen 0.2 mg/dL (Negative) 08/21/24 02:29 Ur Leukocyte Esterase Negative (Negative) 08/21/24 02:29 Urine RBC 0-2 /hpf (0-2) 08/21/24 02:29 Urine WBC 0-5 /hpf (0-5) 08/21/24 02:29 Ur Squamous Epith Cells 0-5 /hpf (0-5) 08/21/24 02:29 Amorphous Sediment Not Reportable 08/21/24 02:29 Urine Bacteria None seen /hpf (NONE) 08/21/24 02:29 Hyaline Casts 5.77 /lpf 08/21/24 02:29 Coronavirus (PCR) Negative (Negative) 08/21/24 01:49 Influenza A (PCR) Positive (Negative) 08/21/24 01:49 Influenza Type B (PCR) Negative (Negative) 08/21/24 01:49 RSV (PCR) Negative (Negative) 08/21/24 01:49 Vitals Last Vital Signs Temp 97.9 F 08/23/24 08:00 Pulse 87 08/23/24 12:04 Resp 20 H 08/23/24 11:48 BP 118/75 08/23/24 08:00 Pulse Ox 96 08/23/24 11:48 O2 Del Method Nasal Cannula 08/23/24 11:48 O2 Flow Rate 4 08/23/24 11:48 FiO2 40 08/23/24 04:40 Discharge Plan Discharge Patient Disposition: Home Condition: Stable Prescriptions: New prednisone 20 mg tablet See Rx Instructions .ROUTE .COMPLEX 12 Days Qty: 30 0RF Rx Instructions: 40 mg x 3d 30 mg x3d 20 mg x3d 10 mg x3d Continued ipratropium-albuterol 0.5 mg-3 mg(2.5 mg base)/3 mL solution for nebulization 3 ml inhalation Q4H PRN (Reason: wheezing) Qty: 90 3RF albuterol sulfate [Ventolin HFA] 90 mcg/actuation HFA aerosol inhaler 1 inh inhalation QID PRN (Reason: shortness of breath or wheezing) Qty: 8 5RF Rx Instructions: BRAND ONLY trazodone 50 mg tablet 50 mg PO DAILY Qty: 90 2RF ropinirole 1 mg tablet 1 mg PO BID Qty: 120 1RF (DME) wheelchair See Rx Instructions .Route .MEDSUPPLY Qty: 1 0RF Rx Instructions: As directed (DME) Home oxygen concentrator See Rx Instructions .Route .MEDSUPPLY Qty: 1 0RF Rx Instructions: 3L nasal cannula continuous use (DME) oxygen tubing and mask equipment See Rx Instructions .Route .MEDSUPPLY Qty: 1 3RF Rx Instructions: As directed (DME) Portable oxygen concentrator See Rx Instructions .Route .MEDSUPPLY Qty: 1 0RF Rx Instructions: 3L nasal cannula continuous use away from home sertraline [Zoloft] 50 mg tablet 50 mg PO DAILY Qty: 90 1RF furosemide 20 mg tablet 20 mg PO QAM PRN (Reason: swelling) Qty: 90 0RF albuterol sulfate 90 mcg/actuation HFA aerosol inhaler 2 puff inhalation Q6H PRN (Reason: shortness of breath or wheezing) Qty: 8.5 2RF fluticasone propionate 50 mcg/actuation spray,suspension 2 spray intranasal DAILY Qty: 16 1RF pantoprazole [Protonix] 40 mg tablet,delayed release (DR/EC) 40 mg PO DAILY Qty: 90 1RF Spiriva Respimat 2.5 mcg/actuation mist 2 puff inhalation DAILY Qty: 4 2RF Hold Instructions: Home Medication placed on hold at Doctor's office fluticasone propion-salmeterol [Advair Diskus] 500-50 mcg/dose blister with device 1 inh inhalation BID Qty: 60 1RF levalbuterol HCl 0.63 mg/3 mL solution for nebulization 0.63 mg inhalation Q8H PRN (Reason: Shortness Of Breath) buspirone 7.5 mg tablet 7.5 mg PO DAILY PRN (Reason: anxiety) budesonide 0.5 mg/2 mL suspension for nebulization 0.5 mg inhalation BID PRN (Reason: Shortness Of Breath) metoprolol tartrate 25 mg Tablet 25 mg PO BID@0900,2100 Qty: 60 0RF No Action megestrol 400 mg/10 mL (10 mL) suspension 200 mg PO DAILY PRN (Reason: APPETITE) Qty: 1000 0RF Discharge Orders: Discharge Order (Routine); Ordered 08/23/24 Ordered By: Katina Washington Other Ambulatory Orders: DME: BIPAP (Order) Location: None Selected Ordered By: Katina Washington Referrals: Zoran Stern MD [Primary Care Provider] - 4-7 days (We have notified your physician's clinic of the need for a follow-up appointment to be scheduled. If you have not heard from them within the next 2 business days, please call them directly. FAXED FOR APPONTMENT) Discharge Diet: Cardiac Discharge Activity: Cpap/Bipap as instructed Patient Instructions: Prednisone (By mouth), Azithromycin (By mouth), Oseltamivir (By mouth), Cefdinir (By mouth), Influenza (DC), Acute Respiratory Failure (ED), Opioid Safety Discharge Attestations Time Spent in Discharge Care*: greater than 30 min Status at Discharge: Cognitive status at discharge: cognitively intact , Behavioral status at discharge: cooperative , Quality Metrics Clinical Quality Measures [ No reported AMI, CVA or VTE this stay] Coding Level of Care Code Acute Code for g Fwd Diagnoses Centrilobular emphysema J43.2 COPD type: emphysema Emphysema type: centrilobular Influenza A J10.1 Anxiety F41.9 Insomnia G47.00 GERD (gastroesophageal reflux disease) K21.9
== END 2024-08-23 12:55 | disposition home or self-care (01) | DRG 193 ==
LOC: ER 02:39 → MEDSURG 02:57
PROVIDERS: Admitting Provider Internal Medicine; Emergency Provider Emergency Medicine; PCP Family Medicine; Visit Provider Internal Medicine
DX: J10.1 Influenza due to other identified influenza virus with other respiratory manifestations (principal); E43 Unspecified severe protein-calorie malnutrition; J96.21 Acute and chronic respiratory failure with hypoxia; J96.22 Acute and chronic respiratory failure with hypercapnia; Z68.1 Body mass index [BMI] 19.9 or less, adult; J44.1 Chronic obstructive pulmonary disease with (acute) exacerbation; J43.2 Centrilobular emphysema; F41.9 Anxiety disorder, unspecified; G47.00 Insomnia, unspecified; K21.9 Gastro-esophageal reflux disease without esophagitis; Z99.81 Dependence on supplemental oxygen; I10 Essential (primary) hypertension; Z91.199 Patient's noncompliance with other medical treatment and regimen due to unspecified reason; Z87.01 Personal history of pneumonia (recurrent); Z79.891 Long term (current) use of opiate analgesic; Z66 Do not resuscitate
CPT/HCPCS: 36415; 36600; 71045; 71275; 80048; 80051; 80053; 81001; 82330; 82805; 83605; 83735; 84100; 84145; 85025; 87637; 93005; 94640; 94660; 96372; 99291; G0378; J0696; J1650; J2919; J7626; Q0144

== ENCOUNTER 2024-11-04 09:59 | Observation (INO) | payer BC, SELFPAY ==
[2024-11-04] VITALS (15 sets, daily range): BP systolic 99–144; BP diastolic 70–83; PULSE 97–112; RESP 17–29; TEMP 36.8–37.4; O2SAT 61–97; BMI 18.0
--- NOTE | 2024-11-04 10:04 | XRR_ITS ---
PROCEDURE INFORMATION: Exam: XR Chest Exam date and time: 11/04/2024 10:12 AM Age: 64 years old Clinical indication: Cough and dyspnea; Additional info: Dyspnea/cough TECHNIQUE: Imaging protocol: Radiologic exam of the chest. Views: 1 view. Total images: 3 COMPARISON: CT angio chest PE protcl [id number] 08/22/2024 2:32 PM FINDINGS: Lungs: Diffuse mildly coarse interstitial opacities unchanged from prior exam. Pleural spaces: Unremarkable. No pleural effusion. No pneumothorax. Heart/Mediastinum: Unremarkable. No cardiomegaly. Bones/joints: Osseous structures are unchanged from the prior exam. XR/XR chest 1V portable [id number] IMPRESSION: 1. Diffuse mildly coarse interstitial opacities unchanged from prior exam. 2. No acute cardiopulmonary process.
--- NOTE | 2024-11-04 10:04 | ECG_ITS ---
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 Measurements Intervals [place] Rate: 112 P: 58 NM: 120 QRS: 50 QRSD: 89 T: 46 QT: 311 QTc: 426 Interpretive Statements SINUS TACHYCARDIA WITH OCCASIONAL ECTOPIC PREMATURE COMPLEXES POSSIBLE LEFT ATRIAL ENLARGEMENT [-0.1mV P-WAVE IN V1/V2] Compared to ECG 08/21/2024 01:36:38 No significant changes Electronically Signed On 11-08-2024 18:30:14 CDT by Milton Sen M.D. [email or web address]
--- NOTE | 2024-11-04 10:05 | ED_ITS ---
HPI - SOB/Dyspnea 2 General: Chief Complaint: Shortness of Breath/Dyspnea Stated Complaint: SOB Time Seen by Provider: 11/04/24 10:00 History of Present Illness: HPI Narrative: 64-year-old female who presents to the e mergency room with complaints of shortness of breath for the last several days. She has had minimally productive cough no hemoptysis. She is chronically on oxygen interestingly she is not even sure how much she is supposed to be on. She is on 50 foot tube at home and had her oxygen turned up to 4 L. EMS reported that she was at 90% when they arrived they are on the 4 L. They did give 1 breathing treatment and round. She denies any chest pain or shortness of breath she had does have a low-grade fever has not had any fever sweats or chills at home. No abdominal pain. Associated symptoms: Deny abdominal pain, chest pain or fever(s) Related Data Home Medications ?Medication ?Instructions ?Recorded ?Confirmed budesonide 0.5 mg/2 mL suspension 0.5 mg inhalation BI D PRN 07/31/24 11/04/24 for nebulization Shortness Of Breath levalbuterol HCl 0.63 mg/3 mL 0.63 mg inhalation Q8H P RN 07/31/24 11/04/24 solution for nebulization Shortness Of Breath sertraline 50 mg tablet 50 mg PO DAILY 11/04/2408/30 tiotropium bromide 2.5 2 puff inhalation DAILY 08/3011/04/24 mcg/actuation mist for inhalation (Spiriva Respimat) trazodone 50 mg tablet 50 mg PO DAILY 11/04/2408/30 Previous Rx's ?Medication ?Instructions ?Recorded Ventolin HFA 90 mcg/actuation 1 inh inhalation QID PRN shortness 08/04/24 aerosol inhaler (albuterol sulfate) of breath or wheez ing #8 grams ipratropium 0.5 mg-albuterol 3 mg 3 ml inhalation Q4H PRN wheezing 08/04/24 (2.5 mg base)/3 mL nebulization #90 mL soln pantoprazole 40 mg tablet,delayed 40 mg PO DAILY #90 t abs 08/08/24 release (Protonix) megestrol 400 mg/10 mL (10 mL) 200 mg (5 mL) PO DAILY PRN 08/27/24 oral suspension APPETITE #1,000 mL buspirone 7.5 mg tablet 7.5 mg PO DAILY PRN anxiety #60 09/25/24 tabs furosemide 20 mg tablet 20 mg PO QAM PRN swelling #9 0 tabs 09/25/24 ropinirole 1 mg tablet 1 mg PO BID #120 tabs fluticasone 500 mcg-salmeterol 50 1 inh inhalation BID #60 ea 10/01/24 mcg/dose blistr powdr for inhalation (Advair Diskus) albuterol sulfate 90 mcg/actuation 2 puff inhalation Q 6H PRN 10/08/24 aerosol inhaler shortness of breath or wheez ing #8.5 grams fluticasone propionate 50 See Rx Instructions .Route 0 10/14/24 mcg/actuation nasal .COMPLEX #32 grams spray,suspension Allergies Allergy/AdvReac Type Severity Reaction Status Date / Time No Known Allergies Allergy Verified 10/16/24 13:09 Review of Systems 2 Const: Denies: fever(s) or chills Card: Denies: chest pain Resp: Denies: dyspnea GI: Denies: abdominal pain : Denies: dysuria, urinary frequency or urinary urgency Musc: Denies: neck pain or back pain Skin/Breast: Denies: rash PFSH ED 2 PFSH: Medical History Protein-calorie malnutrition, severe GERD (gastroesophageal reflux disease) Essential hypertension Anxiety Hypertension Insomnia COPD (chronic obstructive pulmonary disease) Surgical History History of History of tonsillectomy Family History Father Stroke Other Dementia Denies family history of Diabetes CAD (coronary artery disease) Clotting disorder Hyperlipidemia Psychiatric illness Chronic kidney disease (CKD) Anesthesia complication Bleeding disorder Lung disease Cancer Hypertension Social History Smoking and tobacco/nicotine status: former use of tobacco/nicotine Quit status (tobacco/nicotine): has quit using Year quit tobacco: 2019 Former quit date comment: 1 ppd X 40 years Second hand smoke exposure: Yes Alcohol intake: current Alcohol intake frequency: holidays/special occasions only Alcohol type: beer Substance/Drug Use: never Marital status: Number of children: 5 Number of grandchildren: 9 service: No Current occupational status: disabled Current occupational exposures/hazards: No Pets and animals: Yes Current gender identity: Female Physical Exam 2 Const: GENERAL APPEARANCE: cooperative ORIENTATION/CONSCIOUSNESS: Yes awake, Yes oriented to person, Yes oriented to place and Yes oriented to time HENMT: COMMON NORMALS: normocephalic, atraumatic and hearing grossly normal bilaterally HEAD & SCALP: normocephalic and atraumatic Resp: AUSCULTATION: rhonchi and wheezes Cardio: COMMON NORMALS: regular rate, regular rhythm and No murmurs present (Cardio) RATE: regular rate RHYTHM: regular rhythm GI: COMMON NORMALS: Soft to palpation and No hepatosplenomegaly present A USCULTATION: Yes normoactive bowel sounds PALPATION: Yes Soft to palpation, No Tenderness to palpation present (GI), No Guarding due to palpation present (GI) and Yes No hepatosplenomegaly present Extremity: COMMON NORMALS: normal to inspection, capillary refill normal, no clubbing, cyanosis or edema, no calf tenderness and no pedal edema Neuro: SENSORIUM/ORIENTATION: Yes oriented to person, Yes oriented to place and Yes oriented to time Skin: COMMON NORMALS: no rashes or lesions noted GENERAL SKIN EXAM: no rashes or lesions noted Course 2 Vital Signs: Vital signs: Vital Signs Temperature 98.8 F 11/04/24 13:26 Pulse Rate 109 H 11/04/24 13:26 Respiratory Rate 17 11/04/24 13:26 Blood Pressure 115/71 11/04/24 13:26 Pulse Oximetry 90 11/04/24 13:26 Oxygen Delivery Me thod Nasal Cannula 11/04/24 13:26 Oxygen Flow Rate 4 11/04/24 10:45 Fraction of Inspir ed Oxygen 35 11/04/24 11:00 MDM - SOB/Dyspnea Medical Decision Making Acute on chronic hypercapnic respiratory failure. There is some, question of infiltrates will cover with some antibiotics patient improved with steroids nebulizers and BiPAP will need repeat ABG. Discussed with hospitalist orders written. Medical Records I reviewed the patient's medical records. Lab Data I reviewed the patient's lab results. 11/04/24 09:46 11/04/24 09:46 Labs/Radiology: Radiology Impressions Chest X-Ray 11/04/24 10:04 IMPRESSION: 1. Diffuse mildly coarse interstitial opacities unchanged from prior exam. 2. No acute cardiopulmonary process. Laboratory Results WBC 14.20 10^3/uL (3.29-11.43) H 11/04/24 09:46 RBC 5.53 10^6/uL (3.85-5.65) 11/04/24 09:46 Hgb 10.90 g/dL (11.27-16.99) L 11/04/24 09:46 Hct 40.9 % (36-47) 11/04/24 09:46 MCV 74.0 fl (85-98) L 11/04/24 09:46 MCH 19.7 pg (27-33) L 11/04/24 09:46 MCHC 26.7 g/dL (30-55) L 11/04/24 09:46 RDW 18.9 % (12.1-15.1) H 11/04/24 09:46 Plt Count 585 10^3/cmm (157-399) H 11/04/24 09:46 MPV TNP 11/04/24 09:46 Neut % (Auto) 78.2 % 11/04/24 09:46 Lymph % (Auto) 10.9 % 11/04/24 09:46 [place] % (Auto) 7.2 % 11/04/24 09:46 Eos % (Auto) 2.3 % 11/04/24 09:46 Baso % (Auto) 0.5 % 11/04/24 09:46 Neut # (Auto) 11.10 10^3/uL (1.8-7.7) H 11/04/24 09:46 Lymph # (Auto) 1.6 10^3/uL (0.8-4.8) 11/04/24 09:46 [place] # (Auto) 1.0 10^3/uL (0.2-0.9) H 11/04/24 09:46 Eos # (Auto) 0.3 10^3/uL (0.0-0.8) 11/04/24 09:46 Baso # (Auto) 0.1 10^3/uL (0.0-0.1) 11/04/24 09:46 Nucleated RBC % (auto) 0 % 11/04/24 09:46 Nucleated RBCs # 0.0 /100WBC 11/04/24 09:46 Specimen Type Arterial 11/04/24 10:48 Sample Site Brachial, right 11/04/24 10:48 ABG pH 7.32 (7.35-7.45) L 11/04/24 10:48 ABG pCO2 78.4 mmHg (35-45) H* 11/04/24 10:48 ABG pO2 64.6 mmHg (80.0-100.0) L 11/04/24 10:48 ABG PO2/FiO2 Ratio 179 11/04/24 10:48 ABG HCO3 40.4 mmol/L (22-26) H 11/04/24 10:48 ABG O2 Saturation 92.0 11/04/24 10:48 ABG Base Excess 11.7 mmol/L (-2.0-2.0) H 11/04/24 10:48 Erik Test Pos 11/04/24 10:48 A-a O2 Gradient 12.8 mmHg (5-10) H 11/04/24 10:48 Hematocrit 33.0 % (37-47) L 11/04/24 10:48 Hgb O2 Saturation 89.4 % (95-100) L 11/04/24 10:48 Carboxyhemoglobin 1.8 %THgb (0.4-20.1) 11/04/24 10:48 Methemoglobin 1.0 % (0.4-1.5) 11/04/24 10:48 Total Hemoglobin 10.8 g/dL (12-16) L 11/04/24 10:48 Sodium 140.0 mmol/L (131-143) 11/04/24 10:48 Potassium 3.9 mmol/L (3.5-5.0) 11/04/24 10:48 Glucose 129.0 mg/dL (70-115) H 11/04/24 10:48 Ionized Calcium 1.3 mmol/L (1.1-1.4) 11/04/24 10:48 O2 Delivery Device Nc 11/04/24 10:48 O2 Liters/Min 4.0 % 11/04/24 10:48 FiO2 36.0 % 11/04/24 10:48 Wireless Network Engineer ID [place] 11/04/24 10:48 Sodium 141 mmol/L (136-145) 11/04/24 09:46 Potassium 4.6 mmol/L (3.5-5.1) 11/04/24 09:46 Chloride 97 mmol/L (98-107) L 11/04/24 09:46 Carbon Dioxide 39 mmol/L (22-29) H 11/04/24 09:46 Anion Gap 9.6 (5-19) 11/04/24 09:46 BUN 9 mg/dL (8-23) 11/04/24 09:46 Creatinine 0.4 mg/dL (0.5-0.9) L 11/04/24 09:46 GFR Calculation 161.2 mL/min (90-130) H 11/04/24 09:46 Glucose 136 mg/dL (65-115) H 11/04/24 09:46 Calculated Osmolality 293 mOsm/kg (285-295) 11/04/24 09:46 Calcium 8.9 mg/dL (8.5-10.5) 11/04/24 09:46 Total Bilirubin 0.3 mg/dL (0.15-1.2) 11/04/24 09:46 AST 24 U/L (0-32) 11/04/24 09:46 ALT 8 U/L (0-33) 11/04/24 09:46 Alkaline Phosphatase 79 U/L (35-105) 11/04/24 09:46 Total Protein 7.1 g/dL (6.6-8.7) 11/04/24 09:46 Albumin 4.0 g/dL (3.5-5.2) 11/04/24 09:46 Globulin 3.1 g/dL (1.3-4.6) 11/04/24 09:46 Urine Color Yellow (Yellow) 11/04/24 11:13 Urine Appearance Clear (CLEAR) 11/04/24 11:13 Urine pH 5 (5-7) 11/04/24 11:13 Ur Specific [place] 1.015 (1.005-1.030) 11/04/24 11:13 Urine Protein Trace (Negative) 11/04/24 11:13 Urine Glucose (UA) Norm (Normal) 11/04/24 11:13 Urine Ketones Negative (Negative) 11/04/24 11:13 Urine Blood Neg (Negative) 11/04/24 11:13 Urine Nitrate Negative (Negative) 11/04/24 11:13 Urine Bilirubin Neg (Negative) 11/04/24 11:13 Urine Urobilinogen Norm mg/dL (Negative) 11/04/24 11:13 Ur Leukocyte Esterase 1+ (Negative) H 11/04/24 11:13 Urine RBC 0-2 /hpf (0-2) 11/04/24 11:13 Urine WBC 0-5 /hpf (0-5) 11/04/24 11:13 Ur Squamous Epith Cells 6-10 /hpf (0-5) 11/04/24 11:13 Amorphous Sediment Not Reportable 11/04/24 11:13 Urine Bacteria None seen /hpf (NONE) 11/04/24 11:13 Hyaline Casts 3.30 /lpf 11/04/24 11:13 Influenza A (PCR) Negative (Negative) 11/04/24 12:33 Influenza Type B (PCR) Negative (Negative) 11/04/24 12:33 RSV (PCR) Negative (Negative) 11/04/24 12:33 SARS-CoV-2 (PCR) Negative (Negative) 11/04/24 12:33 All radiology interpretation(s) finalized by discharge Discharge Plan Discharge Patient Disposition: Admitted As Inpatient Admit Provider: Cecy West Clinical Impression: Acute and chronic respiratory failure with hypercapnia, Acute exacerbation of chronic obstructive airways disease Condition: Stable Coding Level of Care Code ED Road Mender for Umesh Salmon
[2024-11-04 10:20] LABS: Basophils # 0.1 10^3/uL (0.0-0.1); Basophils % 0.5 %; Eosinophils # 0.3 10^3/uL (0.0-0.8); Eosinophils % 2.3 %; Hematocrit 40.9 % (36-47); Lymphocytes # 1.6 10^3/uL (0.8-4.8); Lymphocytes % 10.9 %; Mean Corpuscular HGB Conc 26.7 g/dL (30-55); Mean Corpuscular Hemoglobin 19.7 pg (27-33); Monocytes % 7.2 %; Neutrophils % 78.2 %; Nucleated Red Blood Cells % 0 %; Platelet Count 585 10^3/cmm (157-399); Red Blood Count 5.53 10^6/uL (3.85-5.65); Red Cell Distribution Width 18.9 % (12.1-15.1)
--- NOTE | 2024-11-04 10:27 | PC.PHAR ---
PATIENT CONFIRMED MEDICATIONS TO THE BEST OF HER ABILITY, TAKES CARE OF EVERYTHING FOR HER. CALLED LEFT MESSAGE FOR HIM TO CALL ME BACK IF HE CAN
[2024-11-04] MEDS: ipratropium-albuterol 3 mL Neb INHALATION ×3 (10:37→19:54)
[2024-11-04 10:48] LABS: Alanine Aminotransferase 8 U/L (0-33); Alkaline Phosphatase 79 U/L (35-105); Anion Gap 9.6 (5-19); Aspartate Amino Transferase 24 U/L (0-32); Blood Urea Nitrogen 9 mg/dL (8-23); Calcium 8.9 mg/dL (8.5-10.5); Carbon Dioxide 39 mmol/L (22-29); Chloride 97 mmol/L (98-107); Globulin 3.1 g/dL (1.3-4.6); Glomerular Filtration Rate 161.2 mL/min (90-130); Glucose 136 mg/dL (65-115); Osmolality Calculated 293 mOsm/kg (285-295); Potassium 4.6 mmol/L (3.5-5.1); Sodium 141 mmol/L (136-145); Total Bilirubin 0.3 mg/dL (0.15-1.2); Total Protein 7.1 g/dL (6.6-8.7)
[2024-11-04 10:53] LABS: Slide Review Slide Review Perform
[2024-11-04 10:59] LABS: ABG PH Result 7.32 (7.35-7.45); Alveolar-Arterial Oxygen Gradi 12.8 mmHg (5-10); Base Excess ABG 11.7 mmol/L (-2.0-2.0); Blood Gas Allen Test Pos; Blood Gas Operator Identificat MONRO; Blood Gas Sample Site Brachial, right; Blood Gas Sample Type Arterial; Carboxyhemoglobin 1.8 %THgb (0.4-20.1); HCO3 ABG 40.4 mmol/L (22-26); HGB O2 Sat 89.4 % (95-100); Ionized Calcium Level - ABG 1.3 mmol/L (1.1-1.4); Oxygen Device NC; PO2 ABG 64.6 mmHg (80.0-100.0); PO2 FiO2 Ratio Arterial Blood 179; Potassium Level - ABG 3.9 mmol/L (3.5-5.0); Total Hemoglobin 10.8 g/dL (12-16)
[2024-11-04 11:03] LABS: ABG PCO2 78.4 mmHg (35-45)
[2024-11-04] MEDS: methylPREDNISolone sod succ 125 mg/2 mL INJ IVP (11:07)
[2024-11-04 11:40] LABS: Bacteria Urine None Seen /hpf; RBC Urine 0-2 /hpf (0-2); WBC Urine 0-5 /hpf (0-5)
[2024-11-04 11:55] LABS: Specific Gravity, Urine 1.015 (1.005-1.030); Urine Appearance Clear (CLEAR); Urine Color Yellow (Yellow); pH Urine 5 (5-7)
[2024-11-04 11:56] LABS: Add Urine Culture? No; Add Urine Microscopic? YES; Bilirubin Urine Neg (Negative); Blood Urine Neg (Negative); Glucose Urine UA Norm (Normal); Ketones Urine Negative (Negative); Leukocyte Esterase Urine 1+ (Negative); Nitrate Urine Negative (Negative); Protein Urine Trace (Negative); Urobilinogen Urine Norm (Negative)
[2024-11-04] MEDS: levofloxacin-dextrose 5 % 750 MG/150 ML PREMIX 100 MG IV (12:08)
--- NOTE | 2024-11-04 13:12 | PC.NURSE ---
This nurse assumed care of pt at 1312.
[2024-11-04 13:28] LABS: Influenza A NEGATIVE (Negative); Influenza B NEGATIVE (Negative); Respiratory Syncytial Virus Ce NEGATIVE (Negative); SARS-CoV-2 PCR NEGATIVE (Negative)
--- NOTE | 2024-11-04 15:27 | PM.HP ---
Providers/Chief Complaint Admitting Physician: Cecy West MD Primary Care Provider: Zoran Stern MD Chief Complaint: SOB History of Present Illness Lora Dsouza is a 64 year old female with a history of chronic lung disease/end-stage COPD, dependent on home oxygen (used 26/02) and BiPAP therapy (in use nocturnally for the past 10 months), who presented to the emergency room with chief complaint of confusion and shortness of breath. This had been coming on for a couple of days but was more prominent today with her not making sense, slurring her words, and the like. She was struggling to breathe. She has had increased cough for about a week but not been able to produce much sputum. Has chest congestion,feels like something needs to come up. Although she normally uses the BiPAP for 4?8 hours each night, over the last couple of nights she has been removing the mask?likely due to discomfort from the mask (which causes pressure and facial irritation) - after only a couple of hours. No report of any fevers. No nausea or vomiting. No headaches or noted motor changes. At baseline she can walk across a room before having to rest. In the ED, ABG showed 7.3 /60/40. Patient was put on BiPAP therapy. She received steroids and breathing treatments. Empirically received Levaquin. Chest x-ray showed interstitial opacities similar to prior studies. Respiratory panel negative. She continued to be confused and is being admitted to the hospitalist service. History is obtained from patient's who is in the room with her adding to the conversation. Review of Systems General: Reports: Other (ROS as per HPI or as otherwise noted here) Const: Denies: fever(s) Card: Reports: palpitations and dyspnea on exertion; Denies: chest pain, swelling of feet/ankles, syncope or orthopnea Resp: Reports: dyspnea; Denies: pain on inspiration or hemoptysis GI: Denies: change in bowel habits or hematochezia : Denies: difficulty voiding or hematuria Edwardo/Lymph: Denies: easy bruising or easy bleeding Medications/Allergies Home Medications ?Medication ?Instructions ?Recorded ?Confirmed ?Last Taken ?Type pantoprazole 40 mg tablet,delayed 40 mg PO DAILY #90 tabs 08/08/24 11/04/24 08/20/24 Rx release (Protonix) megestrol 400 mg/10 mL (10 mL) 200 mg (5 mL) PO DAILY PRN 08/27/24 11/04/24 Unknown Rx oral suspension APPETITE #1,000 mL buspirone 7.5 mg tablet 7.5 mg PO DAILY PRN anxiety #60 09/25/24 11/04/24 Unknown Rx tabs furosemide 20 mg tablet 20 mg PO QAM PRN swelling #90 tabs 09/25/24 11/04/24 Unknown Rx ropinirole 1 mg tablet 1 mg PO BID #120 tabs 09/25/24 11/04/24 Unknown Rx fluticasone 500 mcg-salmeterol 50 1 inh inhalation BID #60 ea 10/01/24 11/04/24 Unknown Rx mcg/dose blistr powdr for inhalation (Advair Diskus) albuterol sulfate 90 mcg/actuation 2 puff inhalation Q6H PRN 10/08/24 11/04/24 Unknown Rx aerosol inhaler shortness of breath or wheezing #8.5 grams fluticasone propionate 50 See Rx Instructions .Route 10/14/24 11/04/24 Unknown Rx mcg/actuation nasal .COMPLEX #32 grams spray,suspension albuterol sulfate 2.5 mg/3 mL 2.5 mg inhalation QID 11/04/24 11/04/24 Unknown History (0.083 %) solution for nebulization sertraline 50 mg tablet 50 mg PO DAILY 11/04/24 11/04/24 Unknown History tiotropium bromide 2.5 2 puff inhalation DAILY 11/04/24 11/04/24 Unknown History mcg/actuation mist for inhalation (Spiriva Respimat) trazodone 50 mg tablet 50 mg PO DAILY 11/04/24 11/04/24 Unknown History Allergies Allergy/AdvReac Type Severity Reaction Status Date / Time No Known Allergies Allergy Verified 10/16/24 13:09 PFSH Acute PFSH: Medical History (Updated 11/04/24 @ 18:34 by Cecy West MD) History of PFTs 02/2023: Spirometry showed very severe airflow obstruction with FEV1/FVC 21; FEV1 510 cc 21% predicted and FVC 1.33 L 43% predicted. 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 Chronic respiratory failure with hypoxia and hypercapnia Restless leg Septic shock (~06/2024) Protein-calorie malnutrition, severe GERD (gastroesophageal reflux disease) Anxiety Hypertension Insomnia COPD (chronic obstructive pulmonary disease) Surgical History History of History of tonsillectomy Family History Father Stroke Other Dementia Denies family history of Diabetes CAD (coronary artery disease) Clotting disorder Hyperlipidemia Psychiatric illness Chronic kidney disease (CKD) Anesthesia complication Bleeding disorder Lung disease Cancer Hypertension Social History Smoking and tobacco/nicotine status: former use of tobacco/nicotine Quit status (tobacco/nicotine): has quit using Year quit tobacco: 2019 Former quit date comment: 1 ppd X 40 years Second hand smoke exposure: Yes Alcohol intake: current Alcohol intake frequency: holidays/special occasions only Alcohol type: beer Substance/Drug Use: never Marital status: Number of children: 5 Number of grandchildren: 9 service: No Current occupational status: disabled Current occupational exposures/hazards: No Pets and animals: Yes Current gender identity: Female Vitals/I&O/Wt Last Vital Signs Temp 98.3 F 11/04/24 15:25 Pulse 106 H 11/04/24 15:25 Resp 18 11/04/24 15:25 BP 144/83 11/04/24 15:25 Pulse Ox 90 11/04/24 15:25 O2 Del Method Nasal Cannula 11/04/24 15:25 O2 Flow Rate 4 11/04/24 10:45 FiO2 35 11/04/24 11:00 11/04/24 11/04/24 11/04/24 06:59 14:59 22:59 Intake Total 150 / 150 Balance 150 / 150 Weight last 48 hrs Weight 47.627 kg Physical Exam Narrative: Patient is arousable. Able to provide some hsitory though pauses in talking at times to catch breath. BiPAP has been removed to allow for discussion. Oxygen in place at 4L bnc. Thin build. Extraocular movements are intact. Coarse breath sounds throughout with inspiratory and expiratory wheezes noted. Tachycardic but regular rhythm. Abdomen is soft. No pitting edema in the lower extremities. Peripheral pulses are equal x 4. Oriented to person, place and situation. Data 11/04/24 09:46 11/04/24 09:46 Other Labs: Radiology Impressions Chest X-Ray 11/04/24 10:04 IMPRESSION: 1. Diffuse mildly coarse interstitial opacities unchanged from prior exam. 2. No acute cardiopulmonary process. Laboratory Results WBC 14.20 10^3/uL (3.29-11.43) H 11/04/24 09:46 RBC 5.53 10^6/uL (3.85-5.65) 11/04/24 09:46 Hgb 10.90 g/dL (11.27-16.99) L 11/04/24 09:46 Hct 40.9 % (36-47) 11/04/24 09:46 MCV 74.0 fl (85-98) L 11/04/24 09:46 MCH 19.7 pg (27-33) L 11/04/24 09:46 MCHC 26.7 g/dL (30-55) L 11/04/24 09:46 RDW 18.9 % (12.1-15.1) H 11/04/24 09:46 Plt Count 585 10^3/cmm (157-399) H 11/04/24 09:46 MPV TNP 11/04/24 09:46 Neut % (Auto) 78.2 % 11/04/24 09:46 Lymph % (Auto) 10.9 % 11/04/24 09:46 Yancey % (Auto) 7.2 % 11/04/24 09:46 Eos % (Auto) 2.3 % 11/04/24 09:46 Baso % (Auto) 0.5 % 11/04/24 09:46 Neut # (Auto) 11.10 10^3/uL (1.8-7.7) H 11/04/24 09:46 Lymph # (Auto) 1.6 10^3/uL (0.8-4.8) 11/04/24 09:46 Yancey # (Auto) 1.0 10^3/uL (0.2-0.9) H 11/04/24 09:46 Eos # (Auto) 0.3 10^3/uL (0.0-0.8) 11/04/24 09:46 Baso # (Auto) 0.1 10^3/uL (0.0-0.1) 11/04/24 09:46 Nucleated RBC % (auto) 0 % 11/04/24 09:46 Nucleated RBCs # 0.0 /100WBC 11/04/24 09:46 Specimen Type Arterial 11/04/24 10:48 Sample Site Brachial, right 11/04/24 10:48 ABG pH 7.32 (7.35-7.45) L 11/04/24 10:48 ABG pCO2 78.4 mmHg (35-45) H* 11/04/24 10:48 ABG pO2 64.6 mmHg (80.0-100.0) L 11/04/24 10:48 ABG PO2/FiO2 Ratio 179 11/04/24 10:48 ABG HCO3 40.4 mmol/L (22-26) H 11/04/24 10:48 ABG O2 Saturation 92.0 11/04/24 10:48 ABG Base Excess 11.7 mmol/L (-2.0-2.0) H 11/04/24 10:48 Erik Test Pos 11/04/24 10:48 A-a O2 Gradient 12.8 mmHg (5-10) H 11/04/24 10:48 Hematocrit 33.0 % (37-47) L 11/04/24 10:48 Hgb O2 Saturation 89.4 % (95-100) L 11/04/24 10:48 Carboxyhemoglobin 1.8 %THgb (0.4-20.1) 11/04/24 10:48 Methemoglobin 1.0 % (0.4-1.5) 11/04/24 10:48 Total Hemoglobin 10.8 g/dL (12-16) L 11/04/24 10:48 Sodium 140.0 mmol/L (131-143) 11/04/24 10:48 Potassium 3.9 mmol/L (3.5-5.0) 11/04/24 10:48 Glucose 129.0 mg/dL (70-115) H 11/04/24 10:48 Ionized Calcium 1.3 mmol/L (1.1-1.4) 11/04/24 10:48 O2 Delivery Device Nc 11/04/24 10:48 O2 Liters/Min 4.0 % 11/04/24 10:48 FiO2 36.0 % 11/04/24 10:48 Teaching Dietitian ID Monro 11/04/24 10:48 Sodium 141 mmol/L (136-145) 11/04/24 09:46 Potassium 4.6 mmol/L (3.5-5.1) 11/04/24 09:46 Chloride 97 mmol/L (98-107) L 11/04/24 09:46 Carbon Dioxide 39 mmol/L (22-29) H 11/04/24 09:46 Anion Gap 9.6 (5-19) 11/04/24 09:46 BUN 9 mg/dL (8-23) 11/04/24 09:46 Creatinine 0.4 mg/dL (0.5-0.9) L 11/04/24 09:46 GFR Calculation 161.2 mL/min (90-130) H 11/04/24 09:46 Glucose 136 mg/dL (65-115) H 11/04/24 09:46 Calculated Osmolality 293 mOsm/kg (285-295) 11/04/24 09:46 Calcium 8.9 mg/dL (8.5-10.5) 11/04/24 09:46 Total Bilirubin 0.3 mg/dL (0.15-1.2) 11/04/24 09:46 AST 24 U/L (0-32) 11/04/24 09:46 ALT 8 U/L (0-33) 11/04/24 09:46 Alkaline Phosphatase 79 U/L (35-105) 11/04/24 09:46 Total Protein 7.1 g/dL (6.6-8.7) 11/04/24 09:46 Albumin 4.0 g/dL (3.5-5.2) 11/04/24 09:46 Globulin 3.1 g/dL (1.3-4.6) 11/04/24 09:46 Urine Color Yellow (Yellow) 11/04/24 11:13 Urine Appearance Clear (CLEAR) 11/04/24 11:13 Urine pH 5 (5-7) 11/04/24 11:13 Ur Specific [place] 1.015 (1.005-1.030) 11/04/24 11:13 Urine Protein Trace (Negative) 11/04/24 11:13 Urine Glucose (UA) Norm (Normal) 11/04/24 11:13 Urine Ketones Negative (Negative) 11/04/24 11:13 Urine Blood Neg (Negative) 11/04/24 11:13 Urine Nitrate Negative (Negative) 11/04/24 11:13 Urine Bilirubin Neg (Negative) 11/04/24 11:13 Urine Urobilinogen Norm mg/dL (Negative) 11/04/24 11:13 Ur Leukocyte Esterase 1+ (Negative) H 11/04/24 11:13 Urine RBC 0-2 /hpf (0-2) 11/04/24 11:13 Urine WBC 0-5 /hpf (0-5) 11/04/24 11:13 Ur Squamous Epith Cells 6-10 /hpf (0-5) 11/04/24 11:13 Amorphous Sediment Not Reportable 11/04/24 11:13 Urine Bacteria None seen /hpf (NONE) 11/04/24 11:13 Hyaline Casts 3.30 /lpf 11/04/24 11:13 Influenza A (PCR) Negative (Negative) 11/04/24 12:33 Influenza Type B (PCR) Negative (Negative) 11/04/24 12:33 RSV (PCR) Negative (Negative) 11/04/24 12:33 SARS-CoV-2 (PCR) Negative (Negative) 11/04/24 12:33 A&P Assessment and plan (1) Acute on chronic respiratory failure with hypoxia and hypercapnia: Episode appears multifactorial from acute on chronic COPD exacerbation plus decreased utilization of BiPAP over the last few days due to difficulty keeping mask on her face. Per her and family in the room she has done progressively better with BiPAP over time. She has been on it approximately 10 months. Usually able to keep on at least 4 hours a night for the last few nights only a couple of hours at most. Presented today with confusion and lethargy consistent with hypercapnia. Confusion led to her taking her oxygen off exacerbating hypoxemia. ABG with acute respiratory acidosis abd seconary metabolic acidosis. No evidence of infection. Has an Aa gradient but lower than values in 07/2024 and CTA chest in August negative for PE. 12 lead ekg with sinus tachycardia but not st segment changes. -Inpatient admission -Continue BiPAP therapy -Repeat ABG to ensure improvement -Baseline pCO2 probably around 60ish when optimized -Breathing treatments, steroids - systemic and inhaled, empiric Levaquin -Flutter -Reinforced the importance of maintaining the home oxygen and BiPAP regimen, including the why behind the recommendations. Patient shared in her own words, A pound or prevention is worth an ounce of cure . We translated this to essentially a night of bipap is worth a day at home in our conversation. Same could also apply with oxygen. -Reviewed current home respiratory medications and they include albuterol, Spiriva, fluticasone/salmeterol and nasal fluticasone (2) COPD (chronic obstructive pulmonary disease): Increasing cough last few days with increased chest congestion but not getting much sputum up. Respiratory viral screening negative this time. No evidence of pneumonia though does have coarse interstitial opacities unchanged from previous imaging in August. No fever. -Care as above Qualifiers: COPD type: COPD with acute exacerbation Qualified Code(s): J44.1 - Chronic obstructive pulmonary disease with (acute) exacerbation (3) Hypertension: No longer on scheduled treatment for hypertension due to episodes of hypotension. Does take furosemide as needed. Blood pressures currently stable -Will give 1 dose of Lasix monitoring response Qualifiers: Hypertension type: primary hypertension Qualified Code(s): I10 - Essential (primary) hypertension (4) Steroid-induced hyperglycemia: Elevated blood sugars without a known history of diabetes. Hemoglobin A1c in June of last year was 5.1. -No current indication for adjunctive therapy we did recommend regular follow-up with primary care provider and repeat evaluation if requires more regular utilization of steroids (5) Anxiety: Chronically on BuSpar and sertraline -Continue home medications (6) Protein-calorie malnutrition, severe: With BMI at 18. Weight has increased several pounds over the last few months with nutritional supplements and appetite stimulation -Continue megestrol -Ensure with meals (7) GERD (gastroesophageal reflux disease): Chronically on PPI -Continue Protonix (8) Restless leg: Chronically on ropinirole -Continue home Requip (9) Insomnia: Chronically on trazodone at bedtime to help with sleep. Better than alternative sleep agents in the setting of chronic hypercapnia. -Continue trazodone but changed to as needed until demonstrating consistent clinical improvement (10) On home oxygen therapy: (11) Uses bilevel positive airway pressure (BPAP) ventilation at home: Plan Contaminated urine specimen, no urinary symptoms VTE prophylaxis: Lovenox GI Prophylaxis: PPI Antibiotics: levaquin started 11/04/24 Pending studies: am blood gas Telemetry: ordered due to sinus tachycadia in patient on bipap Maria: not currently indicated Line(s): peripheral IVs Disposition plan: Home with outpatient follow up to PCP anticipated. Code Status: Allow natural Supportive care otherwise Findings, concerns and plans were discussed with patient and they were given an opportunity to ask questions PDMP PDMP Reviewed: Not Reviewed Attestations Medical Necessity Statement*: Anticipated stay greater than two midnights in this patient with a history of end-stage COPD, chronically on BiPAP and oxygen therapy presenting with confusion and acute respiratory acidosis related to acute on chronic hypercapnic and hypoxic respiratory failure. Has evidence of acute COPD exacerbation as well. While does not have evidence of pneumonia or viral pulmonary infection this hospital stay at high risk of repeat admission and recurrent respiratory compromise shortly after discharge without adequate management. Diagnoses Acute on chronic respiratory failure with hypoxia and hypercapnia J96.21; J96.22 Chronic obstructive pulmonary disease with acute exacerbation J44.1 COPD type: COPD with acute exacerbation Primary hypertension I10 Hypertension type: primary hypertension Steroid-induced hyperglycemia R73.9; T38.0X5A Anxiety F41.9 Protein-calorie malnutrition, severe E43 GERD (gastroesophageal reflux disease) K21.9 Restless leg G25.81 Insomnia G47.00 On home oxygen therapy Z99.81 Uses bilevel positive airway pressure (BPAP) ventilation at home Z99.89
[2024-11-04] MEDS: BuSPIRONE 10 mg Tablet PO (16:50)
[2024-11-04] MEDS: ropinirole 1 mg Tablet PO (16:50)
[2024-11-04] MEDS: docusate sodium 100 mg Capsule PO (16:50)
[2024-11-04] MEDS: budesonide 0.5 mg/2 mL Neb INHALATION (19:54)
[2024-11-04] MEDS: trazodone 50 mg Tablet PO (21:44)
[2024-11-05] VITALS (8 sets, daily range): BP systolic 112–127; BP diastolic 67–78; PULSE 94–110; RESP 18–23; TEMP 36.3–36.8; O2SAT 92–97
[2024-11-05 05:19] LABS: ABG PH Result 7.38 (7.35-7.45); Arterial Blood Gas Hematocrit 31.9 % (37-47); Base Excess ABG 14.8 mmol/L (-2.0-2.0); Blood Gas Sample Site Brachial, right; Blood Gas Sample Type Arterial; HCO3 ABG 42.7 mmol/L (22-26); Oxygen Device BIPAP; PO2 ABG 68.1 mmHg (80.0-100.0); PO2 FiO2 Ratio Arterial Blood 179
[2024-11-05 05:20] LABS: ABG PCO2 72.6 mmHg (35-45)
[2024-11-05] MEDS: FUROsemide 10 mg/mL SDV 2mL 20 MG IVP (05:26)
[2024-11-05] MEDS: levoFLOXacin 750 mg Tablet PO (05:26)
--- NOTE | 2024-11-05 05:32 | PC.NURSE ---
Patient kept removing bipap this shift. Nurse educated patient on importance of wearing bipap at night. Patient complained that mask was uncomfortable and would leak everytime she laid down.
[2024-11-05] MEDS: budesonide 0.5 mg/2 mL Neb INHALATION (08:42)
[2024-11-05] MEDS: ipratropium-albuterol 3 mL Neb INHALATION (08:42)
[2024-11-05] MEDS: predniSONE 20 mg Tablet 40 MG PO (08:48)
[2024-11-05] MEDS: docusate sodium 100 mg Capsule PO (08:48)
[2024-11-05] MEDS: BuSPIRONE 10 mg Tablet PO (08:48)
[2024-11-05] MEDS: pantoprazole DR 40 mg Tablet PO (08:48)
[2024-11-05] MEDS: sertraline 50 mg Tablet PO (08:48)
[2024-11-05] MEDS: ropinirole 1 mg Tablet PO (08:48)
[2024-11-05] MEDS: fluticasone nasal spray 16gm Btl 2 SPRAY INTRANASAL (08:49)
[2024-11-05] MEDS: megestrol 400 mg/10 mL UDC 200 MG PO (09:09)
--- NOTE | 2024-11-05 10:32 | PM.DCS ---
Discharge Providers Date of Admission: 11/04/24 12:38 Date of Discharge: November 05, 2024 Attending Provider at Admission: Cecy West MD Attending Provider at Discharge: Forest Don MD Primary Care Provider: Zoran Stern MD Diagnoses at Discharge Discharge Diagnosis (1) Acute on chronic respiratory failure with hypoxia and hypercapnia: Status: Acute (2) COPD (chronic obstructive pulmonary disease): Status: Chronic Qualifiers: COPD type: COPD with acute exacerbation Qualified Code(s): J44.1 - Chronic obstructive pulmonary disease with (acute) exacerbation (3) Hypertension: Status: Chronic Qualifiers: Hypertension type: primary hypertension Qualified Code(s): I10 - Essential (primary) hypertension (4) Steroid-induced hyperglycemia: Status: Acute (5) Anxiety: Status: Chronic (6) Protein-calorie malnutrition, severe: Status: Chronic (7) GERD (gastroesophageal reflux disease): Status: Chronic (8) Restless leg: Status: Chronic (9) Insomnia: Status: Chronic (10) On home oxygen therapy: Status: Chronic Permanent problem details: 3-4L [facility] (11) Uses bilevel positive airway pressure (BPAP) ventilation at home: Status: Chronic Permanent problem details: started 01/2024 Reason for Visit Reason for Visit: SOB Hospital Course Hospital Course This is a 64-year-old female with a past medical history of chronic lung disease, end-stage COPD, chronically on BiPAP who presents [facility] for shortness of breath Patient presented to [facility] for shortness of breath, COPD exacerbation, concerns for pneumonia, received broad-spectrum antibiotic therapy, steroid therapy, and clinical monitoring. On 11/05/2024 patient was seen, she is ambulating to the bathroom without any significant symptomatology, she continues to have shortness of breath, although improved, continues to have wheezing, I have strongly recommended for her to stay as inpatient for further IV antibiotics and steroid therapy. However patient is adamant about going home, discussed with her the morbidity mortality associated with COPD exacerbation, pneumonia, respiratory failure, she voiced understanding, all questions answered, shared decision making. She is declined further inpatient admission, she will be discharged on a prednisone burst, Levaquin for antibiotic coverage with close follow-up with primary care provider as outpatient. Patient was advised if she were to have any recurrent shortness of breath, fevers, worsening symptomatology go to the emergency room There was concerns for confusion on admission, she is currently alert oriented x 3, following all commands, no focal weakness, no slurring of her words, she is ambulating to the bathroom, confusion likely from hypercarbia. Recommended for her to stay as inpatient for further workup and monitoring, however patient has declined, understands morbidity and mortality, she voiced understanding, all questions answered, shared decision making, declines further inpatient admission. Discussed with her if she has any further confusion or strokelike symptoms to immediately call 911 Physical Exam Const: COMMON NORMALS: no acute distress and patient oriented x3 Resp: COMMON NORMALS: normal respiratory effort, No retractions, No use of accessory muscles and clear to auscultation bilaterally AUSCULTATION: clear to auscultation bilaterally Cardio: COMMON NORMALS: regular rate, regular rhythm, S1 normal heart sound present and S2 normal heart sound present RATE: regular rate RHYTHM: regular rhythm HEART SOUNDS: S1 normal heart sound present and S2 normal heart sound present GI: COMMON NORMALS: Normal to inspection, nondistended, normoactive bowel sounds present and non-tender Extremity: COMMON NORMALS: no pedal edema Neuro: COMMON NORMALS: patient oriented x3 Psych: COMMON NORMALS: mental status grossly normal Discharge Data Studies Completed and Pending Completed Studies During Hospitalization Category Date Time Status XR chest 1V portable [id number] Stat Exams 11/04/24 10:04 Completed Pending at discharge Category Date Time Status BNP [NT Pro B Type Natriuretic Pept] Routine Lab 11/05/24 10:13 Received Radiology Impressions Chest X-Ray 11/04/24 10:04 IMPRESSION: 1. Diffuse mildly coarse interstitial opacities unchanged from prior exam. 2. No acute cardiopulmonary process. Laboratory Results WBC 14.20 10^3/uL (3.29-11.43) H 11/04/24 09:46 RBC 5.53 10^6/uL (3.85-5.65) 11/04/24 09:46 Hgb 10.90 g/dL (11.27-16.99) L 11/04/24 09:46 Hct 40.9 % (36-47) 11/04/24 09:46 MCV 74.0 fl (85-98) L 11/04/24 09:46 MCH 19.7 pg (27-33) L 11/04/24 09:46 MCHC 26.7 g/dL (30-55) L 11/04/24 09:46 RDW 18.9 % (12.1-15.1) H 11/04/24 09:46 Plt Count 585 10^3/cmm (157-399) H 11/04/24 09:46 MPV TNP 11/04/24 09:46 Neut % (Auto) 78.2 % 11/04/24 09:46 Lymph % (Auto) 10.9 % 11/04/24 09:46 [place] % (Auto) 7.2 % 11/04/24 09:46 Eos % (Auto) 2.3 % 11/04/24 09:46 Baso % (Auto) 0.5 % 11/04/24 09:46 Neut # (Auto) 11.10 10^3/uL (1.8-7.7) H 11/04/24 09:46 Lymph # (Auto) 1.6 10^3/uL (0.8-4.8) 11/04/24 09:46 [place] # (Auto) 1.0 10^3/uL (0.2-0.9) H 11/04/24 09:46 Eos # (Auto) 0.3 10^3/uL (0.0-0.8) 11/04/24 09:46 Baso # (Auto) 0.1 10^3/uL (0.0-0.1) 11/04/24 09:46 Nucleated RBC % (auto) 0 % 11/04/24 09:46 Nucleated RBCs # 0.0 /100WBC 11/04/24 09:46 Specimen Type Arterial 11/05/24 05:07 Sample Site Brachial, right 11/05/24 05:07 ABG pH 7.38 (7.35-7.45) 11/05/24 05:07 ABG pCO2 72.6 mmHg (35-45) H* 11/05/24 05:07 ABG pO2 68.1 mmHg (80.0-100.0) L 11/05/24 05:07 ABG PO2/FiO2 Ratio 179 11/05/24 05:07 ABG HCO3 42.7 mmol/L (22-26) H 11/05/24 05:07 ABG O2 Saturation 92.0 11/04/24 10:48 ABG Base Excess 14.8 mmol/L (-2.0-2.0) H 11/05/24 05:07 Erik Test N/a 11/05/24 05:07 A-a O2 Gradient 12.8 mmHg (5-10) H 11/04/24 10:48 Hematocrit 31.9 % (37-47) L 11/05/24 05:07 Hgb O2 Saturation 89.4 % (95-100) L 11/04/24 10:48 Carboxyhemoglobin 1.8 %THgb (0.4-20.1) 11/04/24 10:48 Methemoglobin 1.0 % (0.4-1.5) 11/04/24 10:48 Total Hemoglobin 10.8 g/dL (12-16) L 11/04/24 10:48 Sodium 140.0 mmol/L (131-143) 11/04/24 10:48 Potassium 3.9 mmol/L (3.5-5.0) 11/04/24 10:48 Glucose 129.0 mg/dL (70-115) H 11/04/24 10:48 Ionized Calcium 1.3 mmol/L (1.1-1.4) 11/04/24 10:48 O2 Delivery Device Bipap 11/05/24 05:07 O2 Liters/Min 4.0 % 11/04/24 10:48 FiO2 38.0 % 11/05/24 05:07 Barn Hand ID [email or web address] 11/05/24 05:07 Sodium 141 mmol/L (136-145) 11/04/24 09:46 Potassium 4.6 mmol/L (3.5-5.1) 11/04/24 09:46 Chloride 97 mmol/L (98-107) L 11/04/24 09:46 Carbon Dioxide 39 mmol/L (22-29) H 11/04/24 09:46 Anion Gap 9.6 (5-19) 11/04/24 09:46 BUN 9 mg/dL (8-23) 11/04/24 09:46 Creatinine 0.4 mg/dL (0.5-0.9) L 11/04/24 09:46 GFR Calculation 161.2 mL/min (90-130) H 11/04/24 09:46 Glucose 136 mg/dL (65-115) H 11/04/24 09:46 Calculated Osmolality 293 mOsm/kg (285-295) 11/04/24 09:46 Calcium 8.9 mg/dL (8.5-10.5) 11/04/24 09:46 Total Bilirubin 0.3 mg/dL (0.15-1.2) 11/04/24 09:46 AST 24 U/L (0-32) 11/04/24 09:46 ALT 8 U/L (0-33) 11/04/24 09:46 Alkaline Phosphatase 79 U/L (35-105) 11/04/24 09:46 Total Protein 7.1 g/dL (6.6-8.7) 11/04/24 09:46 Albumin 4.0 g/dL (3.5-5.2) 11/04/24 09:46 Globulin 3.1 g/dL (1.3-4.6) 11/04/24 09:46 Urine Color Yellow (Yellow) 11/04/24 11:13 Urine Appearance Clear (CLEAR) 11/04/24 11:13 Urine pH 5 (5-7) 11/04/24 11:13 Ur Specific [place] 1.015 (1.005-1.030) 11/04/24 11:13 Urine Protein Trace (Negative) 11/04/24 11:13 Urine Glucose (UA) Norm (Normal) 11/04/24 11:13 Urine Ketones Negative (Negative) 11/04/24 11:13 Urine Blood Neg (Negative) 11/04/24 11:13 Urine Nitrate Negative (Negative) 11/04/24 11:13 Urine Bilirubin Neg (Negative) 11/04/24 11:13 Urine Urobilinogen Norm mg/dL (Negative) 11/04/24 11:13 Ur Leukocyte Esterase 1+ (Negative) H 11/04/24 11:13 Urine RBC 0-2 /hpf (0-2) 11/04/24 11:13 Urine WBC 0-5 /hpf (0-5) 11/04/24 11:13 Ur Squamous Epith Cells 6-10 /hpf (0-5) 11/04/24 11:13 Amorphous Sediment Not Reportable 11/04/24 11:13 Urine Bacteria None seen /hpf (NONE) 11/04/24 11:13 Hyaline Casts 3.30 /lpf 11/04/24 11:13 Influenza A (PCR) Negative (Negative) 11/04/24 12:33 Influenza Type B (PCR) Negative (Negative) 11/04/24 12:33 RSV (PCR) Negative (Negative) 11/04/24 12:33 SARS-CoV-2 (PCR) Negative (Negative) 11/04/24 12:33 Vitals Last Vital Signs Temp 97.5 F L 11/05/24 07:28 Pulse 110 H 11/05/24 08:42 Resp 20 H 11/05/24 08:42 BP 112/67 11/05/24 07:28 Pulse Ox 95 11/05/24 08:42 O2 Del Method Nasal Cannula 11/05/24 08:42 O2 Flow Rate 4 11/05/24 08:42 FiO2 38 11/05/24 03:30 Discharge Plan Discharge Patient Disposition: Home Condition: Stable Prescriptions: New prednisone 20 mg Tablet 40 mg PO DAILY 5 Days Qty: 10 0RF levofloxacin 750 mg Tablet 750 mg PO DAILY@0600 5 Days Qty: 5 0RF Continued pantoprazole [Protonix] 40 mg tablet,delayed release (DR/EC) 40 mg PO DAILY Qty: 90 1RF megestrol 400 mg/10 mL (10 mL) suspension 200 mg PO DAILY PRN (Reason: APPETITE) Qty: 1000 0RF ropinirole 1 mg tablet 1 mg PO BID Qty: 120 1RF furosemide 20 mg tablet 20 mg PO QAM PRN (Reason: swelling) Qty: 90 0RF buspirone 7.5 mg tablet 7.5 mg PO DAILY PRN (Reason: anxiety) Qty: 60 0RF fluticasone propion-salmeterol [Advair Diskus] 500-50 mcg/dose blister with device 1 inh inhalation BID Qty: 60 1RF albuterol sulfate 90 mcg/actuation HFA aerosol inhaler 2 puff inhalation Q6H PRN (Reason: shortness of breath or wheezing) Qty: 8.5 2RF Rx Instructions: dispense as written fluticasone propionate 50 mcg/actuation spray,suspension See Rx Instructions .ROUTE .COMPLEX Qty: 32 5RF Dose Instruction: USE 2 SPRAYS NASALLY DAILY Rx Instructions: USE 2 SPRAYS NASALLY DAILY trazodone 50 mg tablet 50 mg PO DAILY Rx Instructions: TAKE 1 TABLET DAILY sertraline 50 mg tablet 50 mg PO DAILY Rx Instructions: TAKE 1 TABLET DAILY Spiriva Respimat 2.5 mcg/actuation mist 2 puff inhalation DAILY Rx Instructions: USE 2 INHALATIONS DAILY albuterol sulfate 2.5 mg /3 mL (0.083 %) solution for nebulization 2.5 mg inhalation QID Discharge Orders: Discharge Order (Routine); Ordered 11/05/24 Ordered By: Forest Don Referrals: Zoran Stern MD [Primary Care Provider] - 1-3 days Discharge Diet: Cardiac Discharge Activity: Resume usual activity Patient Instructions: Prednisone (By mouth), Levofloxacin (By mouth) (Levaquin, Levaquin Leva-rubi), COPD Stoplight, Opioid Safety Discharge Attestations Time Spent in Discharge Care*: greater than 30 min Status at Discharge: Cognitive status at discharge: cognitively intact, Behavioral status at discharge: cooperative, Quality Metrics Clinical Quality Measures [ No reported AMI, CVA or VTE this stay] Coding Level of Care Code 92443 Total time (in minutes) for Discharge: 45 Diagnoses Acute on chronic respiratory failure with hypoxia and hypercapnia J96.21; J96.22 Chronic obstructive pulmonary disease with acute exacerbation J44.1 COPD type: COPD with acute exacerbation Primary hypertension I10 Hypertension type: primary hypertension Steroid-induced hyperglycemia R73.9; T38.0X5A Anxiety F41.9 Protein-calorie malnutrition, severe E43 GERD (gastroesophageal reflux disease) K21.9 Restless leg G25.81 Insomnia G47.00 On home oxygen therapy Z99.81 Uses bilevel positive airway pressure (BPAP) ventilation at home Z99.89
[2024-11-05 11:10] LABS: NT Pro B Type Natriuretic Pept 1354 pg/mL (0-125)
== END 2024-11-05 12:27 | disposition home or self-care (01) ==
LOC: ER 12:10 → MEDSURG 12:53 → ER IP 11-06 10:29
PROVIDERS: Admitting Provider Hospitalist; Emergency Provider Family Medicine; PCP Family Medicine; Visit Provider Family Medicine
DX: J96.21 Acute and chronic respiratory failure with hypoxia (principal); J96.22 Acute and chronic respiratory failure with hypercapnia; J44.1 Chronic obstructive pulmonary disease with (acute) exacerbation; I10 Essential (primary) hypertension; R41.0 Disorientation, unspecified; R73.9 Hyperglycemia, unspecified; T38.0X5A Adverse effect of glucocorticoids and synthetic analogues, initial encounter; F41.9 Anxiety disorder, unspecified; E43 Unspecified severe protein-calorie malnutrition; Z68.1 Body mass index [BMI] 19.9 or less, adult; K21.9 Gastro-esophageal reflux disease without esophagitis; G25.81 Restless legs syndrome; G47.00 Insomnia, unspecified; Z99.81 Dependence on supplemental oxygen; Z99.89 Dependence on other enabling machines and devices; Z87.891 Personal history of nicotine dependence
CPT/HCPCS: 36415; 36600; 71045; 80051; 80053; 81001; 82330; 82803; 82805; 83880; 85025; 87637; 93005; 94640; 94660; 94664; 96365; 96375; 99291; G0378; J1940; J1956; J2919; J7512; J7626; J9999

== ENCOUNTER 2024-11-27 10:58 | Outpatient (CLI) | payer BC, SELFPAY ==
[2024-11-27 11:43] LABS: Basophils # 0.1 10^3/uL (0.0-0.1); Basophils % 0.6 %; Eosinophils # 0.4 10^3/uL (0.0-0.8); Hematocrit 43.8 % (36-47); Lymphocytes # 1.7 10^3/uL (0.8-4.8); Lymphocytes % 18.8 %; Mean Corpuscular HGB Conc 26.5 g/dL (30-55); Mean Corpuscular Hemoglobin 19.2 pg (27-33); Mean Corpuscular Volume 72.6 fl (85-98); Monocytes # 0.6 10^3/uL (0.2-0.9); Monocytes % 6.5 %; Neutrophils # 6.14 10^3/uL (1.8-7.7); Neutrophils % 69.6 %; Nucleated Red Blood Cells % 0 %; Platelet Count 494 10^3/cmm (157-399); Red Blood Count 6.03 10^6/uL (3.85-5.65)
== END 2024-11-27 10:59 | disposition home or self-care (01) ==
PROVIDERS: PCP Family Medicine
DX: J44.9 Chronic obstructive pulmonary disease, unspecified (principal); R06.09 Other forms of dyspnea
CPT/HCPCS: 36415; 85025

== ENCOUNTER 2025-04-17 11:14 | Observation (INO) | payer BC, SELFPAY ==
--- OUTSIDE RECORDS SUMMARY | 2013-12-08 06:15 | XMS_ITS | Continuity of Care Document ---
Author Organization [facility] Address [address] [place] [address] Phone Care Team Providers Care Mid Level Clinician Name Role Phone Jose CONTRERAS, Freda Unavailable Unavaila ble Procedures Procedure Date OFFICE/OUTPATIENT VISIT, [facility] AIRWAY INHALATION TREATMENT Advance Directives Directive Yes / No Effective Date File Name No Information Encounters Encounter Description Practice Location Reason(s) For Visit Diagnoses Date Provider Providers Copied on Encounter OFFICE/OUTPAT IENT VISIT, [facility], [address] [place], [place], [id number], tel:[phone] No Information Jose flaherty [address], [id number] , [place]. tel:[phone] Family History Family Member Type Diagnosis Age At Onset No Information Payers Payer name Insurance type Covered republican ID Authoriza tion(s) No Information Social History [...]
[2025-04-17] VITALS (23 sets, daily range): BP systolic 97–131; BP diastolic 55–88; PULSE 90–116; RESP 17–42; TEMP 35.9–36.7; O2SAT 80–99
--- NOTE | 2025-04-17 11:16 | XRR_ITS ---
PROCEDURE INFORMATION: Exam: XR Chest Exam date and time: 04/17/2025 11:41 AM Age: 64 years old Clinical indication: Dyspnea; Additional info: Dyspnea/cough TECHNIQUE: Imaging protocol: Radiologic exam of the chest. Views: 1 view. COMPARISON: CR XR chest 1V portable [id number] 11/04/2024 10:12 AM FINDINGS: Lungs: Unremarkable. No consolidation. Pleural spaces: Unremarkable. No pleural effusion. No pneumothorax. Heart/Mediastinum: Unremarkable. No cardiomegaly. Bones/joints: Unremarkable. XR/XR chest 1V portable [id number] IMPRESSION: No acute findings.
--- NOTE | 2025-04-17 11:16 | ECG_ITS ---
[employer] Test Date: 2025-04-17 Pat Name: Lora Dsouza Department: Room: Gender: Female Graduate Student: : 1960 Requested By: Roberto Duarte Order Number: [id number] Reading MD: ANY MARTINEZ Measurements Intervals [place] Rate: 116 P: 40 MN: 112 QRS: 85 QRSD: 84 T: -5 QT: 302 QTc: 421 Interpretive Statements SINUS TACHYCARDIA WITH SHORT MN INTERVAL WITH OCCASIONAL ECTOPIC PREMATURE COMPLEXES POSSIBLE LEFT ATRIAL ENLARGEMENT [-0.1mV P-WAVE IN V1/V2] ABNORMAL QRS-T ANGLE [QRS-T AXIS DIFFERENCE > 60] Compared to ECG 11/04/2024 11:01:27 Short MN interval now present Electronically Signed On 04-17-2025 20:09:54 CDT by ANY MARTINEZ [email or web address]
--- NOTE | 2025-04-17 11:25 | ED_ITS ---
HPI - SOB/Dyspnea 2 General: Chief Complaint: Shortness of Breath/Dyspnea Stated Complaint: resp distress Time Seen by Provider: 04/17/25 11:15 History of Present Illness: HPI Narrative: 64-year-old female presents emergency ro om via EMS for complaints of shortness of breath she says it began overnight she denies fever sweats chills or productive cough no chest pain no abdominal pain patient has end-stage COPD. She has BiPAP at home. EMS states when they encountered her initially in the field sats were in the 60% she was very cyanotic and somnolent. She was started on BiPAP and oxygen supplementation as well as been giving albuterol and route. With these interventions she is more awake and alert and able to answer questions she denies abdominal or chest pain. States her symptoms all began last night she denies any productive cough or fever. Associated symptoms: Deny abdominal pain, chest pain or fever(s) Related Data Home Medications ?Medication ?Instructions ?Recorded ?Confirmed albuterol sulfate 2.5 mg/3 mL 2.5 mg inhalation QID 04/17/25 (0.083 %) solution for nebulization sertraline 50 mg tablet 50 mg PO DAILY 11/04/2404/06 tiotropium bromide 2.5 2 puff inhalation DAILY 08/3004/17/25 mcg/actuation mist for inhalation (Spiriva Respimat) trazodone 50 mg tablet 50 mg PO DAILY 11/04/2404/06 dupilumab 300 mg/2 mL subcutaneous 300 mg SUBCUT Q7D 0 02/18/25 04/17/25 syringe fluticasone propionate 50 2 spray intranasal DAILY 07/3004/17/25 mcg/actuation nasal spray,suspension Previous Rx's ?Medication ?Instructions ?Recorded furosemide 20 mg tablet 20 mg PO QAM PRN swelling #9 0 tabs 09/25/24 pantoprazole 40 mg tablet,delayed 40 mg PO DAILY #90 t abs 01/13/25 release (Protonix) Ventolin HFA 90 mcg/actuation 2 puff inhalation Q6H NH N 02/18/25 aerosol inhaler (albuterol sulfate) shortness of breat h or wheezing #8 grams ropinirole 1 mg tablet See Rx Instructions PO BID # 270 02/18/25 tabs albuterol sulfate 90 mcg/actuation 2 puff inhalation Q 6H PRN 03/25/25 aerosol inhaler shortness of breath or wheez ing #8.5 grams buspirone 7.5 mg tablet 7.5 mg PO DAILY PRN anxiety #60 03/25/25 tabs fluticasone 500 mcg-salmeterol 50 1 inh inhalation BID #60 ea 03/25/25 mcg/dose blistr powdr for inhalation (Advair Diskus) megestrol 400 mg/10 mL (10 mL) 200 mg (5 mL) PO DAILY PRN 03/25/25 oral suspension APPETITE #1,000 mL Allergies Allergy/AdvReac Type Severity Reaction Status Date / Time No Known Allergies Allergy Verified 02/18/25 14:34 Review of Systems 2 Const: Denies: fever(s) or chills Card: Denies: chest pain Resp: Denies: dyspnea GI: Denies: abdominal pain : Denies: dysuria, urinary frequency or urinary urgency Musc: Denies: neck pain or back pain Skin/Breast: Denies: rash PFSH ED 2 PFSH: Medical History History of PFTs 02/2023: Spirometry showed very severe airflow obstruction with FEV1/FVC 21; FEV1 510 cc 21% predicted and FVC 1.33 L 43% predicted. 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 Chronic respiratory failure with hypoxia and hypercapnia Restless leg Septic shock (~06/2024) Protein-calorie malnutrition, severe GERD (gastroesophageal reflux disease) Anxiety Hypertension Insomnia COPD (chronic obstructive pulmonary disease) Surgical History History of History of tonsillectomy Family History Father Stroke Other Dementia Denies family history of Diabetes CAD (coronary artery disease) Clotting disorder Hyperlipidemia Psychiatric illness Chronic kidney disease (CKD) Anesthesia complication Bleeding disorder Lung disease Cancer Hypertension Social History (Updated 04/17/25 @ 15:46 by Rakesh Ray MD) Smoking and tobacco/nicotine status: former use of tobacco/nicotine Quit status (tobacco/nicotine): has quit using Year quit tobacco: 2020 Former quit date comment: 2 packs/day for 30 years Second hand smoke exposure: Yes Alcohol intake: current Alcohol intake frequency: few times a week Alcohol type: beer Alcohol use comment: Few beers a week Substance/Drug Use: never Additional social history: Patient wants DO NOT RESUSCITATE status as discussed with patient and Lino on 04/17/2025 by Rakesh Ray MD Marital status: Number of children: 5 Number of grandchildren: 9 service: No Current occupational status: disabled Current occupational exposures/hazards: No Previous occupational history: 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 Pets and animals: Yes Current gender identity: Female Physical Exam 2 Const: GENERAL APPEARANCE: cooperative ORIENTATION/CONSCIOUSNESS: Yes awake HENMT: COMMON NORMALS: normocephalic, atraumatic and hearing grossly normal bilaterally HEAD & SCALP: normocephalic and atraumatic Resp: EFFORT & INSPECTION: Yes tachypneic, Yes respiratory distress, Yes labored and Yes uses accessory muscles AUSCULTATION: wheezes Cardio: COMMON NORMALS: regular rhythm and No murmurs present (Cardio) R ATE: tachycardic RHYTHM: regular rhythm GI: COMMON NORMALS: Soft to palpation and No hepatosplenomegaly present A USCULTATION: Yes normoactive bowel sounds PALPATION: Yes Soft to palpation, No Tenderness to palpation present (GI), No Guarding due to palpation present (GI) and Yes No hepatosplenomegaly present Extremity: COMMON NORMALS: normal to inspection, capillary refill normal, no clubbing, cyanosis or edema, no calf tenderness and no pedal edema Skin: COMMON NORMALS: no rashes or lesions noted GENERAL SKIN EXAM: no rashes or lesions noted Course 2 Vital Signs: Vital signs: Vital Signs Temperature 98.2 F 04/18/25 07:38 Pulse Rate 102 H 04/18/25 08:38 Respiratory Rate 18 04/18/25 08:38 Blood Pressure 112/57 04/18/25 07:38 Pulse Oximetry 95 04/18/25 08:38 Oxygen Delivery Me thod Nasal Cannula 04/18/25 08:38 Oxygen Flow Rate 4 04/18/25 08:38 Fraction of Inspir ed Oxygen 35 04/18/25 04:55 MDM - SOB/Dyspnea Medical Decision Making Acute exacerbation COPD. Patient significantly improved after BiPAP was applied here. Will admit for aggressive pulmonary toilet nebs steroids. Discussed with hospitalist at this time elected not to start any IV antibiotics as chest x-ray was clear. Medical Records I reviewed the patient's medical records. Lab Data I reviewed the patient's lab results. 04/17/25 11:38 04/17/25 11:38 Labs/Radiology: Radiology Impressions Chest X-Ray 04/17/25 11:16 IMPRESSION: No acute findings. Laboratory Results WBC 11.11 10^3/uL (3.29-11.43) 04/17/25 11:38 RBC 5.43 10^6/uL (3.85-5.65) 04/17/25 11:38 Hgb 10.50 g/dL (11.27-16.99) L 04/17/25 11:38 Hct 40.2 % (36-47) 04/17/25 11:38 MCV 74.0 fl (85-98) L 04/17/25 11:38 MCH 19.3 pg (27-33) L 04/17/25 11:38 MCHC 26.1 g/dL (30-55) L 04/17/25 11:38 RDW 20.7 % (12.1-15.1) H 04/17/25 11:38 Plt Count 442 10^3/cmm (157-399) H 04/17/25 11:38 MPV TNP 04/17/25 11:38 Neut % (Auto) 72.7 % 04/17/25 11:38 Lymph % (Auto) 15.2 % 04/17/25 11:38 Humphreys % (Auto) 9.4 % 04/17/25 11:38 Eos % (Auto) 1.4 % 04/17/25 11:38 Baso % (Auto) 0.6 % 04/17/25 11:38 Neut # (Auto) 8.08 10^3/uL (1.8-7.7) H 04/17/25 11:38 Lymph # (Auto) 1.7 10^3/uL (0.8-4.8) 04/17/25 11:38 [place]reys # (Auto) 1.0 10^3/uL (0.2-0.9) H 04/17/25 11:38 Eos # (Auto) 0.2 10^3/uL (0.0-0.8) 04/17/25 11:38 Baso # (Auto) 0.1 10^3/uL (0.0-0.1) 04/17/25 11:38 Nucleated RBC % (auto) 0 % 04/17/25 11:38 Nucleated RBCs # 0.0 /100WBC 04/17/25 11:38 Specimen Type Arterial 04/17/25 11:36 Sample Site Brachial, left 04/17/25 11:36 ABG pH 7.25 (7.35-7.45) L 04/17/25 11:36 ABG pCO2 88.3 mmHg (35-45) H* 04/17/25 11:36 ABG pO2 144.0 mmHg (80.0-100.0) H 04/17/25 11:36 ABG PO2/FiO2 Ratio 288 04/17/25 11:36 ABG HCO3 38.5 mmol/L (22-26) H 04/17/25 11:36 ABG O2 Saturation > 99.1 04/17/25 11:36 ABG Base Excess 8.7 mmol/L (-2.0-2.0) H 04/17/25 11:36 Erik Test N/a 04/17/25 11:36 A-a O2 Gradient 14.2 mmHg (5-10) H 04/17/25 11:36 Hematocrit 31.9 % (37-47) L 04/17/25 11:36 Hgb O2 Saturation 98.1 % (95-100) 04/17/25 11:36 Carboxyhemoglobin 1.8 %THgb (0.4-20.1) 04/17/25 11:36 Methemoglobin < 0.0 % (0.4-1.5) L 04/17/25 11:36 Total Hemoglobin 10.4 g/dL (12-16) L 04/17/25 11:36 Sodium 141.0 mmol/L (131-143) 04/17/25 11:36 Potassium 3.8 mmol/L (3.5-5.0) 04/17/25 11:36 Glucose 148.0 mg/dL (70-115) H 04/17/25 11:36 Ionized Calcium 1.2 mmol/L (1.1-1.4) 04/17/25 11:36 O2 Delivery Device Bipap 04/17/25 11:36 FiO2 50.0 % 04/17/25 11:36 Solids Control Technician ID Amh 04/17/25 11:36 Sodium 142 mmol/L (136-145) 04/17/25 11:38 Potassium 4.7 mmol/L (3.5-5.1) 04/17/25 11:38 Chloride 96 mmol/L (98-107) L 04/17/25 11:38 Carbon Dioxide 38 mmol/L (22-29) H 04/17/25 11:38 Anion Gap 12.7 (5-19) 04/17/25 11:38 BUN 16 mg/dL (8-23) 04/17/25 11:38 Creatinine 0.7 mg/dL (0.5-0.9) 04/17/25 11:38 GFR Calculation 84.5 mL/min (90-130) L 04/17/25 11:38 Glucose 147 mg/dL (65-115) H 04/17/25 11:38 Calculated Osmolality 298 mOsm/kg (285-295) H 04/17/25 11:38 Lactic Acid 1.9 mmol/L (0.5-2.2) 04/17/25 11:38 Calcium 8.6 mg/dL (8.5-10.5) 04/17/25 11:38 Total Bilirubin 0.3 mg/dL (0.15-1.2) 04/17/25 11:38 AST 52 U/L (0-32) H 04/17/25 11:38 ALT 50 U/L (0-33) H 04/17/25 11:38 Alkaline Phosphatase 69 U/L (35-105) 04/17/25 11:38 Troponin T Baseline 47 ng/L (0-10) H 04/17/25 11:38 Troponin T 120 Minute 28.40 ng/L (0-10) H 04/17/25 13:32 Delta Troponin T -18.60 ABS# (0-10) L 04/17/25 13:32 Total Protein 6.0 g/dL (6.6-8.7) L 04/17/25 11:38 Albumin 3.9 g/dL (3.5-5.2) 04/17/25 11:38 Globulin 2.1 g/dL (1.3-4.6) 04/17/25 11:38 Influenza A (PCR) Negative (Negative) 04/17/25 11:32 Influenza Type B (PCR) Negative (Negative) 04/17/25 11:32 RSV (PCR) Negative (Negative) 04/17/25 11:32 SARS-CoV-2 (PCR) Negative (Negative) 04/17/25 11:32 All radiology interpretation(s) finalized by discharge EKG Data EKG 1: Interpretation: EKG 912 2025-06-25 sinus tachycardia. Rate of 116 NH interval 112 QTc [address] changes noted no T wave inversion solitary PVC noted. Compared to EKG 11/04/2024 NH interval not shorter EKG 2: Interpretation: EKG 04/17/2025. 1319 sinus rhythm PVC noted rate of 99 NH interval 145 QTc 436. Q waves in V1 and [address] elevation. Discharge Plan Discharge Patient Disposition: Admitted As Inpatient Admit Provider: Rakesh Ray Clinical Impression: Acute hypercapnic respiratory failure, Acute exacerbation of chronic obstructive airways disease, COPD (chronic obstructive pulmonary disease), Protein-calorie malnutrition, severe, Chronic respiratory failure with hypoxia and hypercapnia Condition: Stable Coding Level of Care Code ED Ground Operations Supervisor for Umesh Salmon
[2025-04-17] MEDS: methylPREDNISolone sod succ 125 mg/2 mL INJ IVP (11:27)
--- OUTSIDE RECORDS SUMMARY | 2025-04-17 11:29 | XMS_ITS | Clinical Summary ---
Author Organization [facility] Address [address] [place] [address] [address] Prov[address] Care Court Recorder Name Role Phone Unavailable Primary Care Provider Unavailabl e Allergies No known active allergies Medications albuterol sulfate HFA 90 mcg/actuation aerosol inhaler Take 2 Puffs by inhalation every 6 hours as needed for Shortness of Breath. 5 Active Spiriva Respimat 2.5 mcg/actuation Mist Take 2 Puffs by inhalation daily. 5 Active fluticasone propion-salmeter oL (ADVAIR DISKUS,WIXELA INHUB) 500-50 mcg/dose disk inhaler Take 1 Puff by inhalation 2 times daily. 5 Active fluticasone propionate (FLONASE) 50 mcg/spray [place], Suspension nasal inhaler Administer 2 Sprays in each nostril daily. 5 Active ipratropium bromide (ATROVENT) 0.02 % Solution Take 0.5 mg by inhalation every 12 hours. 4 Active ipratropium-albu teroL (DUONEB) 0.5 mg-3 mg(2.5 mg base)/3 mL Solution for Nebulization Take 3 mL by inhalation every 6 hours as needed. 5 Active levalbuterol (XOPENEX) 0.63 mg/3 mL Solution for Nebulization Take 0.63 mg by inhalation every 8 hours as needed. 4 Active benzonatate (TESSALON) 100 mg capsule Take 100 mg by mouth 3 times daily as needed. 4 Active busPIRone (BUSPAR) 7.5 mg Tablet Take 7.5 mg by mouth 2 times daily. 4 Active megestroL (MEGACE) 400 mg/10 mL (40 mg/mL) suspension Take 200 mg by mouth daily. 5 Active metoprolol tartrate (LOPRESSOR) 25 mg tablet Take 12.5 mg by mouth 2 times daily. 4 Active pantoprazole (PROTONIX) 40 mg Tablet, Delayed Release (E.C.) Take 40 mg by mouth daily. 5 Active predniSONE (DELTASONE) 10 mg tablet Take 10 mg by mouth daily with breakfast. 5 Active rOPINIRole (REQUIP) 1 mg tablet Take 1 mg by mouth 3 times daily. 4 Active sertraline (ZOLOFT) 50 mg tablet Take 50 mg by mouth daily. 5 Active traZODone (DESYREL) 50 mg tablet Take 50 mg by mouth 2 times daily. 5 Active overnight pulse oximetryIndicati ons:Chronic obstructive pulmonary disease, unspecified COPD type (CMS/HCC),Simple chronic bronchitis (CMS/HCC) Overnight pulse oximetry: One time overnight pulse oximetry test on oxygen liter flow: 4 L/min with Bipap 1 Each 5 Active dupilumab (Dupixent Pen) 300 mg/2 mL Pen InjectorIndicati ons:Chronic obstructive pulmonary disease, unspecified COPD type (CMS/HCC),Simple chronic bronchitis (CMS/HCC),High eosinophil count Inject 2 mL (300 mg) by subcutaneous injection every 2 weeks. 4 mL 11 5 Active Active Problems Problem Noted Date Diagnosed Date Bronchiectasis without acute exacerbation 2024 JAUREGUI (dyspnea on exertion) 01/12/2025 Stage 4 very severe COPD by GOLD classification 08/28/2024 History of nicotine dependence 08/28/2024 Chronic respiratory failure with hypoxia 025 Encounters Date Type Department Care Team Description 04/07/2025 External Device Data [facility] ABSTRACTION Provider, Abstract 03/24/2025 External Device Data [facility] ABSTRACTION Provider, Abstract 03/24/2025 External Device Data [facility] ABSTRACTION Provider, Abstract 03/17/2025 External Device Data [facility] ABSTRACTION Provider, Abstract 03/10/2025 External Device Data [facility] ABSTRACTION Provider, Abstract 02/18/2025 External Device Data [facility] ABSTRACTION Provider, Abstract 02/17/2025 External Device Data ST[facility] ABSTRACTION Provider, Abstract from Last 3 Months Social History Tobacco Use Types Packs/Day Years Used Date Smoking Tobacco: Former Cigarettes Q uit: 2020 Passive Smoke Exposure: Past Smokeless Tobacco: Never Tobacco Cessation:Counseling Given: Not Answered Comments Unknown Sex and Gender Information Value Date Recorded Sex Assigned at Not on file Legal Sex Female 3:49 PM CDT Gender Identity Not on file Sexual Orientation Not on file Last Filed Vital Signs Vital Sign Reading Time Taken Comments Blood Pressure 136/68 01/12/2025 1:02 PM CDT Pulse 97 01/12/2025 1:02 PM CDT Temperature - - Respiratory Rate - - Oxygen Saturation 94% 01/12/2025 1:02 PM CDT 4 L Inhaled Oxygen Concentration - - Weight 46.7 kg (103 lb) 01/12/2025 1:02 PM CDT Height 162.6 cm (5' 4 ) 01/12/2025 1:02 PM CDT Body Mass Index 17.68 01/12/2025 1:02 PM CDT Plan of Treatment Upcoming Encounters Date Type Department Care Team (Late st Contact Info) Description 06/02/2025 2:30 PM CDT Office Visit [facility] Pulmon[facility] [address] [place] [id number] Kelly Nolasco NP [address] [place] [phone] Health Maintenance Due Date Last Done Comments DTAP/TDAP/TD VACCINES (1 - Tdap) 1980 HPV/Cotest (21-29) 1982 CERVICAL CANCER SCREENING 1991 HPV/Cotest (30-65) 1991 PAP SMEAR 1991 BREAST CANCER SCREENING 2001 COLORECTAL SCREENING 2006 Colorectal Cancer Screening 2006 FIT-DNA Q 3 years 2006 FIT/FOBT Q 1 year 2006 Flex Sig/CT Colonography Q 5 years 2006 ZOSTER VACCINE (1 of 2) 2011 RSV VACCINE (60+ or ) (1 - Risk 60-74 years 1-dose series) 2021 INFLUENZA VACCINE (#1) 2025 Insurance [employer] PPO
[2025-04-17 11:48] LABS: ABG PCO2 88.3 mmHg (35-45); ABG PH Result 7.25 (7.35-7.45); Alveolar-Arterial Oxygen Gradi 14.2 mmHg (5-10); Arterial Blood Gas Hematocrit 31.9 % (37-47); Blood Gas Operator Identificat AMH; Blood Gas Sample Site Brachial, left; Blood Gas Sample Type Arterial; Carboxyhemoglobin 1.8 %THgb (0.4-20.1); Glucose Level-ABG 148.0 mg/dL (70-115); HCO3 ABG 38.5 mmol/L (22-26); Ionized Calcium Level - ABG 1.2 mmol/L (1.1-1.4); Methemoglobin < 0.0 % (0.4-1.5); Oxygen Saturation ABG > 99.1; PO2 ABG 144.0 mmHg (80.0-100.0); PO2 FiO2 Ratio Arterial Blood 288; Potassium Level - ABG 3.8 mmol/L (3.5-5.0); Sodium Level - ABG 141.0 mmol/L (131-143)
--- NOTE | 2025-04-17 11:50 | PC.PHAR ---
Pt is on bipap. Verified medications via [facility] and Dupixent is from [facility].
[2025-04-17 11:53] LABS: Hematocrit 40.2 % (36-47); Hemoglobin 10.50 g/dL (11.27-16.99); Mean Corpuscular HGB Conc 26.1 g/dL (30-55); Mean Corpuscular Hemoglobin 19.3 pg (27-33); Mean Corpuscular Volume 74.0 fl (85-98); Nucleated Red Blood Cells % 0 %; Platelet Count 442 10^3/cmm (157-399); Red Blood Count 5.43 10^6/uL (3.85-5.65); White Blood Count 11.11 10^3/uL (3.29-11.43)
[2025-04-17 12:09] LABS: Lactic Sepsis W/Reflex 1.9 mmol/L (0.5-2.2)
[2025-04-17 12:10] LABS: Alanine Aminotransferase 50 U/L (0-33); Albumin Level 3.9 g/dL (3.5-5.2); Alkaline Phosphatase 69 U/L (35-105); Anion Gap 12.7 (5-19); Aspartate Amino Transferase 52 U/L (0-32); Blood Urea Nitrogen 16 mg/dL (8-23); Calcium 8.6 mg/dL (8.5-10.5); Carbon Dioxide 38 mmol/L (22-29); Chloride 96 mmol/L (98-107); Creatinine Clr Calc Pharmacy 74.4286; Globulin 2.1 g/dL (1.3-4.6); Glucose 147 mg/dL (65-115); Osmolality Calculated 298 mOsm/kg (285-295); Potassium 4.7 mmol/L (3.5-5.1); Sodium 142 mmol/L (136-145); Total Protein 6.0 g/dL (6.6-8.7)
[2025-04-17 12:13] LABS: Troponin(5th) Baseline 47 ng/L (0-10)
[2025-04-17 12:14] LABS: Respiratory Syncytial Virus Ce NEGATIVE (Negative); SARS-CoV-2 PCR NEGATIVE (Negative)
--- NOTE | 2025-04-17 13:19 | ECG_ITS ---
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1960 Requested By: Roberto Duarte Order Number: [id number] Reading MD: ANY MARTINEZ Measurements Intervals [place] Rate: 99 P: 63 VA: 145 QRS: 79 QRSD: 77 T: 0 QT: 339 QTc: 436 Interpretive Statements SINUS RHYTHM WITH FREQUENT VENTRICULAR PREMATURE COMPLEXES POSSIBLE LEFT ATRIAL ENLARGEMENT [-0.1mV P-WAVE IN V1/V2] SEPTAL MYOCARDIAL INFARCTION , OF INDETERMINATE AGE [40+ ms Q WAVE IN V1/V2] Compared to ECG 04/17/2025 11:20:32 Ventricular premature complex(es) now present Myocardial infarct finding now present Sinus tachycardia no longer present Short VA interval no longer present Electronically Signed On 04-17-2025 20:15:10 CDT by ANY MARTINEZ [email or web address] [id number]
--- NOTE | 2025-04-17 13:39 | PC.RESP ---
pt uses bipap at home. Spoke with Hira from [facility] (HOME) to get pt bipap settings. 19/03 with o2 bled in at 4 lpm
[2025-04-17 13:56] LABS: Troponin 5 2HR 28.40 ng/L (0-10)
[2025-04-17 14:08] LABS: Troponin 5 2HR Delta -18.60 ABS# (0-10)
--- NOTE | 2025-04-17 15:37 | PM.HP ---
Providers/Chief Complaint Admitting Physician: Rakesh Ray MD Primary Care Provider: Zoran Stern MD Chief Complaint: resp distress History of Present Illness Lora Dsouza is a 64 year old female with end-stage COPD who lives with her and Lino. 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 She quit smoking 7 years ago. Patient with increasing shortness of breath last few days states her eyes have been watery and face has been swelling consistent with past episodes of COPD exacerbation. She was found to be hypoxemic to 63% when paramedics arrived and they put her on BiPAP with oxygen 15 L. She came in with ABG 7.25 pCO2 88 pO2 144. Patient states she is improved with BiPAP. At home she has a ResMed air curve 10. Review of Systems Narrative: General no fevers chills she has had weight gain from 88 pounds a year ago to 123 pounds taking Megace prescribed due to concerns of being underweight. CV no chest pains palpitations she has had some leg edema patient denies heart disease Respiratory no cough or production she has been short of breath GI noted nausea vomiting diarrhea constipation no dysuria hematuria incontinence Neuro no seizures strokes limb weakness Miscellaneous patient's grandchildren visited this last week but nobody was sick. She has no sick contacts Medications/Allergies Home Medications ?Medication ?Instructions ?Recorded ?Confirmed ?Last Taken ?Type furosemide 20 mg tablet 20 mg PO QAM PRN swelling #90 tabs 09/25/24 04/17/25 Unknown Rx albuterol sulfate 2.5 mg/3 mL 2.5 mg inhalation QID 11/04/24 04/17/25 Unknown History (0.083 %) solution for nebulization sertraline 50 mg tablet 50 mg PO DAILY 11/04/24 04/17/25 Unknown History tiotropium bromide 2.5 2 puff inhalation DAILY 11/04/24 04/17/25 Unknown History mcg/actuation mist for inhalation (Spiriva Respimat) trazodone 50 mg tablet 50 mg PO DAILY 11/04/24 04/17/25 Unknown History pantoprazole 40 mg tablet,delayed 40 mg PO DAILY #90 tabs 01/13/25 04/17/25 Unknown Rx release (Protonix) Ventolin HFA 90 mcg/actuation 2 puff inhalation Q6H PRN 02/18/25 04/17/25 Unknown Rx aerosol inhaler (albuterol sulfate) shortness of breath or wheezing #8 grams dupilumab 300 mg/2 mL subcutaneous 300 mg SUBCUT Q7D 02/18/25 04/17/25 Unknown History syringe ropinirole 1 mg tablet See Rx Instructions PO BID #270 02/18/25 04/17/25 Unknown Rx tabs albuterol sulfate 90 mcg/actuation 2 puff inhalation Q6H PRN 03/25/25 04/17/25 Unknown Rx aerosol inhaler shortness of breath or wheezing #8.5 grams buspirone 7.5 mg tablet 7.5 mg PO DAILY PRN anxiety #60 03/25/25 04/17/25 Unknown Rx tabs fluticasone 500 mcg-salmeterol 50 1 inh inhalation BID #60 ea 03/25/25 04/17/25 Unknown Rx mcg/dose blistr powdr for inhalation (Advair Diskus) megestrol 400 mg/10 mL (10 mL) 200 mg (5 mL) PO DAILY PRN 03/25/25 04/17/25 Unknown Rx oral suspension APPETITE #1,000 mL fluticasone propionate 50 2 spray intranasal DAILY 04/17/25 04/17/25 Unknown History mcg/actuation nasal spray,suspension Allergies Allergy/AdvReac Type Severity Reaction Status Date / Time No Known Allergies Allergy Verified 02/18/25 14:34 PFSH Acute PFSH: Medical History (Updated 04/17/25 @ 13:01 by Roberto Werner, ) History of PFTs 02/2023: Spirometry showed very severe airflow obstruction with FEV1/FVC 21; FEV1 510 cc 21% predicted and FVC 1.33 L 43% predicted. 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 Chronic respiratory failure with hypoxia and hypercapnia Restless leg Septic shock (~06/2024) Protein-calorie malnutrition, severe GERD (gastroesophageal reflux disease) Anxiety Hypertension Insomnia COPD (chronic obstructive pulmonary disease) Surgical History History of History of tonsillectomy Family History Father Stroke Other Dementia Denies family history of Diabetes CAD (coronary artery disease) Clotting disorder Hyperlipidemia Psychiatric illness Chronic kidney disease (CKD) Anesthesia complication Bleeding disorder Lung disease Cancer Hypertension Social History (Updated 04/17/25 @ 15:46 by Rakesh Ray MD) Smoking and tobacco/nicotine status: former use of tobacco/nicotine Quit status (tobacco/nicotine): has quit using Year quit tobacco: 2019 Former quit date comment: 2 packs/day for 30 years Second hand smoke exposure: Yes Alcohol intake: current Alcohol intake frequency: few times a week Alcohol type: beer Alcohol use comment: Few beers a week Substance/Drug Use: never Additional social history: Patient wants DO NOT RESUSCITATE status as discussed with patient and Lino on 04/17/2025 by Rakesh Ray MD Marital status: Number of children: 5 Number of grandchildren: 9 service: No Current occupational status: disabled Current occupational exposures/hazards: No Previous occupational history: 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 not 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 for 25 years Pets and animals: Yes Current gender identity: Female Vitals/I&O/Wt Last Vital Signs Temp 98.1 F 04/17/25 15:19 Pulse 107 H 04/17/25 15:19 Resp 20 H 04/17/25 15:19 BP 122/80 04/17/25 15:19 Pulse Ox 90 04/17/25 15:19 O2 Del Method Nasal Cannula 04/17/25 15:19 O2 Flow Rate 50 04/17/25 11:31 FiO2 40 04/17/25 14:04 04/17/25 04/17/25 04/17/25 06:59 14:59 22:59 Intake Total 1000 / 1000 Balance 1000 / 1000 Weight last 48 hrs Weight 56.245 kg Weight 61.235 kg Physical Exam Narrative: General well-developed chronically ill-appearing female in no acute cardiopulmonary stress she is on nasal cannula mild tachypnea CV frequent ectopy borderline tachycardic for over 6 systolic ejection murmur best heard at the left sternal border Lungs lungs x-ray phase poor air movement Abdomen positive bowel tones soft nontender Calves trace bilateral pretibial edema and no asymmetry Skin warm and dry Mentation alert and oriented Data 04/17/25 11:38 04/17/25 11:38 Micro: Microbiology 04/17/25 11:38 Blood Culture - Preliminary Blood SPECIMEN COLLECTED 04/17/25 11:38 Blood Culture - Preliminary Blood SPECIMEN COLLECTED A&P Assessment and plan 1. Acute exacerbation of chronic obstructive airways disease: Patient is a non-smoker. Continue with nebulizers, inhalers. No signs of infection based on chest x-ray and history 2. Acute on chronic respiratory failure with hypoxia and hypercapnia: Continue with BiPAP. Patient is already on BiPAP at night at home +4 L/min. She came in acutely hypoxemic but this is now improved 3. Anxiety: Continue home meds PDMP PDMP Reviewed: Not Reviewed Attestations Medical Necessity Statement*: Patient is admitted with acute respiratory failure and will require BiPAP steroids nebulizers and expected to require greater than 2 midnights Coding Level of Care Code 34742 Diagnoses Acute exacerbation of chronic obstructive airways disease J44.1 Acute on chronic respiratory failure with hypoxia and hypercapnia J96.21; J96.22 Anxiety F41.9 Time Spent (min) 70
--- NOTE | 2025-04-17 17:04 | ECG_ITS ---
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1960 Requested By: Roberto Duarte Order Number: [id number] Reading MD: ANY MARTINEZ Measurements Intervals [place] Rate: 94 P: 38 AL: 139 QRS: 65 QRSD: 84 T: 28 QT: 354 QTc: 443 Interpretive Statements SINUS RHYTHM POSSIBLE LEFT ATRIAL ENLARGEMENT [-0.1mV P-WAVE IN V1/V2] SEPTAL MYOCARDIAL INFARCTION , OF INDETERMINATE AGE [40+ ms Q WAVE IN V1/V2] ST ELEVATION, CONSIDER INFERIOR INJURY [MARKED ST ELEVATION W/O NORMALLY INFLECTED T-WAVE IN II/aVF] ACUTE NH Compared to ECG 04/17/2025 13:19:15 ST (T wave) deviation now present Ventricular premature complex(es) no longer present Myocardial infarct finding still present Electronically Signed On 04-17-2025 20:15:03 CDT by ANY MARTINEZ [email or web address] [id number]
[2025-04-17] MEDS: methylPREDNISolone sod succ 125 mg/2 mL INJ 60 MG IVP (17:46)
[2025-04-17 18:31] LABS: Troponin 5 6HR 23.74 ng/L (0-10)
[2025-04-17 18:52] LABS: Troponin 5 6HR Delta -23.26 ng/L (0-12)
--- NOTE | 2025-04-17 19:22 | ECG_ITS ---
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1960 Requested By: Rakesh uDarte Order Number: [id number] Reading MD: ANY MARTINEZ Measurements Intervals [place] Rate: 89 P: 24 OR: 152 QRS: 55 QRSD: 93 T: -3 QT: 378 QTc: 462 Interpretive Statements SINUS RHYTHM SEPTAL MYOCARDIAL INFARCTION , OF INDETERMINATE AGE [40+ ms Q WAVE IN V1/V2] MODERATE T-WAVE ABNORMALITY, CONSIDER ANTERIOR ISCHEMIA [-0.1+ mV T-WAVE IN V3/V4] WARNING: DATA QUALITY MAY AFFECT INTERPRETATION Compared to ECG 04/17/2025 17:04:58 T-wave abnormality now present Possible ischemia now present ST (T wave) deviation no longer present Myocardial infarct finding still present Electronically Signed On 04-17-2025 20:08:24 CDT by ANY MARTINEZ [email or web address] [id number]
[2025-04-17 19:32] LABS: Glucose Urine UA Negative (Normal); Nitrate Urine Negative (Negative); Specific Gravity, Urine 1.013 (1.005-1.030)
[2025-04-17 19:38] LABS: Add Urine Microscopic? YES
[2025-04-18] VITALS (7 sets, daily range): BP systolic 112–124; BP diastolic 57–68; PULSE 87–103; RESP 13–26; TEMP 36.4–36.8; O2SAT 90–95; BMI 22.6
[2025-04-18] MEDS: methylPREDNISolone sod succ 125 mg/2 mL INJ 60 MG IVP ×2 (02:53→10:22)
[2025-04-18 05:55] LABS: Iron 11 ug/dL (37-145); Total Iron Binding Capacity 353 mcg/dl; Unsaturated Iron Binding 342 ug/dL (112-347)
[2025-04-18] MEDS: fluticasone nasal spray 16gm Btl 2 SPRAY INTRANASAL (08:18)
--- NOTE | 2025-04-18 09:33 | P.PN_ITS ---
Vitals/I&O/Wt Last Vital Signs Temp 98.2 F 04/18/25 07:38 Pulse 102 H 04/18/25 08:38 Resp 18 04/18/25 08:38 BP 112/57 04/18/25 07:38 Pulse Ox 95 04/18/25 08:38 O2 Del Method Nasal Cannula 04/18/25 08:38 O2 Flow Rate 4 04/18/25 08:38 FiO2 35 04/18/25 04:55 04/17/25 04/18/25 04/18/25 22:59 06:59 14:59 Intake Total 500 / 1500 Balance 500 / 1500 Weight last 48 hrs Weight 59.783 kg Weight 59.783 kg Weight 56.245 kg Weight 61.235 kg Physical Exam 2 Narrative: General well-developed chronically ill-appearing female in no acute cardiopulmonary stress she is on nasal cannula mild tachypnea CV frequent ectopy borderline tachycardic for over 6 systolic ejection murmur best heard at the left sternal border Lungs lungs x-ray phase poor air movement Abdomen positive bowel tones soft nontender Calves trace bilateral pretibial edema and no asymmetry Skin warm and dry Mentation alert and oriented Data 04/17/25 11:38 04/17/25 11:38 Micro: Microbiology 04/17/25 11:38 Blood Culture - Preliminary Blood SPECIMEN COLLECTED 04/17/25 11:38 Blood Culture - Preliminary Blood SPECIMEN COLLECTED A&P Assessment and plan 1. Acute exacerbation of chronic obstructive airways disease: Patient is a non-smoker. Continue with nebulizers, inhalers. No signs of infection based on chest x-ray and history 2. Acute on chronic respiratory failure with hypoxia and hypercapnia: Continue with BiPAP. Patient is already on BiPAP at night at home +4 L/min. She came in acutely hypoxemic but this is now improved 3. Iron deficiency anemia: 4. Anxiety: Continue home meds PDMP PDMP Reviewed: Not Reviewed Coding Level of Care Code Acute Code for [facility] Diagnoses Acute exacerbation of chronic obstructive airways disease J44.1 Acute on chronic respiratory failure with hypoxia and hypercapnia J96.21; J96.22 Iron deficiency anemia D50.9 Anxiety F41.9
[2025-04-18] MEDS: iron sucrose 200 MG in sodium chloride 0.9% (100 ml) 100 ML 220 MG IV (10:22)
--- NOTE | 2025-04-18 11:53 | PC.CHAP ---
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] Patient/Family/Request visit [] Outpatient visit [] Follow-up visit [] Physician referral [] Code/Alert [x] Routine visit [] Staff referral [] Actively dying [] Patient sleeping [] Family support [] [] Out of room [] Palliative care [] [] Receiving care in room [] Pre-surgical visit [] Trauma [] Long length of stay [] ICU visit [] Other: Relational/Emotional Strength [] Patient feels connected with others/family/visitors/staff [] Distress [] Loneliness/isolation [] Abandonment Spirituality of Patient [] Person of Radha [] Attends [employer] of their Radha [] Believes in Prayer [] Reads Bible or Congregational materials [] There are Spiritual issues to be addressed Skein Yarn Dyer Helper Interventions [] Prayer [] Active listening [] Non-anxious presence [] Spiritual/emotional support [] Crisis/trauma care [] Spiritual counseling [] Bereavement support [] Provided bereavement packet [] Provided Bible/devotional materials [] Provided toy/stuffed animal, coloring book to patient or family member [] Provided Communion [] Anointing/[place] [] Salvation [] Completed spiritual assessment [] Other: Impact on Illness or Injury [] Angry [] Fearful [] Anxious [] Often cries [] Exhaustion [] Unable to work [] Unable to attend episcopal [] Unable to walk/stand [] Unable to read [] Unable to drive [] Unable to eat/drink [] Unable to sleep [] Unable to be with family [] Patient intubated [] Other: Summary Time spent with patient
--- NOTE | 2025-04-18 11:58 | P.DS_ITS ---
Discharge Providers Date of Admission: 04/17/25 14:26 Date of Discharge: April 18, 2025 Attending Provider at Admission: Rakesh Ray MD Attending Provider at Discharge: Rakesh Ray MD Primary Care Provider: Zoran Stern MD Diagnoses at Discharge Discharge Diagnosis 1. Acute exacerbation of chronic obstructive airways disease: Details from hospital stay: Improved I changed her albuterol to DuoNebs to add ipratropium. Will also treat her with 5 days of Decadron 4 mg daily. She received Solu-Medrol IV during her hospitalization 2. Acute on chronic respiratory failure with hypoxia and hypercapnia: Details from hospital stay: Patient rapidly improved faster than expected and is desiring to go home. She has BiPAP at home. 3. Iron deficiency anemia: Details from hospital stay: Follow-up for outpatient colonoscopy and potentially EGD. Patient received 200 mg iron sucrose infusion today and she will be started on 325 mg twice a day ferrous sulfate. She is counseled that low iron replacement improves iron deficiency the etiology needs to be worked up and this could represent ulcer polyp or colon cancer. 4. Anxiety: Details from hospital stay: Stable 5. Abnormal EKG: Details from hospital stay: Patient has strong family history of coronary disease in dad who smoked heavily and in his 50s of PA. Patient also smoked heavily but quit smoking 2019. She does not have symptoms of angina. EKG suggest old septal PA. Start enteric-coated aspirin 81 mg daily. LDL in the past was 70s in 2023. Follow-up with your outpatient physician Dr. Stern for repeat testing Troponin baseline 41 dropped to 23 at 6 hours Reason for Visit Reason for Visit: resp distress Brief History: Lora Dsouza is a 64 year old female with end-stage COPD who lives with her and Lino. 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 She quit smoking 7 years ago. Patient with increasing shortness of breath last few days states her eyes have been watery and face has been swelling consistent with past episodes of COPD exacerbation. She was found to be hypoxemic to 63% when paramedics arrived and they put her on BiPAP with oxygen 15 L. She came in with ABG 7.25 pCO2 88 pO2 144. Patient states she is improved with BiPAP. At home she has a ResMed air curve 10. Hospital Course Hospital Course Initial ABG showed respiratory acidosis but influenza AB RSV and COVID were all negative patient chest x-ray size compared to previous from November 2024. EKG showed old PA and some nonspecific ST-T wave changes cannot exclude ischemia. Patient has no chest pain. I discussed with her echocardiogram and going home tomorrow but she desires to go home today. She states she will do the echocardiogram outpatient. Additionally she has iron deficiency anemia and I discussed with her that that should be worked up with a colonoscopy. She is companied by her At this time patient's lung exam is good and she has tolerated BiPAP well. She has BiPAP at home and I have encouraged her to get that checked with her physician to make sure the settings are still correct. I recommend echocardiogram and if abnormal with wall motion abnormality she should have angiogram or stress testing. Once that is appropriately evaluated she should undergo colonoscopy to look at etiology for iron deficiency anemia. Physical Exam Narrative: General General Well-developed well-nourished female in no acute cardiopulmonary stress CV regular rate and rhythm with a 4/6 systolic ejection murmur best heard at the left sternal border Lungs prolonged respiratory phase with moderate air movement no crackles no wheezes Abdomen positive bowel tones soft nontender Calves trace ankle edema Skin warm and dry Discharge Data Studies Completed and Pending Completed Studies During Hospitalization Category Date Time Status XR chest 1V portable [id number] Stat Exams 04/17/25 11:16 Completed Pending at discharge Category Date Time Status Blood Culture Stat Lab 04/17/25 11:38 Results Radiology Impressions Chest X-Ray 04/17/25 11:16 IMPRESSION: No acute findings. Laboratory Results WBC 11.11 10^3/uL (3.29-11.43) 04/17/25 11:38 RBC 5.43 10^6/uL (3.85-5.65) 04/17/25 11:38 Hgb 10.50 g/dL (11.27-16.99) L 04/17/25 11:38 Hct 40.2 % (36-47) 04/17/25 11:38 MCV 74.0 fl (85-98) L 04/17/25 11:38 MCH 19.3 pg (27-33) L 04/17/25 11:38 MCHC 26.1 g/dL (30-55) L 04/17/25 11:38 RDW 20.7 % (12.1-15.1) H 04/17/25 11:38 Plt Count 442 10^3/cmm (157-399) H 04/17/25 11:38 MPV TNP 04/17/25 11:38 Neut % (Auto) 72.7 % 04/17/25 11:38 Lymph % (Auto) 15.2 % 04/17/25 11:38 Dodge % (Auto) 9.4 % 04/17/25 11:38 Eos % (Auto) 1.4 % 04/17/25 11:38 Baso % (Auto) 0.6 % 04/17/25 11:38 Neut # (Auto) 8.08 10^3/uL (1.8-7.7) H 04/17/25 11:38 Lymph # (Auto) 1.7 10^3/uL (0.8-4.8) 04/17/25 11:38 Dodge # (Auto) 1.0 10^3/uL (0.2-0.9) H 04/17/25 11:38 Eos # (Auto) 0.2 10^3/uL (0.0-0.8) 04/17/25 11:38 Baso # (Auto) 0.1 10^3/uL (0.0-0.1) 04/17/25 11:38 Nucleated RBC % (auto) 0 % 04/17/25 11:38 Nucleated RBCs # 0.0 /100WBC 04/17/25 11:38 Specimen Type Arterial 04/17/25 11:36 Sample Site Brachial, left 04/17/25 11:36 ABG pH 7.25 (7.35-7.45) L 04/17/25 11:36 ABG pCO2 88.3 mmHg (35-45) H* 04/17/25 11:36 ABG pO2 144.0 mmHg (80.0-100.0) H 04/17/25 11:36 ABG PO2/FiO2 Ratio 288 04/17/25 11:36 ABG HCO3 38.5 mmol/L (22-26) H 04/17/25 11:36 ABG O2 Saturation > 99.1 04/17/25 11:36 ABG Base Excess 8.7 mmol/L (-2.0-2.0) H 04/17/25 11:36 Erik Test N/a 04/17/25 11:36 A-a O2 Gradient 14.2 mmHg (5-10) H 04/17/25 11:36 Hematocrit 31.9 % (37-47) L 04/17/25 11:36 Hgb O2 Saturation 98.1 % (95-100) 04/17/25 11:36 Carboxyhemoglobin 1.8 %THgb (0.4-20.1) 04/17/25 11:36 Methemoglobin < 0.0 % (0.4-1.5) L 04/17/25 11:36 Total Hemoglobin 10.4 g/dL (12-16) L 04/17/25 11:36 Sodium 141.0 mmol/L (131-143) 04/17/25 11:36 Potassium 3.8 mmol/L (3.5-5.0) 04/17/25 11:36 Glucose 148.0 mg/dL (70-115) H 04/17/25 11:36 Ionized Calcium 1.2 mmol/L (1.1-1.4) 04/17/25 11:36 O2 Delivery Device Bipap 04/17/25 11:36 FiO2 50.0 % 04/17/25 11:36 Tool Room Machinist ID Amh 04/17/25 11:36 Sodium 142 mmol/L (136-145) 04/17/25 11:38 Potassium 4.7 mmol/L (3.5-5.1) 04/17/25 11:38 Chloride 96 mmol/L (98-107) L 04/17/25 11:38 Carbon Dioxide 38 mmol/L (22-29) H 04/17/25 11:38 Anion Gap 12.7 (5-19) 04/17/25 11:38 BUN 16 mg/dL (8-23) 04/17/25 11:38 Creatinine 0.7 mg/dL (0.5-0.9) 04/17/25 11:38 GFR Calculation 84.5 mL/min (90-130) L 04/17/25 11:38 Glucose 147 mg/dL (65-115) H 04/17/25 11:38 Calculated Osmolality 298 mOsm/kg (285-295) H 04/17/25 11:38 Lactic Acid 1.9 mmol/L (0.5-2.2) 04/17/25 11:38 Calcium 8.6 mg/dL (8.5-10.5) 04/17/25 11:38 Iron 11 ug/dL (37-145) L 04/18/25 02:02 TIBC 353 mcg/dl 04/18/25 02:02 % Saturation 3.1 % (20-50) L 04/18/25 02:02 Unsat Iron Binding 342 ug/dL (112-347) 04/18/25 02:02 Total Bilirubin 0.3 mg/dL (0.15-1.2) 04/17/25 11:38 AST 52 U/L (0-32) H 04/17/25 11:38 ALT 50 U/L (0-33) H 04/17/25 11:38 Alkaline Phosphatase 69 U/L (35-105) 04/17/25 11:38 Troponin T Baseline 47 ng/L (0-10) H 04/17/25 11:38 Troponin T 120 Minute 28.40 ng/L (0-10) H 04/17/25 13:32 Delta Troponin T -18.60 ABS# (0-10) L 04/17/25 13:32 Troponin T Hi Sens 6Hr 23.74 ng/L (0-10) H 04/17/25 17:31 Troponin T Hi Sens 6Hr Delta -23.26 ng/L (0-12) L 04/17/25 17:31 Total Protein 6.0 g/dL (6.6-8.7) L 04/17/25 11:38 Albumin 3.9 g/dL (3.5-5.2) 04/17/25 11:38 Globulin 2.1 g/dL (1.3-4.6) 04/17/25 11:38 Urine Color Yellow (Yellow) 04/17/25 19:05 Urine Appearance Clear (CLEAR) 04/17/25 19:05 Urine pH 5.5 (5-7) 04/17/25 19:05 Ur Specific [place] 1.013 (1.005-1.030) 04/17/25 19:05 Urine Protein 1+ (Negative) A 04/17/25 19:05 Urine Glucose (UA) Negative (Normal) 04/17/25 19:05 Urine Ketones Negative (Negative) 04/17/25 19:05 Urine Blood Negative (Negative) 04/17/25 19:05 Urine Nitrate Negative (Negative) 04/17/25 19:05 Urine Bilirubin Negative (Negative) 04/17/25 19:05 Urine Urobilinogen 1.0 mg/dL (Negative) 04/17/25 19:05 Ur Leukocyte Esterase Negative (Negative) 04/17/25 19:05 Urine RBC 0-2 /hpf (0-2) 04/17/25 19:05 Urine WBC 0-5 /hpf (0-5) 04/17/25 19:05 Ur Squamous Epith Cells 0-5 /hpf (0-5) 04/17/25 19:05 Amorphous Sediment Not Reportable 04/17/25 19:05 Urine Bacteria None seen /hpf (NONE) 04/17/25 19:05 Hyaline Casts 4.95 /lpf 04/17/25 19:05 Influenza A (PCR) Negative (Negative) 04/17/25 11:32 Influenza Type B (PCR) Negative (Negative) 04/17/25 11:32 RSV (PCR) Negative (Negative) 04/17/25 11:32 SARS-CoV-2 (PCR) Negative (Negative) 04/17/25 11:32 Vitals Last Vital Signs Temp 98.2 F 04/18/25 07:38 Pulse 102 H 04/18/25 08:38 Resp 18 04/18/25 08:38 BP 112/57 04/18/25 07:38 Pulse Ox 95 04/18/25 08:38 O2 Del Method Nasal Cannula 04/18/25 08:38 O2 Flow Rate 4 04/18/25 08:38 FiO2 35 04/18/25 04:55 Discharge Plan Discharge Patient Disposition: Home Condition: Stable Prescriptions: New docusate sodium 100 mg Capsule 100 mg PO BID Qty: 60 0RF lactulose 10 gram/15 mL Solution 10 g PO DAILY PRN (Reason: Constipation (see protocol)) Qty: 300 0RF aspirin [Zeb Low Dose Aspirin] 81 mg tablet,delayed release (DR/EC) 81 mg PO DAILY Qty: 30 0RF ipratropium-albuterol 0.5 mg-3 mg(2.5 mg base)/3 mL Solution For Nebulization 3 ml inhalation Q6H.RESP Qty: 180 0RF dexamethasone 4 mg tablet 4 mg PO DAILY Qty: 5 0RF ferrous sulfate 325 mg (65 mg iron) tablet 325 mg PO BID Qty: 60 0RF Continued dupilumab 300 mg/2 mL syringe 300 mg SUBCUT Q7D ropinirole 1 mg tablet See Rx Instructions PO BID Qty: 270 1RF Rx Instructions: Take 2 tablets by mouth in the morning, and 1 tablet in the evening. albuterol sulfate [Ventolin HFA] 90 mcg/actuation HFA aerosol inhaler 2 puff inhalation Q6H PRN (Reason: shortness of breath or wheezing) Qty: 8 4RF furosemide 20 mg tablet 20 mg PO QAM PRN (Reason: swelling) Qty: 90 0RF pantoprazole [Protonix] 40 mg tablet,delayed release (DR/EC) 40 mg PO DAILY Qty: 90 1RF fluticasone propion-salmeterol [Advair Diskus] 500-50 mcg/dose blister with device 1 inh inhalation BID Qty: 60 1RF buspirone 7.5 mg tablet 7.5 mg PO DAILY PRN (Reason: anxiety) Qty: 60 0RF megestrol 400 mg/10 mL (10 mL) suspension 200 mg PO DAILY PRN (Reason: APPETITE) Qty: 1000 0RF trazodone 50 mg tablet 50 mg PO DAILY sertraline 50 mg tablet 50 mg PO DAILY Spiriva Respimat 2.5 mcg/actuation mist 2 puff inhalation DAILY fluticasone propionate 50 mcg/actuation spray,suspension 2 spray intranasal DAILY Changed albuterol sulfate 2.5 mg /3 mL (0.083 %) solution for nebulization 2.5 mg inhalation QID PRN (Reason: Shortness Of Breath Or Wheezing) Qty: 90 0RF Discontinued albuterol sulfate 90 mcg/actuation HFA aerosol inhaler 2 puff inhalation Q6H PRN (Reason: shortness of breath or wheezing) Qty: 8.5 2RF Rx Instructions: dispense as written Referrals: Zoran Stern MD [Primary Care Provider, Family Practice] - 1 week Discharge Diet: Cardiac Discharge Activity: Increase activity as tolerated Patient Instructions: Angina (GEN), Iron Deficiency Anemia (GEN), Opioid Safety, Patient Portal & Cari Instructions Activity Restrictions/Additional Instructions: Resume your BiPAP and oxygen at home. You should check with your physician to see if the settings need to be changed on your BiPAP machine Return for outpatient for echocardiogram Your EKG shows possibly old heart injury and parts of your heart that do not flow blood well. This is concerning given the history of your father having heart attack at age 50s and you having smoked many years though now stopped. Return if you have chest pain. Because you have cardiac enzymes showing no heart attack and no symptoms of chest pain this can be done outpatient as you have requested unless you have chest pain at which point you should return I have included literature on angina in case you have those symptoms while you are awaiting your echocardiogram. You also have iron deficiency anemia and the most likely cause is low-level bleeding in your colon. This should be evaluated with colonoscopy. I would like you to take iron tablets twice a day to build up your iron level and get your echocardiogram. If there is concern that you have blockages in your coronary arteries though should be addressed first and then subsequently the colonoscopy to look for possible bleeding in your colon. Bleeding in your colon could be related to colon polyps or even colon cancer and should not be ignored. Iron deficiency suggest that you have been low-level bleeding for a long time and therefore low on iron Discharge Attestations Time Spent in Discharge Care*: greater than 30 min Status at Discharge: Cognitive status at discharge: cognitively intact , Behavioral status at discharge: cooperative , Quality Metrics Clinical Quality Measures [ No reported AMI, CVA or VTE this stay] Coding Level of Care Code 09856 Diagnoses Acute exacerbation of chronic obstructive airways disease J44.1 Acute on chronic respiratory failure with hypoxia and hypercapnia J96.21; J 96.22 Iron deficiency anemia D50.9 Anxiety F41.9 Abnormal EKG R94.31 Time Spent (min) 45
--- OUTSIDE RECORDS SUMMARY | 2025-04-20 17:36 | XMS_ITS | Clinical Summary ---
Author Organization [facility] Address [address] [place] [address] Care Team Providers Care Preform Plate Maker Name Role Phone Unavailable Primary Care Provider [...] 5 Active fluticasone propionate (FLONASE) 50 mcg/spray [place], Suspension nasal inhaler Administer 2 Sprays in [...] Description 06/02/2025 2:30 PM CDT Office Visit [facility] Pulmonology [address] [place] [id number] Kelly Nolasco NP [address] [place] [phone] Health Maintenance Due Date Last Done Comments [...] series) 2021 INFLUENZA VACCINE (#1) 2025 Insurance [employer] PPO
== END 2025-04-18 14:55 | disposition home or self-care (01) ==
LOC: ER 14:01 → CSU 21:36
PROVIDERS: Admitting Provider Internal Medicine; Emergency Provider Family Medicine; PCP Family Medicine; Visit Provider Internal Medicine
DX: J44.1 Chronic obstructive pulmonary disease with (acute) exacerbation (principal); J96.21 Acute and chronic respiratory failure with hypoxia; J96.22 Acute and chronic respiratory failure with hypercapnia; D50.9 Iron deficiency anemia, unspecified; F41.9 Anxiety disorder, unspecified; R94.31 Abnormal electrocardiogram [ECG] [EKG]; K21.9 Gastro-esophageal reflux disease without esophagitis; Z99.81 Dependence on supplemental oxygen; I10 Essential (primary) hypertension
CPT/HCPCS: 36415; 36600; 71045; 80051; 80053; 81001; 82330; 82805; 83540; 83550; 83605; 84484; 85025; 87040; 87637; 93005; 94640; 94660; 96365; 96372; 96375; 99291; G0378; J1650; J1756; J2919; J7030; J9999

== ENCOUNTER 2025-05-02 05:33 | Inpatient (IN) | payer BC, SELFPAY ==
--- OUTSIDE RECORDS SUMMARY | 2013-12-08 06:15 | XMS_ITS | Continuity of Care Document ---
Author Organization [facility] Address [address] [place] [address] Phone Care Team Providers Care Mapping Analyst Name Role Phone Jose CONTRERAS, Freda Unavailable Unavaila ble Procedures Procedure Date OFFICE/OUTPATIENT VISIT, [facility] AIRWAY INHALATION TREATMENT Advance Directives Directive Yes / No Effective Date File Name No Information Encounters Encounter Description Practice Location Reason(s) For Visit Diagnoses Date Provider Providers Copied on Encounter OFFICE/OUTPAT IENT VISIT, [facility], [address], [place], [id number], tel:[phone] No Information Jose flaherty [address], [id number] , [place]. tel:[phone] Family History Family Member Type Diagnosis Age At Onset No Information Payers Payer name Insurance type Covered libertarian ID Authoriza tion(s) No Information Social History [...]
[2025-05-02] VITALS (17 sets, daily range): BP systolic 91–116; BP diastolic 59–76; PULSE 12–117; RESP 18–32; TEMP 36.6–37.9; O2SAT 90–101; BMI 26.4
--- OUTSIDE RECORDS SUMMARY | 2025-05-02 05:39 | XMS_ITS | Encounter Summary ---
Author Organization [facility] Address [address] [place] [address] Care Team Providers Care Survey Director Name Role Phone Unavailable Primary Care Provider Unavailabl e Encounter Details Date Type Department Care Team (Late st Contact Info) Description 04/28/2025 External Device Data [facility]CTION Provider, Abstract NO ADDRESS ON FILE Social History Tobacco Use Types Packs/Day Years Used Date Smoking Tobacco: Former Cigarettes Q uit: 2020 Passive Smoke Exposure: Past Smokeless Tobacco: Never Comments Unknown Sex and Gender Information Value Date Recorded Sex Assigned at Not on file Legal Sex Female 3:49 PM CDT Gender Identity Not on file Sexual Orientation Not on file documented as of this encounter Plan of Treatment Upcoming Encounters Date Type Department Care Team (Late st Contact Info) Description 06/02/2025 2:30 PM CDT Office Visit [facility] Pulmonology [address] [place] [address] Kelly Nolasco NP [address] [place] [address] documented as of this encounter Visit Diagnoses Not on filedocumented in this encounter
--- OUTSIDE RECORDS SUMMARY | 2025-05-02 05:39 | XMS_ITS | Encounter Summary ---
Author Organization [facility] Address [address] [place] [address] Care Team Providers Care Rotor Coil Taper Name Role Phone Unavailable Primary Care Provider [...] Description 06/02/2025 2:30 PM CDT Office Visit [facility] Pulmonology [address] [place] [address] Kelly Nolasco NP [address] [place] [address] documented as of this encounter Visit Diagnoses Not on filedocumented in this encounter
--- OUTSIDE RECORDS SUMMARY | 2025-05-02 05:39 | XMS_ITS | Clinical Summary ---
Author Organization [facility] Address [address] [place] [address] Care Team Providers Care Wheel Press Operator Name Role Phone Unavailable Primary Care Provider [...] 5 Active fluticasone propionate (FLONASE) 50 mcg/spray [place], Suspension nasal inhaler Administer 2 Sprays in [...] Encounters Date Type Department Care Team Description 04/28/2025 External Device Data [facility] ABSTRACTION Provider, Abstract 04/28/2025 External Device Data [facility] ABSTRACTION Provider, Abstract 04/07/2025 External Device Data [facility] ABSTRACTION Provider, [...] Description 06/02/2025 2:30 PM CDT Office Visit [facility] Pulmonology [address] [place] [address] Kelly Nolasco NP [address] [place] [phone] Health Maintenance Due Date Last Done Comments [...] series) 2021 INFLUENZA VACCINE (#1) 2025 Insurance [employer] PPO
--- NOTE | 2025-05-02 05:40 | XRR_ITS ---
PROCEDURE INFORMATION: Exam: XR Chest Exam date and time: 05/02/2025 5:43 AM Age: 64 years old Clinical indication: Shortness of breath TECHNIQUE: Imaging protocol: Radiologic exam of the chest. Views: 1 view. COMPARISON: CR XR chest 1V portable [id number] 04/17/2025 11:41 AM FINDINGS: Lungs: Minimal atelectasis at the lateral left lung base. Pleural spaces: Unremarkable. No pleural effusion. No pneumothorax. Heart/Mediastinum: Unremarkable. No cardiomegaly. Bones/joints: Unremarkable. XR/XR chest 1V portable [id number] IMPRESSION: No acute findings.
--- NOTE | 2025-05-02 05:40 | ECG_ITS ---
[facility]: [facility] Pat Name: Lora Dsouza Department: Room: Gender: Female Safety Risk Lead: : 1960 Requested By: Ivania Duarte Order Number: [id number] Reading MD: ANY MARTINEZ Measurements Intervals [place] Rate: 113 P: 78 IL: 136 QRS: 101 QRSD: 81 T: 68 QT: 305 QTc: 419 Interpretive Statements SINUS TACHYCARDIA POSSIBLE RIGHT VENTRICULAR HYPERTROPHY [SOME/ALL OF: PROMINENT R IN V1, LATE TRANSITION, RAD, EVON, SSS] SEPTAL MYOCARDIAL INFARCTION , OF INDETERMINATE AGE [40+ ms Q WAVE IN V1/V2] Compared to ECG 04/17/2025 19:30:01 Sinus rhythm no longer present T-wave abnormality no longer present Possible ischemia no longer present Myocardial infarct finding still present Electronically Signed On 05-02-2025 21:34:24 CDT by ANY MARTINEZ [email or web address]
--- NOTE | 2025-05-02 05:50 | ED_ITS ---
HPI - SOB/Dyspnea 2 General: Chief Complaint: Shortness of Breath/Dyspnea Stated Complaint: sob Time Seen by Provider: 05/02/25 05:38 History of Present Illness: HPI Narrative: 64-year-old female with a history of end -stage COPD, chronic hypoxemic respiratory failure on 4 L nasal cannula at all times, BiPAP at night, restless leg syndrome, GERD, anxiety and hypertension who presents to the emergency room with shortness of breath. EMS reports that she was on her BiPAP when they got there and she was hypoxic. They took her off of it and put her on oxygen and she improved. She seems to be feeling a bit better now. However she does have a temp of 100.2 and is slightly tachycardic on presentation. Denies any chest pain. No abdominal pain. No nausea or vomiting. No focal motor deficits. Does not appear altered. Related Data Home Medications ?Medication ?Instructions ?Recorded ?Confirmed sertraline 50 mg tablet 50 mg PO DAILY 11/04/2404/06 tiotropium bromide 2.5 2 puff inhalation DAILY 08/3004/24/25 mcg/actuation mist for inhalation (Spiriva Respimat) trazodone 50 mg tablet 50 mg PO DAILY 11/04/2404/06 dupilumab 300 mg/2 mL subcutaneous 300 mg SUBCUT Q7D 0 02/18/25 04/24/25 syringe fluticasone propionate 50 2 spray intranasal DAILY 07/3004/24/25 mcg/actuation nasal spray,suspension Previous Rx's ?Medication ?Instructions ?Recorded furosemide 20 mg tablet 20 mg PO QAM PRN swelling #9 0 tabs 09/25/24 pantoprazole 40 mg tablet,delayed 40 mg PO DAILY #90 t abs 01/13/25 release (Protonix) Ventolin HFA 90 mcg/actuation 2 puff inhalation Q6H MO N 02/18/25 aerosol inhaler (albuterol sulfate) shortness of breat h or wheezing #8 grams ropinirole 1 mg tablet See Rx Instructions PO BID # 270 02/18/25 tabs buspirone 7.5 mg tablet 7.5 mg PO DAILY PRN anxiety #60 03/25/25 tabs fluticasone 500 mcg-salmeterol 50 1 inh inhalation BID #60 ea 03/25/25 mcg/dose blistr powdr for inhalation (Advair Diskus) megestrol 400 mg/10 mL (10 mL) 200 mg (5 mL) PO DAILY PRN 03/25/25 oral suspension APPETITE #1,000 mL albuterol sulfate 2.5 mg/3 mL 2.5 mg (3 mL) inhalation QID PRN 04/18/25 (0.083 %) solution for nebulization Shortness Of Breat h Or Wheezing #90 mL aspirin 81 mg tablet,delayed 81 mg PO DAILY #30 tabs 0 04/18/25 release (Zeb Low Dose Aspirin) docusate sodium 100 mg capsule 100 mg PO BID #60 caps 04/18/25 ferrous sulfate 325 mg (65 mg 325 mg PO BID #60 tabs 0 04/18/25 iron) tablet ipratropium 0.5 mg-albuterol 3 mg 3 ml inhalation Q6H. RESP #180 mL 04/18/25 (2.5 mg base)/3 mL nebulization soln lactulose 10 gram/15 mL oral 10 g (15 mL) PO DAILY PRN 04/18/25 solution Constipation (see protocol) #300 mL prednisone 20 mg tablet 40 mg (2 x 20 mg) PO DAILY 5 days 04/24/25 #10 tabs Allergies Allergy/AdvReac Type Severity Reaction Status Date / Time No Known Allergies Allergy Verified 04/24/25 07:58 Review of Systems 2 Narrative: Constitutional symptoms: Negative except as documented in HPI. Skin symptoms: Negative except as documented in HPI. Eye symptoms: Negative except as documented in HPI. ENMT symptoms: Negative except as documented in HPI. Respiratory symptoms: Negative except as documented in HPI. Cardiovascular symptoms: Negative except as documented in HPI. Gastrointestinal symptoms: Negative except as documented in HPI. Genitourinary symptoms: Negative except as documented in HPI. Musculoskeletal symptoms: Negative except as documented in HPI. Neurologic symptoms: Negative except as documented in HPI. Psychiatric symptoms: Negative except as documented in HPI. Endocrine symptoms: Negative except as documented in HPI. PFSH ED 2 PFSH: Medical History (Updated 05/02/25 @ 09:39 by Ivania Loera MD) History of PFTs 02/2023: Spirometry showed very severe airflow obstruction with FEV1/FVC 21; FEV1 510 cc 21% predicted and FVC 1.33 L 43% predicted. 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 Chronic respiratory failure with hypoxia and hypercapnia Restless leg Septic shock (~06/2024) Protein-calorie malnutrition, severe GERD (gastroesophageal reflux disease) Anxiety Hypertension Insomnia COPD (chronic obstructive pulmonary disease) Surgical History History of History of tonsillectomy Family History Father Stroke Other Dementia Denies family history of Diabetes CAD (coronary artery disease) Clotting disorder Hyperlipidemia Psychiatric illness Chronic kidney disease (CKD) Anesthesia complication Bleeding disorder Lung disease Cancer Hypertension Social History Smoking and tobacco/nicotine status: former use of tobacco/nicotine Quit status (tobacco/nicotine): has quit using Year quit tobacco: 2019 Former quit date comment: 2 packs/day for 30 years Second hand smoke exposure: Yes Alcohol intake: current Alcohol intake frequency: few times a week Alcohol type: beer Substance/Drug Use: never Additional social history: Patient wants DO NOT RESUSCITATE status as discussed with patient and Lino on 04/17/2025 by Rakesh Ray MD Marital status: Number of children: 5 Number of grandchildren: 9 service: No Current occupational status: disabled Current occupational exposures/hazards: No Previous occupational history: 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 Skin: Warm, dry. Head: Normocephalic, atraumatic. Neck: Supple, trachea midline. Eye: Extraocular movements are intact. Ears, nose, mouth and throat: Oral mucosa moist. Cardiovascular: Regular rate and rhythm, Normal peripheral perfusion. Respiratory: coarse, scattered wheeze, mild increased wob. tachypnea, breath sounds are equal, Symmetrical chest wall expansion. Gastrointestinal: Soft, Nontender, Non distended Musculoskeletal: Normal ROM, no deformity. Neurological: Alert and oriented, No focal neurological deficit observed. Psychiatric: Cooperative, appropriate mood & affect. Course 2 Vital Signs: Vital signs: Vital Signs Temperature 99.4 F 05/02/25 09:20 Pulse Rate 107 H 05/02/25 09:20 Respiratory Rate 32 H 05/02/25 09:20 Blood Pressure 93/61 05/02/25 09:20 Pulse Oximetry 94 05/02/25 09:20 Oxygen Delivery Me thod Nasal Cannula 05/02/25 09:20 Oxygen Flow Rate 5.5 05/02/25 09:20 MDM - SOB/Dyspnea Medical Decision Making Differential diagnosis for patient with shortness of breath includes but is not limited to and based on the above HPI, review of systems and physical exam: Pneumonia. Bronchitis. Asthma or COPD with acute exacerbation. Acute coronary syndrome / [place]. Pulmonary embolism. Anxiety. Congestive heart failure. Viral infections including influenza and Covid-19. Atrial fibrillation. Anxiety. Pleural effusion. Pneumothorax. Orders placed to evaluate differential diagnosis based on the above differential, HPI and physical exam EKG: Time 6:49 AM. Rate 113. Possible LVH. Sinus tachycardia, nonspecific ST changes, no ectopy, normal MO & QRS intervals, This was reviewed and interpreted by myself the ER physician at 6:55 AM. Repeat EKG: Time 8:11 AM. Rate 104. LVH. Sinus tachycardia, nonspecific ST changes, no ectopy, normal MO & QRS intervals, This was reviewed and interpreted by myself the ER physician at 8:15 AM. Rate 104. Rate has decreased slightly from previous but no other acute changes. AB.33/86/55 with an O2 sat of 85% on 5 L nasal cannula. Hypercapnic respiratory failure with early decompensation. Hypoxemia. Chest x-ray: No acute process. No infiltrate. No pneumothorax. This was reviewed and interpreted by myself the emergency room physician. I also reviewed the radiology report. Lab Review: Laboratory results were reviewed and interpreted by myself the emergency room physician. Mild leukocytosis white count 11,000 and a left shift of 85%. No anemia. Patient does have some acute renal insufficiency with a BUN and creatinine of 23 and 1.2. Her creatinine is usually around 0.6. Liver enzymes were elevated. She has no tenderness in her right upper quadrant but I did order an ultrasound of the gallbladder. And liver. Ultrasound of the gallbladder thickened gallbladder wall with some debris in the gallbladder. Likely cirrhosis. This was reviewed and interpreted by myself the emergency room physician. I also reviewed the radiology report. I reviewed the patient's medical record. 64-year-old female with a history of end-stage COPD, chronic hypoxemic respiratory failure on 4 L nasal cannula at all times, BiPAP at night, restless leg syndrome, GERD, anxiety and hypertension. She was discharged from the hospital about 2 weeks ago after having had a COPD exacerbation. Reexamination: Patient resting comfortable on her BiPAP watching her iPad. Work of breathing is much improved. No altered mental status. No focal motor deficits. She is still requiring more than her home oxygen levels. Consultation: I spoke with Dr. Campos who is on-call for the hospitalist service who agrees to admission. Assessment and plan: COPD with acute exacerbation Acute on chronic hypoxemic respiratory failure Hypercapnic respiratory failure Possible sepsis Transaminitis/probable shock liver ?BiPAP ?IV Solu-Medrol ?Multiple updrafts -2 L normal saline bolus. Fluid volumes based on ideal body weight. -Broad-spectrum antibiotics were administered. Meropenem and Zyvox -Sepsis quality measures. -Lactic acid with a reflex was ordered. -Blood cultures were ordered. ?I reevaluated the patient's volume status after sepsis fluids were given. -I discussed the patient with the hospitalist on-call who is admitting the patient. - Discussed findings and plan with patient. Answered any questions. - All laboratory values were reviewed and interpreted personally by myself, the ER physician - All imaging was reviewed and interpreted personally by myself, the ER physician. - Evaluation and treatment of this problem were appropriate in the emergency setting Critical Care: -I spent a total of >35 minutes of critical care time managing the patient, independent of any other practitioner. -The time involved in the performance of separately reportable procedures was not counted towards critical care time. Lab Data 05/02/25 05:50 05/02/25 05:50 Labs/Radiology: Radiology Impressions Chest X-Ray 05/02/25 05:40 IMPRESSION: No acute findings. Abdomen Ultrasound 05/02/25 06:52 IMPRESSION: 1. Thickened gallbladder wall. Debris or tiny calcifications within the gallbladder. 2. Likely cirrhosis. Laboratory Results WBC 11.30 10^3/uL (3.29-11.43) 05/02/25 05:50 RBC 5.89 10^6/uL (3.85-5.65) H 05/02/25 05:50 Hgb 12.40 g/dL (11.27-16.99) 05/02/25 05:50 Hct 48.8 % (36-47) H 05/02/25 05:50 MCV 82.9 fl (85-98) L 05/02/25 05:50 MCH 21.1 pg (27-33) L 05/02/25 05:50 MCHC 25.4 g/dL (30-55) L 05/02/25 05:50 RDW 27.9 % (12.1-15.1) H 05/02/25 05:50 Plt Count 307 10^3/cmm (157-399) 05/02/25 05:50 MPV 10.8 fL (7.4-10.4) H 05/02/25 05:50 Neut % (Auto) 85.0 % 05/02/25 05:50 Lymph % (Auto) 5.7 % 05/02/25 05:50 [place] % (Auto) 5.9 % 05/02/25 05:50 Eos % (Auto) 0.4 % 05/02/25 05:50 Baso % (Auto) 0.4 % 05/02/25 05:50 Neut # (Auto) 9.61 10^3/uL (1.8-7.7) H 05/02/25 05:50 Lymph # (Auto) 0.6 10^3/uL (0.8-4.8) L 05/02/25 05:50 [place] # (Auto) 0.7 10^3/uL (0.2-0.9) 05/02/25 05:50 Eos # (Auto) 0.1 10^3/uL (0.0-0.8) 05/02/25 05:50 Baso # (Auto) 0.0 10^3/uL (0.0-0.1) 05/02/25 05:50 Nucleated RBC % (auto) 0 % 05/02/25 05:50 Nucleated RBCs # 0.0 /100WBC 05/02/25 05:50 Specimen Type Arterial 05/02/25 06:17 Sample Site Radial, left 05/02/25 06:17 ABG pH 7.32 (7.35-7.45) L 05/02/25 06:17 ABG pCO2 83.0 mmHg (35-45) H* 05/02/25 06:17 ABG pO2 55.0 mmHg (80.0-100.0) L 05/02/25 06:17 ABG PO2/FiO2 Ratio 137 05/02/25 06:17 ABG HCO3 42.6 mmol/L (22-26) H 05/02/25 06:17 ABG O2 Saturation 85.8 05/02/25 06:17 ABG Base Excess 13.2 mmol/L (-2.0-2.0) H 05/02/25 06:17 Erik Test Pos 05/02/25 06:17 A-a O2 Gradient 17.1 mmHg (5-10) H 05/02/25 06:17 Hematocrit 35.9 % (37-47) L 05/02/25 06:17 Hgb O2 Saturation 83.0 % (95-100) L 05/02/25 06:17 Carboxyhemoglobin 3.1 %THgb (0.4-20.1) 05/02/25 06:17 Methemoglobin 0.1 % (0.4-1.5) L 05/02/25 06:17 Total Hemoglobin 11.7 g/dL (12-16) L 05/02/25 06:17 Sodium 143.0 mmol/L (131-143) 05/02/25 06:17 Potassium 3.3 mmol/L (3.5-5.0) L 05/02/25 06:17 Glucose 154.0 mg/dL (70-115) H 05/02/25 06:17 Ionized Calcium 1.1 mmol/L (1.1-1.4) 05/02/25 06:17 O2 Delivery Device Nc 05/02/25 06:17 O2 Liters/Min 5.0 % 05/02/25 06:17 FiO2 40.0 % 05/02/25 06:17 Mechanical Integrity Specialist ID [email or web address] 05/02/25 06:17 Sodium 144 mmol/L (136-145) 05/02/25 05:50 Potassium 4.0 mmol/L (3.5-5.1) 05/02/25 05:50 Chloride 96 mmol/L (98-107) L 05/02/25 05:50 Carbon Dioxide 38 mmol/L (22-29) H 05/02/25 05:50 Anion Gap 14.0 (5-19) 05/02/25 05:50 BUN 23 mg/dL (8-23) 05/02/25 05:50 Creatinine 1.2 mg/dL (0.5-0.9) H 05/02/25 05:50 GFR Calculation 45.4 mL/min (90-130) L 05/02/25 05:50 Glucose 185 mg/dL (65-115) H 05/02/25 05:50 Calculated Osmolality 306 mOsm/kg (285-295) H 05/02/25 05:50 Lactic Acid 2.1 mmol/L (0.5-2.2) 05/02/25 05:50 Calcium 8.6 mg/dL (8.5-10.5) 05/02/25 05:50 Total Bilirubin 1.1 mg/dL (0.15-1.2) 05/02/25 05:50 AST 428 U/L (0-32) H 05/02/25 05:50 ALT 460 U/L (0-33) H 05/02/25 05:50 Alkaline Phosphatase 101 U/L (35-105) 05/02/25 05:50 Troponin T Baseline 73 ng/L (0-10) H 05/02/25 05:50 Troponin T 120 Minute 86.76 ng/L (0-10) H 05/02/25 07:48 Delta Troponin T 13.76 ABS# (0-10) H* 05/02/25 07:48 Total Protein 5.8 g/dL (6.6-8.7) L 05/02/25 05:50 Albumin 3.9 g/dL (3.5-5.2) 05/02/25 05:50 Globulin 1.9 g/dL (1.3-4.6) 05/02/25 05:50 Hepatitis A IgM Ab Non-reactive (Nonreactive) 05/02/25 05:50 Hep Bs Antigen Non-reactive (Nonreactive) 05/02/25 05:50 Hep B Core IgM Ab Non-reactive (Nonreactive) 05/02/25 05:50 Hepatitis C Antibody Non-reactive (Nonreactive) 05/02/25 05:50 Influenza A (PCR) Negative (Negative) 05/02/25 07:14 Influenza Type B (PCR) Negative (Negative) 05/02/25 07:14 RSV (PCR) Negative (Negative) 05/02/25 07:14 SARS-CoV-2 (PCR) Negative (Negative) 05/02/25 07:14 All radiology interpretation(s) finalized by discharge Discharge Plan Discharge Patient Disposition: Admitted As Inpatient Admit Provider: Jf Campos Clinical Impression: COPD with acute exacerbation, Acute on chronic hypoxic respiratory failure, Acute hypercapnic respiratory failure, Sepsis Condition: Stable Coding Level of Care Code ED Warehouse Distribution Specialist for Umesh Salmon
[2025-05-02] MEDS: methylPREDNISolone sod succ 125 mg/2 mL INJ IVP (06:16)
[2025-05-02 06:20] LABS: Hematocrit 48.8 % (36-47); Hemoglobin 12.40 g/dL (11.27-16.99); Mean Corpuscular HGB Conc 25.4 g/dL (30-55); Mean Corpuscular Hemoglobin 21.1 pg (27-33); Mean Corpuscular Volume 82.9 fl (85-98); Nucleated Red Blood Cells % 0 %; Platelet Count 307 10^3/cmm (157-399); Red Blood Count 5.89 10^6/uL (3.85-5.65); White Blood Count 11.30 10^3/uL (3.29-11.43)
[2025-05-02 06:29] LABS: ABG PCO2 83.0 mmHg (35-45); ABG PH Result 7.32 (7.35-7.45); Alveolar-Arterial Oxygen Gradi 17.1 mmHg (5-10); Arterial Blood Gas Hematocrit 35.9 % (37-47); Blood Gas Allen Test Pos; Blood Gas LPM 5.0 %; Blood Gas Operator Identificat gerca; Blood Gas Sample Site Radial, left; Blood Gas Sample Type Arterial; Carboxyhemoglobin 3.1 %THgb (0.4-20.1); Glucose Level-ABG 154.0 mg/dL (70-115); HCO3 ABG 42.6 mmol/L (22-26); Ionized Calcium Level - ABG 1.1 mmol/L (1.1-1.4); Methemoglobin 0.1 % (0.4-1.5); Oxygen Saturation ABG 85.8; PO2 ABG 55.0 mmHg (80.0-100.0); PO2 FiO2 Ratio Arterial Blood 137; Potassium Level - ABG 3.3 mmol/L (3.5-5.0); Sodium Level - ABG 143.0 mmol/L (131-143)
[2025-05-02 06:32] LABS: Lactic Sepsis W/Reflex 2.1 mmol/L (0.5-2.2)
[2025-05-02 06:33] LABS: Alanine Aminotransferase 460 U/L (0-33); Albumin Level 3.9 g/dL (3.5-5.2); Alkaline Phosphatase 101 U/L (35-105); Anion Gap 14.0 (5-19); Aspartate Amino Transferase 428 U/L (0-32); Blood Urea Nitrogen 23 mg/dL (8-23); Calcium 8.6 mg/dL (8.5-10.5); Carbon Dioxide 38 mmol/L (22-29); Chloride 96 mmol/L (98-107); Globulin 1.9 g/dL (1.3-4.6); Glucose 185 mg/dL (65-115); Osmolality Calculated 306 mOsm/kg (285-295); Potassium 4.0 mmol/L (3.5-5.1); Sodium 144 mmol/L (136-145); Total Protein 5.8 g/dL (6.6-8.7)
[2025-05-02 06:48] LABS: Creatinine Clr Calc Pharmacy 46.0280
--- NOTE | 2025-05-02 06:52 | USR_ITS ---
PROCEDURE INFORMATION: Exam: US Abdomen, Limited; Right Upper Quadrant Exam date and time: 05/02/2025 7:24 AM Age: 64 years old Clinical indication: Abnormal findings; Abnormal lab test; Elevated liver enzymes; Additional info: Elevated lfts, . mild ruq tenderness TECHNIQUE: Imaging protocol: Real time ultrasound of the abdomen with image documentation. Limited exam focused on the right upper quadrant. COMPARISON: CT angio chest w abd pel w con 06/30/2024 12:58 PM FINDINGS: Liver: Increased echogenicity of the liver suggesting cirrhosis or steatosis. The liver has a cirrhotic contour. Gallbladder: Thickened 5 mm gallbladder wall. Tiny echogenic foci within the gallbladder represents either small calculi or debris. Biliary ducts: Normal. No stones. No dilation. Pancreas: Visualized pancreas is unremarkable. Right kidney: Normal. No mass. No hydronephrosis. Intraperitoneal space: Trace ascites. US/US abdomen limited [id number] IMPRESSION: 1. Thickened gallbladder wall. Debris or tiny calcifications within the gallbladder. 2. Likely cirrhosis.
[2025-05-02 07:11] LABS: Troponin(5th) Baseline 73 ng/L (0-10)
[2025-05-02] MEDS: linezolid premix 600 MG/300 ML PREMIX 300 MG IV (07:13)
--- NOTE | 2025-05-02 07:25 | PC.NURSE ---
attempted to obtain urine sample from patient, ultrasound in room at this time.
[2025-05-02 07:45] LABS: Reflex Lactate Order REFLEX LACTIC ORDERD
[2025-05-02 08:03] LABS: Respiratory Syncytial Virus Ce NEGATIVE (Negative); SARS-CoV-2 PCR NEGATIVE (Negative)
--- NOTE | 2025-05-02 08:11 | ECG_ITS ---
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: : 1960 Requested By: Ivania Duarte Order Number: [id number] Reading MD: ANY MARTINEZ Measurements Intervals [place] Rate: 104 P: 81 [place]: 137 QRS: 103 QRSD: 85 T: 84 QT: 345 QTc: 455 Interpretive Statements SINUS TACHYCARDIA POSSIBLE RIGHT VENTRICULAR HYPERTROPHY [SOME/ALL OF: PROMINENT R IN V1, LATE TRANSITION, RAD, EVON, SSS] SEPTAL MYOCARDIAL INFARCTION , OF INDETERMINATE AGE [40+ ms Q WAVE IN V1/V2] Compared to ECG 05/02/2025 06:49:52 No significant changes Electronically Signed On 05-02-2025 21:38:08 CDT by ANY MARTINEZ [email or web address]
[2025-05-02 08:13] LABS: Hepatitis A Antibody IgM Non-Reactive (Nonreactive); Hepatitis B Surface Antigen Non-Reactive (Nonreactive)
[2025-05-02 08:17] LABS: Troponin 5 2HR 86.76 ng/L (0-10)
[2025-05-02 08:22] LABS: Troponin 5 2HR Delta 13.76 ABS# (0-10)
[2025-05-02 08:32] LABS: Glucose Urine UA Negative (Normal); Nitrate Urine Negative (Negative); Specific Gravity, Urine 1.022 (1.005-1.030)
[2025-05-02 08:46] LABS: UA Slide Review UA Slide Review Perf
[2025-05-02 09:10] LABS: Lactic Acid level (Lactate) 1.3 mmol/L (0.5-2.2)
--- NOTE | 2025-05-02 09:12 | PC.NURSE ---
Patient transferred from ED to [facility] via a bed at 0905. She has NS running
--- NOTE | 2025-05-02 10:45 | PM.HP ---
Providers/Chief Complaint Admitting Physician: Jf Campos MD Primary Care Provider: Zoran Stern MD Chief Complaint: sob History of Present Illness Lora Dsouza is a 64 year old female presenting with SOB. She was recently admitted about two weeks ago for a similar episode. At that time there was concern that her home oxygen was not working properly. Home health was going to examine her equipment but this has not happened yet. At baseline she uses 5L O2 per NC during the day and BiPAP at night. This AM, she had O2 saturation of 46 and EMS was called and she was taken to the ER. She was placed on BIPAP with improvement in her O2 sats. On prior admission she was also found to be severely iron deficient. Given IV iron while inpatient and she was scheduled for 5 more bags of IV iron as outpatient. She completed 2 bags so far, with the remaining to be given MWF next week. She also has an outpatient pulmonology appointment next week scheduled as well. Review of Systems Const: Denies: fever(s), chills or body aches Eyes: Denies: change in vision ENMT: Denies: throat pain or mouth pain Card: Denies: chest pain or palpitations Resp: Reports: dyspnea GI: Denies: abdominal pain, nausea or vomiting : Denies: difficulty voiding Musc: Denies: neck pain, back pain, extremity pain or joint swelling Skin/Breast: Denies: rash, pruritus or skin swelling Neuro: Denies: headache(s), numbness in extremities or lack of coordination Psych: Denies: anxiety or depression Medications/Allergies Home Medications ?Medication ?Instructions ?Recorded ?Confirmed ?Last Taken ?Type furosemide 20 mg tablet 20 mg PO QAM PRN swelling #90 tabs 09/25/24 04/24/25 Unknown Rx sertraline 50 mg tablet 50 mg PO DAILY 11/04/24 04/24/25 Unknown History tiotropium bromide 2.5 2 puff inhalation DAILY 11/04/24 04/24/25 Unknown History mcg/actuation mist for inhalation (Spiriva Respimat) trazodone 50 mg tablet 50 mg PO DAILY 11/04/24 04/24/25 Unknown History pantoprazole 40 mg tablet,delayed 40 mg PO DAILY #90 tabs 01/13/25 04/24/25 Unknown Rx release (Protonix) Ventolin HFA 90 mcg/actuation 2 puff inhalation Q6H PRN 02/18/25 04/24/25 Unknown Rx aerosol inhaler (albuterol sulfate) shortness of breath or wheezing #8 grams dupilumab 300 mg/2 mL subcutaneous 300 mg SUBCUT Q7D 02/18/25 04/24/25 Unknown History syringe ropinirole 1 mg tablet See Rx Instructions PO BID #270 02/18/25 04/24/25 Unknown Rx tabs buspirone 7.5 mg tablet 7.5 mg PO DAILY PRN anxiety #60 03/25/25 04/24/25 Unknown Rx tabs fluticasone 500 mcg-salmeterol 50 1 inh inhalation BID #60 ea 03/25/25 04/24/25 Unknown Rx mcg/dose blistr powdr for inhalation (Advair Diskus) megestrol 400 mg/10 mL (10 mL) 200 mg (5 mL) PO DAILY PRN 03/25/25 04/24/25 Unknown Rx oral suspension APPETITE #1,000 mL fluticasone propionate 50 2 spray intranasal DAILY 04/17/25 04/24/25 Unknown History mcg/actuation nasal spray,suspension albuterol sulfate 2.5 mg/3 mL 2.5 mg (3 mL) inhalation QID PRN 04/18/25 04/24/25 Unknown Rx (0.083 %) solution for nebulization Shortness Of Breath Or Wheezing #90 mL aspirin 81 mg tablet,delayed 81 mg PO DAILY #30 tabs 04/18/25 04/24/25 Unknown Rx release (Zeb Low Dose Aspirin) docusate sodium 100 mg capsule 100 mg PO BID #60 caps 04/18/25 04/24/25 Unknown Rx ipratropium 0.5 mg-albuterol 3 mg 3 ml inhalation Q6H.RESP #180 mL 04/18/25 04/24/25 Unknown Rx (2.5 mg base)/3 mL nebulization soln Allergies Allergy/AdvReac Type Severity Reaction Status Date / Time No Known Allergies Allergy Verified 04/24/25 07:58 PFSH Acute PFSH: Medical History History of PFTs 02/2023: Spirometry showed very severe airflow obstruction with FEV1/FVC 21; FEV1 510 cc 21% predicted and FVC 1.33 L 43% predicted. 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 Chronic respiratory failure with hypoxia and hypercapnia Restless leg Septic shock (~06/2024) Protein-calorie malnutrition, severe GERD (gastroesophageal reflux disease) Anxiety Hypertension Insomnia COPD (chronic obstructive pulmonary disease) Surgical History History of History of tonsillectomy Family History Father Stroke Other Dementia Denies family history of Diabetes CAD (coronary artery disease) Clotting disorder Hyperlipidemia Psychiatric illness Chronic kidney disease (CKD) Anesthesia complication Bleeding disorder Lung disease Cancer Hypertension Social History Smoking and tobacco/nicotine status: former use of tobacco/nicotine Quit status (tobacco/nicotine): has quit using Year quit tobacco: 2019 Former quit date comment: 2 packs/day for 30 years Second hand smoke exposure: Yes Alcohol intake: current Alcohol intake frequency: few times a week Alcohol type: beer Substance/Drug Use: never Additional social history: Patient wants DO NOT RESUSCITATE status as discussed with patient and Lino on 04/17/2025 by Rakesh Ray MD Marital status: Number of children: 5 Number of grandchildren: 9 service: No Current occupational status: disabled Current occupational exposures/hazards: No Previous occupational history: 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 Pets and animals: Yes Current gender identity: Female Vitals/I&O/Wt Last Vital Signs Temp 99.4 F 05/02/25 09:20 Pulse 107 H 05/02/25 09:20 Resp 32 H 05/02/25 09:20 BP 93/61 05/02/25 09:20 Pulse Ox 94 05/02/25 09:20 O2 Del Method Nasal Cannula 05/02/25 09:20 O2 Flow Rate 5.5 05/02/25 09:20 05/01/25 05/02/25 05/02/25 22:59 06:59 14:59 Intake Total 0 / 0 2300 / 2300 Output Total 100 / 100 Balance 0 / 0 2200 / 2200 Weight last 48 hrs Weight 69.853 kg Physical Exam Const: COMMON NORMALS: no acute distress, average body habitus and patient oriented x3 HENMT: COMMON NORMALS: normocephalic and atraumatic Eye: COMMON NORMALS: Equal, round and reactive pupils present and EOMs intact bilaterally Neck/C-Spine: COMMON NORMALS: full ROM and no lymphadenopathy Lymph: LYMPHATIC: no lymphadenopathy noted Resp: COMMON NORMALS: normal respiratory effort and No retractions AUSCULTATION: rales, wheezes and other (lung sounds distant.) Cardio: COMMON NORMALS: no JVD, regular rate, regular rhythm, S1 normal heart sound present, S2 normal heart sound present, No gallops present (Cardio), No murmurs present (Cardio) and No rub (Cardio) GI: COMMON NORMALS: Soft to palpation, non-tender and no masses Extremity: COMMON NORMALS: full ROM, no joint enlargement and no pedal edema Neuro: COMMON NORMALS: patient oriented x3 and CN's II-XII intact bilaterally Data 05/02/25 05:50 05/02/25 05:50 Micro: Microbiology 05/02/25 05:53 Blood Culture - Preliminary Blood SPECIMEN COLLECTED 05/02/25 05:50 Blood Culture - Preliminary Blood SPECIMEN COLLECTED A&P Assessment and plan 1. COPD with acute exacerbation: 2. Acute on chronic hypoxic respiratory failure: 3. Acute hypercapnic respiratory failure: Plan: 64 year old female presenting for COPD exacerbation Acute exacerbation of chronic obstructive airways disease: Acute on chronic respiratory failure with hypoxia and hypercapnia: - recently admitted for similar episode, discharged on inhalers: changed her albuterol to DuoNebs to add ipratropium, steroid burst dose - Cont. home bipap at night and O2 during the day, she uses 5L at baseline - she got meropenem/linezolid in ER, can cont. on rocephin - steroid burst ordered in ER, cont. on IV methylpred 40mg Q12H - cont. home inhalers or EQ - duonebs PRN Iron deficiency anemia: - Follow-up for outpatient colonoscopy and potentially EGD. - Patient received 200 mg iron sucrose infusion on last admission - she received 2 bags of IV iron after discharge, scheduled to get 3 more next week - Cont. outpatient iron replacement regimen, can give IV iron inpatient depending on how long she stays. - Hb improved to normal range since prior admission. Anxiety: - stable PAOLA - slight creatinine elevation - monitor, BUN is normal - hold home lasix Troponin elevation - chronic - denies chest pain currently, likely 2/2 her COPD exacerbation - we can get echo, last done 2022 with normal EF, no wall motion abnormalities. Diet: regular PPx: lovenox, SCDs Disposition - up ad vic, admitted to [facility], inpatient for COPD exacerbation - PT/OT/CM for discharge planning - home meds continued PDMP PDMP Reviewed: Not Reviewed Attestations Medical Necessity Statement*: Anticipate > 2 midnights for COPDe Time Spent in Patient Care: 16 - 35 minutes (>than 50% of time spent in counselling and/or direct pt care on unit). Coding Level of Care Code Acute Code for [facility] Diagnoses COPD with acute exacerbation J44.1 Acute on chronic hypoxic respiratory failure J96.21 Acute hypercapnic respiratory failure J96.02
--- NOTE | 2025-05-02 11:17 | USCV_ITS ---
Lora Dsouza Age: 64 Gender: F : 1960 Exam Date: 05/02/2025 14:03 Ordering Phys: Jf Campos MD Technologist: Meño Tan Exam Location: [facility] [place] Indication: elevated trop BP: 96 / 99 HR: 89 Rhythm: Sinus Technical Quality: Adequate MEASUREMENTS (Male / Female) Normal Values 2D ECHO LV Diastolic Diameter PLAX 3.9 cm 4.2 - 5.9 / 3.9 - 5.3 cm IVS Diastolic Thickness 1.2 cm 0.6 - 1.0 / 0.6 - 0.9 cm IVS Systolic Thickness 1.4 cm LVPW Diastolic Thickness 1.5 cm 0.6 - 1.0 / 0.6 - 0.9 cm LVPW Systolic Thickness 2.7 cm LVOT Diameter 2.0 cm LV Ejection Fraction 2D Teich 74.6 % LV Ejection Fraction MOD 4C 61.9 % LV Ejection Fraction MOD 2C 68.6 % LV Ejection Fraction 2C AL 67.9 % LA Diameter 3.6 cm RA Systolic Volume 4C AL 47.9 ml RA Systolic Volume 4C MOD 47.5 ml LA Sys Volume AL 53.5 cm cubed LA Sys Volume Index AL 32.3 cm cubed/m squared IVC Diameter 1.7 cm M-MODE LA Ao Ratio MM 1.3 AV Cusp Separation MM 1.1 cm DOPPLER AV Peak Velocity 323.3 cm/s LVOT Peak Velocity 92.0 cm/s AV Area Cont Eq vti 0.8 cm squared AV Area Cont Eq pk 0.9 cm squared MV Peak Velocity 126.0 cm/s MV Area PHT 6.0 cm squared Mitral E to A Ratio 0.8 TV Peak Velocity 311.0 cm/s TR Peak Velocity 349.0 cm/s TR Peak Gradient 48.7 mmHg TR Mean Velocity 243.0 cm/s TR Mean Gradient 25.2 mmHg TR Velocity Time Integral 79.3 cm PV Peak Velocity 101.0 cm/s RV Ejection Time 0.3 s FINDINGS Left Ventricle Normal left ventricular size, systolic function and wall thickness, with no regional wall motion abnormalities. Left ventricular ejection fraction is estimated at 55 %. Grade I/IV diastolic dysfunction (abnormal relaxation filling pattern), normal to mildly elevated filling pressures. Right Ventricle The right ventricle is normal in size and function. Right Atrium The right atrium is normal in size. Left Atrium The left atrium is normal in size. Mitral Valve Mildly thickened mitral valve. No mitral valve stenosis. Mild mitral valve regurgitation. Aortic Valve Moderate aortic valve calcification. Mild to moderate aortic valve stenosis, mean gradient 26.5 mmHg, MARLO 0.84 cm squared. Trace aortic valve regurgitation. Tricuspid Valve Mild tricuspid valve regurgitation. Pulmonic Valve Structurally normal pulmonic valve without significant stenosis. There is no pulmonic regurgitation. Pericardium Normal pericardium without effusion. Aorta Normal ascending aorta dimension. IVC The inferior vena cava appears normal. CONCLUSIONS Normal left ventricular size, systolic function and wall thickness, with no regional wall motion abnormalities. Left ventricular ejection fraction is estimated at 55 %. Grade I/IV diastolic dysfunction (abnormal relaxation filling pattern), normal to mildly elevated filling pressures. Moderate aortic valve calcification. Mild to moderate aortic valve stenosis, mean gradient 26.5 mmHg, MARLO 0.84 cm squared. Trace aortic valve regurgitation. Mildly thickened mitral valve. No mitral valve stenosis. Mild mitral valve regurgitation. Mild tricuspid valve regurgitation. There is no pericardial effusion. Right atrial pressure is around 5 mm of mercury. Lanie Madrid MD (Electronically Signed) Final Date: 02 May 2025 18:50 S
--- NOTE | 2025-05-02 11:40 | ECG_ITS ---
[employer] Test Date: 2025-05-02 Pat Name: Lora Dsouza Department: Room: 103 Gender: Female Group Director Experience: : 1960 Requested By: Ivania Duarte Order Number: [id number] Reading MD: ANY MARTINEZ Measurements Intervals [place] Rate: 95 P: 56 TX: 139 QRS: 97 QRSD: 82 T: 9 QT: 369 QTc: 466 Interpretive Statements SINUS RHYTHM WITH OCCASIONAL ECTOPIC PREMATURE COMPLEXES POSSIBLE LEFT ATRIAL ENLARGEMENT [-0.1mV P-WAVE IN V1/V2] BORDERLINE RIGHT AXIS DEVIATION [QRS AXIS > 90] SEPTAL MYOCARDIAL INFARCTION , OF INDETERMINATE AGE [40+ ms Q WAVE IN V1/V2] MODERATE T-WAVE ABNORMALITY, CONSIDER ANTEROLATERAL ISCHEMIA [-0.1+ mV T-WAVE IN V3-V6] Compared to ECG 05/02/2025 08:11:16 T-wave abnormality now present Possible ischemia now present Sinus tachycardia no longer present Myocardial infarct finding still present Electronically Signed On 05-02-2025 21:38:03 CDT by ANY MARTINEZ [email or web address]
--- NOTE | 2025-05-02 11:49 | PC.CHAP ---
Pastoral Care Encounter/Spiritual Assessment Type of Contact [] Declined senior group manager visit [] Patient/Family/Request visit [] Outpatient visit [] Follow-up visit [] Physician referral [] Code/Alert [X] Routine visit [] Staff referral [] Actively dying [] Patient sleeping [] Family support [] [] Out of room [] Palliative care [] [X] Receiving care in room [] Pre-surgical visit [] Trauma [] Long length of stay [] ICU visit [] Other:Tests Relational/Emotional Strength [] Patient feels connected with others/family/visitors/staff [] Distress [] Loneliness/isolation [] Abandonment Spirituality of Patient [] Person of Radha [] Attends Jain of their Radha [] Believes in Prayer [] Reads Bible or Christian materials [] There are Spiritual issues to be addressed Hander In Interventions [] Prayer [] Active listening [] Non-anxious presence [] Spiritual/emotional support [] Crisis/trauma care [] Spiritual counseling [] Bereavement support [] Provided bereavement packet [] Provided Bible/devotional materials [] Provided toy/stuffed animal, coloring book to patient or family member [] Provided Communion [] Anointing/[place] [] Salvation [] Completed spiritual assessment [] Other: Impact on Illness or Injury [] Angry [] Fearful [] Anxious [] Often cries [] Exhaustion [] Unable to work [] Unable to attend voodoo [] Unable to walk/stand [] Unable to read [] Unable to drive [] Unable to eat/drink [] Unable to sleep [] Unable to be with family [] Patient intubated [] Other: Summary Time spent with patient
[2025-05-02] MEDS: methylPREDNISolone sod succ 40 mg/mL INJ IVP ×2 (11:58→23:12)
[2025-05-02] MEDS: cefTRIAXone 1,000 mg SDV 1000 MG IVP (11:58)
[2025-05-02 12:41] LABS: Troponin 5 6HR 87.77 ng/L (0-10)
[2025-05-02 12:47] LABS: Troponin 5 6HR Delta 14.77 ng/L (0-12)
[2025-05-03] VITALS (12 sets, daily range): BP systolic 115–135; BP diastolic 68–95; PULSE 92–107; RESP 16–26; TEMP 36.6–36.7; O2SAT 94–99
[2025-05-03 03:52] LABS: Hematocrit 39.1 % (36-47); Hemoglobin 10.40 g/dL (11.27-16.99); Mean Corpuscular HGB Conc 26.6 g/dL (30-55); Mean Corpuscular Hemoglobin 21.6 pg (27-33); Mean Corpuscular Volume 81.3 fl (85-98); Nucleated Red Blood Cells % 0 %; Platelet Count 220 10^3/cmm (157-399); Red Blood Count 4.81 10^6/uL (3.85-5.65); White Blood Count 8.79 10^3/uL (3.29-11.43)
[2025-05-03 04:31] LABS: Anion Gap 8.7 (5-19); Blood Urea Nitrogen 19 mg/dL (8-23); Calcium 7.9 mg/dL (8.5-10.5); Carbon Dioxide 38 mmol/L (22-29); Chloride 97 mmol/L (98-107); Creatinine Clr Calc Pharmacy 86.9709; Glucose 142 mg/dL (65-115); Osmolality Calculated 295 mOsm/kg (285-295); Potassium 3.7 mmol/L (3.5-5.1); Sodium 140 mmol/L (136-145)
[2025-05-03 04:53] LABS: Add RBC Morph Yes; Slide Review Slide Review Perform
[2025-05-03 04:54] LABS: RBC Morph Comp No
[2025-05-03 04:55] LABS: Hypochromasia 2+
[2025-05-03 04:56] LABS: Microcytosis Trace; Ovalocytes 2+
[2025-05-03 04:57] LABS: Tear Drop Cells Trace
[2025-05-03 08:32] LABS: Alanine Aminotransferase 597 U/L (0-33); Albumin Level 3.6 g/dL (3.5-5.2); Alkaline Phosphatase 68 U/L (35-105); Aspartate Amino Transferase 318 U/L (0-32); Globulin 1.6 g/dL (1.3-4.6); Total Protein 5.2 g/dL (6.6-8.7)
--- NOTE | 2025-05-03 10:28 | PM.PN ---
Subjective Subjective: Breathing better today. Vitals/I&O/Wt Last Vital Signs Temp 97.9 F 05/03/25 08:00 Pulse 107 H 05/03/25 08:00 Resp 20 H 05/03/25 08:00 BP 131/79 05/03/25 08:00 Pulse Ox 98 05/03/25 08:00 O2 Del Method Nasal Cannula 05/03/25 08:00 O2 Flow Rate 5 05/03/25 08:00 05/02/25 05/03/25 05/03/25 22:59 06:59 14:59 Intake Total 240 / 2720 240 / 2960 Output Total 200 / 300 Balance 240 / 2620 40 / 2660 Weight last 48 hrs Weight 61.462 kg Weight 60.328 kg Weight 69.853 kg Physical Exam Narrative: Physical Exam Const: no acute distress, average body habi tus and patient or iented x3 HENMT: normocephalic and atraumatic Eye: Equal, round and r eactive pupils pre sent and EOMs inta ct bilaterally Neck/C-Spine: full ROM Lymph: no lymphadenopathy noted Resp: normal respiratory effort and No ret ractions AUSCULTAT ION: rales, wheeze s, lung sounds dis tant. Cardio: no JVD, regular ra te, regular rhythm , S1/S2 normal, No gallops, murmurs and No rub GI: Soft to palpation, non-tender and no masses Extremity: full ROM, no joint enlargement and n o pedal edema Neuro: patient oriented x 3 and CN's II-XII intact bilaterally Data 05/03/25 02:51 05/03/25 02:51 Micro: Microbiology 05/02/25 05:53 Blood Culture - Preliminary Blood NEGATIVE TO DATE 05/02/25 05:50 Blood Culture - Preliminary Blood NEGATIVE TO DATE A&P Assessment and plan 1. COPD with acute exacerbation: 2. Acute on chronic hypoxic respiratory failure: 3. Acute hypercapnic respiratory failure: 4. Tobacco dependence due to cigarettes, in remission: Plan: 64 year old female presenting for COPD exacerbation Acute exacerbation of chronic obstructive airways disease: Acute on chronic respiratory failure with hypoxia and hypercapnia: - recently admitted for similar episode, discharged on inhalers: changed her albuterol to DuoNebs to add ipratropium, steroid burst dose - Cont. home bipap at night and O2 during the day, she uses 5L at baseline - she got meropenem/linezolid in ER, can cont. on rocephin - no leukocytosis currently - steroid burst ordered in ER, cont. on IV methylpred 40mg Q12H - cont. home inhalers or EQ - duonebs PRN Iron deficiency anemia: - Follow-up for outpatient colonoscopy and potentially EGD. - Patient received 200 mg iron sucrose infusion on last admission - she received 2 bags of IV iron after discharge, scheduled to get 3 more next week - while inpatient, start IV iron on Sunday Q48h while here. - Cont. outpatient iron replacement regimen after discharge. - Hb improved to normal range since prior admission. - will likely continue to need IV iron as outpatient after discharge, goal ferritin > 100, will need to recheck levels with PCP in 1-2 weeks. Continue to transfuse until at goal. Elevated LFTs - AST/ALT/Alkphos moderately elevated on admission - no bilirubin elevation - unclear etiology, no abdominal pain noted. Potentially shock liver from severe COPD exacerbation -improving. Cont. to treat as above. Anxiety: - stable PAOLA - slight creatinine elevation - monitor, BUN is normal - hold home lasix Troponin elevation - chronic - denies chest pain currently, likely 2/2 her COPD exacerbation - last echo done 2022 with normal EF, no wall motion abnormalities. - repeate echo done 05/02 with EF of 55%, no regional wall motion abnormalities. Diet: regular PPx: lovenox, SCDs Disposition - up ad vic, admitted to [facility] [place], inpatient for COPD exacerbation - PT/OT/CM for discharge planning - home meds continued PDMP PDMP Reviewed: Not Reviewed Attestations Medical Necessity Statement*: Ongoing inpatient for COPDe Time Spent in Patient Care: 16 - 35 minutes (>than 50% of time spent in counselling and/or direct pt care on unit). Coding Level of Care Code Acute Code for [facility] Diagnoses COPD with acute exacerbation J44.1 Acute on chronic hypoxic respiratory failure J96.21 Acute hypercapnic respiratory failure J96.02 Tobacco dependence due to cigarettes, in remission F17.211
--- NOTE | 2025-05-03 10:52 | PC.NURSE ---
called to nurses station and told nurse that his does not look and feel good Nurse went to room and pt is in bed, she said she was dizzy and nauseous after she use the bedside commode and felt like she is going to passed out. Checked BP-129/87, noted HR in 52 per pulse oximetry monitor but pt don't have an order for cardiac monitoring. Notified hospitalist of the episode and asked for international specialist order.
[2025-05-03] MEDS: methylPREDNISolone sod succ 40 mg/mL INJ IVP ×2 (12:55→23:49)
[2025-05-03] MEDS: cefTRIAXone 1,000 mg SDV 1000 MG IVP (12:55)
[2025-05-04] VITALS (9 sets, daily range): BP systolic 105–147; BP diastolic 71–85; PULSE 86–108; RESP 16–24; TEMP 36.2–36.7; O2SAT 95–99
[2025-05-04 04:35] LABS: Hematocrit 41.0 % (36-47); Hemoglobin 10.80 g/dL (11.27-16.99); Mean Corpuscular HGB Conc 26.3 g/dL (30-55); Mean Corpuscular Hemoglobin 22.1 pg (27-33); Mean Corpuscular Volume 84.0 fl (85-98); Nucleated Red Blood Cells % 0 %; Platelet Count 267 10^3/cmm (157-399); Red Blood Count 4.88 10^6/uL (3.85-5.65); White Blood Count 9.59 10^3/uL (3.29-11.43)
[2025-05-04 04:59] LABS: Alanine Aminotransferase 468 U/L (0-33); Albumin Level 3.6 g/dL (3.5-5.2); Alkaline Phosphatase 58 U/L (35-105); Anion Gap 10.9 (5-19); Aspartate Amino Transferase 144 U/L (0-32); Blood Urea Nitrogen 13 mg/dL (8-23); Calcium 8.5 mg/dL (8.5-10.5); Carbon Dioxide 39 mmol/L (22-29); Chloride 99 mmol/L (98-107); Creatinine Clr Calc Pharmacy 104.3651; Globulin 2.0 g/dL (1.3-4.6); Glucose 107 mg/dL (65-115); Osmolality Calculated 299 mOsm/kg (285-295); Potassium 4.9 mmol/L (3.5-5.1); Sodium 144 mmol/L (136-145); Total Protein 5.6 g/dL (6.6-8.7)
[2025-05-04 06:34] LABS: Add RBC Morph Yes; Slide Review Slide Review Perform
[2025-05-04 06:36] LABS: RBC Morph Comp No
[2025-05-04 06:38] LABS: Anisocytosis 2+; Giant Platelets Trace; Hypochromasia 2+; Poikilocytosis 1+
[2025-05-04 06:39] LABS: Ovalocytes 1+; Spherocytes Trace; Tear Drop Cells 1+
[2025-05-04] MEDS: ferric gluconate 125 MG in sodium chloride 0.9% (100 ml) 100 ML 110 MG IV (08:59)
--- NOTE | 2025-05-04 09:11 | P.PN_ITS ---
Subjective 2 Subjective: Last febrile on 05/02 with a Tmax of 100.2 Fahrenheit. LFTs improving today. Noted positive delta is on troponin check. Medications: Reviewed: Yes Vitals/I&O/Wt Last Vital Signs Temp 97.6 F 05/04/25 07:28 Pulse 100 05/04/25 08:00 Resp 20 H 05/04/25 08:00 BP 139/71 05/04/25 07:28 Pulse Ox 97 05/04/25 08:00 O2 Del Method Nasal Cannula 05/04/25 08:00 O2 Flow Rate 5 05/04/25 08:00 FiO2 40 05/03/25 19:54 Weight last 48 hrs Weight 60.373 kg Weight 61.462 kg Weight 60.328 kg Physical Exam 2 Narrative: General: No acute distress, AO x3 HEENT: PERRLA, pupils bilaterally equal and reactive, pallors not present Chest: Scattered wheezing to auscultation bilaterally CVS: S1-S2 regular, no murmurs, no tachycardia, no gallops, no rubs Abdomen: Soft, nontender, no organomegaly, bowel sounds present Neuro: No focal deficits, no facial deformity, AO x3, power 5/5 in all limbs Data 05/04/25 02:07 05/04/25 02:07 Micro: Microbiology 05/04/25 06:48 Blood Culture - Preliminary Blood SPECIMEN COLLECTED 05/04/25 06:45 Blood Culture - Preliminary Blood SPECIMEN COLLECTED 05/02/25 05:50 Blood Culture - Preliminary Blood 05/02/25 05:53 Blood Culture - Preliminary Blood NEGATIVE TO DATE A&P Assessment and plan 1. COPD with acute exacerbation: 2. Acute on chronic hypoxic respiratory failure: 3. Acute hypercapnic respiratory failure: 4. Tobacco dependence due to cigarettes, in remission: Plan: 64 year old female presenting for COPD exacerbation Acute exacerbation of chronic obstructive airways disease: Acute on chronic respiratory failure with hypoxia and hypercapnia: - recently admitted for similar episode, discharged on inhalers: changed her albuterol to DuoNebs to add ipratropium, steroid burst dose - Cont. home bipap at night and O2 during the day, she uses 5L at baseline - she got meropenem/linezolid in ER, can cont. on rocephin - no leukocytosis currently - steroid burst ordered in ER, cont. on IV methylpred 40mg Q12H - cont. home inhalers or EQ - duonebs PRN Iron deficiency anemia: - Follow-up for outpatient colonoscopy and potentially EGD. - Patient received 200 mg iron sucrose infusion on last admission - she received 2 bags of IV iron after discharge, scheduled to get 3 more next week - while inpatient, start IV iron on Sunday Q48h while here. - Cont. outpatient iron replacement regimen after discharge. - Hb improved to normal range since prior admission. - will likely continue to need IV iron as outpatient after discharge, goal ferritin > 100, will need to recheck levels with PCP in 1-2 weeks. Continue to transfuse until at goal. Elevated LFTs - AST/ALT/Alkphos moderately elevated on admission - no bilirubin elevation - unclear etiology, no abdominal pain noted. Potentially shock liver from severe COPD exacerbation -improving. Cont. to treat as above. Anxiety: - stable PAOLA - slight creatinine elevation - monitor, BUN is normal - hold home lasix Troponin elevation - chronic - denies chest pain currently, likely 2/2 her COPD exacerbation - last echo done 2022 with normal EF, no wall motion abnormalities. - repeate echo done 05/02 with EF of 55%, no regional wall motion abnormalities. Diet: regular PPx: lovenox, SCDs Disposition - up ad vic, admitted to [facility], inpatient for COPD exacerbation - PT/OT/CM for discharge planning - home meds continued May 04, 2025 64-year-old lady with a past medical history of COPD, advanced emphysema, admitted to the hospital on May 02, 2025 after having been recently discharged with chief complaints of shortness of breath. Chest x-ray did not show any consolidation. Atelectasis noted. Tmax 100.2 Fahrenheit on arrival. Suspect acute viral illness may have been the trigger for COPD exacerbation. Respiratory viral panel negative for influenza COVID and RSV. Notable abnormalities during this admission include transaminitis which may be related to acute viral illness versus shock liver as noted above. Ultrasound of the abdomen notes cirrhotic contour of the liver. Hepatitis screen negative with negative hep A IgM, negative hep C antibody, negative hep B surface antigen, negative hep B core IgM antibody. Blood culture negative to date. Obtain D dimer screen for possible PE as alternat explanation for elevated troponins. Noted to have elevated troponins, baseline at 73, 2-hour at 86 with a delta of 13, 6-hour with a delta of 14. Echocardiogram showing LVEF of 55%, grade 1 diastolic dysfunction. Mild to moderate aortic valve stenosis. Suspect type II CT related to acute illness. Noted tachycardia with heart rate ranging 90-100. Will add low-dose beta-freddy and monitor. Will obtain stress test to further assess for any underlying ischemic disease given positive troponins. PDMP PDMP Reviewed: Not Reviewed Attestations 2 Medical Necessity Statement*: Pending stress test Coding Level of Care Code Acute Code for Chg Fwd High MDM includes number and complexity of problems actively addressed during encounter, amount and/or complexity of data reviewed/ordered and described risk of complication, morbidity or mortality of management as documented Diagnoses COPD with acute exacerbation J44.1 Acute on chronic hypoxic respiratory failure J96.21 Acute hypercapnic respiratory failure J96.02 Tobacco dependence due to cigarettes, in remission F17.211
--- NOTE | 2025-05-04 09:48 | PC.CHAP ---
Pastoral Care Encounter/Spiritual Assessment Type of Contact [x] Declined validation analyst visit [] Patient/Family/Request visit [] Outpatient visit [] Follow-up visit [] Physician referral [] Code/Alert [x] Routine visit [] Staff referral [] Actively dying [] Patient sleeping [] Family support [] [] Out of room [] Palliative care [] [] Receiving care in room [] Pre-surgical visit [] Trauma [] Long length of stay [] ICU visit [] Other: Relational/Emotional Strength [] Patient feels connected with others/family/visitors/staff [] Distress [] Loneliness/isolation [] Abandonment Spirituality of Patient [] Person of Radha [] Attends Islam of their Radha [] Believes in Prayer [] Reads Bible or Christianity materials [] There are Spiritual issues to be addressed Guest Services Attendant Interventions [x] Prayer [] Active listening [] Non-anxious presence [] Spiritual/emotional support [] Crisis/trauma care [] Spiritual counseling [] Bereavement support [] Provided bereavement packet [] Provided Bible/devotional materials [] Provided toy/stuffed animal, coloring book to patient or family member [] Provided Communion [] Anointing/[place] [] Salvation [] Completed spiritual assessment [] Other: Impact on Illness or Injury [] Angry [] Fearful [] Anxious [] Often cries [] Exhaustion [] Unable to work [] Unable to attend faith [] Unable to walk/stand [] Unable to read [] Unable to drive [] Unable to eat/drink [] Unable to sleep [] Unable to be with family [] Patient intubated [] Other: Summary Time spent with patient
--- NOTE | 2025-05-04 10:22 | ECG_ITS ---
[employer] Test Date: 2025-05-05 Pat Name: Lora Dsouza Department: Room: 103 Gender: Female Town Clerk: : 1960 Requested By: Cristina Adame Order Number: [id number] Jeane MD: Charisse Santo M.D. Interpretive Statements Lung unchanged pre/post procedure; Intraprocedure shortess of breath; Symptoms resoled by discharge PROCEDURE: At the baseline, the EKG revealed normal sinus rhythm with poor R wave progression. Features of old anterior wall [place]. The baseline heart was 90 bpm with a blood pressue of 111/74 mm of Hg Lexiscan was infused over a period of 20 seconds. A total of 0.4 milligrams of Lexiscan was infused. The stress phase was continued for a total of 5 minutes. Heart rate at the end of the stress phase was 96 bpm with a blood pressure 101/59 mm of Hg. The EKG at the peak infusion revealed no significant changes. Sestamibi was injected 20 seconds after the Lexiscan infusion. Heart rate at the end of the recovery phase was 96 bpm with a blood pressure of 103/65 mm of Hg. CONCLUSION: 1. No significant EKG changes with the LexiScan infusion 2. No LexiScan induced chest pain or cardiac arrhythmia 3. Normal blood pressure and heart rate response 4. Sestamibi/sestamibi perfusion scan pending; see separate report. Electronically Signed On 05-05-2025 22:37:15 CDT by Charisse Santo M.D. [email or web address]
[2025-05-04] MEDS: cefTRIAXone 1,000 mg SDV 1000 MG IVP (12:51)
[2025-05-04] MEDS: methylPREDNISolone sod succ 40 mg/mL INJ IVP ×2 (12:51→23:17)
--- NOTE | 2025-05-04 19:51 | PC.NURSE ---
stated that pt has an appointment with her electronics commodity manager at 1 pm. He thinks they can't make it on the appointment due to being in the hospital, stated this is a first referral with Dr Dominguez and they don't want to miss it since they have been waiting for this appointment with electronics commodity manager. Informed hospitalist about the issue. Notified and patient that pt will be seen by her electronics commodity manager tomorrow as inpatient via tele-health according to Dr. Adame. and pt at bedside are appreciative.
[2025-05-05] VITALS (16 sets, daily range): BP systolic 103–138; BP diastolic 65–79; PULSE 84–108; RESP 16–24; TEMP 35.9–36.8; O2SAT 95–98; BMI 22.8
[2025-05-05 03:55] LABS: Hematocrit 45.1 % (36-47); Hemoglobin 11.60 g/dL (11.27-16.99); Mean Corpuscular HGB Conc 25.7 g/dL (30-55); Mean Corpuscular Hemoglobin 21.8 pg (27-33); Mean Corpuscular Volume 84.8 fl (85-98); Nucleated Red Blood Cells % 0 %; Platelet Count 155 10^3/cmm (157-399); Red Blood Count 5.32 10^6/uL (3.85-5.65); White Blood Count 9.27 10^3/uL (3.29-11.43)
[2025-05-05 04:14] LABS: Alanine Aminotransferase 415 U/L (0-33); Albumin Level 3.8 g/dL (3.5-5.2); Alkaline Phosphatase 67 U/L (35-105); Blood Urea Nitrogen 17 mg/dL (8-23); Calcium 8.3 mg/dL (8.5-10.5); Carbon Dioxide 37 mmol/L (22-29); Chloride 100 mmol/L (98-107); Creatinine Clr Calc Pharmacy 129.4665; Globulin 1.9 g/dL (1.3-4.6); Glucose 146 mg/dL (65-115); Osmolality Calculated 302 mOsm/kg (285-295); Sodium 144 mmol/L (136-145); Total Protein 5.7 g/dL (6.6-8.7)
[2025-05-05 04:21] LABS: Anion Gap 11.5 (5-19); Potassium 4.5 mmol/L (3.5-5.1)
[2025-05-05 04:22] LABS: Aspartate Amino Transferase 105 U/L (0-32)
--- NOTE | 2025-05-05 08:22 | PC.NURSE ---
Patient returned from stress test to CSU at 0822.
[2025-05-05] MEDS: fluticasone nasal spray 16gm Btl 2 SPRAY INTRANASAL (08:28)
--- NOTE | 2025-05-05 09:24 | USR_ITS ---
PROCEDURE INFORMATION: Exam: US Duplex Lower Extremity Veins, Bilateral Exam date and time: 05/05/2025 4:37 PM Age: 64 years old Clinical indication: Pain; Leg, lower; Right; Additional info: Assess for dvt right leg TECHNIQUE: Imaging protocol: Real-time duplex ultrasound of the bilateral extremities with 2-D jackson scale, color Doppler flow and spectral waveform analysis including responses to compression and other maneuvers (when performed) with image documentation. Complete exam focused on the lower extremity veins. COMPARISON: CT angio chest w abd pel w con 06/30/2024 12:58 PM FINDINGS: Right deep veins: All imaged right lower extremity deep veins demonstrate normal flow, compressibility, and/or augmentation without evidence of thrombus. Left deep veins: All imaged left lower extremity deep veins demonstrate normal flow, compressibility, and/or augmentation without evidence of thrombus. Superficial veins: Greater saphenous veins at the saphenofemoral junctions are patent bilaterally without thrombus. Soft tissues: Unremarkable. US/[id number] IMPRESSION: No evidence of deep vein thrombosis.
--- NOTE | 2025-05-05 09:25 | P.PN_ITS ---
Subjective 2 Subjective: Completed stress test this morning. Results are currently awaited. Appears to be more somnolent this morning. D-dimer 2.2. LFT stable.Blood culture 1 out of 4 positive reported for coag negative staph. Suspect contaminant. Medications: Reviewed: Yes Vitals/I&O/Wt Last Vital Signs Temp 96.7 F L 05/05/25 03:04 Pulse 91 05/05/25 08:33 Resp 20 H 05/05/25 08:33 BP 119/76 05/05/25 08:33 Pulse Ox 98 05/05/25 08:33 O2 Del Method Nasal Cannula 05/05/25 08:33 O2 Flow Rate 4 05/05/25 08:33 FiO2 40 05/05/25 00:00 05/04/25 05/05/25 05/05/25 22:59 06:59 14:59 Intake Total 360 / 950 Balance 360 / 700 Weight last 48 hrs Weight 60.328 kg Weight 60.373 kg Physical Exam 2 Narrative: General: No acute distress, AO x3 HEENT: PERRLA, pupils bilaterally equal and reactive, pallors not present Chest: Scattered wheezing to auscultation bilaterally CVS: S1-S2 regular, no murmurs, no tachycardia, no gallops, no rubs Abdomen: Soft, nontender, no organomegaly, bowel sounds present Neuro: No focal deficits, no facial deformity, AO x3, power 5/5 in all limbs Data 05/05/25 03:04 05/05/25 03:04 Micro: Microbiology 05/04/25 06:48 Blood Culture - Preliminary Blood NEGATIVE TO DATE 05/04/25 06:45 Blood Culture - Preliminary Blood NEGATIVE TO DATE 05/02/25 05:50 Blood Culture - Preliminary Blood Staphylococcus sp coag neg A&P Assessment and plan 1. COPD with acute exacerbation: 2. Acute on chronic hypoxic respiratory failure: 3. Acute hypercapnic respiratory failure: 4. Tobacco dependence due to cigarettes, in remission: Plan: 64 year old female presenting for COPD exacerbation Acute exacerbation of chronic obstructive airways disease: Acute on chronic respiratory failure with hypoxia and hypercapnia: - recently admitted for similar episode, discharged on inhalers: changed her albuterol to DuoNebs to add ipratropium, steroid burst dose - Cont. home bipap at night and O2 during the day, she uses 5L at baseline - she got meropenem/linezolid in ER, can cont. on rocephin - no leukocytosis currently - steroid burst ordered in ER, cont. on IV methylpred 40mg Q12H - cont. home inhalers or EQ - duonebs PRN Iron deficiency anemia: - Follow-up for outpatient colonoscopy and potentially EGD. - Patient received 200 mg iron sucrose infusion on last admission - she received 2 bags of IV iron after discharge, scheduled to get 3 more next week - while inpatient, start IV iron on Sunday Q48h while here. - Cont. outpatient iron replacement regimen after discharge. - Hb improved to normal range since prior admission. - will likely continue to need IV iron as outpatient after discharge, goal ferritin > 100, will need to recheck levels with PCP in 1-2 weeks. Continue to transfuse until at goal. Elevated LFTs - AST/ALT/Alkphos moderately elevated on admission - no bilirubin elevation - unclear etiology, no abdominal pain noted. Potentially shock liver from severe COPD exacerbation -improving. Cont. to treat as above. Anxiety: - stable PAOLA - slight creatinine elevation - monitor, BUN is normal - hold home lasix Troponin elevation - chronic - denies chest pain currently, likely 2/2 her COPD exacerbation - last echo done 2022 with normal EF, no wall motion abnormalities. - repeate echo done 05/02 with EF of 55%, no regional wall motion abnormalities. Diet: regular PPx: lovenox, SCDs Disposition - up ad vic, admitted to [facility], inpatient for COPD exacerbation - PT/OT/CM for discharge planning - home meds continued May 04, 2025 64-year-old lady with a past medical history of COPD, advanced emphysema, admitted to the hospital on May 02, 2025 after having been recently discharged with chief complaints of shortness of breath. Chest x-ray did not show any consolidation. Atelectasis noted. Tmax 100.2 Fahrenheit on arrival. Suspect acute viral illness may have been the trigger for COPD exacerbation. Respiratory viral panel negative for influenza COVID and RSV. Notable abnormalities during this admission include transaminitis which may be related to acute viral illness versus shock liver as noted above. Ultrasound of the abdomen notes cirrhotic contour of the liver. Hepatitis screen negative with negative hep A IgM, negative hep C antibody, negative hep B surface antigen, negative hep B core IgM antibody. Blood culture negative to date. Obtain D dimer screen for possible PE as alternat explanation for elevated troponins. Noted to have elevated troponins, baseline at 73, 2-hour at 86 with a delta of 13, 6-hour with a delta of 14. Echocardiogram showing LVEF of 55%, grade 1 diastolic dysfunction. Mild to moderate aortic valve stenosis. Suspect type II [place] related to acute illness. Noted tachycardia with heart rate ranging 90-100. Will add low-dose beta-freddy and monitor. Will obtain stress test to further assess for any underlying ischemic disease given positive troponins. May 05, 2025 Patient completed stress test this morning. Results are currently awaited. Patient appears to be more somnolent compared to yesterday. Will obtain a stat ABG to evaluate for hypercapnia D-dimer noted to be elevated at 2.2. Compared to previous from June 2024, this was at 1.72. If stress test remains unrevealing may need further assessment for possible PE. LFTs remaining stable, related to cirrhosis. Suspect alcoholic cirrhosis given patient has a history of alcohol use. Currently she drinks a few beers per week however previously was a daily drinker. Patient additionally has asymmetric lower extremity swelling. Right lower extremity more swollen compared to left. In reviewing pictures on 's phone, she had nearly 3+ pitting edema 2 weeks ago. Will obtain lower extremity Doppler to assess for any DVT. Further plan to be based on results of stress test and ABG as pending currently. Pulmonary consult requested today. PDMP PDMP Reviewed: Not Reviewed Attestations 2 Medical Necessity Statement*: Pending stress test results, more somnolent compared to yesterday, lower extremity Doppler, needs ABG. Coding Level of Care Code Acute Code for Chg Fwd High MDM includes number and complexity of problems actively addressed during encounter, amount and/or complexity of data reviewed/ordered and described risk of complication, morbidity or mortality of management as documented Diagnoses COPD with acute exacerbation J44.1 Acute on chronic hypoxic respiratory failure J96.21 Acute hypercapnic respiratory failure J96.02 Tobacco dependence due to cigarettes, in remission F17.211
[2025-05-05 09:47] LABS: ABG PCO2 91.1 mmHg (35-45); ABG PH Result 7.30 (7.35-7.45); Arterial Blood Gas Hematocrit 36.4 % (37-47); Blood Gas Allen Test Pos; Blood Gas LPM 5.0 %; Blood Gas Operator Identificat AMH; Blood Gas Sample Site Radial, right; Blood Gas Sample Type Arterial; HCO3 ABG 45.1 mmol/L (22-26); PO2 ABG 107.0 mmHg (80.0-100.0); PO2 FiO2 Ratio Arterial Blood 267
--- NOTE | 2025-05-05 10:22 | NMCV_ITS ---
NM donis perf SPECT r/s* [id number] Lora Dsouza Age: 64 Gender: F : 1960 Exam Date: 05/05/2025 06:51 Ordering Phys: Cristina Adame MD Technologist: JESSIE Ly Exam Location: [facility] Indications: cp STRESS TEST [facility] IMAGE PROTOCOL Rest/Stress 1 Lexiscan Day Radiopharmaceutical Dose (mCi) Administration Site Administered by Rest: Tc-99m 10.8 IV Elsa Barakat, ROLLOFF DRIVER Sestamibi Stress:Tc-99m 32.3 IV Elsa Artisgle, ROLLOFF DRIVER Sestamibi Rest: 05-May-2025 60 Discovery 630 Stress: 05-May-2025 30 Discovery 630 0.4mg Lexiscan. Supine position only as patient was unable to lay prone. SPECT RESULTS Technical Quality: Good Raw Data Analysis: Normal Image Corrections: No attenuation or motion correction applied Summed Stress Score: 0 Summed Rest Score: 0 Summed Difference Score: 0 PERFUSION FINDINGS Uniform myocardial tracer uptake with no significant perfusion normalities FUNCTIONAL RESULTS (calculated via Gated SPECT) Stress Image LV EF (%): 75 Stress EDV (mL):80 TID: 0.79 Stress ESV (mL):20 FUNCTIONAL FINDINGS: Segmental wall motion analysis revealing no gross wall motion abnormalities IMPRESSIONS 1. Myocardial perfusion imaging revealing uniform myocardial tracer uptake with no significant perfusion abnormalities 2. Normal LV ejection fraction of 75% 3. LV wall motion analysis revealing no gross wall motion abnormalities. 4. Normal LV volume Low probability for coronary ischemia, based on the above findings Dr Charisse Santo MD FAC (Electronically Signed) Final Date: 05 May 2025 09:23 S
[2025-05-05] MEDS: methylPREDNISolone sod succ 40 mg/mL INJ IVP ×2 (11:57→23:49)
[2025-05-05] MEDS: cefTRIAXone 1,000 mg SDV 1000 MG IVP (11:58)
[2025-05-05 12:07] LABS: ABG PH Result 7.31 (7.35-7.45); Arterial Blood Gas Hematocrit 38.2 % (37-47); Blood Gas Allen Test Pos; Blood Gas Operator Identificat AMH; Blood Gas Sample Site Radial, right; HCO3 ABG 44.0 mmol/L (22-26); PO2 ABG 43.5 mmHg (80.0-100.0)
[2025-05-05 12:12] LABS: ABG PCO2 88.4 mmHg (35-45)
--- NOTE | 2025-05-05 13:35 | PM.CONSULT ---
Providers/Reason For Consult Consulting Physician/Specialty*: Dr. Pawel Dominguez Reason for Consult*: Acute respiratory failure Requesting Physician: Dr. Adame Attending Physician: Cristina Adame MD Primary Care Provider: Zoran Stern MD History of Present Illness History of Present Illness Lora Dsouza is a 64 year old female with past medical history of COPD, chronic respiratory failure, former smoker Patient presented initially to the hospital on 05/02/2025 with complaints of shortness of breath. Chest x-ray did not show any infiltrates suggestive of pneumonia. COVID influenza panel was negative. She was diagnosed with acute on chronic hypoxic/hypercapnic respiratory failure and COPD exacerbation. She is placed on home BiPAP at night and oxygen during the day as well as started on antibiotics meropenem and linezolid in ER and subsequently changed to Rocephin. Steroid burst given and later placed on Solu-Medrol 40 every 12 and DuoNebs as needed. Also had slightly elevated troponin levels which was deemed to be chronic. Last echo done in 2022 showed normal EF and normal wall motion abnormalities. Repeat echo on 05/02 showed an EF of 55% with no RWMA. She is a daily drinker and was found to be in cirrhosis with 2+ pitting edema. Lower extremity Dopplers are negative for any DVT. I was consulted for further management. Per chart review her labs show a white count of 9.27. Initial ABG drawn today showed a pH of 7.3 pCO2 of 90 PaO2 107. Repeat blood gas was pretty much the same. Other labs are remarkable for only showing bicarb at 37 and 39 which is her baseline most likely. Creatinine is 0.4. AST ALT elevated in the 300 initially but coming down 200s now. Chest x-ray is reviewed by me from 05/02/2025 patient shows hyperinflated lungs most likely due to emphysema. Myocardial perfusion scan was normal low probability for coronary ischemia, done today. Tells me she has been wearing her BiPAP pretty consistently all night and O2 during the day. She is not reporting worsening cough but does feel short of breath on minimal exertion. Data: Patient reports being on continuous oxygen 3/l on inigen, and 2/L at home. she uses nocturnal oxygen. PFTs 02/13/23: Spirometry showed very severe airflow obstruction with FEV1/FVC 21; FEV1 510 cc 21% predicted and FVC 1.33 L 43% predicted. 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 6mwt: desaturated in 2 min; did well with 3 L and walked about 300 feet CV echo 02/22/2023- Normal left ventricular size, systolic function and wall. Pulmonary artery systolic pressure reported normal. Left ?ventricular ejection fraction is estimated at 55 %. Grade I/IV ?diastolic dysfunction (abnormal relaxation filling pattern), ?normal to mildly elevated filling pressures. Former smoker 1 ppd x 40 years. quit 2019. Review of Systems Narrative: 12 point review of systems noted all is negative except as mentioned in HPI Medications/Allergies Home Medications ?Medication ?Instructions ?Recorded ?Confirmed ?Last Taken ?Type furosemide 20 mg tablet 20 mg PO QAM PRN swelling #90 tabs 09/25/24 05/02/25 05/01/25 Rx sertraline 50 mg tablet 50 mg PO DAILY 11/04/24 05/02/25 05/01/25 History tiotropium bromide 2.5 2 puff inhalation DAILY 11/04/24 05/02/25 05/01/25 History mcg/actuation mist for inhalation (Spiriva Respimat) trazodone 50 mg tablet 50 mg PO BEDTIME 11/04/24 05/02/25 04/30/25 20:00 History pantoprazole 40 mg tablet,delayed 40 mg PO DAILY #90 tabs 01/13/25 05/02/25 05/01/25 Rx release (Protonix) Ventolin HFA 90 mcg/actuation 2 puff inhalation Q6H PRN 02/18/25 05/02/25 05/01/25 Rx aerosol inhaler (albuterol sulfate) shortness of breath or wheezing #8 grams dupilumab 300 mg/2 mL subcutaneous 300 mg SUBCUT Q7D 02/18/25 05/02/25 04/29/25 History syringe ropinirole 1 mg tablet See Rx Instructions PO BID #270 02/18/25 05/02/25 05/01/25 Rx tabs buspirone 7.5 mg tablet 7.5 mg PO DAILY PRN anxiety #60 03/25/25 05/02/25 Unknown Rx tabs fluticasone 500 mcg-salmeterol 50 1 inh inhalation BID #60 ea 03/25/25 05/02/25 05/01/25 Rx mcg/dose blistr powdr for inhalation (Advair Diskus) megestrol 400 mg/10 mL (10 mL) 200 mg (5 mL) PO DAILY PRN 03/25/25 05/02/25 05/01/25 Rx oral suspension APPETITE #1,000 mL fluticasone propionate 50 2 spray intranasal DAILY 04/17/25 05/02/25 05/01/25 History mcg/actuation nasal spray,suspension albuterol sulfate 2.5 mg/3 mL 2.5 mg (3 mL) inhalation QID PRN 04/18/25 05/02/25 Unknown Rx (0.083 %) solution for nebulization Shortness Of Breath Or Wheezing #90 mL aspirin 81 mg tablet,delayed 81 mg PO DAILY #30 tabs 04/18/25 05/02/25 05/01/25 Rx release (Zeb Low Dose Aspirin) docusate sodium 100 mg capsule 100 mg PO BID #60 caps 04/18/25 05/02/25 Unknown Rx ipratropium 0.5 mg-albuterol 3 mg 3 ml inhalation Q6H.RESP #180 mL 04/18/25 05/02/25 05/01/25 Rx (2.5 mg base)/3 mL nebulization soln Allergies Allergy/AdvReac Type Severity Reaction Status Date / Time No Known Allergies Allergy Verified 04/24/25 07:58 Current Medications Generic Name Dose Route Start Last Admin Trade Name Freq PRN Reason Stop Dose Admin Acetaminophen 650 mg 05/02/25 18:36 05/03/25 09:02 Acetaminophen 325 Mg Tablet PO 650 mg Q6H PRN Administration MILD PAIN OR INCREASE TEMP Albuterol/Ipratropium 3 ml 05/02/25 11:08 05/05/25 11:32 Ipratropium-Albuterol 3 Ml Neb INHALATION 3 ml Q4H PRN Administration SHORTNESS OF BREATH Aspirin 81 mg 05/03/25 09:00 05/05/25 08:28 Aspirin 81 Mg Ec Tablet PO 81 mg DAILY ROSANNA Administration Budesonide 0.5 mg 05/02/25 20:00 05/05/25 08:10 Budesonide 0.5 Mg/2 Ml Neb INHALATION Not Given BID.RESPIRATORY ROSANNA Ceftriaxone Sodium 1,000 mg 05/02/25 12:00 05/05/25 11:58 Ceftriaxone 1,000 Mg Sdv IVP 1,000 mg Q24H ROSANNA Administration Protocol Docusate Sodium 100 mg 05/02/25 18:00 05/05/25 09:01 Docusate Sodium 100 Mg Capsule PO Not Given BID ROSANNA Enoxaparin Sodium 40 mg 05/02/25 12:00 05/05/25 11:57 Enoxaparin 40 Mg/0.4 Ml Syringe SUBCUT 40 mg Q24H ROSANNA Administration Fluticasone Propionate 2 spray 05/03/25 09:00 05/05/25 08:28 Fluticasone Nasal [place] 16gm Btl INTRANASAL 2 spray DAILY ROSANNA Administration Ferric Sodium Gluconate 125 mg 110 mls @ 110 mls/hr 05/04/25 08:00 05/04/25 10:31 / Sodium Chloride IV 05/12/25 08:59 Infused Q48H ROSANNA Infusion Methylprednisolone Sodium Succinate 40 mg 05/02/25 12:00 05/05/25 11:57 Methylprednisolone Sod Succ 40 Mg/Ml Inj IVP 40 mg Q12H ROSANNA Administration Ropinirole HCl 1 mg 05/02/25 18:00 05/04/25 21:20 Ropinirole 1 Mg Tablet PO 1 mg BEDTIME ROSANNA Administration Ropinirole HCl 2 mg 05/03/25 09:00 05/05/25 08:28 Ropinirole 2 Mg Tablet PO 2 mg DAILY ROSANNA Administration Sertraline HCl 50 mg 05/03/25 09:00 05/05/25 08:28 Sertraline 50 Mg Tablet PO 50 mg DAILY ROSANNA Administration Trazodone HCl 50 mg 05/02/25 21:00 05/04/25 21:20 Trazodone 50 Mg Tablet PO 50 mg BEDTIME ROSANNA Administration PFSH Acute PFSH: Medical History History of PFTs 02/2023: Spirometry showed very severe airflow obstruction with FEV1/FVC 21; FEV1 510 cc 21% predicted and FVC 1.33 L 43% predicted. 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 Chronic respiratory failure with hypoxia and hypercapnia Restless leg Septic shock (~06/2024) Protein-calorie malnutrition, severe GERD (gastroesophageal reflux disease) Anxiety Hypertension Insomnia COPD (chronic obstructive pulmonary disease) Surgical History History of History of tonsillectomy Family History Father Stroke Other Dementia Denies family history of Diabetes CAD (coronary artery disease) Clotting disorder Hyperlipidemia Psychiatric illness Chronic kidney disease (CKD) Anesthesia complication Bleeding disorder Lung disease Cancer Hypertension Social History Smoking and tobacco/nicotine status: former use of tobacco/nicotine Quit status (tobacco/nicotine): has quit using Year quit tobacco: 2019 Former quit date comment: 2 packs/day for 30 years Second hand smoke exposure: Yes Alcohol intake: current Alcohol intake frequency: few times a week Alcohol type: beer Substance/Drug Use: never Additional social history: Patient wants DO NOT RESUSCITATE status as discussed with patient and Lino on 04/17/2025 by Rakesh Ray MD Marital status: Number of children: 5 Number of grandchildren: 9 service: No Current occupational status: disabled Current occupational exposures/hazards: No Previous occupational history: 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 Cachectic oxygen ongoing HEENT: conj clear, EOMI, PERRL Neck: supple Pulmonary: Rhonchi heard bilaterally lungs Cardiovascular: rrr, nl s1s2, no mrg Abdomen: soft, nt, nd, no r/g, Extremities: pulses +, no edema Skin: no rash Neurologic: grossly intact Agree with above exam Data 05/05/25 03:04 05/05/25 03:04 Micro: Microbiology 05/04/25 06:48 Blood Culture - Preliminary Blood NEGATIVE TO DATE 05/04/25 06:45 Blood Culture - Preliminary Blood NEGATIVE TO DATE 05/02/25 05:50 Blood Culture - Preliminary Blood Staphylococcus sp coag neg A&P Assessment and plan 1. COPD (chronic obstructive pulmonary disease): 2. Tobacco dependence due to cigarettes, in remission: 3. Chronic respiratory failure with hypoxia and hypercapnia: Plan: This is a 64-year-old female past medical history of chronic respiratory failure, severe end-stage COPD comes in here with acute on chronic shortness of breath # Acute on chronic hypercapnic/hyper cardiac respiratory failure Reviewed ABG from time of admission most likely slightly worse but stable. She is tolerating BiPAP well clinically. I would continue that for now. # Acute COPD exacerbation To optimize, I will add Brovana and Pulmicort to her regimen. Will continue DuoNebs scheduled 3 times daily along with Pulmicort. She is to be on Dupixent as outpatient. Will start Singulair for now. # Probable congestive heart failure acute Patient is slightly edematous upon exam. Will get BNP and if found to be high I have instructed the nurse to give her 40 of Lasix IV. I reviewed her chest x-ray that shows hyperinflation but devoid of any infiltrates currently. # sepsis unclear source. Will defer this to the hospitalist. Okay to use ceftriaxone for now # Liver cirrhosis # Cachexia Thank you for the consult Medical decision making level-moderate Patient seen via telemedicine. Audio/visual visit. Patient on-site, provider off-site PDMP PDMP Reviewed: Not Reviewed Coding Level of Care Code 86816 Diagnoses COPD (chronic obstructive pulmonary disease) J44.9 Tobacco dependence due to cigarettes, in remission F17.211 Chronic respiratory failure with hypoxia and hypercapnia J96.11; J96.12
[2025-05-05 14:36] LABS: PO2 FiO2 Ratio Arterial Blood 207
[2025-05-05 14:42] LABS: NT Pro B Type Natriuretic Pept 5351 pg/mL (0-125)
--- NOTE | 2025-05-05 14:45 | PC.NURSE ---
Patient was seen by Dr Dominguez, via [facility], she ordered a BNP. Provider asked nursing staff to give Lasix 40 mg IVP if BNP comes back abnormal. BNP came back at 5351. Lasix 40 mg IVP is ordered.
[2025-05-05] MEDS: FUROsemide 10 mg/mL SDV 4mL 40 MG IVP (16:23)
[2025-05-05] MEDS: ARFORMOTEROL 15 MCG/2 ML NEB INHALATION (20:11)
[2025-05-06 00:03] VITALS: PULSE 81; RESP 19; O2SAT 95
[2025-05-06 03:41] VITALS: BP 129/71; PULSE 88; RESP 22; TEMP 36.4; O2SAT 98
[2025-05-06 04:00] VITALS: PULSE 85; RESP 18; O2SAT 96
[2025-05-06 04:14] LABS: Hematocrit 45.1 % (36-47); Hemoglobin 12.00 g/dL (11.27-16.99); Mean Corpuscular HGB Conc 26.6 g/dL (30-55); Mean Corpuscular Hemoglobin 22.1 pg (27-33); Mean Corpuscular Volume 83.2 fl (85-98); Nucleated Red Blood Cells % 0 %; Platelet Count 282 10^3/cmm (157-399); Red Blood Count 5.42 10^6/uL (3.85-5.65); White Blood Count 6.64 10^3/uL (3.29-11.43)
[2025-05-06 04:25] LABS: ABG PH Result 7.42 (7.35-7.45); Arterial Blood Gas Hematocrit 36.1 % (37-47); Blood Gas Sample Site Brachial, right; Blood Gas Sample Type Arterial; HCO3 ABG 48.9 mmol/L (22-26); PO2 ABG 72.3 mmHg (80.0-100.0); PO2 FiO2 Ratio Arterial Blood 180
[2025-05-06 04:26] LABS: ABG PCO2 75.8 mmHg (35-45)
[2025-05-06 04:37] LABS: Alanine Aminotransferase 306 U/L (0-33); Albumin Level 3.9 g/dL (3.5-5.2); Alkaline Phosphatase 79 U/L (35-105); Anion Gap 10.0 (5-19); Aspartate Amino Transferase 52 U/L (0-32); Blood Urea Nitrogen 15 mg/dL (8-23); Calcium 8.4 mg/dL (8.5-10.5); Chloride 96 mmol/L (98-107); Creatinine Clr Calc Pharmacy 103.5404; Globulin 1.8 g/dL (1.3-4.6); Glucose 145 mg/dL (65-115); Osmolality Calculated 303 mOsm/kg (285-295); Potassium 4.0 mmol/L (3.5-5.1); Sodium 145 mmol/L (136-145); Total Protein 5.7 g/dL (6.6-8.7)
[2025-05-06 04:46] LABS: Carbon Dioxide 43 mmol/L (22-29)
[2025-05-06] MEDS: fluticasone nasal spray 16gm Btl 2 SPRAY INTRANASAL (04:47)
[2025-05-06 05:10] VITALS: BMI 22.3
[2025-05-06 07:31] VITALS: PULSE 87; RESP 22; O2SAT 98
[2025-05-06] MEDS: ARFORMOTEROL 15 MCG/2 ML NEB INHALATION (07:31)
[2025-05-06 07:36] LABS: Blood Gas Sample Type Arterial
[2025-05-06 08:00] VITALS: BP 124/67; PULSE 93; RESP 20; TEMP 36.6; O2SAT 97
[2025-05-06] MEDS: ferric gluconate 125 MG in sodium chloride 0.9% (100 ml) 100 ML 110 MG IV (08:13)
[2025-05-06 12:00] VITALS: BP 146/80; PULSE 92; RESP 20; O2SAT 97
[2025-05-06] MEDS: cefTRIAXone 1,000 mg SDV 1000 MG IVP (12:12)
[2025-05-06] MEDS: methylPREDNISolone sod succ 40 mg/mL INJ IVP (12:12)
--- NOTE | 2025-05-06 13:24 | PM.DCS ---
Discharge Providers Date of Admission: 05/02/25 08:22 Date of Discharge: May 06, 2025 Attending Provider at Admission: fJ Campos MD Attending Provider at Discharge: Cristina Adame MD Primary Care Provider: Zoran Stern MD Diagnoses at Discharge Discharge Diagnosis 1. Chronic obstructive pulmonary disease with acute exacerbation: 2. Tobacco dependence due to cigarettes, in remission: 3. Chronic respiratory failure with hypoxia and hypercapnia: 4. Iron deficiency anemia: Other Information Additional DC diagnoses/information: History of CHF but not in overt heart failure Reason for Visit Reason for Visit: sob Hospital Course Hospital Course Lora Dsouza is a 64 year old female presenting with SOB. She was recently admitted about two weeks ago for a similar episode. At that time there was concern that her home oxygen was not working properly. Home health was going to examine her equipment but this has not happened yet. At baseline she uses 5L O2 per NC during the day and BiPAP at night. Th the next morning after admission , she had O2 saturation of 46 and EMS was called and she was taken to the ER. She was placed on BIPAP with improvement in her O2 sats. On prior admission she was also found to be severely iron deficient. Given IV iron while inpatient and she was scheduled for 5 more bags of IV iron as outpatient. She completed 2 bags so far, with the remaining to be given MWF in this coming week . She also has an outpatient pulmonology appointment next week scheduled as well. Patient had no pneumonia and also had antibiotics during this hospitalization I saw a ceftriaxone plate stain for this morning I have actually discontinued that and placed patient on doxycycline going home. Patient is on Lasix 20 mg only as needed but at this time I am placing patient on that 20 mg with no change best scheduled daily. Patient is a great CO2 retainer and a BMP had gone from 1000-85,000 told no shortness of breath nothing has changed patient is on chronic 5 L of oxygen with no issues. CTA of the chest showed no pulmonary embolism because a D-dimer was a 2.2 elevated. Doppler ultrasound of the bilateral lower extremities were negative for any DVT. Patient had done remarkably well at the bedside cannot wait to take her home. All nebulizing treatment in place I have also placed patient on prednisone 20 mg x 10 days. Patient is on doxycycline 100 mg twice a day for 14 days. This patient had been with a readmit and had to be cautiously treated to decrease readmission. Patient had received iron intravenous because of a severe iron deficiency anemia and patient to follow through with ongoing this in the hands of the primary care doctor. Patient to follow-up with the pulmonology outpatient as scheduled prior to this hospitalization. Patient denies any issues slept well last night and doing okay to go home today. Discharge condition is stable. Physical Exam Narrative: General patient looks well in no apparent distress doing things in the computer. HEENT normocephalic atraumatic neck neck is supple cardiovascular heart rate is regular lungs are pretty much clear abdomen soft nontender nondistended unremarkable extremities are intact no edema has good pulses neurology he has no focality lab studies lab studies reviewed and noted. Discharge Data Studies Completed and Pending Completed Studies During Hospitalization Category Date Time Status Cardiac Stress Test MIBI [Sestamibi Stress Test Request Exams 05/04/25 10:22 Completed ] Routine XR chest 1V portable [id number] Stat Exams 05/02/25 05:40 Completed NM donis perf SPECT r/s* [id number] Routine Nuc Med 05/05/25 10:22 [place] [id number] Routine Ultrasound 05/05/25 09:24 Completed CV. echo complete* [id number] Routine Ultrasound 05/02/25 11:17 Completed US abdomen limited [id number] Stat Ultrasound 05/02/25 06:52 Completed Pending at discharge Category Date Time Status Blood Culture Routine Lab 05/04/25 06:48 Results Blood Culture Stat Lab 05/02/25 05:53 Results Sputum Culture and Gram Stain Routine Lab 05/05/25 16:37 Uncollected Radiology Impressions Chest X-Ray 05/02/25 05:40 IMPRESSION: No acute findings. Abdomen Ultrasound 05/02/25 06:52 IMPRESSION: 1. Thickened gallbladder wall. Debris or tiny calcifications within the gallbladder. 2. Likely cirrhosis. Venous Duplex 05/05/25 09:24 IMPRESSION: No evidence of deep vein thrombosis. Laboratory Results WBC 6.64 10^3/uL (3.29-11.43) 05/06/25 03:20 RBC 5.42 10^6/uL (3.85-5.65) 05/06/25 03:20 Hgb 12.00 g/dL (11.27-16.99) 05/06/25 03:20 Hct 45.1 % (36-47) 05/06/25 03:20 MCV 83.2 fl (85-98) L 05/06/25 03:20 MCH 22.1 pg (27-33) L 05/06/25 03:20 MCHC 26.6 g/dL (30-55) L 05/06/25 03:20 RDW 29.2 % (12.1-15.1) H 05/06/25 03:20 Plt Count 282 10^3/cmm (157-399) D 05/06/25 03:20 MPV Not Reportable 05/06/25 03:20 Neut % (Auto) 91.1 % 05/06/25 03:20 Lymph % (Auto) 3.6 % 05/06/25 03:20 [place] % (Auto) 3.6 % 05/06/25 03:20 Eos % (Auto) 0.2 % 05/06/25 03:20 Baso % (Auto) 0.3 % 05/06/25 03:20 Neut # (Auto) 6.05 10^3/uL (1.8-7.7) 05/06/25 03:20 Lymph # (Auto) 0.2 10^3/uL (0.8-4.8) L 05/06/25 03:20 [place] # (Auto) 0.2 10^3/uL (0.2-0.9) 05/06/25 03:20 Eos # (Auto) 0.0 10^3/uL (0.0-0.8) 05/06/25 03:20 Baso # (Auto) 0.0 10^3/uL (0.0-0.1) 05/06/25 03:20 Nucleated RBC % (auto) 0 % 05/06/25 03:20 Nucleated RBCs # 0.0 /100WBC 05/06/25 03:20 Giant Platelets Trace 05/04/25 02:07 Hypochromasia 2+ H 05/04/25 02:07 Poikilocytosis 1+ H 05/04/25 02:07 Anisocytosis 2+ H 05/04/25 02:07 Microcytosis Trace 05/03/25 02:51 Spherocytes Trace 05/04/25 02:07 Tear Drop Cells 1+ 05/04/25 02:07 Ovalocytes 1+ H 05/04/25 02:07 D-Dimer 2.22 ug/mLFEU (0-0.59) H 05/04/25 12:02 Specimen Type Arterial 05/06/25 04:14 Sample Site Brachial, right 05/06/25 04:14 ABG pH 7.42 (7.35-7.45) 05/06/25 04:14 ABG pCO2 75.8 mmHg (35-45) H* 05/06/25 04:14 ABG pO2 72.3 mmHg (80.0-100.0) L 05/06/25 04:14 ABG PO2/FiO2 Ratio 180 05/06/25 04:14 ABG HCO3 48.9 mmol/L (22-26) H 05/06/25 04:14 ABG O2 Saturation 85.8 05/02/25 06:17 ABG Base Excess 20.5 mmol/L (-2.0-2.0) H 05/06/25 04:14 Erik Test N/a 05/06/25 04:14 A-a O2 Gradient 17.1 mmHg (5-10) H 05/02/25 06:17 Hematocrit 36.1 % (37-47) L 05/06/25 04:14 Hgb O2 Saturation 83.0 % (95-100) L 05/02/25 06:17 Carboxyhemoglobin 3.1 %THgb (0.4-20.1) 05/02/25 06:17 Methemoglobin 0.1 % (0.4-1.5) L 05/02/25 06:17 Total Hemoglobin 11.7 g/dL (12-16) L 05/02/25 06:17 Sodium 143.0 mmol/L (131-143) 05/02/25 06:17 Potassium 3.3 mmol/L (3.5-5.0) L 05/02/25 06:17 Glucose 154.0 mg/dL (70-115) H 05/02/25 06:17 Ionized Calcium 1.1 mmol/L (1.1-1.4) 05/02/25 06:17 O2 Delivery Device Bipap 05/06/25 04:14 O2 Liters/Min % 05/05/25 11:55 FiO2 40.0 % 05/06/25 04:14 Hassock Maker ID [email or web address] 05/06/25 04:14 Sodium 145 mmol/L (136-145) 05/06/25 03:20 Potassium 4.0 mmol/L (3.5-5.1) 05/06/25 03:20 Chloride 96 mmol/L (98-107) L 05/06/25 03:20 Carbon Dioxide 43 mmol/L (22-29) H* 05/06/25 03:20 Anion Gap 10.0 (5-19) 05/06/25 03:20 BUN 15 mg/dL (8-23) 05/06/25 03:20 Creatinine 0.5 mg/dL (0.5-0.9) 05/06/25 03:20 GFR Calculation 124.6 mL/min (90-130) 05/06/25 03:20 Glucose 145 mg/dL (65-115) H 05/06/25 03:20 Calculated Osmolality 303 mOsm/kg (285-295) H 05/06/25 03:20 Lactic Acid 2.1 mmol/L (0.5-2.2) 05/02/25 05:50 Lactic Acid (Sepsis) 1.3 mmol/L (0.5-2.2) 05/02/25 08:49 Calcium 8.4 mg/dL (8.5-10.5) L 05/06/25 03:20 Total Bilirubin 0.5 mg/dL (0.15-1.2) 05/06/25 03:20 Direct Bilirubin 0.16 mg/dL (0.00-0.30) 05/03/25 02:51 AST 52 U/L (0-32) H 05/06/25 03:20 ALT 306 U/L (0-33) H 05/06/25 03:20 Alkaline Phosphatase 79 U/L (35-105) 05/06/25 03:20 Troponin T Baseline 73 ng/L (0-10) H 05/02/25 05:50 Troponin T 120 Minute 86.76 ng/L (0-10) H 05/02/25 07:48 Delta Troponin T 13.76 ABS# (0-10) H* 05/02/25 07:48 Troponin T Hi Sens 6Hr 87.77 ng/L (0-10) H 05/02/25 12:07 Troponin T Hi Sens 6Hr Delta 14.77 ng/L (0-12) H* 05/02/25 12:07 NT-Pro-B Natriuret Pep 5351 pg/mL (0-125) H 05/05/25 03:04 Total Protein 5.7 g/dL (6.6-8.7) L 05/06/25 03:20 Albumin 3.9 g/dL (3.5-5.2) 05/06/25 03:20 Globulin 1.8 g/dL (1.3-4.6) 05/06/25 03:20 Urine Color Dark yellow (Yellow) A 05/02/25 08:25 Urine Appearance Cloudy (CLEAR) A 05/02/25 08:25 Urine pH 5.0 (5-7) 05/02/25 08:25 Ur Specific [place] 1.022 (1.005-1.030) 05/02/25 08:25 Urine Protein 2+ (Negative) A 05/02/25 08:25 Urine Glucose (UA) Negative (Normal) 05/02/25 08:25 Urine Ketones Trace (Negative) 05/02/25 08:25 Urine Blood Negative (Negative) 05/02/25 08:25 Urine Nitrate Negative (Negative) 05/02/25 08:25 Urine Bilirubin 1+ (Negative) H 05/02/25 08:25 Urine Urobilinogen 1.0 mg/dL (Negative) 05/02/25 08:25 Ur Leukocyte Esterase Trace (Negative) A 05/02/25 08:25 Urine RBC 0-2 /hpf (0-2) 05/02/25 08:25 Urine WBC 0-5 /hpf (0-5) 05/02/25 08:25 Ur Squamous Epith Cells 0-5 /hpf (0-5) 05/02/25 08:25 Calcium Oxalate Crystal 0-4 /hpf H 05/02/25 08:25 Amorphous Sediment Not Reportable 05/02/25 08:25 Urine Bacteria None seen /hpf (NONE) 05/02/25 08:25 Hyaline Casts 71.97 /lpf 05/02/25 08:25 Hepatitis A IgM Ab Non-reactive (Nonreactive) 05/02/25 05:50 Hep Bs Antigen Non-reactive (Nonreactive) 05/02/25 05:50 Hep B Core IgM Ab Non-reactive (Nonreactive) 05/02/25 05:50 Hepatitis C Antibody Non-reactive (Nonreactive) 05/02/25 05:50 Influenza A (PCR) Negative (Negative) 05/02/25 07:14 Influenza Type B (PCR) Negative (Negative) 05/02/25 07:14 RSV (PCR) Negative (Negative) 05/02/25 07:14 SARS-CoV-2 (PCR) Negative (Negative) 05/02/25 07:14 Vitals Last Vital Signs Temp 97.9 F 05/06/25 08:00 Pulse 92 05/06/25 12:00 Resp 20 H 05/06/25 12:00 BP 146/80 05/06/25 12:00 Pulse Ox 97 05/06/25 12:00 O2 Del Method Nasal Cannula 05/06/25 07:31 O2 Flow Rate 4 05/06/25 07:31 FiO2 40 05/06/25 04:00 Discharge Plan Discharge Patient Disposition: Home Health Service Condition: Stable Prescriptions: New budesonide 0.5 mg/2 mL Suspension For Nebulization 0.5 mg inhalation BID.RESPIRATORY Qty: 60 0RF doxycycline hyclate 100 mg capsule 100 mg PO BID 14 Days Qty: 28 0RF arformoterol 15 mcg/2 mL Solution For Nebulization 15 mcg inhalation BID.RESPIRATORY Qty: 14 0RF montelukast 10 mg Tablet 10 mg PO QPM Qty: 90 0RF prednisone 20 mg tablet 20 mg PO DAILY 11 Days Qty: 10 0RF Rx Instructions: days 11-21 of therapy Continued ropinirole 1 mg tablet See Rx Instructions PO BID Qty: 270 1RF Rx Instructions: Take 2 tablets by mouth in the morning, and 1 tablet in the evening. albuterol sulfate [Ventolin HFA] 90 mcg/actuation HFA aerosol inhaler 2 puff inhalation Q6H PRN (Reason: shortness of breath or wheezing) Qty: 8 4RF pantoprazole [Protonix] 40 mg tablet,delayed release (DR/EC) 40 mg PO DAILY Qty: 90 1RF fluticasone propion-salmeterol [Advair Diskus] 500-50 mcg/dose blister with device 1 inh inhalation BID Qty: 60 1RF buspirone 7.5 mg tablet 7.5 mg PO DAILY PRN (Reason: anxiety) Qty: 60 0RF megestrol 400 mg/10 mL (10 mL) suspension 200 mg PO DAILY PRN (Reason: APPETITE) Qty: 1000 0RF trazodone 50 mg tablet 50 mg PO BEDTIME sertraline 50 mg tablet 50 mg PO DAILY Spiriva Respimat 2.5 mcg/actuation mist 2 puff inhalation DAILY docusate sodium 100 mg Capsule 100 mg PO BID Qty: 60 0RF ipratropium-albuterol 0.5 mg-3 mg(2.5 mg base)/3 mL Solution For Nebulization 3 ml inhalation Q6H.RESP Qty: 180 0RF albuterol sulfate 2.5 mg /3 mL (0.083 %) solution for nebulization 2.5 mg inhalation QID PRN (Reason: Shortness Of Breath Or Wheezing) Qty: 90 0RF aspirin [Zeb Low Dose Aspirin] 81 mg tablet,delayed release (DR/EC) 81 mg PO DAILY Qty: 30 0RF dupilumab 300 mg/2 mL syringe 300 mg SUBCUT Q7D Qty: 2 0RF fluticasone propionate 50 mcg/actuation spray,suspension 2 spray intranasal DAILY Qty: 2 0RF Changed furosemide 20 mg tablet 20 mg PO QAM Qty: 90 0RF Rx Instructions: Take daily not as needed [employer]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 thank you! Discharge Diet: Cardiac Discharge Activity: Resume usual activity Patient Instructions: Doxycycline (By mouth), Budesonide (By breathing) (Flex de Pulmicort, Pulmicort Flexhaler,..., Montelukast (By mouth) (Singulair), Arformoterol (By breathing) (Brovana), Sepsis (DC), Hypoxia (GEN), COPD Stoplight, Opioid Safety, Patient Portal & Cari Instructions Discharge Attestations Time Spent in Discharge Care*: less than 30 min Status at Discharge: Cognitive status at discharge: cognitively intact, Behavioral status at discharge: cooperative, Quality Metrics Clinical Quality Measures [ No reported AMI, CVA or VTE this stay] Coding Level of Care Code 25695 Diagnoses Chronic obstructive pulmonary disease with acute exacerbation J44.1 COPD type: COPD with acute exacerbation Tobacco dependence due to cigarettes, in remission F17.211 Chronic respiratory failure with hypoxia and hypercapnia J96.11; J96.12 Iron deficiency anemia D50.9 Time Spent (min) 30
== END 2025-05-06 14:05 | disposition home or self-care (01) | DRG 189 ==
LOC: ER 06:37 → CSU 08:36
PROVIDERS: Internal Medicine; Admitting Provider Internal Medicine; Emergency Provider Emergency Medicine; PCP Family Medicine; Visit Provider Student in an Organized Health Care Education/Training Program
DX: J96.21 Acute and chronic respiratory failure with hypoxia (principal); J44.1 Chronic obstructive pulmonary disease with (acute) exacerbation; N17.9 Acute kidney failure, unspecified; J96.22 Acute and chronic respiratory failure with hypercapnia; Z87.891 Personal history of nicotine dependence; D50.9 Iron deficiency anemia, unspecified; G25.81 Restless legs syndrome; F41.9 Anxiety disorder, unspecified; K21.9 Gastro-esophageal reflux disease without esophagitis; K74.60 Unspecified cirrhosis of liver; I35.0 Nonrheumatic aortic (valve) stenosis; I11.0 Hypertensive heart disease with heart failure; I50.9 Heart failure, unspecified; R79.89 Other specified abnormal findings of blood chemistry; Z99.81 Dependence on supplemental oxygen; Z79.82 Long term (current) use of aspirin
CPT/HCPCS: 36415; 36600; 71045; 76705; 78452; 80048; 80051; 80053; 80074; 80076; 81001; 82330; 82803; 82805; 83605; 83880; 84484; 85025; 85378; 87040; 87077; 87150; 87186; 87205; 87637; 93005; 93017; 93306; 93970; 94640; 94660; 94664; 94799; 96365; 96372; 96375; 97116; 97161; 97165; 97530; 99291; A9500; J0696; J1650; J1938; J2020; J2185; J2785; J2916; J2919; J7030; J7605; J7611; J7613; J7626; J7644; J9999; Q3014

== ENCOUNTER 2025-05-04 13:00 | Oncology outpatient (recurring) (ONCR) | payer BC, SELFPAY ==
[2025-04-29] MEDS: iron sucrose 200 MG in sodium chloride 0.9% (100 ml) 100 ML IV (15:23)
[2025-04-29 16:01] VITALS: BP 125/76; PULSE 98; RESP 18; TEMP 36.8; O2SAT 94
[2025-05-01] MEDS: iron sucrose 200 MG in sodium chloride 0.9% (100 ml) 100 ML IV (10:00)
[2025-05-01 10:49] VITALS: BP 112/66; PULSE 105; RESP 16; TEMP 36.6; O2SAT 94
== END 2025-05-05 23:59 | disposition home or self-care (01) ==
PROVIDERS: PCP Family Medicine; Visit Provider Family Medicine
DX: Z53.9 Procedure and treatment not carried out, unspecified reason (principal)
CPT/HCPCS: 96365; J1756

== ENCOUNTER 2025-05-08 09:50 | Oncology outpatient (recurring) (ONCR) | payer BC, SELFPAY ==
[2025-05-08 10:09] VITALS: BP 139/78; PULSE 87; RESP 17; TEMP 36.5; O2SAT 97
[2025-05-08] MEDS: iron sucrose 200 MG in sodium chloride 0.9% (100 ml) 100 ML IV (10:29)
[2025-05-08 11:06] VITALS: BP 148/87; PULSE 83; RESP 16; TEMP 36.4; O2SAT 97
--- NOTE | 2025-05-08 11:48 | PC.NURSE ---
Patient stated she was hospitalized from 04/30/25 to 05/06/25. During her hospitalization, patient received her 3rd and 4th cycle of Venofer infusions. Patient received her 5th and final infusion of Venofer today, 05/08/25 and confirmed understanding that this was her last Venofer infusion for this treatment cycle.
== END 2025-06-05 23:59 | disposition home or self-care (01) ==
LOC: ONCMED 09:51
PROVIDERS: PCP Family Medicine; Visit Provider Family Medicine
DX: D50.9 Iron deficiency anemia, unspecified (principal); Z79.899 Other long term (current) drug therapy
CPT/HCPCS: 96365; J1756

== ENCOUNTER 2025-05-30 09:17 | Inpatient (IN) | payer BC, SELFPAY ==
--- OUTSIDE RECORDS SUMMARY | 2013-12-08 06:15 | XMS_ITS | Continuity of Care Document ---
Author Organization [facility] Address [address] [place] [address] Phone Care Team Providers Care Airport Maintenance Laborer Name Role Phone Jose CONTRERAS, Freda Unavailable Unavaila ble Procedures Procedure Date OFFICE/OUTPATIENT VISIT, [facility] AIRWAY INHALATION TREATMENT Advance Directives Directive Yes / No Effective Date File Name No Information Encounters Encounter Description Practice Location Reason(s) For Visit Diagnoses Date Provider Providers Copied on Encounter OFFICE/OUTPAT IENT VISIT, [facility], [address] [place], [place], [id number], tel:[phone] No Information Jose flaherty [address], [id number] , [place]. tel:[phone] Family History Family Member Type Diagnosis Age [...]
--- OUTSIDE RECORDS SUMMARY | 2013-12-08 06:15 | XMS_ITS | Continuity of Care Document ---
Author Organization [facility] Address [address] [place] [address] Phone Care Team Providers Care Hog Trader Name Role Phone Jose CONTRERAS, Freda Unavailable Unavaila ble Procedures Procedure Date OFFICE/OUTPATIENT VISIT, [facility] AIRWAY INHALATION TREATMENT Advance Directives Directive Yes / No Effective Date File Name No Information Encounters Encounter Description Practice Location Reason(s) For Visit Diagnoses Date Provider Providers Copied on Encounter OFFICE/OUTPAT IENT VISIT, [facility], [address] [place], [place], [id number], tel:[phone] No Information Jose flaherty [address], [id number] , [place]. tel:[phone] Family History Family Member Type Diagnosis Age At Onset No Information Payers Payer name Insurance type Covered constitution party ID Authoriza tion(s) No Information Social [...]
--- OUTSIDE RECORDS SUMMARY | 2013-12-08 06:15 | XMS_ITS | Continuity of Care Document ---
Author Organization [facility] Address [address] [place] [address] Phone Care Team Providers Care Hotel Reservationist Name Role Phone Jose CONTRERAS, Freda Unavailable Unavaila ble Procedures Procedure Date OFFICE/OUTPATIENT VISIT, [facility] AIRWAY INHALATION TREATMENT Advance Directives Directive Yes / No Effective Date File Name No Information Encounters Encounter Description Practice Location Reason(s) For Visit Diagnoses Date Provider Providers Copied on Encounter OFFICE/OUTPAT IENT VISIT, [facility], [address] [place], [place], [id number], tel:[phone] No Information Jose flaherty [address], [id number] , [place]. tel:[phone] Family History Family Member Type Diagnosis Age [...]
--- OUTSIDE RECORDS SUMMARY | 2013-12-08 06:15 | XMS_ITS | Continuity of Care Document ---
Author Organization [facility] Address [address] [place] [address] Phone Care Team Providers Care Patternmaker Pressure Cast Name Role Phone Jose CONTRERAS, Freda Unavailable Unavaila ble Procedures Procedure Date OFFICE/OUTPATIENT VISIT, [facility] AIRWAY INHALATION TREATMENT Advance Directives Directive Yes / No Effective Date File Name No Information Encounters Encounter Description Practice Location Reason(s) For Visit Diagnoses Date Provider Providers Copied on Encounter OFFICE/OUTPAT IENT VISIT, [facility], [address] [place], [place], [id number], tel:[phone] No Information Jose flaherty [address], [id number] , [place]. tel:[phone] Family History Family Member Type Diagnosis Age [...]
[2025-05-30] VITALS (17 sets, daily range): BP systolic 114–164; BP diastolic 68–77; PULSE 4–115; RESP 12–30; TEMP 36.4–38.2; O2SAT 91–100; BMI 21.4
--- NOTE | 2025-05-30 09:22 | XRR_ITS ---
PROCEDURE INFORMATION: Exam: XR Chest Exam date and time: 05/30/2025 9:27 AM Age: 65 years old Clinical indication: Cough and dyspnea; Additional info: Dyspnea/cough TECHNIQUE: Imaging protocol: Radiologic exam of the chest. Views: 1 view. COMPARISON: CR (CHEST, ) 05/02/2025 5:43 AM FINDINGS: Lungs: Small amounts of new edema and/or pneumonitis in both mid and lower lungs, likely superimposed upon scarring. Otherwise, unremarkable. Pleural spaces: Unremarkable. No pleural effusion. No pneumothorax. Heart/Mediastinum: Unremarkable. No cardiomegaly. Bones/joints: Nothing acute. No change. XR/XR chest 1V portable [id number] IMPRESSION: Small amounts of new edema and/or pneumonitis in both mid and lower lungs, likely superimposed upon scarring.
--- NOTE | 2025-05-30 09:22 | ECG_ITS ---
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: : 1960 Requested By: Roberto Duarte Order Number: [id number] Reading MD: ANY MARTINEZ Measurements Intervals [place] Rate: 106 P: 10 DC: 148 QRS: 59 QRSD: 75 T: 28 QT: 318 QTc: 423 Interpretive Statements SINUS TACHYCARDIA WITH OCCASIONAL VENTRICULAR PREMATURE COMPLEXES ABNORMAL RHYTHM ECG Compared to ECG 05/02/2025 11:39:48 Ventricular premature complex(es) now present Sinus rhythm no longer present Myocardial infarct finding no longer present T-wave abnormality no longer present Possible ischemia no longer present Electronically Signed On 05-31-2025 22:26:21 CDT by ANY MARTINEZ [email or web address]
--- OUTSIDE RECORDS SUMMARY | 2025-05-30 09:25 | XMS_ITS | Clinical Summary ---
Author Organization [facility] Address [address] [place] [address] Care Team Providers Care Patroller Name Role Phone Unavailable Primary Care Provider [...] 5 Active fluticasone propionate (FLONASE) 50 mcg/spray [place], Suspension nasal inhaler Administer 2 Sprays in [...] Encounters Date Type Department Care Team Description 05/05/2025 External Device Data [facility] ABSTRACTION Provider, Abstract [...] 01/12/2025 1:02 PM CDT Plan of Treatment Health Maintenance Due Date Last Done Comments DTAP/TDAP/TD VACCINES (1 - Tdap) 1980 HPV/Cotest (21-29) 1982 CERVICAL CANCER SCREENING 1991 HPV/Cotest (30-65) 1991 PAP SMEAR 1991 BREAST CANCER SCREENING 2001 COLORECTAL SCREENING 2006 Colorectal Cancer Screening 2006 FIT-DNA Q 3 years 2006 FIT/FOBT Q 1 year 2006 Flex Sig/CT Colonography Q 5 years 2006 RSV VACCINE (60+ or ) (1 - Risk 50-74 years 1-dose series) 2011 ZOSTER VACCINE (1 of 2) 2011 INFLUENZA VACCINE (#1) 2025 Insurance [id number] BLUE ACCESS/TRUE BLUE PPO
[2025-05-30 09:35] LABS: Hematocrit 51.3 % (36-47); Hemoglobin 14.40 g/dL (11.27-16.99); Mean Corpuscular HGB Conc 28.1 g/dL (30-55); Mean Corpuscular Hemoglobin 25.5 pg (27-33); Mean Corpuscular Volume 91.0 fl (85-98); Nucleated Red Blood Cells % 0 %; Platelet Count 336 10^3/cmm (157-399); Red Blood Count 5.64 10^6/uL (3.85-5.65); White Blood Count 7.37 10^3/uL (3.29-11.43)
[2025-05-30 09:47] LABS: Alanine Aminotransferase 8 U/L (0-33); Albumin Level 3.9 g/dL (3.5-5.2); Alkaline Phosphatase 63 U/L (35-105); Anion Gap 9.4 (5-19); Aspartate Amino Transferase 12 U/L (0-32); Blood Urea Nitrogen 13 mg/dL (8-23); Calcium 9.4 mg/dL (8.5-10.5); Chloride 94 mmol/L (98-107); Creatinine Clr Calc Pharmacy 99.5909; Globulin 2.6 g/dL (1.3-4.6); Glucose 103 mg/dL (65-115); Osmolality Calculated 290 mOsm/kg (285-295); Potassium 4.4 mmol/L (3.5-5.1); Sodium 140 mmol/L (136-145); Total Protein 6.5 g/dL (6.6-8.7)
[2025-05-30 09:49] LABS: Carbon Dioxide 41 mmol/L (22-29)
[2025-05-30 10:00] LABS: ABG PH Result 7.36 (7.35-7.45); Alveolar-Arterial Oxygen Gradi 13.7 mmHg (5-10); Arterial Blood Gas Hematocrit 43.2 % (37-47); Blood Gas Allen Test Pos; Blood Gas LPM 4.0 %; Blood Gas Operator Identificat MONRO; Blood Gas Sample Site Radial, left; Blood Gas Sample Type Arterial; Carboxyhemoglobin 2.3 %THgb (0.4-20.1); Glucose Level-ABG 104.0 mg/dL (70-115); HCO3 ABG 44.7 mmol/L (22-26); Ionized Calcium Level - ABG 1.2 mmol/L (1.1-1.4); Methemoglobin 0.1 % (0.4-1.5); Oxygen Saturation ABG 90.3; PO2 ABG 59.7 mmHg (80.0-100.0); PO2 FiO2 Ratio Arterial Blood 165; Potassium Level - ABG 4.5 mmol/L (3.5-5.0); Sodium Level - ABG 143.0 mmol/L (131-143)
[2025-05-30 10:01] LABS: ABG PCO2 78.6 mmHg (35-45)
[2025-05-30 10:09] LABS: Slide Review Slide Review Perform
[2025-05-30 10:10] LABS: Add RBC Morph Yes
[2025-05-30 10:11] LABS: Anisocytosis 1+; Ovalocytes Trace; Poikilocytosis 1+; RBC Morph Comp Yes; Tear Drop Cells Trace
[2025-05-30 10:21] LABS: Respiratory Syncytial Virus Ce NEGATIVE (Negative); SARS-CoV-2 PCR NEGATIVE (Negative)
--- NOTE | 2025-05-30 10:33 | W.ED.SOB ---
HPI - SOB/Dyspnea General: Chief Complaint: Shortness of Breath/Dyspnea Stated Complaint: sob Time Seen by Provider: 05/30/25 09:22 History of Present Illness: HPI Narrative: A 65-year-old female who presents to the emergency room with complaints of shortness of breath. Patient reported her oxygen sat was 30s to 70s last night she is normally on 2 L she presented on 6 L at 91%. She has a history of COPD. She has been running subjective low-grade fever at home nonproductive cough. On arrival here she is in acute respiratory distress initial blood gas shows hypercapnia. She denies any chest pain or productive cough. Associated symptoms: Deny abdominal pain, chest pain or fever(s) Related Data Home Medications ?Medication ?Instructions ?Recorded ?Confirmed sertraline 50 mg tablet 50 mg PO DAILY 11/04/24 05/30/25 trazodone 50 mg tablet 50 mg PO BEDTIME 11/04/24 05/30/25 Previous Rx's ?Medication ?Instructions ?Recorded pantoprazole 40 mg tablet,delayed 40 mg PO DAILY #90 tabs 01/13/25 release (Protonix) Ventolin HFA 90 mcg/actuation 2 puff inhalation Q6H PRN 02/18/25 aerosol inhaler (albuterol sulfate) shortness of breath or wheezing #8 grams ropinirole 1 mg tablet See Rx Instructions PO BID #270 02/18/25 tabs buspirone 7.5 mg tablet 7.5 mg PO DAILY PRN anxiety #60 03/25/25 tabs megestrol 400 mg/10 mL (10 mL) 200 mg (5 mL) PO DAILY PRN 03/25/25 oral suspension APPETITE #1,000 mL aspirin 81 mg tablet,delayed 81 mg PO DAILY #30 tabs 04/18/25 release (Zeb Low Dose Aspirin) budesonide 0.5 mg/2 mL suspension 0.5 mg (2 mL) inhalation 05/06/25 for nebulization BID.RESPIRATORY #60 mL dupilumab 300 mg/2 mL subcutaneous 300 mg (2 mL) SUBCUT Q7D #2 mL 05/06/25 syringe fluticasone propionate 50 2 spray intranasal DAILY #2 grams 05/06/25 mcg/actuation nasal spray,suspension furosemide 20 mg tablet 20 mg PO QAM swelling #90 tabs 05/06/25 montelukast 10 mg tablet 10 mg PO QPM #90 tabs 05/06/25 arformoterol 15 mcg/2 mL solution 15 mcg (2 mL) inhalation 05/28/25 for nebulization BID.RESPIRATORY #120 mL levofloxacin 750 mg tablet 750 mg PO DAILY 7 days #7 tabs 06/01/25 prednisone 20 mg tablet 20 mg PO BID 7 days #14 tabs 06/01/25 Allergies Allergy/AdvReac Type Severity Reaction Status Date / Time No Known Allergies Allergy Verified 05/11/25 09:10 Review of Systems Const: Denies: fever(s) or chills Card: Denies: chest pain Resp: Denies: dyspnea GI: Denies: abdominal pain : Denies: dysuria, urinary frequency or urinary urgency Musc: Denies: neck pain or back pain Skin/Breast: Denies: rash PFSH ED PFSH: Medical History History of PFTs 02/2023: Spirometry showed very severe airflow obstruction with FEV1/FVC 21; FEV1 510 cc 21% predicted and FVC 1.33 L 43% predicted. 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 Chronic respiratory failure with hypoxia and hypercapnia Restless leg Septic shock (~06/2024) Protein-calorie malnutrition, severe GERD (gastroesophageal reflux disease) Anxiety Hypertension Insomnia COPD (chronic obstructive pulmonary disease) Surgical History History of History of tonsillectomy Family History Father Stroke Other Dementia Denies family history of Diabetes CAD (coronary artery disease) Clotting disorder Hyperlipidemia Psychiatric illness Chronic kidney disease (CKD) Anesthesia complication Bleeding disorder Lung disease Cancer Hypertension Social History Smoking and tobacco/nicotine status: former use of tobacco/nicotine Quit status (tobacco/nicotine): has quit using Year quit tobacco: 2019 Former quit date comment: 2 packs/day for 30 years Second hand smoke exposure: Yes Alcohol intake: current Alcohol intake frequency: few times a week Alcohol type: beer Substance/Drug Use: never Additional social history: Patient wants DO NOT RESUSCITATE status as discussed with patient and Lino on 04/17/2025 by Rakesh Ray MD Marital status: Number of children: 5 Number of grandchildren: 9 service: No Current occupational status: disabled Current occupational exposures/hazards: No Previous occupational history: 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 Pets and animals: Yes Current gender identity: Female Physical Exam Const: GENERAL APPEARANCE: cooperative ORIENTATION/CONSCIOUSNESS: Yes awake, Yes oriented to person, Yes oriented to place and Yes oriented to time HENMT: COMMON NORMALS: normocephalic, atraumatic and hearing grossly normal bilaterally HEAD & SCALP: normocephalic and atraumatic Resp: COMMON NORMALS: normal respiratory effort, No retractions and No use of accessory muscles AUSCULTATION: rhonchi and wheezes Cardio: COMMON NORMALS: regular rate, regular rhythm and No murmurs present (Cardio) RATE: regular rate RHYTHM: regular rhythm GI: COMMON NORMALS: Soft to palpation and No hepatosplenomegaly present AUSCULTATION: Yes normoactive bowel sounds PALPATION: Yes Soft to palpation, No Tenderness to palpation present (GI), No Guarding due to palpation present (GI) and Yes No hepatosplenomegaly present Extremity: COMMON NORMALS: normal to inspection, capillary refill normal, no clubbing, cyanosis or edema, no calf tenderness and no pedal edema Neuro: SENSORIUM/ORIENTATION: Yes oriented to person, Yes oriented to place and Yes oriented to time Skin: COMMON NORMALS: no rashes or lesions noted GENERAL SKIN EXAM: no rashes or lesions noted Course Vital Signs: Vital signs: Vital Signs Temperature 97.9 F 06/01/25 16:49 Pulse Rate 108 H 06/01/25 16:49 Respiratory Rate 17 06/01/25 16:49 Blood Pressure 120/73 06/01/25 16:49 Pulse Oximetry 92 06/01/25 16:49 Oxygen Delivery Me thod Nasal Cannula 06/01/25 16:17 Oxygen Flow Rate 4 06/01/25 15:23 Fraction of Inspir ed Oxygen 40 06/01/25 05:05 MDM - SOB/Dyspnea Medical Decision Making Patient seen initially and evaluated CBC CMP chest x-ray ABG ordered. Differential diagnosis includes pneumonia acute exacerbation COPD acute on chronic respiratory failure suspect hypercapnia and hypoxia. Patient presents with acute hypercapnic hypoxic respiratory failure pCO2 of 78.6.. Patient been started on CPAP. Also placed her on Zithromax ceftriaxone started Solu-Medrol. Discussed with hospitalist orders written patient initially seen and evaluated CBC CMP chest x-ray ABG ordered. Medical Records I reviewed the patient's medical records. Lab Data I reviewed the patient's lab results. 06/01/25 03:07 06/01/25 03:07 Labs/Radiology: Radiology Impressions Chest X-Ray 05/30/25 09:22 IMPRESSION: Small amounts of new edema and/or pneumonitis in both mid and lower lungs, likely superimposed upon scarring. Laboratory Results WBC 7.37 10^3/uL (3.29-11.43) 05/30/25 09:04 RBC 5.64 10^6/uL (3.85-5.65) 05/30/25 09:04 Hgb 14.40 g/dL (11.27-16.99) 05/30/25 09:04 Hct 51.3 % (36-47) H 05/30/25 09:04 MCV 91.0 fl (85-98) 05/30/25 09:04 MCH 25.5 pg (27-33) L 05/30/25 09:04 MCHC 28.1 g/dL (30-55) L 05/30/25 09:04 RDW Not Reportable 05/30/25 09:04 Plt Count 336 10^3/cmm (157-399) 05/30/25 09:04 MPV 11.6 fL (7.4-10.4) H 05/30/25 09:04 Neut % (Auto) 67.9 % 05/30/25 09:04 Lymph % (Auto) 18.7 % 05/30/25 09:04 [place] % (Auto) 8.5 % 05/30/25 09:04 Eos % (Auto) 3.3 % 05/30/25 09:04 Baso % (Auto) 0.5 % 05/30/25 09:04 Neut # (Auto) 5.00 10^3/uL (1.8-7.7) 05/30/25 09:04 Lymph # (Auto) 1.4 10^3/uL (0.8-4.8) 05/30/25 09:04 [place] # (Auto) 0.6 10^3/uL (0.2-0.9) 05/30/25 09:04 Eos # (Auto) 0.2 10^3/uL (0.0-0.8) 05/30/25 09:04 Baso # (Auto) 0.0 10^3/uL (0.0-0.1) 05/30/25 09:04 Nucleated RBC % (auto) 0 % 05/30/25 09:04 Nucleated RBCs # 0.0 /100WBC 05/30/25 09:04 Poikilocytosis 1+ H 05/30/25 09:04 Anisocytosis 1+ H 05/30/25 09:04 Tear Drop Cells Trace 05/30/25 09:04 Ovalocytes Trace 05/30/25 09:04 Specimen Type Arterial 05/30/25 09:48 Sample Site Radial, left 05/30/25 09:48 ABG pH 7.36 (7.35-7.45) 05/30/25 09:48 ABG pCO2 78.6 mmHg (35-45) H* 05/30/25 09:48 ABG pO2 59.7 mmHg (80.0-100.0) L 05/30/25 09:48 ABG PO2/FiO2 Ratio 165 05/30/25 09:48 ABG HCO3 44.7 mmol/L (22-26) H 05/30/25 09:48 ABG O2 Saturation 90.3 05/30/25 09:48 ABG Base Excess 15.1 mmol/L (-2.0-2.0) H 05/30/25 09:48 Erik Test Pos 05/30/25 09:48 A-a O2 Gradient 13.7 mmHg (5-10) H 05/30/25 09:48 Hematocrit 43.2 % (37-47) 05/30/25 09:48 Hgb O2 Saturation 88.2 % (95-100) L 05/30/25 09:48 Carboxyhemoglobin 2.3 %THgb (0.4-20.1) 05/30/25 09:48 Methemoglobin 0.1 % (0.4-1.5) L 05/30/25 09:48 Total Hemoglobin 14.1 g/dL (12-16) 05/30/25 09:48 Sodium 143.0 mmol/L (131-143) 05/30/25 09:48 Potassium 4.5 mmol/L (3.5-5.0) 05/30/25 09:48 Glucose 104.0 mg/dL (70-115) 05/30/25 09:48 Ionized Calcium 1.2 mmol/L (1.1-1.4) 05/30/25 09:48 O2 Delivery Device Nc 05/30/25 09:48 O2 Liters/Min 4.0 % 05/30/25 09:48 FiO2 36.0 % 05/30/25 09:48 Power Hammer Operator ID [place] 05/30/25 09:48 Sodium 140 mmol/L (136-145) 05/30/25 09:04 Potassium 4.4 mmol/L (3.5-5.1) 05/30/25 09:04 Chloride 94 mmol/L (98-107) L 05/30/25 09:04 Carbon Dioxide 41 mmol/L (22-29) H 05/30/25 09:04 Anion Gap 9.4 (5-19) 05/30/25 09:04 BUN 13 mg/dL (8-23) 05/30/25 09:04 Creatinine 0.5 mg/dL (0.5-0.9) 05/30/25 09:04 GFR Calculation 124.2 mL/min (90-130) 05/30/25 09:04 Glucose 103 mg/dL (65-115) 05/30/25 09:04 Estimat Average Glucose 114 05/30/25 09:04 Hemoglobin A1c 5.6 % (4.0-6.0) 05/30/25 09:04 Calculated Osmolality 290 mOsm/kg (285-295) 05/30/25 09:04 Lactic Acid 0.7 mmol/L (0.5-2.2) 05/30/25 09:04 Calcium 9.4 mg/dL (8.5-10.5) 05/30/25 09:04 Total Bilirubin 0.4 mg/dL (0.15-1.2) 05/30/25 09:04 AST 12 U/L (0-32) 05/30/25 09:04 ALT 8 U/L (0-33) 05/30/25 09:04 Alkaline Phosphatase 63 U/L (35-105) 05/30/25 09:04 Troponin T Baseline 29 ng/L (0-10) H 05/30/25 09:04 NT-Pro-B Natriuret Pep 3579 pg/mL (0-125) H 05/30/25 09:04 Total Protein 6.5 g/dL (6.6-8.7) L 05/30/25 09:04 Albumin 3.9 g/dL (3.5-5.2) 05/30/25 09:04 Globulin 2.6 g/dL (1.3-4.6) 05/30/25 09:04 Triglycerides 90 mg/dL (0-150) 05/30/25 09:04 Cholesterol 133 mg/dL (0-200) 05/30/25 09:04 LDL Cholesterol, Calc 89 mg/dL (50-129) 05/30/25 09:04 HDL Cholesterol 26 mg/dL (60-100) L 05/30/25 09:04 LDL/HDL Ratio 3.42 RATIO (0.00-3.22) H 05/30/25 09:04 Cholesterol/HDL Ratio 5.12 mg/dL (0.0-4.40) H 05/30/25 09:04 TSH 0.53 uIU/mL (0.27-4.20) 05/30/25 09:04 Influenza A (PCR) Negative (Negative) 05/30/25 09:42 Influenza Type B (PCR) Negative (Negative) 05/30/25 09:42 RSV (PCR) Negative (Negative) 05/30/25 09:42 SARS-CoV-2 (PCR) Negative (Negative) 05/30/25 09:42 All radiology interpretation(s) finalized by discharge EKG Data EKG 1: I personally reviewed and interpreted this EKG as follows: Interpretation: 05/30/2025 9:35 AM sinus tachycardia with a rate of 106 MI interval 148 QTc 423[address] No acute ST changes. Occasional PVCs. Compared EKG 05/02/2025 no acute changes noted EKG 2: I personally reviewed and interpreted this EKG as follows: Interpretation: EKG 05/30/2025 1547 sinus tachycardia rate of 102 MI interval 138 QTc 440 no acute changes noted compared to EKG earlier today no significant change Discharge Plan Discharge Patient Disposition: Admitted As Inpatient Admit Provider: Forest Don Clinical Impression: Acute on chronic respiratory failure with hypoxia and hypercapnia, COPD (chronic obstructive pulmonary disease), Acute exacerbation of chronic obstructive airways disease Condition: Stable Discharge Diet: Cardiac Discharge Activity: Resume usual activity Coding Level of Care Code ED Lining Closer for Umesh Salmon
[2025-05-30 10:43] LABS: Lactic Sepsis W/Reflex 0.7 mmol/L (0.5-2.2)
[2025-05-30] MEDS: cefTRIAXone 1,000 mg SDV 1000 MG IVP (10:59)
--- NOTE | 2025-05-30 12:45 | ECG_ITS ---
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
--- NOTE | 2025-05-30 12:46 | P.HP_ITS ---
Providers/Chief Complaint 2 Admitting Physician: Forest Dno MD Primary Care Provider: Zoran Stern MD Chief Complaint: sob History of Present Illness Lora Dsouza is a 65 year old female with a past medical history of COPD, chronic hypercapnic respiratory failure, history of iron deficiency anemia, history of anxiety, who presents to [facility] for shortness of breath. Patient reports increased shortness of breath, cough, low O2 saturations on nasal cannula, reports compliance with her home BiPAP, no chest pain, no palpitations, no lower extremity edema, no sick contacts, recent travel, no calf pain, no calf swelling, no lightheaded, dizziness, she reports that last night her O2 sats were in the low 70s on her home 2 L, on presentation she 6 L at 91%, Review of Systems 2 Const: Denies: fever(s) or chills Card: Denies: chest pain Resp: Reports: dyspnea GI: Denies: abdominal pain : Denies: flank pain Musc: Denies: neck pain or back pain Neuro: Denies: headache(s) Medications/Allergies Home Medications ?Medication ?Instructions ?Recorded ?Confirmed ?Last Taken ?Type sertraline 50 mg tablet 50 mg PO DAILY 11/04/24 1001/2805/01/25 History trazodone 50 mg tablet 50 mg PO BEDTIME 11/04/2404/30/25 20:00 History pantoprazole 40 mg tablet,delayed 40 mg PO DAILY #90 t abs 01/13/25 05/11/25 05/01/25 Rx release (Protonix) Ventolin HFA 90 mcg/actuation 2 puff inhalation Q6H FL N 02/18/25 05/11/25 05/01/25 Rx aerosol inhaler (albuterol sulfate) shortness of breat h or wheezing #8 grams ropinirole 1 mg tablet See Rx Instructions PO BID # 270 02/18/25 05/11/25 05/01/25 Rx tabs buspirone 7.5 mg tablet 7.5 mg PO DAILY PRN anxiety #60 03/25/25 05/11/25 Unknown Rx tabs megestrol 400 mg/10 mL (10 mL) 200 mg (5 mL) PO DAILY PRN 03/25/25 05/11/25 05/01/25 Rx oral suspension APPETITE #1,000 mL aspirin 81 mg tablet,delayed 81 mg PO DAILY #30 tabs 0 04/18/25 05/11/25 05/01/25 Rx release (Zeb Low Dose Aspirin) docusate sodium 100 mg capsule 100 mg PO BID #60 caps 04/18/25 05/11/25 Unknown Rx ipratropium 0.5 mg-albuterol 3 mg 3 ml inhalation Q6H. RESP #180 mL 04/18/25 05/11/25 05/01/25 Rx (2.5 mg base)/3 mL nebulization soln budesonide 0.5 mg/2 mL suspension 0.5 mg (2 mL) inhala tion 05/06/25 05/11/25 Unknown Rx for nebulization BID.RESPIRATORY #60 mL dupilumab 300 mg/2 mL subcutaneous 300 mg (2 mL) SUBCU T Q7D #2 mL 05/06/25 05/11/25 04/29/25 Rx syringe fluticasone propionate 50 2 spray intranasal DAILY #2 grams 05/06/25 05/11/25 05/01/25 Rx mcg/actuation nasal spray,suspension furosemide 20 mg tablet 20 mg PO QAM swelling #90 ta bs 05/06/25 05/11/25 05/01/25 Rx montelukast 10 mg tablet 10 mg PO QPM #90 tabs 05/11/25 Unknown Rx arformoterol 15 mcg/2 mL solution 15 mcg (2 mL) inhala tion 05/28/25 Unknown Rx for nebulization BID.RESPIRATORY #120 mL Allergies Allergy/AdvReac Type Severity Reaction Status Date / Time No Known Allergies Allergy Verified 05/11/25 09:10 PFSH Acute 2 PFSH: Medical History History of PFTs 02/2023: Spirometry showed very severe airflow obstruction with FEV1/FVC 21; FEV1 510 cc 21% predicted and FVC 1.33 L 43% predicted. 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 Chronic respiratory failure with hypoxia and hypercapnia Restless leg Septic shock (~06/2024) Protein-calorie malnutrition, severe GERD (gastroesophageal reflux disease) Anxiety Hypertension Insomnia COPD (chronic obstructive pulmonary disease) Surgical History History of History of tonsillectomy Family History Father Stroke Other Dementia Denies family history of Diabetes CAD (coronary artery disease) Clotting disorder Hyperlipidemia Psychiatric illness Chronic kidney disease (CKD) Anesthesia complication Bleeding disorder Lung disease Cancer Hypertension Social History Smoking and tobacco/nicotine status: former use of tobacco/nicotine Quit status (tobacco/nicotine): has quit using Year quit tobacco: 2019 Former quit date comment: 2 packs/day for 30 years Second hand smoke exposure: Yes Alcohol intake: current Alcohol intake frequency: few times a week Alcohol type: beer Substance/Drug Use: never Additional social history: Patient wants DO NOT RESUSCITATE status as discussed with patient and Lino on 04/17/2025 by Rakesh Ray MD Marital status: Number of children: 5 Number of grandchildren: 9 service: No Current occupational status: disabled Current occupational exposures/hazards: No 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 Pets and animals: Yes Current gender identity: Female Vitals/I&O/Wt Last Vital Signs Temp 98.2 F 05/30/25 09:40 Pulse 98 05/30/25 12:36 Resp 30 H 05/30/25 09:19 BP 114/70 05/30/25 11:38 Pulse Ox 91 05/30/25 12:36 O2 Del Method BiPAP 05/30/25 12:36 O2 Flow Rate 15 05/30/25 09:39 FiO2 35 05/30/25 10:11 Weight last 48 hrs Weight 56.699 kg Physical Exam 2 Const: COMMON NORMALS: no acute distress and patient oriented x3 Eye: COMMON NORMALS: Equal, round and reactive pupils present and EOMs intact bilaterally Resp: COMMON NORMALS: normal respiratory effort, No retractions and No use of accessory muscles EFFORT & INSPECTION: Yes tachypneic AUSCULTATION: c rackles and wheezes Cardio: COMMON NORMALS: no JVD, regular rate, regular rhythm, S1 normal heart sound present and S2 normal heart sound present RATE: regular rate RHYTHM: regular rhythm HEART SOUNDS: S1 normal heart sound present and S2 normal heart sound present GI: COMMON NORMALS: Normal to inspection, nondistended, normoactive bowel sounds present, Soft to palpation and non-tender Extremity: COMMON NORMALS: no pedal edema Neuro: COMMON NORMALS: patient oriented x3 and moves all extremities Psych: COMMON NORMALS: mental status grossly normal Data 05/30/25 09:04 05/30/25 09:04 Micro: Microbiology 05/30/25 10:48 Blood Culture - Preliminary Blood SPECIMEN COLLECTED 05/30/25 10:46 Blood Culture - Preliminary Blood SPECIMEN COLLECTED A&P Assessment and plan 1. Acute hypoxic respiratory failure: Plan: Acute hypoxic hypercarbic respiratory failure - Secondary to COPD - Plan - DuoNeb - Budesonide - Solu-Medrol 40 mg IV every 8 hours - Rocephin - Azithromycin - BiPAP therapy - Monitor respiratory status closely - Patient is okay with resuscitative efforts, but does not want to be intubated - Lovenox for DVT prophylaxis PDMP PDMP Reviewed: Not Reviewed Attestations 2 Medical Necessity Statement*: Physician for acute hypoxic respiratory failure secondary to COPD, inpatient, greater than 2 midnights Diagnoses Acute hypoxic respiratory failure J96.01
[2025-05-30 13:07] LABS: Troponin(5th) Baseline 29 ng/L (0-10)
[2025-05-30 13:21] LABS: NT Pro B Type Natriuretic Pept 3579 pg/mL (0-125)
--- OUTSIDE RECORDS SUMMARY | 2025-05-30 16:06 | XMS_ITS | Clinical Summary ---
Author Organization [facility] Address [address] [place] [address] Care Team Providers Care Environmental Compliance Technician Name Role Phone Unavailable Primary Care Provider [...] 5 Active fluticasone propionate (FLONASE) 50 mcg/spray [place], Suspension nasal inhaler Administer 2 Sprays in [...] 2) 2011 INFLUENZA VACCINE (#1) 2025 Insurance [id number] BLUE ACCESS/TRUE BLUE PPO
[2025-05-30 18:10] LABS: Estmated Average Glucose 114; Hemoglobin A1C 5.6 % (4.0-6.0)
[2025-05-30] MEDS: pantoprazole 40 mg SDV IVP (18:16)
[2025-05-30] MEDS: methylPREDNISolone sod succ 40 mg/mL INJ IVP (18:16)
[2025-05-30 18:18] LABS: Cholesterol 133 mg/dL (0-200); HDL Cholesterol 26 mg/dL (60-100); Thyroid Stimulating Hormone 0.53 uIU/mL (0.27-4.20); Triglycerides 90 mg/dL (0-150)
--- NOTE | 2025-05-30 18:45 | ECG_ITS ---
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
[2025-05-30 20:27] LABS: Troponin(5th) Baseline 17 ng/L (0-10)
[2025-05-30 22:10] LABS: Troponin 5 2HR 16.52 ng/L (0-10)
[2025-05-30 22:11] LABS: Troponin 5 2HR Delta -0.48 ABS# (0-10)
[2025-05-31] VITALS (14 sets, daily range): BP systolic 108–134; BP diastolic 65–74; PULSE 86–111; RESP 16–26; TEMP 36.3–36.9; O2SAT 92–97
[2025-05-31] MEDS: methylPREDNISolone sod succ 40 mg/mL INJ IVP ×3 (00:47→16:54)
[2025-05-31 02:14] LABS: Hematocrit 44.8 % (36-47); Hemoglobin 12.50 g/dL (11.27-16.99); Mean Corpuscular HGB Conc 27.9 g/dL (30-55); Mean Corpuscular Hemoglobin 25.5 pg (27-33); Mean Corpuscular Volume 91.2 fl (85-98); Nucleated Red Blood Cells % 0 %; Platelet Count 336 10^3/cmm (157-399); Red Blood Count 4.91 10^6/uL (3.85-5.65); White Blood Count 4.88 10^3/uL (3.29-11.43)
[2025-05-31 02:19] LABS: Troponin 5 6HR 16.99 ng/L (0-10)
[2025-05-31 02:24] LABS: Troponin 5 6HR Delta -0.01 ng/L (0-12)
[2025-05-31 02:25] LABS: Alanine Aminotransferase 7 U/L (0-33); Albumin Level 3.6 g/dL (3.5-5.2); Alkaline Phosphatase 60 U/L (35-105); Anion Gap 10.8 (5-19); Aspartate Amino Transferase 10 U/L (0-32); Blood Urea Nitrogen 19 mg/dL (8-23); Calcium 8.2 mg/dL (8.5-10.5); Carbon Dioxide 35 mmol/L (22-29); Chloride 101 mmol/L (98-107); Creatinine Clr Calc Pharmacy 99.5909; Globulin 1.8 g/dL (1.3-4.6); Glucose 165 mg/dL (65-115); Magnesium 2.0 mg/dL (1.7-2.3); Osmolality Calculated 300 mOsm/kg (285-295); Potassium 4.8 mmol/L (3.5-5.1); Sodium 142 mmol/L (136-145); Total Protein 5.4 g/dL (6.6-8.7)
[2025-05-31 02:29] LABS: NT Pro B Type Natriuretic Pept 3857 pg/mL (0-125); Procalcitonin 0.05 ng/mL (0-0.5)
[2025-05-31 03:06] LABS: Slide Review Slide Review Perform
[2025-05-31 07:08] LABS: Glucose Urine UA 2+ (Normal); Nitrate Urine Negative (Negative); Specific Gravity, Urine 1.026 (1.005-1.030)
[2025-05-31 07:10] LABS: Add Urine Microscopic? YES
[2025-05-31] MEDS: cefTRIAXone 1,000 mg SDV 1000 MG IVP (10:48)
--- NOTE | 2025-05-31 15:06 | P.PN_ITS ---
Subjective 2 Subjective: Patient was seen this morning, currently alert oriented x 3, following all commands, no chest pain, no nausea, no vomiting does report shortness of breath Vitals/I&O/Wt Last Vital Signs Temp 97.6 F 05/31/25 12:07 Pulse 105 H 05/31/25 12:07 Resp 18 05/31/25 12:07 BP 110/67 05/31/25 12:07 Pulse Ox 94 05/31/25 12:07 O2 Del Method Nasal Cannula 05/31/25 12:07 O2 Flow Rate 4 05/31/25 12:04 FiO2 35 05/30/25 13:40 05/31/25 05/31/25 05/31/25 06:59 14:59 22:59 Intake Total 730 / 730 Output Total 500 / 500 Balance 230 / 230 Weight last 48 hrs Weight 55.384 kg Weight 56.699 kg Weight 56.699 kg Physical Exam 2 Const: COMMON NORMALS: no acute distress and patient oriented x3 Neck/C-Spine: COMMON NORMALS: no JVD Resp: COMMON NORMALS: normal respiratory effort, No retractions and No use of accessory muscles AUSCULTATION: wheezes Cardio: COMMON NORMALS: no JVD, regular rate, regular rhythm, S1 normal heart sound present and S2 normal heart sound present RATE: regular rate RHYTHM: regular rhythm HEART SOUNDS: S1 normal heart sound present and S2 normal heart sound present GI: COMMON NORMALS: Normal to inspection, nondistended, normoactive bowel sounds present and non-tender Extremity: COMMON NORMALS: no pedal edema Neuro: COMMON NORMALS: patient oriented x3 Psych: COMMON NORMALS: mental status grossly normal Data 05/31/25 01:51 05/31/25 01:51 Micro: Microbiology 05/30/25 10:48 Blood Culture - Preliminary Blood NEGATIVE TO DATE 05/30/25 10:46 Blood Culture - Preliminary Blood NEGATIVE TO DATE A&P Assessment and plan 1. Acute hypoxic respiratory failure: Plan: Acute hypoxic hypercarbic respiratory failure - Secondary to COPD - Plan - DuoNeb - Budesonide - Solu-Medrol 40 mg IV every 8 hours - Rocephin - Azithromycin - BiPAP therapy - Monitor respiratory status closely - Patient is okay with resuscitative efforts, but does not want to be intubated - Lovenox for DVT prophylaxis PDMP PDMP Reviewed: Not Reviewed Attestations 2 Medical Necessity Statement*: Patient requires hospitalization for acute hypoxic respiratory failure secondary to COPD Diagnoses Acute hypoxic respiratory failure J96.01
[2025-05-31] MEDS: pantoprazole 40 mg SDV IVP (16:53)
[2025-06-01] VITALS (16 sets, daily range): BP systolic 120–127; BP diastolic 70–73; PULSE 80–111; RESP 16–27; TEMP 36.6–37; O2SAT 90–96; BMI 21.9
[2025-06-01] MEDS: methylPREDNISolone sod succ 40 mg/mL INJ IVP ×2 (02:21→09:13)
[2025-06-01 03:41] LABS: Hematocrit 43.6 % (36-47); Hemoglobin 12.10 g/dL (11.27-16.99); Mean Corpuscular HGB Conc 27.8 g/dL (30-55); Mean Corpuscular Hemoglobin 26.1 pg (27-33); Mean Corpuscular Volume 94.0 fl (85-98); Nucleated Red Blood Cells % 0 %; Platelet Count 264 10^3/cmm (157-399); Red Blood Count 4.64 10^6/uL (3.85-5.65); White Blood Count 8.88 10^3/uL (3.29-11.43)
[2025-06-01 04:01] LABS: Alanine Aminotransferase 8 U/L (0-33); Albumin Level 3.9 g/dL (3.5-5.2); Alkaline Phosphatase 68 U/L (35-105); Anion Gap 9.7 (5-19); Aspartate Amino Transferase 9 U/L (0-32); Blood Urea Nitrogen 14 mg/dL (8-23); Calcium 8.7 mg/dL (8.5-10.5); Carbon Dioxide 36 mmol/L (22-29); Chloride 101 mmol/L (98-107); Creatinine Clr Calc Pharmacy 123.3088; Globulin 1.6 g/dL (1.3-4.6); Glucose 239 mg/dL (65-115); Magnesium 2.2 mg/dL (1.7-2.3); Osmolality Calculated 302 mOsm/kg (285-295); Potassium 4.7 mmol/L (3.5-5.1); Sodium 142 mmol/L (136-145); Total Protein 5.5 g/dL (6.6-8.7)
[2025-06-01 04:08] LABS: NT Pro B Type Natriuretic Pept 3204 pg/mL (0-125); Procalcitonin 0.04 ng/mL (0-0.5)
[2025-06-01] MEDS: FUROsemide 10 mg/mL SDV 2mL 20 MG IVP (09:13)
[2025-06-01] MEDS: cefTRIAXone 1,000 mg SDV 1000 MG IVP (11:03)
--- NOTE | 2025-06-01 18:19 | P.DS_ITS ---
Discharge Providers Date of Admission: 05/30/25 11:04 Date of Discharge: June 01, 2025 Attending Provider at Admission: Forest Don MD Attending Provider at Discharge: Forest Don MD Primary Care Provider: Zoran Stern MD Diagnoses at Discharge Discharge Diagnosis 1. Acute hypoxic respiratory failure: Reason for Visit Reason for Visit: sob Hospital Course Hospital Course Lora Dsouza is a 65 year old female with a past medical history of COPD, chronic hypercapnic respiratory failure, history of iron deficiency anemia, history of anxiety, who presents to [facility] for shortness of breath. Patient reports increased shortness of breath, cough, low O2 saturations on nasal cannula, reports compliance with her home BiPAP, no chest pain, no palpitations, no lower extremity edema, no sick contacts, recent travel, no calf pain, no calf swelling, no lightheaded, dizziness, she reports that last night her O2 sats were in the low 70s on her home 2 L, on presentation she 6 L at 91%, Patient was admitted to [facility] for acute hypoxic hypercarbic respiratory failure - Patient admitted to [facility] for COPD exacerbation - Received IV antibiotics, IV steroids, clinically monitored - Patient overall clinically improved, will be discharged home with close follow-up with pulmonary as outpatient - Discharged on a prednisone burst, oral antibiotics Physical Exam Const: COMMON NORMALS: no acute distress and patient oriented x3 Resp: COMMON NORMALS: normal respiratory effort, No retractions, No use of accessory muscles and clear to auscultation bilaterally AUSCULTATION: clear to auscultation bilaterally Cardio: COMMON NORMALS: regular rate, regular rhythm, S1 normal heart sound present and S2 normal heart sound present RATE: regular rate RHYTHM: regular rhythm HEART SOUNDS: S1 normal heart sound present and S2 normal heart sound present GI: COMMON NORMALS: Normal to inspection, nondistended, normoactive bowel sounds present and non-tender Extremity: COMMON NORMALS: no pedal edema Neuro: COMMON NORMALS: patient oriented x3 Psych: COMMON NORMALS: mental status grossly normal Discharge Data Studies Completed and Pending Completed Studies During Hospitalization Category Date Time Status XR chest 1V portable [id number] Stat Exams 05/30/25 09:22 Completed Pending at discharge Category Date Time Status Blood Culture Stat Lab 05/30/25 10:48 Results Radiology Impressions Chest X-Ray 05/30/25 09:22 IMPRESSION: Small amounts of new edema and/or pneumonitis in both mid and lower lungs, likely superimposed upon scarring. Laboratory Results WBC 8.88 10^3/uL (3.29-11.43) 06/01/25 03:07 RBC 4.64 10^6/uL (3.85-5.65) 06/01/25 03:07 Hgb 12.10 g/dL (11.27-16.99) 06/01/25 03:07 Hct 43.6 % (36-47) 06/01/25 03:07 MCV 94.0 fl (85-98) 06/01/25 03:07 MCH 26.1 pg (27-33) L 06/01/25 03:07 MCHC 27.8 g/dL (30-55) L 06/01/25 03:07 RDW 27.9 % (12.1-15.1) H 06/01/25 03:07 Plt Count 264 10^3/cmm (157-399) 06/01/25 03:07 MPV 12.0 fL (7.4-10.4) H 06/01/25 03:07 Neut % (Auto) 89.4 % 06/01/25 03:07 Lymph % (Auto) 3.8 % 06/01/25 03:07 Howell % (Auto) 5.3 % 06/01/25 03:07 Eos % (Auto) 0.0 % 06/01/25 03:07 Baso % (Auto) 0.1 % 06/01/25 03:07 Neut # (Auto) 7.94 10^3/uL (1.8-7.7) H 06/01/25 03:07 Lymph # (Auto) 0.3 10^3/uL (0.8-4.8) L 06/01/25 03:07 Howell # (Auto) 0.5 10^3/uL (0.2-0.9) 06/01/25 03:07 Eos # (Auto) 0.0 10^3/uL (0.0-0.8) 06/01/25 03:07 Baso # (Auto) 0.0 10^3/uL (0.0-0.1) 06/01/25 03:07 Nucleated RBC % (auto) 0 % 06/01/25 03:07 Nucleated RBCs # 0.0 /100WBC 06/01/25 03:07 Poikilocytosis 1+ H 05/30/25 09:04 Anisocytosis 1+ H 05/30/25 09:04 Tear Drop Cells Trace 05/30/25 09:04 Ovalocytes Trace 05/30/25 09:04 Specimen Type Arterial 05/30/25 09:48 Sample Site Radial, left 05/30/25 09:48 ABG pH 7.36 (7.35-7.45) 05/30/25 09:48 ABG pCO2 78.6 mmHg (35-45) H* 05/30/25 09:48 ABG pO2 59.7 mmHg (80.0-100.0) L 05/30/25 09:48 ABG PO2/FiO2 Ratio 165 05/30/25 09:48 ABG HCO3 44.7 mmol/L (22-26) H 05/30/25 09:48 ABG O2 Saturation 90.3 05/30/25 09:48 ABG Base Excess 15.1 mmol/L (-2.0-2.0) H 05/30/25 09:48 Erik Test Pos 05/30/25 09:48 A-a O2 Gradient 13.7 mmHg (5-10) H 05/30/25 09:48 Hematocrit 43.2 % (37-47) 05/30/25 09:48 Hgb O2 Saturation 88.2 % (95-100) L 05/30/25 09:48 Carboxyhemoglobin 2.3 %THgb (0.4-20.1) 05/30/25 09:48 Methemoglobin 0.1 % (0.4-1.5) L 05/30/25 09:48 Total Hemoglobin 14.1 g/dL (12-16) 05/30/25 09:48 Sodium 143.0 mmol/L (131-143) 05/30/25 09:48 Potassium 4.5 mmol/L (3.5-5.0) 05/30/25 09:48 Glucose 104.0 mg/dL (70-115) 05/30/25 09:48 Ionized Calcium 1.2 mmol/L (1.1-1.4) 05/30/25 09:48 O2 Delivery Device Nc 05/30/25 09:48 O2 Liters/Min 4.0 % 05/30/25 09:48 FiO2 36.0 % 05/30/25 09:48 [employer]er Casing ID [place] 05/30/25 09:48 Sodium 142 mmol/L (136-145) 06/01/25 03:07 Potassium 4.7 mmol/L (3.5-5.1) 06/01/25 03:07 Chloride 101 mmol/L (98-107) 06/01/25 03:07 Carbon Dioxide 36 mmol/L (22-29) H 06/01/25 03:07 Anion Gap 9.7 (5-19) 06/01/25 03:07 BUN 14 mg/dL (8-23) 06/01/25 03:07 Creatinine 0.4 mg/dL (0.5-0.9) L 06/01/25 03:07 GFR Calculation 160.7 mL/min (90-130) H 06/01/25 03:07 Glucose 239 mg/dL (65-115) H 06/01/25 03:07 Estimat Average Glucose 114 05/30/25 09:04 Hemoglobin A1c 5.6 % (4.0-6.0) 05/30/25 09:04 Calculated Osmolality 302 mOsm/kg (285-295) H 06/01/25 03:07 Lactic Acid 0.7 mmol/L (0.5-2.2) 05/30/25 09:04 Calcium 8.7 mg/dL (8.5-10.5) 06/01/25 03:07 Phosphorus 2.2 mg/dL (2.5-4.5) L 06/01/25 03:07 Magnesium 2.2 mg/dL (1.7-2.3) 06/01/25 03:07 Total Bilirubin 0.2 mg/dL (0.15-1.2) 06/01/25 03:07 AST 9 U/L (0-32) 06/01/25 03:07 ALT 8 U/L (0-33) 06/01/25 03:07 Alkaline Phosphatase 68 U/L (35-105) 06/01/25 03:07 Troponin T Baseline 17 ng/L (0-10) H 05/30/25 19:59 Troponin T 120 Minute 16.52 ng/L (0-10) H 05/30/25 21:39 Delta Troponin T -0.48 ABS# (0-10) L 05/30/25 21:39 Troponin T Hi Sens 6Hr 16.99 ng/L (0-10) H 05/31/25 01:51 Troponin T Hi Sens 6Hr Delta -0.01 ng/L (0-12) L 05/31/25 01:51 C-Reactive Protein 3.0 mg/L (0.0-4.9) 06/01/25 03:07 NT-Pro-B Natriuret Pep 3204 pg/mL (0-125) H 06/01/25 03:07 Total Protein 5.5 g/dL (6.6-8.7) L 06/01/25 03:07 Albumin 3.9 g/dL (3.5-5.2) 06/01/25 03:07 Globulin 1.6 g/dL (1.3-4.6) 06/01/25 03:07 Triglycerides 90 mg/dL (0-150) 05/30/25 09:04 Cholesterol 133 mg/dL (0-200) 05/30/25 09:04 LDL Cholesterol, Calc 89 mg/dL (50-129) 05/30/25 09:04 HDL Cholesterol 26 mg/dL (60-100) L 05/30/25 09:04 LDL/HDL Ratio 3.42 RATIO (0.00-3.22) H 05/30/25 09:04 Cholesterol/HDL Ratio 5.12 mg/dL (0.0-4.40) H 05/30/25 09:04 Procalcitonin 0.04 ng/mL (0-0.5) 06/01/25 03:07 TSH 0.53 uIU/mL (0.27-4.20) 05/30/25 09:04 Urine Color Yellow (Yellow) 05/31/25 06:45 Urine Appearance Clear (CLEAR) 05/31/25 06:45 Urine pH 6.0 (5-7) 05/31/25 06:45 Ur Specific [place] 1.026 (1.005-1.030) 05/31/25 06:45 Urine Protein Trace (Negative) A 05/31/25 06:45 Urine Glucose (UA) 2+ (Normal) H 05/31/25 06:45 Urine Ketones Negative (Negative) 05/31/25 06:45 Urine Blood Negative (Negative) 05/31/25 06:45 Urine Nitrate Negative (Negative) 05/31/25 06:45 Urine Bilirubin Negative (Negative) 05/31/25 06:45 Urine Urobilinogen 1.0 mg/dL (Negative) 05/31/25 06:45 Ur Leukocyte Esterase Negative (Negative) 05/31/25 06:45 Urine RBC 0-2 /hpf (0-2) 05/31/25 06:45 Urine WBC 0-5 /hpf (0-5) 05/31/25 06:45 Ur Squamous Epith Cells 0-5 /hpf (0-5) 05/31/25 06:45 Amorphous Sediment Not Reportable 05/31/25 06:45 Urine Bacteria None seen /hpf (NONE) 05/31/25 06:45 Hyaline Casts 2.87 /lpf 05/31/25 06:45 Influenza A (PCR) Negative (Negative) 05/30/25 09:42 Influenza Type B (PCR) Negative (Negative) 05/30/25 09:42 RSV (PCR) Negative (Negative) 05/30/25 09:42 SARS-CoV-2 (PCR) Negative (Negative) 05/30/25 09:42 Vitals Last Vital Signs Temp 97.9 F 06/01/25 16:49 Pulse 108 H 06/01/25 16:49 Resp 17 06/01/25 16:49 BP 120/73 06/01/25 16:49 Pulse Ox 92 06/01/25 16:49 O2 Del Method Nasal Cannula 06/01/25 16:17 O2 Flow Rate 4 06/01/25 15:23 FiO2 40 06/01/25 05:05 Discharge Plan Discharge Patient Disposition: Home Condition: Stable Prescriptions: New prednisone 20 mg tablet 20 mg PO BID 7 Days Qty: 14 0RF levofloxacin 750 mg tablet 750 mg PO DAILY 7 Days Qty: 7 0RF Continued ropinirole 1 mg tablet See Rx Instructions PO BID Qty: 270 1RF Rx Instructions: Take 2 tablets by mouth in the morning, and 1 tablet in the evening. albuterol sulfate [Ventolin HFA] 90 mcg/actuation HFA aerosol inhaler 2 puff inhalation Q6H PRN (Reason: shortness of breath or wheezing) Qty: 8 4RF pantoprazole [Protonix] 40 mg tablet,delayed release (DR/EC) 40 mg PO DAILY Qty: 90 1RF buspirone 7.5 mg tablet 7.5 mg PO DAILY PRN (Reason: anxiety) Qty: 60 0RF megestrol 400 mg/10 mL (10 mL) suspension 200 mg PO DAILY PRN (Reason: APPETITE) Qty: 1000 0RF arformoterol 15 mcg/2 mL solution for nebulization 15 mcg inhalation BID.RESPIRATORY Qty: 120 0RF trazodone 50 mg tablet 50 mg PO BEDTIME sertraline 50 mg tablet 50 mg PO DAILY aspirin [Zeb Low Dose Aspirin] 81 mg tablet,delayed release (DR/EC) 81 mg PO DAILY Qty: 30 0RF budesonide 0.5 mg/2 mL Suspension For Nebulization 0.5 mg inhalation BID.RESPIRATORY Qty: 60 0RF montelukast 10 mg Tablet 10 mg PO QPM Qty: 90 0RF furosemide 20 mg tablet 20 mg PO QAM Qty: 90 0RF Rx Instructions: Take daily not as needed fluticasone propionate 50 mcg/actuation spray,suspension 2 spray intranasal DAILY Qty: 2 0RF dupilumab 300 mg/2 mL syringe 300 mg SUBCUT Q7D Qty: 2 0RF Discharge Order = DC NOW: Discharge Order (Routine); Ordered 06/01/25 Ordered By: Forest Don Referrals: Zoran Stern MD [Primary Care Provider, [facility]] - 06/11/25 9:30 am Discharge Diet: Cardiac Discharge Activity: Resume usual activity Patient Instructions: Prednisone (By mouth), Levofloxacin (By mouth) (Levaquin, Levaquin Leva-rubi), COPD Stoplight, Opioid Safety, Patient Portal & Cari Instructions Discharge Attestations Time Spent in Discharge Care*: greater than 30 min Status at Discharge: Cognitive status at discharge: cognitively intact , Behavioral status at discharge: cooperative , Quality Metrics Clinical Quality Measures [ No reported AMI, CVA or VTE this stay] Coding Level of Care Code 47341 Total time (in minutes) for Discharge: 45 Diagnoses Acute hypoxic respiratory failure J96.01
== END 2025-06-01 16:50 | disposition home or self-care (01) | DRG 189 ==
LOC: ER 10:42 → MEDSURG 16:51
PROVIDERS: Admitting Provider Family Medicine; Emergency Provider Family Medicine; PCP Family Medicine; Visit Provider Family Medicine
DX: J96.22 Acute and chronic respiratory failure with hypercapnia (principal); J44.1 Chronic obstructive pulmonary disease with (acute) exacerbation; J96.21 Acute and chronic respiratory failure with hypoxia; D50.9 Iron deficiency anemia, unspecified; F41.9 Anxiety disorder, unspecified; J43.9 Emphysema, unspecified; G25.81 Restless legs syndrome; K21.9 Gastro-esophageal reflux disease without esophagitis; I10 Essential (primary) hypertension; G47.00 Insomnia, unspecified; Z66 Do not resuscitate; Z79.82 Long term (current) use of aspirin; Z99.81 Dependence on supplemental oxygen; Z87.891 Personal history of nicotine dependence
CPT/HCPCS: 36415; 36600; 71045; 80051; 80053; 80061; 81001; 82330; 82805; 83036; 83605; 83735; 83880; 84100; 84145; 84443; 84484; 85025; 86140; 87040; 87637; 93005; 94640; 94660; 94664; 96365; 96372; 96375; 99285; J0456; J0696; J1650; J1938; J2470; J2919; J7030; J7050; J7626; J9999

== ENCOUNTER 2025-07-05 18:49 | Inpatient (IN) | payer BC, SELFPAY ==
--- OUTSIDE RECORDS SUMMARY | 2013-12-08 05:15 | XMS_ITS | Continuity of Care Document ---
Author Organization [facility] Address [address] [place] [address] Phone Care Team Providers Care Professor Of Chemistry Name Role Phone Jose CONTRERAS, Freda Unavailable Unavaila ble Procedures Procedure Date OFFICE/OUTPATIENT VISIT, [facility] AIRWAY INHALATION TREATMENT Advance Directives Directive Yes / No Effective Date File Name No Information Encounters Encounter Description Practice Location Reason(s) For Visit Diagnoses Date Provider Providers Copied on Encounter OFFICE/OUTPAT IENT VISIT, [facility], [address] [place], [place], [id number], tel:[phone] No Information Jose flaherty [address], [id number] , [place]. tel:[phone] Family History Family Member Type Diagnosis Age At Onset No Information Payers Payer name Insurance type Covered alliance party ID Authoriza tion(s) No Information Social History Type Description Quantity Date Captured Comments Sex Female Smoking Status No Information Chief Complaint And Reason For Visit No Information Reason For Referral Reason For Referral No Information History Of Present Illness Encounter Date Complaint History Of Prese nt Illness No Information Functional Status Date Functional Assessmen t No Information Instructions Date Instruction Additional Infor mation No Information Assessments Type Assessment Date No Information Patient Care Teams Name Effective Dates (start - stop) Status Members No Information
[2025-07-05] VITALS (9 sets, daily range): BP systolic 104–125; BP diastolic 56–92; PULSE 87–100; RESP 16–24; TEMP 36.9; O2SAT 92–96; BMI 20.5
--- NOTE | 2025-07-05 18:58 | ECG_ITS ---
[facility] Date: 2025-07[facility]05 Pat Name: Lora Dsouza Department: Room: Gender: Female Integrated Circuits Inspector: : 1960 Requested By: Gretta Rincon Order Number: [id number] Jeane MD: Charisse Santo M.D. Measurements Intervals [place] Rate: 102 P: 62 SD: 141 QRS: 109 QRSD: 96 T: 12 QT: 335 QTc: 438 Interpretive Statements SINUS TACHYCARDIA WITH OCCASIONAL ECTOPIC PREMATURE COMPLEXES LEFT ATRIAL ENLARGEMENT [-0.15mV P-WAVE IN V1/V2] SEPTAL MYOCARDIAL INFARCTION , OF INDETERMINATE AGE [40+ ms Q WAVE IN V1/V2] Compared to ECG 05/30/2025 21:37:38 Atrial abnormality now present Myocardial infarct finding now present Short SD interval no longer present Electronically Signed On 07-07-2025 20:09:09 LINEN ROOM CUSTODIAN by Charisse Santo M.D. [email or web address]
--- NOTE | 2025-07-05 18:58 | XRR_ITS ---
PROCEDURE INFORMATION: Exam: XR Chest Exam date and time: 07/05/2025 7:08 PM Age: 65 years old Clinical indication: Shortness of breath; Additional info: Short of breath TECHNIQUE: Imaging protocol: Radiologic exam of the chest. Views: 1 view. COMPARISON: CR (CHEST, ) 05/30/2025 9:27 AM FINDINGS: Lungs: Interval progression of disease with prominent interstitial markings predominantly in the lung bases with the right greater than the left, superimposed infection can not be excluded. Pleural spaces: No pleural effusion or pneumothorax noted. Heart/Mediastinum: There is cardiomegaly. Bones/joints: No acute osseous abnormality. Intraperitoneal space: There is no free intraperitoneal gas. XR/XR chest 1V portable [id number] IMPRESSION: Bibasal atelectasis versus early infectious process.
--- NOTE | 2025-07-05 18:59 | W.ED.SOB ---
Documented by User: FELIPA Morales 07/05/25 20:44 HPI - SOB/Dyspnea General: Chief Complaint: Shortness of Breath/Dyspnea Stated Complaint: sob History of Present Illness: HPI Narrative: 65-year-old female with known COPD, chronic respiratory failure, presents to the emergency room via EMS for confusion. She has had worsening confusion in the last 2 days. Family relates to EMS that are not present at this time, that her doctor took her off on her medications. She has had issues regarding confusion in the last 2 days. She is not oriented to her birthday. She is able to speak full sentences, and does not have any acute shortness of breath. Denies chest pain. No fevers. updated history. Please see medical decision making. Related Data Home Medications ?Medication ?Instructions ?Recorded ?Confirmed sertraline 50 mg tablet 50 mg PO DAILY 11/04/24 06/11/25 trazodone 50 mg tablet 50 mg PO BEDTIME 11/04/24 06/11/25 Previous Rx's ?Medication ?Instructions ?Recorded pantoprazole 40 mg tablet,delayed 40 mg PO DAILY #90 tabs 01/13/25 release (Protonix) Ventolin HFA 90 mcg/actuation 2 puff inhalation Q6H PRN 02/18/25 aerosol inhaler (albuterol sulfate) shortness of breath or wheezing #8 grams ropinirole 1 mg tablet See Rx Instructions PO BID #270 02/18/25 tabs buspirone 7.5 mg tablet 7.5 mg PO DAILY PRN anxiety #60 03/25/25 tabs megestrol 400 mg/10 mL (10 mL) 200 mg (5 mL) PO DAILY PRN 03/25/25 oral suspension APPETITE #1,000 mL aspirin 81 mg tablet,delayed 81 mg PO DAILY #30 tabs 04/18/25 release (Zeb Low Dose Aspirin) dupilumab 300 mg/2 mL subcutaneous 300 mg (2 mL) SUBCUT Q7D #2 mL 05/06/25 syringe fluticasone propionate 50 2 spray intranasal DAILY #2 grams 05/06/25 mcg/actuation nasal spray,suspension furosemide 20 mg tablet 20 mg PO QAM swelling #90 tabs 05/06/25 montelukast 10 mg tablet 10 mg PO QPM #90 tabs 05/06/25 arformoterol 15 mcg/2 mL solution 15 mcg (2 mL) inhalation 05/28/25 for nebulization BID.RESPIRATORY #120 mL azithromycin 250 mg tablet 250 mg PO DAILY 30 days #30 tabs 06/08/25 ipratropium 0.5 mg-albuterol 3 mg 3 ml inhalation Q6H PRN wheezing 06/08/25 (2.5 mg base)/3 mL nebulization #90 mL soln budesonide 0.5 mg/2 mL suspension 0.5 mg (2 mL) inhalation 06/11/25 for nebulization BID.RESPIRATORY #60 mL Allergies Allergy/AdvReac Type Severity Reaction Status Date / Time No Known Allergies Allergy Verified 06/11/25 09:50 Review of Systems General: Reports: ROS unobtainable due to mental status PFSH ED PFSH: Medical History (Updated 07/05/25 @ 20:44 by FELIPA Morales) History of PFTs 02/2023: Spirometry showed very severe airflow obstruction with FEV1/FVC 21; FEV1 510 cc 21% predicted and FVC 1.33 L 43% predicted. 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 Chronic respiratory failure with hypoxia and hypercapnia Restless leg Septic shock (~06/2024) Protein-calorie malnutrition, severe GERD (gastroesophageal reflux disease) Anxiety Hypertension Insomnia COPD (chronic obstructive pulmonary disease) Surgical History History of History of tonsillectomy Family History Father Stroke Other Dementia Denies family history of Diabetes CAD (coronary artery disease) Clotting disorder Hyperlipidemia Psychiatric illness Chronic kidney disease (CKD) Anesthesia complication Bleeding disorder Lung disease Cancer Hypertension Social History Smoking and tobacco/nicotine status: former use of tobacco/nicotine Quit status (tobacco/nicotine): has quit using Year quit tobacco: 2019 Former quit date comment: 2 packs/day for 30 years Second hand smoke exposure: Yes Alcohol intake: current Alcohol intake frequency: few times a week Alcohol type: beer Substance/Drug Use: never Additional social history: Patient wants DO NOT RESUSCITATE status as discussed with patient and Lino on 04/17/2025 by Rakesh Ray MD Marital status: Number of children: 5 Number of grandchildren: 9 service: No Current occupational status: disabled Current occupational exposures/hazards: No 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 Pets and animals: Yes Current gender identity: Female Physical Exam Const: COMMON NORMALS: average body habitus and patient oriented x3 EXAM LIMITATIONS: altered mental status GENERAL APPEARANCE: cooperative, well kempt and ill appearing; not in distress and not anxious HENMT: COMMON NORMALS: normocephalic and atraumatic HEAD & SCALP: normocephalic and atraumatic Neck/C-Spine: COMMON NORMALS: full ROM and no lymphadenopathy Chest: COMMONS NORMALS: normal inspection of the chest and normal palpation of entire chest wall Resp: COMMON NORMALS: normal respiratory effort and No use of accessory muscles EFFORT & INSPECTION: Yes able to speak in complete sentences and Yes symmetric chest movement AUSCULTATION: rales (t/o) Cardio: COMMON NORMALS: regular rate and regular rhythm RATE: regular rate RHYTHM: regular rhythm GI: COMMON NORMALS: Normal to inspection, nondistended, normoactive bowel sounds present, Soft to palpation, non-tender and No hepatosplenomegaly present PALPATION: Yes Soft to palpation and Yes No hepatosplenomegaly present : COMMON NORMALS: Yes no CVA tenderness BLADDER/KIDNEY EXAM: Yes no CVA tenderness Back/Pelvis: COMMON NORMALS: no CVA tenderness and thoracic and lumbar spine normal to inspection Extremity: COMMON NORMALS: normal to inspection, full ROM and capillary refill normal Neuro: COMMON NORMALS: patient oriented x3 Psych: APPEARANCE: Yes well kempt Course Reevaluation(s): Reevaluation #1: On BiPAP, improved, conversant, date of 1960, oriented to person place and time now Consultations: Consultation #1: D/w hospitalist accepted admission. Vital Signs: Vital signs: Vital Signs Temperature 98.4 F 07/05/25 18:50 Pulse Rate 95 07/05/25 20:15 Respiratory Rate 21 H 07/05/25 20:15 Blood Pressure 114/85 07/05/25 20:15 Pulse Oximetry 93 07/05/25 20:15 Oxygen Delivery Me thod BiPAP 07/05/25 20:15 Oxygen Flow Rate 5 07/05/25 19:30 Fraction of Inspir ed Oxygen 45 07/05/25 19:45 MDM - SOB/Dyspnea Medical Decision Making Patient is 65-year-old female reports to the ED via EMS for confusion. She has been talking to her mother and sister over the last 2 days especially at night per . She has refused to place her CPAP/BiPAP on at night. This is a small unit, does not sound like a trilogy. She stopped her montelukast. knew her CO2 was increasing with her confusion since this has happened in the past. CO2 venous is 49. Acetazolamide given the patient by mouth. Catheter placed. Discussed with hospitalist that accepted admission to ICU. She is now awake, and alert on BiPAP ventilation. also notes that she took a dose of lactulose prior to admission. She did have loose stools, however for this she had constipation. Her ammonia level is slightly elevated, which makes me wonder how much plays into her confusion from that aspect as well. She appears to tolerate high CO2's, and respond well to BiPAP ventilation. Medical Records I reviewed the patient's medical records. Lab Data I reviewed the patient's lab results. 07/05/25 18:35 07/05/25 18:35 Labs/Radiology: Radiology Impressions Chest X-Ray 07/05/25 18:58 IMPRESSION: Bibasal atelectasis versus early infectious process. Laboratory Results WBC 7.05 10^3/uL (3.29-11.43) 07/05/25 18:35 RBC 5.26 10^6/uL (3.85-5.65) 07/05/25 18:35 Hgb 14.90 g/dL (11.27-16.99) 07/05/25 18:35 Hct 52.6 % (36-47) H 07/05/25 18:35 MCV 100.0 fl (85-98) H 07/05/25 18:35 MCH 28.3 pg (27-33) 07/05/25 18:35 MCHC 28.3 g/dL (30-55) L 07/05/25 18:35 RDW 18.9 % (12.1-15.1) H 07/05/25 18:35 Plt Count 302 10^3/cmm (157-399) 07/05/25 18:35 MPV 11.7 fL (7.4-10.4) H 07/05/25 18:35 Neut % (Auto) 73.1 % 07/05/25 18:35 Lymph % (Auto) 11.6 % 07/05/25 18:35 [place] % (Auto) 9.2 % 07/05/25 18:35 Eos % (Auto) 2.4 % 07/05/25 18:35 Baso % (Auto) 0.9 % 07/05/25 18:35 Neut # (Auto) 5.15 10^3/uL (1.8-7.7) 07/05/25 18:35 Lymph # (Auto) 0.8 10^3/uL (0.8-4.8) 07/05/25 18:35 [place] # (Auto) 0.7 10^3/uL (0.2-0.9) 07/05/25 18:35 Eos # (Auto) 0.2 10^3/uL (0.0-0.8) 07/05/25 18:35 Baso # (Auto) 0.1 10^3/uL (0.0-0.1) 07/05/25 18:35 Nucleated RBC % (auto) 0 % 07/05/25 18:35 Nucleated RBCs # 0.0 /100WBC 07/05/25 18:35 Specimen Type Arterial 07/05/25 20:42 Sample Site Brachial, right 07/05/25 20:42 ABG pH 7.26 (7.35-7.45) L 07/05/25 20:42 ABG pCO2 103.0 mmHg (35-45) H* 07/05/25 20:42 ABG pO2 68.2 mmHg (80.0-100.0) L 07/05/25 20:42 ABG PO2/FiO2 Ratio 151 07/05/25 20:42 ABG HCO3 46.4 mmol/L (22-26) H 07/05/25 20:42 ABG O2 Saturation 92.2 07/05/25 20:42 ABG Base Excess 14.1 mmol/L (-2.0-2.0) H 07/05/25 20:42 Erik Test N/a 07/05/25 20:42 A-a O2 Gradient 17.8 mmHg (5-10) H 07/05/25 20:42 Hematocrit 44.3 % (37-47) 07/05/25 20:42 Hgb O2 Saturation 89.3 % (95-100) L 07/05/25 20:42 Carboxyhemoglobin 2.1 %THgb (0.4-20.1) 07/05/25 20:42 Methemoglobin 1.0 % (0.4-1.5) 07/05/25 20:42 Total Hemoglobin 14.4 g/dL (12-16) 07/05/25 20:42 Sodium 146.0 mmol/L (131-143) H 07/05/25 20:42 Potassium 3.6 mmol/L (3.5-5.0) 07/05/25 20:42 Glucose 129.0 mg/dL (70-115) H 07/05/25 20:42 Ionized Calcium 1.2 mmol/L (1.1-1.4) 07/05/25 20:42 O2 Delivery Device Bipap 07/05/25 20:42 O2 Liters/Min 5.0 % 07/05/25 19:27 FiO2 45.0 % 07/05/25 20:42 PEEP 8.0 cmH20 07/05/25 20:42 Home Sales Service Professional ID [email or web address] 07/05/25 20:42 Sodium 147 mmol/L (136-145) H 07/05/25 18:35 Potassium 3.9 mmol/L (3.5-5.1) 07/05/25 18:35 Chloride 97 mmol/L (98-107) L 07/05/25 18:35 Carbon Dioxide 49 mmol/L (22-29) H* 07/05/25 18:35 Anion Gap 4.9 (5-19) L 07/05/25 18:35 BUN 14 mg/dL (8-23) 07/05/25 18:35 Creatinine 0.5 mg/dL (0.5-0.9) 07/05/25 18:35 GFR Calculation 124.2 mL/min (90-130) 07/05/25 18:35 Glucose 148 mg/dL (65-115) H 07/05/25 18:35 Calculated Osmolality 307 mOsm/kg (285-295) H 07/05/25 18:35 Lactic Acid 0.8 mmol/L (0.5-2.2) 07/05/25 18:35 Calcium 9.2 mg/dL (8.5-10.5) 07/05/25 18:35 Total Bilirubin 0.6 mg/dL (0.15-1.2) 07/05/25 18:35 AST 22 U/L (0-32) 07/05/25 18:35 ALT 20 U/L (0-33) 07/05/25 18:35 Alkaline Phosphatase 63 U/L (35-105) 07/05/25 18:35 Ammonia 65 umol/L (11-51) H 07/05/25 18:35 Total Protein 6.6 g/dL (6.6-8.7) 07/05/25 18:35 Albumin 4.4 g/dL (3.5-5.2) 07/05/25 18:35 Globulin 2.2 g/dL (1.3-4.6) 07/05/25 18:35 Ethyl Alcohol < 10 mg/dL (0-10) 07/05/25 18:35 Influenza A (PCR) Negative (Negative) 07/05/25 19:40 Influenza Type B (PCR) Negative (Negative) 07/05/25 19:40 RSV (PCR) Negative (Negative) 07/05/25 19:40 SARS-CoV-2 (PCR) Negative (Negative) 07/05/25 19:40 All radiology interpretation(s) finalized by discharge EKG Data EKG 1: Interpretation: Sinus rhythm, rate 102, no ST segment elevation, normal axis, PVCs Discharge Plan Discharge Patient Disposition: Admitted As Inpatient Clinical Impression: Acute hypercapnic respiratory failure, Alkalosis, metabolic, Chronic respiratory failure with hypoxia, Serum ammonia increased Condition: Stable Coding Level of Care Code ED Telecommunications Administrator for Chg Fwd Documented by User: Erlin Gonzalez DO 07/05/25 21:07 HPI - SOB/Dyspnea General: Chief Complaint: Shortness of Breath/Dyspnea Stated Complaint: sob Related Data Home Medications ?Medication ?Instructions ?Recorded ?Confirmed sertraline 50 mg tablet 50 mg PO DAILY 11/04/24 06/11/25 trazodone 50 mg tablet 50 mg PO BEDTIME 11/04/24 06/11/25 Previous Rx's ?Medication ?Instructions ?Recorded pantoprazole 40 mg tablet,delayed 40 mg PO DAILY #90 tabs 01/13/25 release (Protonix) Ventolin HFA 90 mcg/actuation 2 puff inhalation Q6H PRN 02/18/25 aerosol inhaler (albuterol sulfate) shortness of breath or wheezing #8 grams ropinirole 1 mg tablet See Rx Instructions PO BID #270 02/18/25 tabs buspirone 7.5 mg tablet 7.5 mg PO DAILY PRN anxiety #60 03/25/25 tabs megestrol 400 mg/10 mL (10 mL) 200 mg (5 mL) PO DAILY PRN 03/25/25 oral suspension APPETITE #1,000 mL aspirin 81 mg tablet,delayed 81 mg PO DAILY #30 tabs 04/18/25 release (Zeb Low Dose Aspirin) dupilumab 300 mg/2 mL subcutaneous 300 mg (2 mL) SUBCUT Q7D #2 mL 05/06/25 syringe fluticasone propionate 50 2 spray intranasal DAILY #2 grams 05/06/25 mcg/actuation nasal spray,suspension furosemide 20 mg tablet 20 mg PO QAM swelling #90 tabs 05/06/25 montelukast 10 mg tablet 10 mg PO QPM #90 tabs 05/06/25 arformoterol 15 mcg/2 mL solution 15 mcg (2 mL) inhalation 05/28/25 for nebulization BID.RESPIRATORY #120 mL azithromycin 250 mg tablet 250 mg PO DAILY 30 days #30 tabs 06/08/25 ipratropium 0.5 mg-albuterol 3 mg 3 ml inhalation Q6H PRN wheezing 06/08/25 (2.5 mg base)/3 mL nebulization #90 mL soln budesonide 0.5 mg/2 mL suspension 0.5 mg (2 mL) inhalation 06/11/25 for nebulization BID.RESPIRATORY #60 mL Allergies Allergy/AdvReac Type Severity Reaction Status Date / Time No Known Allergies Allergy Verified 06/11/25 09:50 PFS ED PFS: Medical History (Updated 07/05/25 @ 20:44 by FELIPA Morales) History of PFTs 02/2023: Spirometry showed very severe airflow obstruction with FEV1/FVC 21; FEV1 510 cc 21% predicted and FVC 1.33 L 43% predicted. 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 Chronic respiratory failure with hypoxia and hypercapnia Restless leg Septic shock (~06/2024) Protein-calorie malnutrition, severe GERD (gastroesophageal reflux disease) Anxiety Hypertension Insomnia COPD (chronic obstructive pulmonary disease) Surgical History History of History of tonsillectomy Family History Father Stroke Other Dementia Denies family history of Diabetes CAD (coronary artery disease) Clotting disorder Hyperlipidemia Psychiatric illness Chronic kidney disease (CKD) Anesthesia complication Bleeding disorder Lung disease Cancer Hypertension Social History Smoking and tobacco/nicotine status: former use of tobacco/nicotine Quit status (tobacco/nicotine): has quit using Year quit tobacco: 2019 Former quit date comment: 2 packs/day for 30 years Second hand smoke exposure: Yes Alcohol intake: current Alcohol intake frequency: few times a week Alcohol type: beer Substance/Drug Use: never Additional social history: Patient wants DO NOT RESUSCITATE status as discussed with patient and Lino on 04/17/2025 by Rakesh Ray MD Marital status: Number of children: 5 Number of grandchildren: 9 service: No Current occupational status: disabled Current occupational exposures/hazards: No 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 She has been talking to her mother and sister over the last 2 days especially at night per . She has refused to place her CPAP/BiPAP on at night. This is a small unit, does not sound like a trilogy. She stopped her montelukast. knew her CO2 was increasing with her confusion since this has happened in the past. CO2 venous is 49. Acetazolamide given the patient by mouth. Catheter placed. Discussed with hospitalist that accepted admission to ICU. She is now awake, and alert on BiPAP ventilation. also notes that she took a dose of lactulose prior to admission. She did have loose stools, however for this she had constipation. Her ammonia level is slightly elevated, which makes me wonder how much plays into her confusion from that aspect as well. She appears to tolerate high CO2's, and respond well to BiPAP ventilation. Patient was originally seen by Ms. Sergey PA-C. I agree with her history, evaluation, and management. Admission orders have been written. Lab Data 07/05/25 18:35 07/05/25 18:35 Labs/Radiology: Radiology Impressions Chest X-Ray 07/05/25 18:58 IMPRESSION: Bibasal atelectasis versus early infectious process. Laboratory Results WBC 7.05 10^3/uL (3.29-11.43) 07/05/25 18:35 RBC 5.26 10^6/uL (3.85-5.65) 07/05/25 18:35 Hgb 14.90 g/dL (11.27-16.99) 07/05/25 18:35 Hct 52.6 % (36-47) H 07/05/25 18:35 MCV 100.0 fl (85-98) H 07/05/25 18:35 MCH 28.3 pg (27-33) 07/05/25 18:35 MCHC 28.3 g/dL (30-55) L 07/05/25 18:35 RDW 18.9 % (12.1-15.1) H 07/05/25 18:35 Plt Count 302 10^3/cmm (157-399) 07/05/25 18:35 MPV 11.7 fL (7.4-10.4) H 07/05/25 18:35 Neut % (Auto) 73.1 % 07/05/25 18:35 Lymph % (Auto) 11.6 % 07/05/25 18:35 [place] % (Auto) 9.2 % 07/05/25 18:35 Eos % (Auto) 2.4 % 07/05/25 18:35 Baso % (Auto) 0.9 % 07/05/25 18:35 Neut # (Auto) 5.15 10^3/uL (1.8-7.7) 07/05/25 18:35 Lymph # (Auto) 0.8 10^3/uL (0.8-4.8) 07/05/25 18:35 [place] # (Auto) 0.7 10^3/uL (0.2-0.9) 07/05/25 18:35 Eos # (Auto) 0.2 10^3/uL (0.0-0.8) 07/05/25 18:35 Baso # (Auto) 0.1 10^3/uL (0.0-0.1) 07/05/25 18:35 Nucleated RBC % (auto) 0 % 07/05/25 18:35 Nucleated RBCs # 0.0 /100WBC 07/05/25 18:35 Specimen Type Arterial 07/05/25 20:42 Sample Site Brachial, right 07/05/25 20:42 ABG pH 7.26 (7.35-7.45) L 07/05/25 20:42 ABG pCO2 103.0 mmHg (35-45) H* 07/05/25 20:42 ABG pO2 68.2 mmHg (80.0-100.0) L 07/05/25 20:42 ABG PO2/FiO2 Ratio 151 07/05/25 20:42 ABG HCO3 46.4 mmol/L (22-26) H 07/05/25 20:42 ABG O2 Saturation 92.2 07/05/25 20:42 ABG Base Excess 14.1 mmol/L (-2.0-2.0) H 07/05/25 20:42 Erik Test N/a 07/05/25 20:42 A-a O2 Gradient 17.8 mmHg (5-10) H 07/05/25 20:42 Hematocrit 44.3 % (37-47) 07/05/25 20:42 Hgb O2 Saturation 89.3 % (95-100) L 07/05/25 20:42 Carboxyhemoglobin 2.1 %THgb (0.4-20.1) 07/05/25 20:42 Methemoglobin 1.0 % (0.4-1.5) 07/05/25 20:42 Total Hemoglobin 14.4 g/dL (12-16) 07/05/25 20:42 Sodium 146.0 mmol/L (131-143) H 07/05/25 20:42 Potassium 3.6 mmol/L (3.5-5.0) 07/05/25 20: Glucose 129.0 mg/dL (70-115) H 07/05/25 20:42 Ionized Calcium 1.2 mmol/L (1.1-1.4) 07/05/25 20:42 O2 Delivery Device Bipap 07/05/25 20:42 O2 Liters/Min 5.0 % 07/05/25 19:27 FiO2 45.0 % 07/05/25 20:42 PEEP 8.0 cmH20 07/05/25 20:42 Home Sales Service Professional ID [email or web address] 07/05/25 20:42 Sodium 147 mmol/L (136-145) H 07/05/25 18:35 Potassium 3.9 mmol/L (3.5-5.1) 07/05/25 18:35 Chloride 97 mmol/L (98-107) L 07/05/25 18:35 Carbon Dioxide 49 mmol/L (22-29) H* 07/05/25 18:35 Anion Gap 4.9 (5-19) L 07/05/25 18:35 BUN 14 mg/dL (8-23) 07/05/25 18:35 Creatinine 0.5 mg/dL (0.5-0.9) 07/05/25 18:35 GFR Calculation 124.2 mL/min (90-130) 07/05/25 18:35 Glucose 148 mg/dL (65-115) H 07/05/25 18:35 Calculated Osmolality 307 mOsm/kg (285-295) H 07/05/25 18:35 Lactic Acid 0.8 mmol/L (0.5-2.2) 07/05/25 18:35 Calcium 9.2 mg/dL (8.5-10.5) 07/05/25 18:35 Total Bilirubin 0.6 mg/dL (0.15-1.2) 07/05/25 18:35 AST 22 U/L (0-32) 07/05/25 18:35 ALT 20 U/L (0-33) 07/05/25 18:35 Alkaline Phosphatase 63 U/L (35-105) 07/05/25 18:35 Ammonia 65 umol/L (11-51) H 07/05/25 18:35 Total Protein 6.6 g/dL (6.6-8.7) 07/05/25 18:35 Albumin 4.4 g/dL (3.5-5.2) 07/05/25 18:35 Globulin 2.2 g/dL (1.3-4.6) 07/05/25 18:35 Ethyl Alcohol < 10 mg/dL (0-10) 07/05/25 18:35 Influenza A (PCR) Negative (Negative) 07/05/25 19:40 Influenza Type B (PCR) Negative (Negative) 07/05/25 19:40 RSV (PCR) Negative (Negative) 07/05/25 19:40 SARS-CoV-2 (PCR) Negative (Negative) 07/05/25 19:40 Discharge Plan Discharge Patient Disposition: Admitted As Inpatient Clinical Impression: Acute hypercapnic respiratory failure, Alkalosis, metabolic, Chronic respiratory failure with hypoxia, Serum ammonia increased Condition: Stable Coding Level of Care Code ED Telecommunications Administrator for Umesh Salmon
[2025-07-05 19:05] LABS: Hematocrit 52.6 % (36-47); Hemoglobin 14.90 g/dL (11.27-16.99); Mean Corpuscular HGB Conc 28.3 g/dL (30-55); Mean Corpuscular Hemoglobin 28.3 pg (27-33); Mean Corpuscular Volume 100.0 fl (85-98); Nucleated Red Blood Cells % 0 %; Platelet Count 302 10^3/cmm (157-399); Red Blood Count 5.26 10^6/uL (3.85-5.65); White Blood Count 7.05 10^3/uL (3.29-11.43)
[2025-07-05 19:28] LABS: Alanine Aminotransferase 20 U/L (0-33); Albumin Level 4.4 g/dL (3.5-5.2); Alkaline Phosphatase 63 U/L (35-105); Anion Gap 4.9 (5-19); Aspartate Amino Transferase 22 U/L (0-32); Blood Urea Nitrogen 14 mg/dL (8-23); Calcium 9.2 mg/dL (8.5-10.5); Chloride 97 mmol/L (98-107); Globulin 2.2 g/dL (1.3-4.6); Glucose 148 mg/dL (65-115); Lactic Sepsis W/Reflex 0.8 mmol/L (0.5-2.2); Osmolality Calculated 307 mOsm/kg (285-295); Potassium 3.9 mmol/L (3.5-5.1); Sodium 147 mmol/L (136-145); Total Protein 6.6 g/dL (6.6-8.7)
[2025-07-05 19:29] LABS: Ammonia 65 umol/L (11-51)
[2025-07-05 19:30] LABS: Alcohol Level < 10 mg/dL (0-10)
[2025-07-05 19:31] LABS: Carbon Dioxide 49 mmol/L (22-29)
[2025-07-05 19:38] LABS: ABG PCO2 > 102.0 mmHg (35-45); ABG PH Result 7.22 (7.35-7.45); Alveolar-Arterial Oxygen Gradi 0.0 mmHg (5-10); Arterial Blood Gas Hematocrit 45.0 % (37-47); Blood Gas LPM 5.0 %; Blood Gas Sample Site Brachial, right; Blood Gas Sample Type Arterial; Carboxyhemoglobin 2.1 %THgb (0.4-20.1); Glucose Level-ABG 145.0 mg/dL (70-115); HCO3 ABG 45.9 mmol/L (22-26); Ionized Calcium Level - ABG 1.2 mmol/L (1.1-1.4); Methemoglobin 1.0 % (0.4-1.5); Oxygen Saturation ABG 93.1; PO2 ABG 75.2 mmHg (80.0-100.0); Potassium Level - ABG 3.7 mmol/L (3.5-5.0); Sodium Level - ABG 147.0 mmol/L (131-143)
--- OUTSIDE RECORDS SUMMARY | 2025-07-05 19:46 | XMS_ITS | Clinical Summary ---
Author Organization [facility] Address [address] [place] [address] Care Team Providers Care Admitting Representative Name Role Phone Unavailable Primary Care Provider [...] 5 Active fluticasone propionate (FLONASE) 50 mcg/spray [place], Suspension nasal inhaler Administer 2 Sprays in [...] Years Used Date Smoking Tobacco: Former Cigarettes 0 Q uit: 2020 Passive Smoke Exposure: Past [...] 2) 2011 INFLUENZA VACCINE (#1) 2025 Insurance BS BLUE ACCESS/TRUE BLUE [facility]PO [facility]
[2025-07-05 20:22] LABS: Respiratory Syncytial Virus Ce NEGATIVE (Negative); SARS-CoV-2 PCR NEGATIVE (Negative)
[2025-07-05 20:53] LABS: ABG PH Result 7.26 (7.35-7.45); Alveolar-Arterial Oxygen Gradi 17.8 mmHg (5-10); Arterial Blood Gas Hematocrit 44.3 % (37-47); Blood Gas Sample Site Brachial, right; Blood Gas Sample Type Arterial; Carboxyhemoglobin 2.1 %THgb (0.4-20.1); Glucose Level-ABG 129.0 mg/dL (70-115); HCO3 ABG 46.4 mmol/L (22-26); Ionized Calcium Level - ABG 1.2 mmol/L (1.1-1.4); Methemoglobin 1.0 % (0.4-1.5); Oxygen Saturation ABG 92.2; PEEP 8.0 cmH20; PO2 ABG 68.2 mmHg (80.0-100.0); PO2 FiO2 Ratio Arterial Blood 151; Potassium Level - ABG 3.6 mmol/L (3.5-5.0); Sodium Level - ABG 146.0 mmol/L (131-143)
[2025-07-05 20:54] LABS: ABG PCO2 103.0 mmHg (35-45)
[2025-07-05 21:27] LABS: Glucose Urine UA Negative (Normal); Nitrate Urine Negative (Negative); Specific Gravity, Urine 1.013 (1.005-1.030)
[2025-07-05 21:29] LABS: Add Urine Microscopic? YES; Universal Test for UA Present (0)
[2025-07-05 21:34] LABS: PCP Screen Urine Negative (Negative)
--- NOTE | 2025-07-05 21:57 | PC.NURSE ---
called and spoke with hospitalist about the patient being agitated and not resting she is yelling at her he said to give her trazadone as she takes at home.
[2025-07-05] MEDS: haloperidol inj 5 mg/mL INJ 1 mL 3 MG IVP (23:36)
--- NOTE | 2025-07-05 23:46 | PM.HP ---
Providers/Chief Complaint Primary Care Provider: Zoran Stern MD Chief Complaint: sob History of Present Illness Lora Dsouza is a 65 year old female with history significant for chronic respiratory failure with 4L via nasal cannula continuously, and non-compliance with CPAP who presents with complaints of confusion per spouse. For the past month, spouse feels as if the patient has been hallucinating. He tells me the recommedation is for the patient to use the CPAP for at least 4 hours a night but she will not. She will at times think she has worn it for an extended period of time but has only used it for about 30 minutes. The day of presentation, patient was seen trying to place a glass of water in the mask to breath via bubbles. She was also seen trying to stand and had near syncope and fecal incontinence. Because of these issues, she was delivered to the ED for further evaluation and management. Medications/Allergies Home Medications ?Medication ?Instructions ?Recorded ?Confirmed ?Last Taken ?Type sertraline 50 mg tablet 50 mg PO DAILY 11/04/24 06/11/25 05/29/25 History trazodone 50 mg tablet 50 mg PO BEDTIME 11/04/24 06/11/25 05/29/25 20:00 History pantoprazole 40 mg tablet,delayed 40 mg PO DAILY #90 tabs 01/13/25 06/11/25 05/29/25 Rx release (Protonix) Ventolin HFA 90 mcg/actuation 2 puff inhalation Q6H PRN 02/18/25 06/11/25 05/01/25 Rx aerosol inhaler (albuterol sulfate) shortness of breath or wheezing #8 grams ropinirole 1 mg tablet See Rx Instructions PO BID #270 02/18/25 06/11/25 05/29/25 Rx tabs buspirone 7.5 mg tablet 7.5 mg PO DAILY PRN anxiety #60 03/25/25 06/11/25 05/29/25 Rx tabs megestrol 400 mg/10 mL (10 mL) 200 mg (5 mL) PO DAILY PRN 03/25/25 06/11/25 05/29/25 08:00 Rx oral suspension APPETITE #1,000 mL aspirin 81 mg tablet,delayed 81 mg PO DAILY #30 tabs 04/18/25 06/11/25 05/29/25 Rx release (Zeb Low Dose Aspirin) dupilumab 300 mg/2 mL subcutaneous 300 mg (2 mL) SUBCUT Q7D #2 mL 05/06/25 06/11/25 05/13/25 Rx syringe fluticasone propionate 50 2 spray intranasal DAILY #2 grams 05/06/25 06/11/25 05/01/25 Rx mcg/actuation nasal spray,suspension furosemide 20 mg tablet 20 mg PO QAM swelling #90 tabs 05/06/25 06/11/25 05/01/25 Rx montelukast 10 mg tablet 10 mg PO QPM #90 tabs 05/06/25 06/11/25 05/29/25 19:00 Rx arformoterol 15 mcg/2 mL solution 15 mcg (2 mL) inhalation 05/28/25 06/11/25 05/29/25 Rx for nebulization BID.RESPIRATORY #120 mL azithromycin 250 mg tablet 250 mg PO DAILY 30 days #30 tabs 06/08/25 06/11/25 Unknown Rx ipratropium 0.5 mg-albuterol 3 mg 3 ml inhalation Q6H PRN wheezing 06/08/25 06/11/25 Unknown Rx (2.5 mg base)/3 mL nebulization #90 mL soln budesonide 0.5 mg/2 mL suspension 0.5 mg (2 mL) inhalation 06/11/25 06/11/25 Unknown Rx for nebulization BID.RESPIRATORY #60 mL Allergies Allergy/AdvReac Type Severity Reaction Status Date / Time No Known Allergies Allergy Verified 06/11/25 09:50 PFSH Acute PFSH: Medical History (Updated 07/06/25 @ 00:44 by Manolo Kelly MD) History of PFTs 02/2023: Spirometry showed very severe airflow obstruction with FEV1/FVC 21; FEV1 510 cc 21% predicted and FVC 1.33 L 43% predicted. 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 Chronic respiratory failure with hypoxia and hypercapnia Restless leg Septic shock (~06/2024) Protein-calorie malnutrition, severe GERD (gastroesophageal reflux disease) Anxiety Hypertension Insomnia COPD (chronic obstructive pulmonary disease) Surgical History History of History of tonsillectomy Family History Father Stroke Other Dementia Denies family history of Diabetes CAD (coronary artery disease) Clotting disorder Hyperlipidemia Psychiatric illness Chronic kidney disease (CKD) Anesthesia complication Bleeding disorder Lung disease Cancer Hypertension Social History Smoking and tobacco/nicotine status: former use of tobacco/nicotine Quit status (tobacco/nicotine): has quit using Year quit tobacco: 2019 Former quit date comment: 2 packs/day for 30 years Second hand smoke exposure: Yes Alcohol intake: current Alcohol intake frequency: few times a week Alcohol type: beer Substance/Drug Use: never Additional social history: Patient wants DO NOT RESUSCITATE status as discussed with patient and Lino on 04/17/2025 by Rakesh Ray MD Marital status: Number of children: 5 Number of grandchildren: 9 service: No Current occupational status: disabled Current occupational exposures/hazards: No Previous occupational history: 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 In mild respiratory distress on Bipap Resp: OTHER: On Bipap, diminished breath sounds bilaterealy. Mild respiratory distress Cardio: COMMON NORMALS: regular rate, regular rhythm, S1 normal heart sound present and S2 normal heart sound present Neuro: COMMON NORMALS: CN's II-XII intact bilaterally and no focal motor deficits Urinary Catheter Management: Maria: Cath Placed During This Visit: yes Urinary Catheter Date of Insertion: 07/05/25 Urinary Catheter Time of Insertion: 21:14 Data 07/05/25 18:35 07/05/25 18:35 A&P Assessment and plan 1. Acute on chronic respiratory failure with hypoxia and hypercapnia: 2. Serum ammonia increased: 3. Non-adherence to medical treatment: Plan: Acute on chronic respiratory failure with hypoxia and hypercapnia Acute metabolic encephalopathy due to the above Non-adherence to medical treatment - Due to nonadherence to CPAP therapy at home - pH has improved since being on Bipap therapy. Appreciate RT assistance - Wean off bipap during the day - Continue O2 4L/min which is her baseline - Will need racheal discussion with patient when she is lucid regarding home CPAP therapy Elevated ammonia - 30Gm Lactulose TID. Hold for loose stools or until patient mental status has improved, then lower dose PDMP PDMP Reviewed: Not Reviewed Attestations Medical Necessity Statement*: Patient will require greater than two midnights to manage her acute respiratory failure Coding Level of Care Code Acute Code for Chg Fwd Diagnoses Acute on chronic respiratory failure with hypoxia and hypercapnia J96.21; J96.22 Serum ammonia increased E72.20 Non-adherence to medical treatment Z91.199
[2025-07-06] VITALS (56 sets, daily range): BP systolic 94–157; BP diastolic 54–103; PULSE 51–160; RESP 15–39; TEMP 36.4–37.6; O2SAT 85–98
[2025-07-06] MEDS: LORazepam 2 mg/mL INJ 1 mL 0.5 MG IVP (00:49)
[2025-07-06 01:02] LABS: ABG PCO2 85.0 mmHg (35-45); ABG PH Result 7.33 (7.35-7.45); Alveolar-Arterial Oxygen Gradi 14.8 mmHg (5-10); Arterial Blood Gas Hematocrit 42.9 % (37-47); Blood Gas Sample Site Brachial, left; Blood Gas Sample Type Arterial; Carboxyhemoglobin 1.8 %THgb (0.4-20.1); Glucose Level-ABG 103.0 mg/dL (70-115); HCO3 ABG 45.2 mmol/L (22-26); Ionized Calcium Level - ABG 1.2 mmol/L (1.1-1.4); Methemoglobin 1.0 % (0.4-1.5); Oxygen Saturation ABG 98.6; PEEP 8.0 cmH20; PO2 ABG 110.0 mmHg (80.0-100.0); PO2 FiO2 Ratio Arterial Blood 244; Potassium Level - ABG 3.5 mmol/L (3.5-5.0); Sodium Level - ABG 144.0 mmol/L (131-143)
[2025-07-06 04:33] LABS: Hematocrit 47.0 % (36-47); Hemoglobin 13.10 g/dL (11.27-16.99); Mean Corpuscular HGB Conc 27.9 g/dL (30-55); Mean Corpuscular Hemoglobin 27.9 pg (27-33); Mean Corpuscular Volume 100.0 fl (85-98); Nucleated Red Blood Cells % 0 %; Platelet Count 242 10^3/cmm (157-399); Red Blood Count 4.70 10^6/uL (3.85-5.65); White Blood Count 6.20 10^3/uL (3.29-11.43)
[2025-07-06 04:52] LABS: Blood Urea Nitrogen 13 mg/dL (8-23); Calcium 9.0 mg/dL (8.5-10.5); Chloride 96 mmol/L (98-107); Glucose 78 mg/dL (65-115); Osmolality Calculated 299 mOsm/kg (285-295); Sodium 145 mmol/L (136-145)
[2025-07-06 05:16] LABS: Anion Gap 9.7 (5-19); Potassium 3.7 mmol/L (3.5-5.1)
[2025-07-06 05:18] LABS: Carbon Dioxide 43 mmol/L (22-29)
[2025-07-06 05:54] LABS: Procalcitonin 0.08 ng/mL (0-0.5)
[2025-07-06 06:38] LABS: ABG PCO2 75.6 mmHg (35-45); ABG PH Result 7.36 (7.35-7.45); Arterial Blood Gas Hematocrit 44.1 % (37-47); Blood Gas Allen Test Pos; Blood Gas Sample Site Radial, right; Blood Gas Sample Type Arterial; Blood Gas Tidal Volume 0.45; HCO3 ABG 42.4 mmol/L (22-26); PEEP 8.0 cmH20; PO2 ABG 73.2 mmHg (80.0-100.0); PO2 FiO2 Ratio Arterial Blood 183
[2025-07-06] MEDS: ARFORMOTEROL 15 MCG/2 ML NEB INHALATION ×2 (08:00→19:59)
--- NOTE | 2025-07-06 12:39 | P.PN_ITS ---
Subjective 2 Subjective: She is now awake, on BiPAP. Reports breathing is comfortable. Denies chest pain or pressure. Vitals/I&O/Wt Last Vital Signs Temp 99.2 F 07/07/25 05:41 Pulse 105 H 07/07/25 10:30 Resp 32 H 07/07/25 10:30 BP 121/71 07/07/25 10:30 Pulse Ox 91 07/07/25 10:30 O2 Del Method BiPAP 07/07/25 07:45 O2 Flow Rate 6 07/06/25 14:50 FiO2 40 07/07/25 07:45 07/06/25 07/07/25 07/07/25 22:59 06:59 14:59 Intake Total 320 / 440 Output Total 1400 / 1400 800 / 2200 Balance -1080 / -960 -800 / -1760 Weight last 48 hrs Weight 55.5 kg Weight 55.5 kg Weight 55.5 kg Weight 54.431 kg Physical Exam 2 Narrative: BiPAP Const: COMMON NORMALS: alert GENERAL APPEARANCE: cooperative O RIENTATION/CONSCIOUSNESS: Yes awake HENMT: COMMON NORMALS: oropharynx normal Neck/C-Spine: COMMON NORMALS: no JVD Resp: COMMON NORMALS: normal respiratory effort and clear to auscultation bilaterally AUSCULTATION: clear to auscultation bilaterally Cardio: COMMON NORMALS: no JVD, regular rhythm, S1 normal heart sound present, S2 normal heart sound present and No murmurs present (Cardio) RHYTHM: regular rhythm HEART SOUNDS: S1 normal heart sound present and S2 normal heart sound present GI: COMMON NORMALS: Normal to inspection, nondistended, normoactive bowel sounds present, Soft to palpation and non-tender PALPATION: Yes Soft to palpation Extremity: COMMON NORMALS: no joint enlargement and no pedal edema Neuro: COMMON NORMALS: moves all extremities SENSORIUM/ORIENTATION: Yes alert Skin: COMMON NORMALS: no rashes or lesions noted GENERAL SKIN EXAM: no rashes or lesions noted Urinary Catheter Management: Maria: Cath Placed During This Visit: yes Reason for Continuing Indwelling Catheter: Accurate Measurement of Urinary Output in Critically Ill Patients Urinary Catheter Date of Insertion: 07/05/25 Urinary Catheter Time of Insertion: 21:14 Data 07/07/25 08:45 07/07/25 08:45 A&P Assessment and plan 1. Acute on chronic respiratory failure with hypoxia and hypercapnia: With improvement/resolution of encephalopathy, awake and alert. On BiPAP, weaning down. Ammonia 65 on presentation. Continue lactulose. On evaluation does not appear to be in COPD exacerbation, however, in case of worsening, difficulty weaning BiPAP, consider this possibility. Reviewed CBC, ABG, improving hypercapnia. Initial CO2 as high as 103. Discussed with RT, nursing, foundry manager. Encourage adherence with outpatient CPAP. Avoid hyperoxia, target O2 sat 88- 92%. 2. Serum ammonia increased: Continue lactulose. Target 2-3 soft bowel movements per day. Plan: Hypernatremia Sodium at the time of presentation was 147, improved to 145, lab pending today. Patient had elevated ammonia level when she came in. Will repeat ammonia levels. DVT prophylaxis Lovenox subcu Full code PDMP PDMP Reviewed: Not Reviewed Attestations 2 Medical Necessity Statement*: Continue admission for assessment and management of acute respiratory failure, hepatic encephalopathy. Coding Level of Care Code Acute Code for Chg Fwd Diagnoses Acute on chronic respiratory failure with hypoxia and hypercapnia J96.21; J96.22 Serum ammonia increased E72.20
[2025-07-06] MEDS: lactulose oral liq 20 gm/30 mL UDC 30 GM PO ×2 (13:36→20:28)
--- NOTE | 2025-07-06 15:55 | PC.NURSE ---
Pt is able to answer orientation questions but continues to pull wires and has attempted to get out of bed. Easily redirected.
[2025-07-06] MEDS: haloperidol inj 5 mg/mL INJ 1 mL IM (22:58)
--- NOTE | 2025-07-06 22:58 | PC.NURSE ---
Received order from Dr Kelly for haldol 0.5 mg IM ONCE. Medication double verified with Mary Jane Carter RN.
[2025-07-07] VITALS (55 sets, daily range): BP systolic 91–164; BP diastolic 55–111; PULSE 78–139; RESP 16–33; TEMP 37.3; O2SAT 83–100
[2025-07-07] MEDS: LORazepam 2 mg/mL INJ 1 mL 0.5 MG IVP ×2 (01:19→02:27)
[2025-07-07] MEDS: haloperidol inj 5 mg/mL INJ 1 mL IM (02:26)
--- NOTE | 2025-07-07 05:43 | PC.NURSE ---
Patient not alert enough at this time to take PO medications due to Ativan administration. Informed Dr Kelly and received order to hold PO medications until patient is more alert.
[2025-07-07 06:09] LABS: Anion Gap 10.4 (5-19); Blood Urea Nitrogen 8 mg/dL (8-23); Calcium 8.8 mg/dL (8.5-10.5); Carbon Dioxide 38 mmol/L (22-29); Chloride 102 mmol/L (98-107); Glucose 86 mg/dL (65-115); Osmolality Calculated 302 mOsm/kg (285-295); Potassium 3.4 mmol/L (3.5-5.1); Sodium 147 mmol/L (136-145)
[2025-07-07 06:29] LABS: ABG PCO2 69.2 mmHg (35-45); ABG PH Result 7.35 (7.35-7.45); HCO3 ABG 38.4 mmol/L (22-26); PO2 ABG 114.0 mmHg (80.0-100.0); PO2 FiO2 Ratio Arterial Blood 228
[2025-07-07 06:30] LABS: Blood Gas Respiratory Rate 14.0 %; PEEP 8.0 cmH20
[2025-07-07 06:33] LABS: Arterial Blood Gas Hematocrit 41.4 % (37-47)
[2025-07-07 06:47] LABS: Blood Gas Operator Identificat SAM; Blood Gas Sample Site Brachial, right; Blood Gas Sample Type Arterial; Blood Gas Tidal Volume 0.45
[2025-07-07] MEDS: ARFORMOTEROL 15 MCG/2 ML NEB INHALATION ×2 (07:42→20:12)
--- NOTE | 2025-07-07 08:46 | P.PN_ITS ---
Subjective 2 Subjective: Patient seen and examined, on and off of BiPAP. currenty on nasal canula, awake, alert Vitals/I&O/Wt Last Vital Signs Temp 99.2 F 07/07/25 05:41 Pulse 88 07/07/25 08:30 Resp 25 H 07/07/25 08:30 BP 107/64 07/07/25 08:30 Pulse Ox 96 07/07/25 08:30 O2 Del Method BiPAP 07/07/25 07:45 O2 Flow Rate 6 07/06/25 14:50 FiO2 40 07/07/25 07:45 07/06/25 07/07/25 07/07/25 22:59 06:59 14:59 Intake Total 320 / 440 Output Total 1400 / 1400 800 / 2200 Balance -1080 / -960 -800 / -1760 Weight last 48 hrs Weight 55.5 kg Weight 55.5 kg Weight 55.5 kg Weight 54.431 kg Physical Exam 2 Const: OTHER: Frail appearing. Resp: OTHER: On Bipap, diminished breath sounds bilaterealy. Mild respiratory distress Cardio: COMMON NORMALS: regular rate, regular rhythm, S1 normal heart sound present and S2 normal heart sound present RATE: regular rate RHYTHM: r egular rhythm HEART SOUNDS: S1 normal heart sound present and S2 normal heart sound present Neuro: COMMON NORMALS: CN's II-XII intact bilaterally and no focal motor deficits Urinary Catheter Management: Maria: Cath Placed During This Visit: yes Reason for Continuing Indwelling Catheter: Accurate Measurement of Urinary Output in Critically Ill Patients Urinary Catheter Date of Insertion: 07/05/25 Urinary Catheter Time of Insertion: 21:14 Data 07/08/25 05:23 07/07/25 08:45 A&P Assessment and plan 1. Acute on chronic respiratory failure with hypoxia and hypercapnia: 2. Serum ammonia increased: Plan: Acute on chronic hypoxic hypercapnic respiratory failure - Patient has been on BiPAP since she came in, improving. ABG from today shows pH of 7.35 pCO2 69.2 pO2 of 114 - Has history of underlying COPD, will put on p.o. prednisone. Continue breathing treatments and steroid inhalers. - Follow-up with pulmonary outpatient - Enforce compliance with CPAP Hypernatremia Sodium at the time of presentation was 147, improved to 145, lab pending today. Patient had elevated ammonia level when she came in. Will repeat ammonia levels. DVT prophylaxis Lovenox subcu Full code PDMP PDMP Reviewed: Not Reviewed Attestations 2 Medical Necessity Statement*: jus came off of bipap, needs monitoring and PT OT Coding Level of Care Code Acute Code for Chg Fwd Diagnoses Acute on chronic respiratory failure with hypoxia and hypercapnia J96.21; J96.22 Serum ammonia increased E72.20
[2025-07-07 08:53] LABS: Hematocrit 46.5 % (36-47); Hemoglobin 13.70 g/dL (11.27-16.99); Mean Corpuscular HGB Conc 29.5 g/dL (30-55); Mean Corpuscular Hemoglobin 28.2 pg (27-33); Mean Corpuscular Volume 95.9 fl (85-98); Nucleated Red Blood Cells % 0 %; Platelet Count 258 10^3/cmm (157-399); Red Blood Count 4.85 10^6/uL (3.85-5.65); White Blood Count 5.86 10^3/uL (3.29-11.43)
[2025-07-07 09:08] LABS: Ammonia 39 umol/L (11-51)
[2025-07-07 09:09] LABS: Alanine Aminotransferase 12 U/L (0-33); Albumin Level 3.8 g/dL (3.5-5.2); Alkaline Phosphatase 47 U/L (35-105); Anion Gap 9.5 (5-19); Aspartate Amino Transferase 14 U/L (0-32); Blood Urea Nitrogen 8 mg/dL (8-23); Calcium 9.1 mg/dL (8.5-10.5); Carbon Dioxide 39 mmol/L (22-29); Chloride 101 mmol/L (98-107); Globulin 1.8 g/dL (1.3-4.6); Glucose 87 mg/dL (65-115); Osmolality Calculated 300 mOsm/kg (285-295); Potassium 3.5 mmol/L (3.5-5.1); Sodium 146 mmol/L (136-145); Total Protein 5.6 g/dL (6.6-8.7)
[2025-07-07] MEDS: lactulose oral liq 20 gm/30 mL UDC 30 GM PO (20:39)
[2025-07-08] VITALS (31 sets, daily range): BP systolic 122–157; BP diastolic 64–104; PULSE 82–117; RESP 13–37; TEMP 36.4–37.3; O2SAT 90–99
[2025-07-08] MEDS: lactulose oral liq 20 gm/30 mL UDC 30 GM PO ×3 (04:11→20:54)
[2025-07-08 06:03] LABS: Hematocrit 49.2 % (36-47); Hemoglobin 14.30 g/dL (11.27-16.99); Mean Corpuscular HGB Conc 29.1 g/dL (30-55); Mean Corpuscular Hemoglobin 27.9 pg (27-33); Mean Corpuscular Volume 96.1 fl (85-98); Nucleated Red Blood Cells % 0 %; Platelet Count 323 10^3/cmm (157-399); Red Blood Count 5.12 10^6/uL (3.85-5.65); White Blood Count 7.16 10^3/uL (3.29-11.43)
[2025-07-08] MEDS: ARFORMOTEROL 15 MCG/2 ML NEB INHALATION ×2 (08:19→19:56)
--- NOTE | 2025-07-08 08:52 | P.PN_ITS ---
Subjective 2 Subjective: Patient seen and examined, on and off of BiPAP. currenty on nasal canula, awake, alert 07/08 reviewed patient's ABG from today a nd again on BiPAP given pH of 7.2. Reinforced compliance with BiPAP with patient and her in room. Vitals/I&O/Wt Last Vital Signs Temp 99.1 F 07/08/25 07:00 Pulse 103 H 07/08/25 08:21 Resp 20 H 07/08/25 08:21 BP 138/97 07/08/25 08:00 Pulse Ox 95 07/08/25 08:21 O2 Del Method Nasal Cannula 07/08/25 08:21 O2 Flow Rate 4 07/08/25 08:21 FiO2 40 07/08/25 00:05 07/07/25 07/08/25 07/08/25 22:59 06:59 14:59 Intake Total 120 / 360 Output Total 600 / 600 950 / 1550 Balance -480 / -240 -950 / -1190 Physical Exam 2 Const: OTHER: Frail appearing. Resp: OTHER: On Bipap, Mild respiratory distress Cardio: COMMON NORMALS: regular rate, regular rhythm, S1 normal heart sound present and S2 normal heart sound present RATE: regular rate RHYTHM: r egular rhythm HEART SOUNDS: S1 normal heart sound present and S2 normal heart sound present Neuro: COMMON NORMALS: CN's II-XII intact bilaterally and no focal motor deficits Urinary Catheter Management: Maria: Cath Placed During This Visit: yes Reason for Continuing Indwelling Catheter: Accurate Measurement of Urinary Output in Critically Ill Patients Urinary Catheter Date of Insertion: 07/05/25 Urinary Catheter Time of Insertion: 21:14 Data 07/08/25 05:23 07/08/25 09:24 A&P Assessment and plan 1. Acute on chronic respiratory failure with hypoxia and hypercapnia: 2. Serum ammonia increased: Plan: Acute on chronic hypoxic hypercapnic respiratory failure - Patient has been on BiPAP since she came in, was improving however did not use BiPAP overnight and then ABG again shows pH of 7.2 and pCO2 of 89 today. Put her back on BiPAP. And reinforcing compliance. Told her to use BiPAP the whole night and while napping during daytime. Continue p.o. prednisone breathing treatment and steroid inhalers. Has underlying history of COPD. - Follow-up with pulmonary outpatient - Enforce compliance with CPAP Hypernatremia Resolving, sodium 145 today. Mild hypokalemia Resolved Patient had elevated ammonia level when she came in. Repeat ammonia levels ordered DVT prophylaxis Lovenox subcu Full code PT OT ordered Discharge planning PDMP PDMP Reviewed: Not Reviewed Attestations 2 Medical Necessity Statement*: Patient is back on BiPAP. Coding Level of Care Code Acute Code for Chg Fwd Diagnoses Acute on chronic respiratory failure with hypoxia and hypercapnia J96.21; J96.22 Serum ammonia increased E72.20
[2025-07-08 09:05] LABS: ABG PH Result 7.26 (7.35-7.45); Alveolar-Arterial Oxygen Gradi 11.8 mmHg (5-10); Arterial Blood Gas Hematocrit 47.7 % (37-47); Blood Gas Allen Test Pos; Blood Gas LPM 4.0 %; Blood Gas Operator Identificat CAK; Blood Gas Sample Site Brachial, left; Blood Gas Sample Type Arterial; Carboxyhemoglobin 1.2 %THgb (0.4-20.1); Glucose Level-ABG 98.0 mg/dL (70-115); HCO3 ABG 36.8 mmol/L (22-26); Ionized Calcium Level - ABG 1.2 mmol/L (1.1-1.4); Methemoglobin 1.0 % (0.4-1.5); Oxygen Saturation ABG 92.3; PO2 ABG 68.7 mmHg (80.0-100.0); PO2 FiO2 Ratio Arterial Blood 190; Potassium Level - ABG 3.9 mmol/L (3.5-5.0); Sodium Level - ABG 147.0 mmol/L (131-143)
[2025-07-08 09:08] LABS: ABG PCO2 82.1 mmHg (35-45)
--- NOTE | 2025-07-08 10:06 | PC.NURSE ---
at bedside. attempting to assist pt to get a drink while BiPap mask still on. Educated pt and on aspiration risks related to drinking while mask still on. stated she does this all the time. .
[2025-07-08 10:18] LABS: Anion Gap 10.0 (5-19); Blood Urea Nitrogen 6 mg/dL (8-23); Calcium 8.7 mg/dL (8.5-10.5); Carbon Dioxide 35 mmol/L (22-29); Chloride 104 mmol/L (98-107); Glucose 105 mg/dL (65-115); Osmolality Calculated 298 mOsm/kg (285-295); Potassium 4.0 mmol/L (3.5-5.1); Sodium 145 mmol/L (136-145)
[2025-07-08 10:19] LABS: Ammonia 66 umol/L (11-51)
--- NOTE | 2025-07-08 11:04 | PC.NURSE ---
Report given to PREET Randall [facility]. All questions answered.
--- NOTE | 2025-07-08 11:48 | PC.NURSE ---
Pt transferred to room 273. All belongings gathered by her and transported to new room by .
[2025-07-08 15:44] LABS: ABG PCO2 79.1 mmHg (35-45); ABG PH Result 7.30 (7.35-7.45); Alveolar-Arterial Oxygen Gradi 15.4 mmHg (5-10); Arterial Blood Gas Hematocrit 44.8 % (37-47); Blood Gas Allen Test Pos; Blood Gas Operator Identificat CAK; Blood Gas Sample Site Brachial, left; Blood Gas Sample Type Arterial; Carboxyhemoglobin 1.3 %THgb (0.4-20.1); Glucose Level-ABG 105.0 mg/dL (70-115); HCO3 ABG 39.1 mmol/L (22-26); Ionized Calcium Level - ABG 1.2 mmol/L (1.1-1.4); Methemoglobin 0.9 % (0.4-1.5); Oxygen Saturation ABG 94.2; PO2 ABG 73.0 mmHg (80.0-100.0); PO2 FiO2 Ratio Arterial Blood 182; Potassium Level - ABG 4.0 mmol/L (3.5-5.0); Sodium Level - ABG 147.0 mmol/L (131-143)
[2025-07-09] VITALS (18 sets, daily range): BP systolic 121–148; BP diastolic 65–80; PULSE 68–109; RESP 14–28; TEMP 36.3–37; O2SAT 92–99
[2025-07-09] MEDS: lactulose oral liq 20 gm/30 mL UDC 30 GM PO ×3 (04:03→20:03)
[2025-07-09 06:56] LABS: Hematocrit 51.0 % (36-47); Hemoglobin 14.70 g/dL (11.27-16.99); Mean Corpuscular HGB Conc 28.8 g/dL (30-55); Mean Corpuscular Hemoglobin 28.4 pg (27-33); Mean Corpuscular Volume 98.6 fl (85-98); Nucleated Red Blood Cells % 0 %; Platelet Count 308 10^3/cmm (157-399); Red Blood Count 5.17 10^6/uL (3.85-5.65); White Blood Count 7.42 10^3/uL (3.29-11.43)
[2025-07-09] MEDS: ARFORMOTEROL 15 MCG/2 ML NEB INHALATION (07:20)
[2025-07-09 09:48] LABS: ABG PH Result 7.27 (7.35-7.45); Alveolar-Arterial Oxygen Gradi 12.0 mmHg (5-10); Arterial Blood Gas Hematocrit 46.0 % (37-47); Blood Gas Allen Test Pos; Blood Gas LPM 4.0 %; Blood Gas Operator Identificat BROMA; Blood Gas Sample Site Radial, right; Blood Gas Sample Type Arterial; Carboxyhemoglobin 1.3 %THgb (0.4-20.1); Glucose Level-ABG 174.0 mg/dL (70-115); HCO3 ABG 34.5 mmol/L (22-26); Ionized Calcium Level - ABG 1.2 mmol/L (1.1-1.4); Methemoglobin 1.0 % (0.4-1.5); Oxygen Saturation ABG 95.0; PO2 ABG 77.3 mmHg (80.0-100.0); PO2 FiO2 Ratio Arterial Blood 214; Potassium Level - ABG 4.4 mmol/L (3.5-5.0); Sodium Level - ABG 145.0 mmol/L (131-143)
[2025-07-09 09:51] LABS: ABG PCO2 74.8 mmHg (35-45)
--- NOTE | 2025-07-09 14:10 | P.PN_ITS ---
Subjective 2 Subjective: Patient seen and examined, on and off of BiPAP. currenty on nasal canula, awake, alert 07/08 reviewed patient's ABG from today a nd again on BiPAP given pH of 7.2. Reinforced compliance with BiPAP with patient and her in room. 07/09 apparently wore BiPAP overnight how ever ABG does not look very good on the BiPAP, likely seal was not proper. Consult pulmonary today. Vitals/I&O/Wt Last Vital Signs Temp 97.4 F L 07/09/25 11:28 Pulse 105 H 07/09/25 13:31 Resp 22 H 07/09/25 13:30 BP 121/70 07/09/25 11:28 Pulse Ox 92 07/09/25 13:31 O2 Del Method BiPAP 07/09/25 13:30 O2 Flow Rate 4 07/08/25 09:00 FiO2 40 07/09/25 13:31 07/08/25 07/09/25 07/09/25 22:59 06:59 14:59 Intake Total 360 / 830 720 / 720 Output Total 400 / 400 200 / 600 Balance -40 / 430 -200 / 230 720 / 720 Weight last 48 hrs Weight 55.395 kg Physical Exam 2 Const: OTHER: Frail appearing. Resp: OTHER: On Bipap, Mild respiratory distress Cardio: COMMON NORMALS: regular rate, regular rhythm, S1 normal heart sound present and S2 normal heart sound present RATE: regular rate RHYTHM: r egular rhythm HEART SOUNDS: S1 normal heart sound present and S2 normal heart sound present Neuro: COMMON NORMALS: CN's II-XII intact bilaterally and no focal motor deficits Urinary Catheter Management: Maria: Cath Placed During This Visit: yes Reason for Continuing Indwelling Catheter: Accurate Measurement of Urinary Output in Critically Ill Patients Urinary Catheter Date of Insertion: 07/05/25 Urinary Catheter Time of Insertion: 21:14 Data 07/09/25 06:32 07/08/25 09:24 A&P Assessment and plan 1. Acute on chronic respiratory failure with hypoxia and hypercapnia: 2. Serum ammonia increased: Plan: Acute on chronic hypoxic hypercapnic respiratory failure - Patient has been on BiPAP since she came in, was improving however they did not use BiPAP. Reinforced compliance directly yesterday and apparently did wear BiPAP overnight however the blood gas does not look very good. Likely had bad seal. Discussed with respiratory therapy and asked them to increase the settings and also make sure the seal is proper. Will also consult pulmonary. Repeating ABG in few hours. - Continue management for COPD exacerbation . Continue p.o. prednisone breathing treatment and steroid inhalers. Has underlying history of COPD. - Pulmonary consulted - Enforce compliance with CPAP Hypernatremia Resolving, sodium 145 today. Mild hypokalemia Resolved Patient had elevated ammonia level when she came in. Repeat ammonia levels ordered DVT prophylaxis Lovenox subcu Full code PT OT ordered Discharge planning PDMP PDMP Reviewed: Not Reviewed Attestations 2 Medical Necessity Statement*: Blood gas worsening despite being on BiPAP overnight. Possibly related to poor seal versus failing BiPAP. Consulted pulmonary. Coding Level of Care Code Acute Code for Chg Fwd Diagnoses Acute on chronic respiratory failure with hypoxia and hypercapnia J96.21; J96.22 Serum ammonia increased E72.20
[2025-07-09 14:11] LABS: ABG PH Result 7.28 (7.35-7.45); Arterial Blood Gas Hematocrit 46.0 % (37-47); Blood Gas Allen Test Pos; Blood Gas Sample Type Arterial; Carboxyhemoglobin 1.5 %THgb (0.4-20.1); Glucose Level-ABG 248.0 mg/dL (70-115); HCO3 ABG 34.0 mmol/L (22-26); Ionized Calcium Level - ABG 1.2 mmol/L (1.1-1.4); Methemoglobin 0.1 % (0.4-1.5); Oxygen Saturation ABG 95.1; PO2 ABG 77.5 mmHg (80.0-100.0); Potassium Level - ABG 4.4 mmol/L (3.5-5.0); Sodium Level - ABG 147.0 mmol/L (131-143)
[2025-07-09 14:12] LABS: Alveolar-Arterial Oxygen Gradi 15.9 mmHg (5-10); Blood Gas Operator Identificat MONRO; Blood Gas Sample Site Brachial, right; Blood Gas Tidal Volume 0.45; PEEP 8.0 cmH20; PO2 FiO2 Ratio Arterial Blood 193
[2025-07-09 14:13] LABS: ABG PCO2 73.3 mmHg (35-45)
--- NOTE | 2025-07-09 15:48 | PC.RESP ---
Patient and stated that the Bipap was off for 1 hour before the 14:00 ABG was done .RT was not notified.
--- NOTE | 2025-07-09 19:44 | P.CONIM_ITS ---
Providers/Reason For Consult 2 Consulting Physician/Specialty*: Dr Pawel Dominguez Reason for Consult*: Acute on chronic respiratory failure Attending Physician: Pam Malone MD Primary Care Provider: Zoran Stern MD History of Present Illness History of Present Illness Lora Dsouza is a 65 year old female with past medical history of COPD group E GOLD 4- uncontrolled chornic bronchitis with recent exacerbation and repeated hospitalizations admitted again with respiratory failure on 07/06/2025 Prior lung function test (2022) was very low;FEV1 21% predicted. Was being consider referral to [facility] for lung transplant evaluation on outpatient basis. Currently on BiPAP appears comfortable. ABG shows 7.28 pH/73.3 pCO2 which appears to be around her baseline. Also started on budesonide and Singulair along with prednisone 60 mg daily. Medications/Allergies Home Medications ?Medication ?Instructions ?Recorded ?Confirmed ?Last Taken ?Type sertraline 50 mg tablet 50 mg PO DAILY 11/04/24 12/08/3007/05/25 History trazodone 50 mg tablet 50 mg PO BEDTIME 11/04/2407/04/25 20:00 History pantoprazole 40 mg tablet,delayed 40 mg PO DAILY #90 t abs 01/13/25 07/06/25 07/05/25 Rx release (Protonix) Ventolin HFA 90 mcg/actuation 2 puff inhalation Q6H HI N 02/18/25 07/06/25 07/05/25 Rx aerosol inhaler (albuterol sulfate) shortness of breat h or wheezing #8 grams ropinirole 1 mg tablet See Rx Instructions PO BID # 270 02/18/25 07/06/25 07/05/25 09:00 Rx tabs buspirone 7.5 mg tablet 7.5 mg PO DAILY PRN anxiety #60 03/25/25 07/06/25 05/29/25 Rx tabs megestrol 400 mg/10 mL (10 mL) 200 mg (5 mL) PO DAILY PRN 03/25/25 07/06/25 07/05/25 Rx oral suspension APPETITE #1,000 mL aspirin 81 mg tablet,delayed 81 mg PO DAILY #30 tabs 0 04/18/25 07/06/25 07/05/25 Rx release (Zeb Low Dose Aspirin) dupilumab 300 mg/2 mL subcutaneous 300 mg (2 mL) SUBCU T Q7D #2 mL 05/06/25 07/06/25 07/01/25 Rx syringe fluticasone propionate 50 2 spray intranasal DAILY #2 grams 05/06/25 07/06/25 05/01/25 Rx mcg/actuation nasal spray,suspension furosemide 20 mg tablet 20 mg PO QAM swelling #90 ta bs 05/06/25 07/06/25 05/01/25 Rx arformoterol 15 mcg/2 mL solution 15 mcg (2 mL) inhala tion 05/28/25 07/06/25 05/29/25 Rx for nebulization BID.RESPIRATORY #120 mL azithromycin 250 mg tablet 250 mg PO DAILY 30 days #30 tabs 06/08/25 07/06/25 07/05/25 Rx ipratropium 0.5 mg-albuterol 3 mg 3 ml inhalation Q6H PRN wheezing 06/08/25 07/06/25 Unknown Rx (2.5 mg base)/3 mL nebulization #90 mL soln Allergies Allergy/AdvReac Type Severity Reaction Status Date / Time No Known Allergies Allergy Verified 06/11/25 09:50 Current Medications Generic Name Dose Route Start Last Admin Trade Name Freq PRN Reason Stop Dose Admin Acetaminophen 650 mg 07/09/25 05:25 07/09/25 05:48 Acetaminophen 325 Mg Tablet PO 650 mg Q6H PRN Administration MILD PAIN Albuterol/Ipratropium 3 ml 07/06/25 01:51 07/09/25 13:30 Ipratropium-Albuterol 3 Ml Neb INHALATION 3 ml Q6H PRN Administration WHEEZING Aspirin 81 mg 07/06/25 05:00 07/09/25 04:04 Aspirin 81 Mg Ec Tablet PO 81 mg DAILY ROSANNA Administration Azithromycin 250 mg 07/06/25 05:00 07/09/25 04:03 Azithromycin 250 Mg Tablet PO 250 mg DAILY ROSANNA Administration Protocol Budesonide 0.5 mg 07/06/25 08:00 07/09/25 07:20 Budesonide 0.5 Mg/2 Ml Neb INHALATION 0.5 mg BID.RESPIRATORY ROSANNA Administration Enoxaparin Sodium 40 mg 07/06/25 02:00 07/09/25 04:03 Enoxaparin 40 Mg/0.4 Ml Syringe SUBCUT 40 mg Q24H ROSANNA Administration Lactulose 30 gm 07/06/25 05:00 07/09/25 12:33 Lactulose Oral Liq 20 Gm/30 Ml Udc PO 30 gm TID ROSANNA Administration Montelukast Sodium 10 mg 07/06/25 17:00 07/09/25 17:24 Montelukast Sodium 10 Mg Tablet PO 10 mg QPM ROSANNA Administration Pantoprazole Sodium 40 mg 07/06/25 05:00 07/09/25 04:[address] 40 Mg Tablet PO 40 mg DAILY ROSANNA Administration Prednisone 60 mg 07/09/25 05:00 07/09/25 04:03 Prednisone 20 Mg Tablet PO 60 mg DAILY ROSANNA Administration Ropinirole HCl 2 mg 07/06/25 05:00 07/09/25 04:03 Ropinirole 2 Mg Tablet PO 2 mg DAILY ROSANNA Administration Ropinirole HCl 1 mg 07/06/25 21:00 07/08/25 20:54 Ropinirole 1 Mg Tablet PO 1 mg BEDTIME ROSANNA Administration Sertraline HCl 50 mg 07/06/25 05:00 07/09/25 04:04 Sertraline 50 Mg Tablet PO 50 mg DAILY ROSANNA Administration Trazodone HCl 50 mg 07/06/25 21:00 07/08/25 20:54 Trazodone 50 Mg Tablet PO 50 mg BEDTIME ROSANNA Administration PFSH Acute 2 PFSH: Medical History (Updated 07/06/25 @ 00:44 by Manolo Kelly MD) History of PFTs 02/2023: Spirometry showed very severe airflow obstruction with FEV1/FVC 21; FEV1 510 cc 21% predicted and FVC 1.33 L 43% predicted. 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 Chronic respiratory failure with hypoxia and hypercapnia Restless leg Septic shock (~06/2024) Protein-calorie malnutrition, severe GERD (gastroesophageal reflux disease) Anxiety Hypertension Insomnia COPD (chronic obstructive pulmonary disease) Surgical History History of History of tonsillectomy Family History Father Stroke Other Dementia Denies family history of Diabetes CAD (coronary artery disease) Clotting disorder Hyperlipidemia Psychiatric illness Chronic kidney disease (CKD) Anesthesia complication Bleeding disorder Lung disease Cancer Hypertension Social History Smoking and tobacco/nicotine status: former use of tobacco/nicotine Quit status (tobacco/nicotine): has quit using Year quit tobacco: 2019 Former quit date comment: 2 packs/day for 30 years Second hand smoke exposure: Yes Alcohol intake: current Alcohol intake frequency: few times a week Alcohol type: beer Substance/Drug Use: never Additional social history: Patient wants DO NOT RESUSCITATE status as discussed with patient and Lino on 04/17/2025 by Rakesh Ray MD Marital status: Number of children: 5 Number of grandchildren: 9 service: No Current occupational status: disabled Current occupational exposures/hazards: No Previous occupational history: 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 Pets and animals: Yes Current gender identity: Female Vitals/I&O/Wt Last Vital Signs Temp 97.3 F L 07/09/25 15:34 Pulse 103 H 07/09/25 15:35 Resp 17 07/09/25 15:34 BP 125/73 07/09/25 15:34 Pulse Ox 92 07/09/25 15:35 O2 Del Method BiPAP 07/09/25 15:34 O2 Flow Rate 4 07/08/25 09:00 FiO2 40 07/09/25 15:35 07/09/25 07/09/25 07/09/25 06:59 14:59 22:59 Intake Total 720 / 720 360 / 1080 Output Total 200 / 600 900 / 900 Balance -200 / 230 720 / 720 -540 / 180 Weight last 48 hrs Weight 122 lb 2 oz Physical Exam 2 Narrative: Per RN General: Frail appearing lady sitting up in bed Pulmonary: Diminished breath sounds bilaterally Cardiovascular: rrr, nl s1s2, Abdomen: soft, nt, nd, no r/g, Extremities: no edema Neurologic: grossly intact Agree with above exam Urinary Catheter Management: Maria: Cath Placed During This Visit: yes Reason for Continuing Indwelling Catheter: Accurate Measurement of Urinary Output in Critically Ill Patients Urinary Catheter Date of Insertion: 07/05/25 Urinary Catheter Time of Insertion: 21:14 Data 07/09/25 06:32 07/08/25 09:24 A&P Assessment and plan 1. COPD (chronic obstructive pulmonary disease): 2. Tobacco dependence due to cigarettes, in remission: 3. Chronic respiratory failure with hypoxia and hypercapnia: Plan: This is a 64-year-old female past medical history of chronic respiratory failure, severe end-stage COPD comes in here with acute on chronic shortness of breath # COPD group E GOLD 4- uncontrolled chornic bronchitis with recent exacerbation and repeated hospitalizations admitted again with respiratory failure She was unable to keep the BiPAP on most of the night for her . Patient is requiring home non-invasive ventilator due to chronic hypercapnic respiratory failure with increasing CO2 levels. NIV is more effective than BiLEVEL to reduce CO2 levels and to prevent future readmissions due to inadequate ventilatory support. BiLEVEL does not have advanced features of backup rate, respiratory parameter monitoring & alarms, auto-EPAP, and detailed respiratory monitoring & reporting to reduce readmissions. Patient requires AVAPS-AE and advanced features to reduce risk of future readmission due to respiratory failure. Failure to use NIV could lead to serious health issues, decreased qualify of life, and readmission to hospital & is medically necessary. # Acute COPD exacerbation Continue current nebulizers. Will add Brovana as this was her outpatient medication # Liver cirrhosis # Pulmonary cachexia Thank you for the consult Medical decision making level- High high MDM includes number and complexity of problems actively addressed during encounter, amount and/or complexity of data reviewed/ordered [ previous or external records, resulted lab(s)/test(s), ordered lab(s)/test(s), independent historian, independent test interpretation and other healthcare professional discussion] and described risk of complication, morbidity or mortality of management as documented This documentation was created by [employer] director specialty software (known for inherent director specialty error). Every effort was made to assure accuracy of director specialty. Any obvious errors or omissions should be clarified with the author of the document PDMP PDMP Reviewed: Not Reviewed Coding Level of Care Code 32482 Diagnoses COPD (chronic obstructive pulmonary disease) J44.9 Tobacco dependence due to cigarettes, in remission F17.211 Chronic respiratory failure with hypoxia and hypercapnia J96.11; J96.12
--- NOTE | 2025-07-09 19:54 | PC.NURSE ---
Puldimitrios Dominguez did Facetime w pt , spoke with pt and discussed POC. Pt and verbalized good understanding of educ given. pt off BIpap right now george well.
[2025-07-10] VITALS (14 sets, daily range): BP systolic 119–143; BP diastolic 68–75; PULSE 85–105; RESP 16–26; TEMP 36.1–37.3; O2SAT 90–96
[2025-07-10] MEDS: ARFORMOTEROL 15 MCG/2 ML NEB INHALATION ×3 (00:29→20:58)
[2025-07-10] MEDS: lactulose oral liq 20 gm/30 mL UDC 30 GM PO ×3 (05:07→21:34)
[2025-07-10 06:08] LABS: Hematocrit 49.5 % (36-47); Hemoglobin 14.50 g/dL (11.27-16.99); Mean Corpuscular HGB Conc 29.3 g/dL (30-55); Mean Corpuscular Hemoglobin 28.4 pg (27-33); Mean Corpuscular Volume 97.1 fl (85-98); Nucleated Red Blood Cells % 0 %; Platelet Count 272 10^3/cmm (157-399); Red Blood Count 5.10 10^6/uL (3.85-5.65); White Blood Count 7.56 10^3/uL (3.29-11.43)
[2025-07-10 06:23] LABS: Anion Gap 6.9 (5-19); Blood Urea Nitrogen 12 mg/dL (8-23); Calcium 9.0 mg/dL (8.5-10.5); Carbon Dioxide 39 mmol/L (22-29); Chloride 104 mmol/L (98-107); Glucose 104 mg/dL (65-115); Osmolality Calculated 302 mOsm/kg (285-295); Potassium 3.9 mmol/L (3.5-5.1); Sodium 146 mmol/L (136-145)
[2025-07-10 12:00] LABS: ABG PH Result 7.28 (7.35-7.45); Alveolar-Arterial Oxygen Gradi 11.3 mmHg (5-10); Arterial Blood Gas Hematocrit 45.6 % (37-47); Blood Gas Allen Test Pos; Blood Gas LPM 4.0 %; Blood Gas Operator Identificat glc; Blood Gas Sample Site Radial, left; Blood Gas Sample Type Arterial; Carboxyhemoglobin 1.4 %THgb (0.4-20.1); Glucose Level-ABG 190.0 mg/dL (70-115); HCO3 ABG 34.8 mmol/L (22-26); Ionized Calcium Level - ABG 1.2 mmol/L (1.1-1.4); Methemoglobin 0.1 % (0.4-1.5); Oxygen Saturation ABG 95.6; PO2 ABG 80.3 mmHg (80.0-100.0); PO2 FiO2 Ratio Arterial Blood 223; Potassium Level - ABG 4.6 mmol/L (3.5-5.0); Sodium Level - ABG 146.0 mmol/L (131-143)
[2025-07-10 12:10] LABS: ABG PCO2 74.8 mmHg (35-45)
--- NOTE | 2025-07-10 14:26 | P.PN_ITS ---
Subjective 2 Subjective: Patient seen and examined, on and off of BiPAP. currenty on nasal canula, awake, alert 07/08 reviewed patient's ABG from today a nd again on BiPAP given pH of 7.2. Reinforced compliance with BiPAP with patient and her in room. 07/09 apparently wore BiPAP overnight how ever ABG does not look very good on the BiPAP, likely seal was not proper. Consult pulmonary today. 07/10 continues to wear BiPAP however nee ds to be switched to AVAPS mode per pulmonary. ABG does not look much better as compared to yesterday however patient is more awake and alert. pCO2 is still elevated however pH is also still 7.2. Vitals/I&O/Wt Last Vital Signs Temp 99.1 F 07/10/25 11:53 Pulse 99 07/10/25 11:53 Resp 18 07/10/25 11:53 BP 119/68 07/10/25 11:53 Pulse Ox 93 07/10/25 11:53 O2 Del Method Nasal Cannula 07/10/25 11:53 O2 Flow Rate 4 07/10/25 08:00 FiO2 40 07/10/25 04:00 07/09/25 07/10/25 07/10/25 22:59 06:59 14:59 Intake Total 460 / 1180 240 / 1420 480 / 480 Output Total 900 / 900 350 / 1250 550 / 550 Balance -440 / 280 -110 / 170 -70 / -70 Weight last 48 hrs Weight 55.338 kg Weight 55.395 kg Physical Exam 2 Const: OTHER: Frail appearing. Resp: OTHER: On Bipap, Mild respiratory distress Cardio: COMMON NORMALS: regular rate, regular rhythm, S1 normal heart sound present and S2 normal heart sound present RATE: regular rate RHYTHM: r egular rhythm HEART SOUNDS: S1 normal heart sound present and S2 normal heart sound present Neuro: COMMON NORMALS: CN's II-XII intact bilaterally and no focal motor deficits Urinary Catheter Management: Maria: Cath Placed During This Visit: yes Reason for Continuing Indwelling Catheter: Accurate Measurement of Urinary Output in Critically Ill Patients Urinary Catheter Date of Insertion: 07/05/25 Urinary Catheter Time of Insertion: 21:14 Data 07/10/25 05:39 07/10/25 05:39 A&P Assessment and plan 1. Acute on chronic respiratory failure with hypoxia and hypercapnia: 2. Serum ammonia increased: Plan: Acute on chronic hypoxic hypercapnic respiratory failure - Patient has been on BiPAP since she came in, was improving however they did not use BiPAP. Reinforced compliance directly and apparently did wear BiPAP overnight however the blood gas does not look very good. Likely had bad seal. Discussed with respiratory therapy and asked them to increase the settings and also make sure the seal is proper. Will also consult pulmonary. Repeat ABG today shows pH 7.2, pCO2 74.8, pO2 80 - Continue management for COPD exacerbation . Continue p.o. prednisone breathing treatment and steroid inhalers. Has underlying history of COPD. - Pulmonary consulted--recommending AVAPS mode - Enforce compliance with CPAP Hypernatremia 146 today-encourage po intake. Mild hypokalemia Resolved Patient had elevated ammonia level when she came in. Repeat ammonia levels again ordered DVT prophylaxis Lovenox subcu Full code PT OT ordered Discharge planning PDMP PDMP Reviewed: Not Reviewed Attestations 2 Medical Necessity Statement*: Blood gas continues to show pH of 7.2, elevated pCO2. Pulmonary recommending AVAPS mode for now. Coding Level of Care Code Acute Code for Chg Fwd Diagnoses Acute on chronic respiratory failure with hypoxia and hypercapnia J96.21; J96.22 Serum ammonia increased E72.20
--- NOTE | 2025-07-10 22:01 | PC.RESP ---
overnight pox study pt placed on ra to start study, pt sats dropped to 83% while being observed by RT, pt placed on avaps for the overnight study. Current settings are Avaps 18/450/+8/40% will continue to monitor for the remainder of testing.
--- NOTE | 2025-07-11 00:42 | PC.NURSE ---
pt having sleep study at bedside- so meds given earlier and 12-3am meds time moved due to pt sleep study per RT instructions. pt aware of POC. pt had BM apx 1/4c daniel-agustina espinosa bm. staff , pt and hide salter aware of plan.
--- NOTE | 2025-07-11 03:07 | PC.NURSE ---
no bp or temp taken , pt on cont pulse ox and HR due to SLEEP STUDY. at bedside.
[2025-07-11 03:44] VITALS: PULSE 88; RESP 27; O2SAT 96
[2025-07-11 04:00] VITALS: BP 104/70; PULSE 62; RESP 21; TEMP 36.4; O2SAT 93
[2025-07-11 05:13] LABS: Hematocrit 48.9 % (36-47); Hemoglobin 14.00 g/dL (11.27-16.99); Mean Corpuscular HGB Conc 28.6 g/dL (30-55); Mean Corpuscular Hemoglobin 27.9 pg (27-33); Mean Corpuscular Volume 97.4 fl (85-98); Nucleated Red Blood Cells % 0 %; Platelet Count 255 10^3/cmm (157-399); Red Blood Count 5.02 10^6/uL (3.85-5.65); White Blood Count 6.62 10^3/uL (3.29-11.43)
[2025-07-11 05:31] LABS: Ammonia 52 umol/L (11-51)
[2025-07-11 05:38] LABS: Blood Urea Nitrogen 12 mg/dL (8-23); Calcium 8.8 mg/dL (8.5-10.5); Carbon Dioxide 38 mmol/L (22-29); Chloride 103 mmol/L (98-107); Glucose 100 mg/dL (65-115); Osmolality Calculated 298 mOsm/kg (285-295); Sodium 144 mmol/L (136-145)
[2025-07-11 05:39] LABS: Anion Gap 7.5 (5-19); Potassium 4.5 mmol/L (3.5-5.1)
[2025-07-11 06:00] VITALS: PULSE 93
[2025-07-11] MEDS: lactulose oral liq 20 gm/30 mL UDC 30 GM PO (06:00)
[2025-07-11 07:54] VITALS: PULSE 102; RESP 20; O2SAT 93
[2025-07-11] MEDS: ARFORMOTEROL 15 MCG/2 ML NEB INHALATION (07:54)
[2025-07-11 08:00] VITALS: BP 122/76; PULSE 85; RESP 22; TEMP 36.4; O2SAT 96
[2025-07-11 11:40] VITALS: BP 145/70; PULSE 106; RESP 20; TEMP 36.7; O2SAT 88
--- NOTE | 2025-07-11 14:27 | PM.DCS ---
Discharge Providers Date of Admission: 07/05/25 21:01 Date of Discharge: July 11, 2025 Attending Provider at Admission: Manolo Kelly MD Attending Provider at Discharge: Bacilio Vitale DO Consults: Pulmonary Primary Care Provider: Zoran Stern MD Diagnoses at Discharge Discharge Diagnosis 1. Acute on chronic respiratory failure with hypoxia and hypercapnia: 2. Serum ammonia increased: Reason for Visit Reason for Visit: sob Brief History: Lora Dsouza is a 65 year old female with history significant for chronic respiratory failure with 4L via nasal cannula continuously, and non adherent with CPAP who presents with complaints of confusion per spouse. Hospital Course Hospital Course Patient was found to have acute on chronic respiratory failure with hypoxia and hypercapnia. Patient was placed on BiPAP continued on 4 L oxygen. Patient had an elevated ammonia and was started on lactulose. Pulmonary was consulted and reviewed her prior lung function test from 2022. Her PFTs showed low lung function with an FEV1 21% of predicted. Initially she was having a referral to [facility] for a lung transplant evaluation. Dr. Kevin plans to follow-up with the patient outpatient once she is stabilized from acute exacerbation and move forward with appropriate evaluations. Arrangements were made for the patient to haveAVAP. 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 She is unable to keep the BiPAP on at night. Patient will require the noninvasive ventilator due to chronic hyper per Respiratory failure with hypercapnea. Physical Exam Narrative: Thin frail appears 10 to 15 years older than stated age. Heart regular normal S1-S2 without murmurs clicks gallops or rubs Lung minimal air movement equal bilaterally no wheezes rales or rhonchi Abdomen soft nontender nondistended positive bowel sounds Extremities no clubbing cyanosis or edema The patient was able to walk with standby assist with . She just needed help with her various lines and Maria Urinary Catheter Management: Maria: Cath Placed During This Visit: yes, but has since been removed by the nurse Reason for Continuing Indwelling Catheter: Decision to DC Catheter Urinary Catheter Date of Insertion: 07/05/25 Urinary Catheter Time of Insertion: 21:14 Date Urinary Catheter Removed: 07/11/25 Time Urinary Catheter Discontinued: 11:25 Discharge Data Studies Completed and Pending Completed Studies During Hospitalization Category Date Time Status XR chest 1V portable [id number] Stat Exams 07/05/25 18:58 Completed Pending at discharge Category Date Time Status BMP [Basic Metabolic Panel] AM LABS Lab 07/12/25 04:00 Ordered CBC Auto Diff [Complete Blood Count w/Auto] AM LABS Lab 07/12/25 04:00 Ordered Radiology Impressions Chest X-Ray 07/05/25 18:58 IMPRESSION: Bibasal atelectasis versus early infectious process. Laboratory Results WBC 6.62 10^3/uL (3.29-11.43) 07/11/25 05:08 RBC 5.02 10^6/uL (3.85-5.65) 07/11/25 05:08 Hgb 14.00 g/dL (11.27-16.99) 07/11/25 05:08 Hct 48.9 % (36-47) H 07/11/25 05:08 MCV 97.4 fl (85-98) 07/11/25 05:08 MCH 27.9 pg (27-33) 07/11/25 05:08 MCHC 28.6 g/dL (30-55) L 07/11/25 05:08 RDW 17.2 % (12.1-15.1) H 07/11/25 05:08 Plt Count 255 10^3/cmm (157-399) 07/11/25 05:08 MPV 10.3 fL (7.4-10.4) 07/11/25 05:08 Neut % (Auto) 72.0 % 07/11/25 05:08 Lymph % (Auto) 18.1 % 07/11/25 05:08 [place] % (Auto) 8.0 % 07/11/25 05:08 Eos % (Auto) 0.8 % 07/11/25 05:08 Baso % (Auto) 0.5 % 07/11/25 05:08 Neut # (Auto) 4.77 10^3/uL (1.8-7.7) 07/11/25 05:08 Lymph # (Auto) 1.2 10^3/uL (0.8-4.8) 07/11/25 05:08 [place] # (Auto) 0.5 10^3/uL (0.2-0.9) 07/11/25 05:08 Eos # (Auto) 0.1 10^3/uL (0.0-0.8) 07/11/25 05:08 Baso # (Auto) 0.0 10^3/uL (0.0-0.1) 07/11/25 05:08 Nucleated RBC % (auto) 0 % 07/11/25 05:08 Nucleated RBCs # 0.0 /100WBC 07/11/25 05:08 Specimen Type Arterial 07/10/25 11:48 Sample Site Radial, left 07/10/25 11:48 ABG pH 7.28 (7.35-7.45) L 07/10/25 11:48 ABG pCO2 74.8 mmHg (35-45) H* 07/10/25 11:48 ABG pO2 80.3 mmHg (80.0-100.0) 07/10/25 11:48 ABG PO2/FiO2 Ratio 223 07/10/25 11:48 ABG HCO3 34.8 mmol/L (22-26) H 07/10/25 11:48 ABG O2 Saturation 95.6 07/10/25 11:48 ABG Base Excess 5.1 mmol/L (-2.0-2.0) H 07/10/25 11:48 Erik Test Pos 07/10/25 11:48 A-a O2 Gradient 11.3 mmHg (5-10) H 07/10/25 11:48 Hematocrit 45.6 % (37-47) 07/10/25 11:48 Hgb O2 Saturation 94.2 % (95-100) L 07/10/25 11:48 Carboxyhemoglobin 1.4 %THgb (0.4-20.1) 07/10/25 11:48 Methemoglobin 0.1 % (0.4-1.5) L 07/10/25 11:48 Total Hemoglobin 14.9 g/dL (12-16) 07/10/25 11:48 Sodium 146.0 mmol/L (131-143) H 07/10/25 11:48 Potassium 4.6 mmol/L (3.5-5.0) 07/10/25 11:48 Glucose 190.0 mg/dL (70-115) H 07/10/25 11:48 Ionized Calcium 1.2 mmol/L (1.1-1.4) 07/10/25 11:48 Respiration Rate 14.0 % 07/07/25 06:00 O2 Delivery Device Nc 07/10/25 11:48 O2 Liters/Min 4.0 % 07/10/25 11:48 FiO2 36.0 % 07/10/25 11:48 Tidal Volume 0.45 07/09/25 14:00 PEEP 8.0 cmH20 07/09/25 14:00 Specimen Drawn By Margarita 07/07/25 06:00 Inspector Barrel ID glc 07/10/25 11:48 Sodium 144 mmol/L (136-145) 07/11/25 05:08 Potassium 4.5 mmol/L (3.5-5.1) 07/11/25 05:08 Chloride 103 mmol/L (98-107) 07/11/25 05:08 Carbon Dioxide 38 mmol/L (22-29) H 07/11/25 05:08 Anion Gap 7.5 (5-19) 07/11/25 05:08 BUN 12 mg/dL (8-23) 07/11/25 05:08 Creatinine 0.4 mg/dL (0.5-0.9) L 07/11/25 05:08 GFR Calculation 160.7 mL/min (90-130) H 07/11/25 05:08 Glucose 100 mg/dL (65-115) 07/11/25 05:08 Calculated Osmolality 298 mOsm/kg (285-295) H 07/11/25 05:08 Lactic Acid 0.8 mmol/L (0.5-2.2) 07/05/25 18:35 Calcium 8.8 mg/dL (8.5-10.5) 07/11/25 05:08 Total Bilirubin 0.6 mg/dL (0.15-1.2) 07/07/25 08:45 AST 14 U/L (0-32) 07/07/25 08:45 ALT 12 U/L (0-33) 07/07/25 08:45 Alkaline Phosphatase 47 U/L (35-105) 07/07/25 08:45 Ammonia 52 umol/L (11-51) H 07/11/25 05:08 C-Reactive Protein 8.9 mg/L (0.0-4.9) H 07/06/25 03:58 Total Protein 5.6 g/dL (6.6-8.7) L 07/07/25 08:45 Albumin 3.8 g/dL (3.5-5.2) 07/07/25 08:45 Globulin 1.8 g/dL (1.3-4.6) 07/07/25 08:45 Procalcitonin 0.08 ng/mL (0-0.5) 07/06/25 03:58 Urine Color Yellow (Yellow) 07/05/25 21:03 Urine Appearance Clear (CLEAR) 07/05/25 21:03 Urine pH 5.5 (5-7) 07/05/25 21:03 Ur Specific [place] 1.013 (1.005-1.030) 07/05/25 21:03 Urine Protein 1+ (Negative) A 07/05/25 21:03 Urine Glucose (UA) Negative (Normal) 07/05/25 21:03 Urine Ketones Negative (Negative) 07/05/25 21:03 Urine Blood Negative (Negative) 07/05/25 21:03 Urine Nitrate Negative (Negative) 07/05/25 21:03 Urine Bilirubin Negative (Negative) 07/05/25 21:03 Urine Urobilinogen 0.2 mg/dL (Negative) 07/05/25 21:03 Ur Leukocyte Esterase Trace (Negative) A 07/05/25 21:03 Urine RBC 0-2 /hpf (0-2) 07/05/25 21:03 Urine WBC 6-10 /hpf (0-5) 07/05/25 21:03 Ur Squamous Epith Cells 0-5 /hpf (0-5) 07/05/25 21:03 Ur Renal Epithelial Cell 5-10 /hpf 07/05/25 21:03 Amorphous Sediment Not Reportable 07/05/25 21:03 Urine Bacteria None seen /hpf (NONE) 07/05/25 21:03 Hyaline Casts 13.22 /lpf 07/05/25 21:03 Urine Opiates Screen Negative ng/mL (Negative) 07/05/25 21:03 Ur Barbiturates Screen Negative ng/mL (Negative) 07/05/25 21:03 Ur Phencyclidine Scrn Negative ng/mL (Negative) 07/05/25 21:03 Ur Amphetamines Screen Negative ng/mL (Negative) 07/05/25 21:03 U Benzodiazepines Scrn Negative ng/mL (Negative) 07/05/25 21:03 Urine Cocaine Screen Negative ng/mL (Negative) 07/05/25 21:03 U Marijuana (THC) Screen Negative ng/mL (Negative) 07/05/25 21:03 Ethyl Alcohol < 10 mg/dL (0-10) 07/05/25 18:35 Influenza A (PCR) Negative (Negative) 07/05/25 19:40 Influenza Type B (PCR) Negative (Negative) 07/05/25 19:40 RSV (PCR) Negative (Negative) 07/05/25 19:40 SARS-CoV-2 (PCR) Negative (Negative) 07/05/25 19:40 Vitals Last Vital Signs Temp 98.0 F 07/11/25 11:40 Pulse 106 H 07/11/25 11:40 Resp 20 H 07/11/25 11:40 BP 145/70 07/11/25 11:40 Pulse Ox 88 L 07/11/25 11:40 O2 Del Method Nasal Cannula 07/11/25 11:40 O2 Flow Rate 4 07/11/25 09:13 FiO2 40 07/11/25 03:44 Discharge Plan Discharge Patient Disposition: Home Condition: Stable Prescriptions: New prednisone 20 mg Tablet 60 mg PO DAILY Qty: 90 0RF budesonide 0.5 mg/2 mL Suspension For Nebulization 0.5 mg inhalation BID.RESPIRATORY Qty: 30 0RF montelukast 10 mg Tablet 10 mg PO QPM Qty: 30 0RF Continued ropinirole 1 mg tablet See Rx Instructions PO BID Qty: 270 1RF Rx Instructions: Take 2 tablets by mouth in the morning, and 1 tablet in the evening. albuterol sulfate [Ventolin HFA] 90 mcg/actuation HFA aerosol inhaler 2 puff inhalation Q6H PRN (Reason: shortness of breath or wheezing) Qty: 8 4RF ipratropium-albuterol 0.5 mg-3 mg(2.5 mg base)/3 mL solution for nebulization 3 ml inhalation Q6H PRN (Reason: wheezing) Qty: 90 6RF azithromycin 250 mg tablet 250 mg PO DAILY 30 Days Qty: 30 12RF Rx Instructions: start on day 2 of therapy pantoprazole [Protonix] 40 mg tablet,delayed release (DR/EC) 40 mg PO DAILY Qty: 90 1RF buspirone 7.5 mg tablet 7.5 mg PO DAILY PRN (Reason: anxiety) Qty: 60 0RF megestrol 400 mg/10 mL (10 mL) suspension 200 mg PO DAILY PRN (Reason: APPETITE) Qty: 1000 0RF arformoterol 15 mcg/2 mL solution for nebulization 15 mcg inhalation BID.RESPIRATORY Qty: 120 0RF trazodone 50 mg tablet 50 mg PO BEDTIME sertraline 50 mg tablet 50 mg PO DAILY aspirin [Zeb Low Dose Aspirin] 81 mg tablet,delayed release (DR/EC) 81 mg PO DAILY Qty: 30 0RF furosemide 20 mg tablet 20 mg PO QAM Qty: 90 0RF Rx Instructions: Take daily not as needed fluticasone propionate 50 mcg/actuation spray,suspension 2 spray intranasal DAILY Qty: 2 0RF dupilumab 300 mg/2 mL syringe 300 mg SUBCUT Q7D Qty: 2 0RF Discharge Order = DC NOW: Discharge Order (Routine); Ordered 07/11/25 Ordered By: Bacilio Vitale Referrals: Pawel Dominguez MD [Physician, Pulmonology] - 7-10 days Referral Note: Seen in Hospital We have notified your physician's clinic of the need for a follow-up appointment to be scheduled. If you have not heard from them within the next 2 business days, please call them directly. Zoran Stern MD [Primary Care Provider, Family Practice] Referral Note: We have notified your physician's clinic of the need for a follow-up appointment to be scheduled. If you have not heard from them within the next 2 business days, please call them directly. Discharge Diet: Usual diet Discharge Activity: Increase activity as tolerated Patient Instructions: Prednisone (By mouth), Montelukast (By mouth) (Singulair), Budesonide (By mouth), Using Oxygen at Home (DC), Hypoxia (GEN), Chronic Respiratory Failure (DC), Opioid Safety, Patient Portal & Cari Instructions Discharge Attestations Time Spent in Discharge Care*: greater than 30 min Status at Discharge: Cognitive status at discharge: cognitively intact, Behavioral status at discharge: cooperative, Quality Metrics Clinical Quality Measures [ No reported AMI, CVA or VTE this stay] Coding Level of Care Code Acute Code for Chg Fwd Diagnoses Acute on chronic respiratory failure with hypoxia and hypercapnia J96.21; J96.22 Serum ammonia increased E72.20
== END 2025-07-11 15:25 | disposition home or self-care (01) | DRG 189 ==
LOC: ER 23:48 → ICU 07-06 00:18 → MEDSURG 07-08 11:57
PROVIDERS: Internal Medicine; Admitting Provider Family Medicine; Emergency Provider Physician Assistant; PCP Family Medicine; Visit Provider Internal Medicine
DX: J96.22 Acute and chronic respiratory failure with hypercapnia (principal); J44.1 Chronic obstructive pulmonary disease with (acute) exacerbation; G93.40 Encephalopathy, unspecified; E87.0 Hyperosmolality and hypernatremia; R64 Cachexia; J96.21 Acute and chronic respiratory failure with hypoxia; Z87.891 Personal history of nicotine dependence; Z91.199 Patient's noncompliance with other medical treatment and regimen due to unspecified reason; E87.6 Hypokalemia; K21.9 Gastro-esophageal reflux disease without esophagitis; I10 Essential (primary) hypertension; F41.9 Anxiety disorder, unspecified; G25.81 Restless legs syndrome; K74.60 Unspecified cirrhosis of liver; Z68.20 Body mass index [BMI] 20.0-20.9, adult; Z79.82 Long term (current) use of aspirin
CPT/HCPCS: 36415; 36600; 51702; 71045; 80048; 80051; 80053; 80306; 80307; 81001; 82140; 82330; 82803; 82805; 83605; 84145; 85025; 86140; 87637; 93005; 94640; 94660; 96372; 96374; 96375; 99291; J1630; J1650; J2060; J7512; J7605; J7626; J9999; Q0144